=== PATIENT | male | born 1955 | race Caucasian/White ===

== ENCOUNTER 2019-12-10 12:35 | Outpatient (RCR) | payer MEDICARE, OTHER, SELFPAY ==
--- NOTE | 2019-12-10 13:37 | PTOPEVAL ---
Thank you for referring this patient to [facility]. Please review, sign, date and return this plan of care [facility]. I agree with and certify that the following plan of care is medically necessary. Referring Physician Date Admitting Provider: Attending Provider: PHYSICIAN NOT ON STAFF Referring Provider: *PT Outpatient Evaluation Start: 12/10/19 12:54 Freq: Status: Active Protocol: Document 12/10/19 13:00 GILDARDO (Rec: 12/10/19 13:35 [facility] [id number]) Therapy Assessment Status Assessment Status Assessment Status Evaluation Outpatient Past Medical History Past Medical History Reason Unable to Obtain see patient intake form Evaluation Information Problem Diagnosis bilateral shoulder pain Onset 12/06/19 Subjective Information patient reports he is having Query Text:As Reported By Patient/ the majority of pain in the R Family shoulder and neck. he reports the pain is related to previous injuries of the R shoulder. he reports he has had imaging of the R shoulder taken recently. he reports he no longer has a rotator cuff of the R shoulder. he reports he recntly had an injection to the R shoulder. he reports he has about 20% mobility and use of the R shoulder. Prior Level of Function Comments Additional Prior Level of Function patient reports he has had Comments shoulder pain and issues for years. however, he reports he has had increased pain in the R shoulder since October. he reports he has never had surgery on the R shoulder. he reports he is not a candidate for surgery. Pain Assessment Timing of Pain Assessment Timing of Pain Assessment Assessment Pain Scale Pain Scale Used Numeric (1 - 10) Self Report Pain Assessment Right Neck Reported Pain Level 8 Pain Description Dull,Sharp Pain Radiation Neck Current Pain Intensity 8 Lowest Pain Intensity 4 Greatest Pain Intensity 10 Pain Aggravating Factors Changing Position,Lifting Pain Score Pain Score 8: Self Report Upper Extremity Range of Motion Scapular/ Shoulder Range of Motion Right Shoulder Flexion - Active 120 Shoulder Flexion - Passive 140 Shoul
--- NOTE | 2019-12-17 13:16 | PCPTNOTE ---
12/17 pt called and cancelled due to being ill JF
--- NOTE | 2019-12-26 15:53 | PCPTNOTE ---
patient called and cancelled appt today. ARIANE
== END 2019-12-28 08:53 | disposition home or self-care (01) ==
LOC: CHSPT 12:35
DX: M13.812 Other specified arthritis, left shoulder (principal); M13.811 Other specified arthritis, right shoulder
CPT/HCPCS: 97014; 97110; 97140; 97162; G0283

== ENCOUNTER 2020-01-05 17:22 | Emergency (ER) | payer MEDICARE, MEDICAID, SELFPAY ==
--- NOTE | ~2020-01-05 | XR_ITS ---
EXAMINATION: XR chest 2V EXAM DATE: 01/05/2020 17:56 INDICATION: Shortness of breath, cough. TECHNIQUE: Frontal and lateral projections of the chest obtained and reviewed. Comparison is made to prior examination from 03/30/2019. FINDINGS: Linear bibasilar atelectasis. The lungs are otherwise clear. There are no pleural effusio ns. The cardiomediastinal silhouette is within normal limits. There is no pneumothorax suspected. The bones and soft tissues are unremarkable. IMPRESSION: Linear right basilar opacities likely atelectasis. Reviewed, dictated and finalized at location A. RNATIONAL STUDENT COUNSELOR
[2020-01-05 17:25] VITALS: BP 151/80; PULSE 96; RESP 20; TEMP 37.2; O2SAT 95
--- NOTE | 2020-01-05 17:41 | ECG_ITS ---
Measurements Intervals [place] Rate: 77 P: 34 IN: 151 QRS: 34 QRSD: 142 T: 37 QT: 368 QTc: 418 Interpretive Statements SINUS RHYTHM RIGHT BUNDLE BRANCH BLOCK BASELINE ARTIFACT- II, III, AVR, AVF ABNORMAL ECG Electronically Signed On 01-06-2020 8:32:55 CDT by Bart Koenig D.O.
--- NOTE | 2020-01-05 18:05 | ED.SOB ---
HPI - SOB/Dyspnea General Chief Complaint: Shortness of Breath/Dyspnea Stated Complaint: shortness of breath Time Seen by Provider: 01/05/20 17:40 Source: patient Mode of arrival: wheelchair Limitations: clinical condition History of Present Illness HPI Narrative: marie is a 64-year-old male patient. He presents by wheelchair to the emergency room. His main complaint is shortness of breath. This has been going on for 2 days. Marie has a history of COPD / emphysema. He denies any chest pain. There is no history of fever. No history of abdominal pain. No vomiting or diarrhea. no urinary symptoms. 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 He has history of anxiety. He has had a cholecystectomy in the past. He has had hip surgery in the past. Marie is a former smoker. Marie denies any cough. Marie use oxygen at 2 L at home. He has a nebulizer machine and he did use it with [employer]. no history of diaphoresis. MD elicited complaint: shortness of breath Pertinent past history: COPD Timing: intermittent Severity: moderate Exacerbating factors: lying flat and exertion Relieving factors: oxygen Known history of: COPD Associated symptoms: other ( Please see HPI narrative for details) Related Data Home oxygen amount: 2 liters Home Medications Medication Instructions Recorded Confirmed albuterol sulfate 1 - 2 puff INHALATION Q4-5H 01/05/20 01/05/20 albuterol sulfate [Ventolin HFA] 1 inh INHALATION Q4-5H 01/05/20 01/05/20 atorvastatin 40 mg PO DAILY 01/05/20 01/05/20 budesonide-formoterol [Symbicort] 1 - 2 inh INHALATION DAILY 01/05/20 01/05/20 buspirone 7.5 mg PO DAILY 01/05/20 01/05/20 cyclobenzaprine 10 mg PO TID PRN 01/05/20 01/05/20 desloratadine 5 mg PO DAILY 01/05/20 01/05/20 finasteride 5 mg PO DAILY 01/05/20 01/05/20 fluticasone propionate 1 - 2 spray INTRANASAL DAILY 01/05/20 01/05/20 hydrocodone-acetaminophen 1 tablet PO TID PRN 01/05/20 01/05/20 rabeprazole 20 mg PO DAILY 01/05/20 01/05/20 tamsulosin 0.4 mg PO DAILY 01/05/20 01/05/20 theophylline [Ras-24] 400 mg PO DAILY 01/05/20 01/05/20 torsemide 20 mg PO DAILY 01/05/20 01/05/20 Allergies Allergy/AdvReac Type Severity Reaction Status Date / Time vancomycin Allergy Severe Verified 02/28/12 16:53 levofloxacin Allergy Intermediate HIVES Verified 03/11/17 08:18 lisinopril Allergy Intermediate swelling Verified 02/10/15 12:54 Penicillins Allergy Intermediate Verified 09/28/11 15:12 Quinolones Allergy Unknown BLISTERS,HI Verified 03/11/17 08:18 VES Review of Systems Review of Systems: All systems reviewed & are unremarkable except as noted in HPI and below Constitutional: Constitutional: Reports as per HPI, Reports no additional constitutional complaints, Denies chills and Denies fever(s) Eyes: Eyes: Reports as per HPI, Reports no additional eye complaints and Denies change in vision ENT: Reports system reviewed and no additional complaints, except as documented, Denies dysphagia, Denies vertigo, Denies dizziness and Denies epistaxis Cardiovascular: Cardiovascular: Reports as per HPI, Reports no additional cardiovascular complaints, Denies chest pain and Denies radiating jaw, neck or arm pain Respiratory: Respiratory: Reports no additional respiratory complaints and Reports dyspnea Gastrointestinal: Gastrointestinal: Reports as per HPI, Reports no additional gastrointestinal complaints, Denies abdominal pain, Denies diarrhea, Denies nausea and Denies vomiting Genitourinary: Genitourinary: Reports no additional male genitourinary complaints, Denies hematuria and Denies dysuria Comments: Has history of BPH Musculoskeletal: Musculoskeletal: Reports no additional musculoskeletal complaints and Denies back pain Integumentary/Breasts: Skin/Breast: Reports system reviewed and no additional complaints, except as docu, Denies erythema and Denies rash Neurologic: Reports system reviewed and no additional complaints, except as documented, Denies vertigo, D
[2020-01-05 18:17] LABS: Basophils Absolute Auto 0.02 K/mm3 (0.00-0.10); Basophils Percent Auto 0.3 % (0.0-1.0); Eosinophils Absolute Auto 0.12 K/mm3 (0.02-0.50); Eosinophils Percent Auto 1.7 % (1.0-6.0); Hematocrit 40.7 % (37.0-46.0); Hemoglobin 12.9 g/dL (12.4-15.3); Immature Granulocyte Absolute 0.06 K/mm3 (0.00-0.00); Immature Granulocyte Percent A 0.9 % (0.0-0.0); Lymphocytes Absolute Auto 1.15 K/mm3 (1.10-4.50); Lymphocytes Percent Auto 16.7 % (18.0-42.0); Mean Corpuscular HGB Conc 31.7 g/dL (32.0-36.0); Mean Corpuscular Hemoglobin 29.5 pg (27.0-31.0); Mean Corpuscular Volume 93.1 fL (78.0-102.0); Mean Platelet Volume 9.4 fl (8.7-11.0); Monocytes Absolute Auto 0.64 K/mm3 (0.10-0.90); Monocytes Percent Auto 9.3 % (2.0-11.0); Neutrophils Absolute Auto 4.9 K/mm3 (1.7-7.2); Neutrophils Percent Auto 71.1 % (50.0-70.0); Platelet Count Result 178 K/mm3 (150-420); Red Blood Count 4.37 M/mm3 (4.70-6.10); Red Cell Distribution Width 14.4 % (11.6-14.4); White Blood Count 6.9 K/mm3 (4.8-10.8)
[2020-01-05 18:32] LABS: Influenza Control Valid (Valid)
[2020-01-05 18:34] LABS: Lactic Acid 1.6 mmol/L (0.4-2.0)
[2020-01-05 18:44] LABS: Alanine Aminotransferase 44 U/L (16-63); Albumin Level 3.3 g/dL (3.4-5.0); Alkaline Phosphatase 74 U/L (46-116); Anion Gap 7.9 mmol/L (7-16); Aspartate Amino Transferase 28 U/L (15-37); BNP 68.6 pg/mL (0-100); Bilirubin,Total 0.3 mg/dL (0.00-1.00); Blood Urea Nitrogen 7 mg/dL (7-18); Calcium 9.3 mg/dL (8.5-10.1); Carbon Dioxide 31 mmol/L (21-32); Chloride 106 mmol/L (98-108); Estimated Glomerular Filt Rate > 60; Glucose 113 mg/dL (70-99); Osmolality Calculated 291 mOsm/kg (285-295); Potassium 3.9 mmol/L (3.5-5.1); Sodium 141 mmol/L (136-145); Total Protein 7.1 g/dL (6.4-8.2)
[2020-01-05 18:45] LABS: Creatine Kinase 101 U/L (39-308); Troponin I < 0.02 ng/mL (0.00-0.056)
[2020-01-05] MEDS: IPRATROPIUM 0.5 MG/ALBUTEROL SULFATE 2.5 MG AMPUL.NEB 3 ML (18:50)
[2020-01-05 18:53] VITALS: PULSE 79; RESP 20
[2020-01-05] MEDS: methylPREDNISolone SOD SUCC 125 MG VIAL (19:37)
[2020-01-05] MEDS: AZITHROMYCIN 250 MG TABLET 500 MG (19:37)
[2020-01-05 19:38] VITALS: PULSE 96; O2SAT 98
[2020-01-05] MEDS: POTASSIUM CHLORIDE 20 MEQ TABLET 40 MEQ (19:38)
== END 2020-01-05 19:40 | disposition home or self-care (01) ==
PROVIDERS: Emergency Provider Surgery; PCP Family Medicine
DX: J44.9 Chronic obstructive pulmonary disease, unspecified (principal); E78.00 Pure hypercholesterolemia, unspecified; I10 Essential (primary) hypertension; Z87.891 Personal history of nicotine dependence
CPT/HCPCS: 36415; 71046; 80053; 82550; 82553; 83605; 83880; 84484; 85025; 87040; 87081; 87804; 87880; 93005; 94640; 96374; 99283; 99284; A9270; J2930

== ENCOUNTER 2020-04-10 17:46 | Emergency (ER) | payer MEDICARE, MEDICAID, SELFPAY ==
--- NOTE | ~2020-04-10 | XR_ITS ---
EXAMINATION: XR hip LT 2V w AP pelvis DATE: 04/10/2020 18:52 INDICATION: Left hip pain. TECHNIQUE: An anteroposterior view of the pelvis and 2 views of left hip were obtained. COMPARISON: Left femur radiographs 07/15/2015 FINDINGS: Bone alignment is normal. No fracture. There is mild osteoarthritis of the hips. There is i nternal fixation of proximal left femur with plate and screws and femoral head/neck screw. IMPRESSION: 1. Mild osteoarthritis of the hips. Reviewed, dictated and finalized at location A.
[2020-04-10 17:55] VITALS: BP 141/68; PULSE 104; RESP 20; TEMP 36.6; O2SAT 94
[2020-04-10] MEDS: KETOROLAC (*BKC) 60 MG/2 ML VIAL IM (18:16)
--- NOTE | 2020-04-10 19:18 | ED.LOWEXIN ---
HPI - Extremity Injury (Lower) General Chief Complaint: Extremity Injury, Lower Stated Complaint: stress fracture hip/thigh Source: patient Mode of arrival: ambulatory Limitations: no limitations History of Present Illness HPI Narrative: this is a 64-year-old male with a history of left hip repair status post or if with rods and pins in his left hip that presents with some overuse of his some left hip area after cleaning carpeting at home, there is no known injury no falls. The patient states his pain is about an 8/10 had taken some Vicodin at home, there is no known injury the patient has a history of osteoarthritis in his left hip with a history of COPD. MD complaint: hip injury Onset (ago): day(s) Related Data Home Medications Medication Instructions Recorded Confirmed albuterol sulfate 1 - 2 puff INHALATION Q4-5H 01/05/20 04/10/20 albuterol sulfate [Ventolin HFA] 1 inh INHALATION Q4-5H 01/05/20 04/10/20 atorvastatin 40 mg PO DAILY 01/05/20 04/10/20 budesonide-formoterol [Symbicort] 1 - 2 inh INHALATION DAILY 01/05/20 04/10/20 buspirone 7.5 mg PO DAILY 01/05/20 04/10/20 cyclobenzaprine 10 mg PO TID PRN 01/05/20 04/10/20 desloratadine 5 mg PO DAILY 01/05/20 04/10/20 finasteride 5 mg PO DAILY 01/05/20 04/10/20 fluticasone propionate 1 - 2 spray INTRANASAL DAILY 01/05/20 04/10/20 hydrocodone-acetaminophen 1 tablet PO TID PRN 01/05/20 04/10/20 rabeprazole 20 mg PO DAILY 01/05/20 04/10/20 tamsulosin 0.4 mg PO DAILY 01/05/20 04/10/20 theophylline [Ras-24] 400 mg PO DAILY 01/05/20 04/10/20 torsemide 20 mg PO DAILY 01/05/20 04/10/20 doxycycline hyclate 100 mg PO DAILY 04/10/20 04/10/20 prednisone 5 mg PO DAILY 04/10/20 04/10/20 Allergies Allergy/AdvReac Type Severity Reaction Status Date / Time vancomycin Allergy Severe Verified 02/28/12 16:53 levofloxacin Allergy Intermediate HIVES Verified 03/11/17 08:18 lisinopril Allergy Intermediate swelling Verified 02/10/15 12:54 Penicillins Allergy Intermediate Verified 09/28/11 15:12 Quinolones Allergy Unknown BLISTERS,HI Verified 03/11/17 08:18 VES Review of Systems Review of Systems: All systems reviewed & are unremarkable except as noted in HPI and below PMFSH Past Medical History Medical History COPD (chronic obstructive pulmonary disease) Exogenous obesity Hypercholesterolemia Hypertension Surgical History Surgical History History of hip surgery Hx of cholecystectomy Family History Family History Other Cerebrovascular accident Diabetes mellitus Family history of alcoholism Family history of arthritis Hypertension Social History Social History Smoking status: Former smoker Alcohol intake: current Exam Const: General: no acute distress Orientation/consciousness: patient oriented x3 HENMT: Head: normal to inspection Eyes: Conjunctivae: conjunctivae normal Pupils: Equal, round and reactive pupils present EOM: EOMs intact bilaterally Neck: Neck: normal visual inspection, no lymphadenopathy and no meningeal signs Chest: Chest palpation & inspection: normal inspection of the chest Resp: Effort & Inspection: normal respiratory effort Cardio: Rate: regular rate Rhythm: regular rhythm GI: GI Palp: Yes Soft to palpation : Testes: Testes normal Urinary Catheter: Urinary Catheter: patent and draining Back/Spine/Pelvis: Back: no CVA tenderness Skin: General skin exam: normal color Rashes: no rashes Neuro: General: patient oriented x3 and moves all extremities Extrem: General: normal to inspection Psych: Appearance: grossly normal Mental Status: mental status grossly normal Course Course Emergency Course: Patient had x-ray performed and gave patient results that there is no acute fractures no loosening o
[2020-04-10 19:21] VITALS: RESP 15; O2SAT 95
== END 2020-04-10 19:26 | disposition home or self-care (01) ==
PROVIDERS: Emergency Provider Emergency Medicine
DX: S76.012A Strain of muscle, fascia and tendon of left hip, initial encounter (principal)
CPT/HCPCS: 73502; 96372; 99283; J1885

== ENCOUNTER 2020-04-21 13:53 | Outpatient (RCR) | payer MEDICARE, MEDICAID, SELFPAY ==
--- NOTE | 2020-04-23 15:20 | PTOPEVAL ---
Thank you for referring Nils Torres to [facility]. Please review, sign, date and return this plan of care [id number]. I agree with and certify that the following plan of care is medically necessary. Referring Physician Date Admitting Provider: Attending Provider: PHYSICIAN NOT ON STAFF Referring Provider: *PT Outpatient Evaluation Start: 04/21/20 14:06 Freq: Status: Active Protocol: Document 04/21/20 14:13 HECTOR (Rec: 04/21/20 14:41 HECTOR [id number]) Therapy Assessment Status Assessment Status Assessment Status Evaluation Outpatient Past Medical History Respiratory History Hx Asthma Yes Hx Bronchitis Yes Hx Chronic Obstructive Pulmonary Disease Yes (COPD) Hx Emphysema Yes Hx Sleep Apnea Yes Gastrointestinal History Hx Cholecystectomy Yes Musculoskeletal History Hx Back Pain Yes Hx Other Musculoskeletal Disorders Yes: HIP Psychosocial History Hx Anxiety Yes Hx Depression Yes Other History Hx MRSA Yes Evaluation Information Problem Diagnosis left hip trochanteric bursitis Onset 04/07/20 Additional Evaluation Detail LEFS=5 Subjective Information Pt. reports that he develop Query Text:As Reported By Patient/ groin and left thigh pain Family about 2 weeks ago. He went to the doctor and was informed that he has hip bursitis. He reports that he can only walk short distances and has required a wc on several occassions. He reports that pain is in the left groin and down the left thigh, and also describes pain around the bursa. He reports that he needs a walker, but was told he is not elidgable under his insurance to recieve one. He reports that his goal is to decrease his pain. Prior Level of Function Activity Level (Last 3 Months) Occupation disabled Hand Dominance Right Activity of Daily Living Ability Needs Some Help Indoor/Home Mobility Independent Community Mobility Needs Some Help Stairs Ability Unknown Functional Cognition (Planning, Shopping Independent , Taking Medications) Cooking No Cleaning
--- NOTE | 2020-04-28 16:12 | PCPTNOTE ---
04/28/20-pt cancelled apt today stating he had a bad weekend and just can't make it. -HM
== END 2020-05-22 10:36 | disposition home or self-care (01) ==
LOC: CHSPT 13:53
DX: M70.62 Trochanteric bursitis, left hip (principal)
CPT/HCPCS: 97014; 97110; 97162; G0283

== ENCOUNTER 2020-05-06 17:16 | Emergency (ER) | payer MEDICARE, MEDICAID, SELFPAY ==
--- NOTE | ~2020-05-06 | XR_ITS ---
XR hip LT 2V w AP pelvis 05/06/2020 18:27 Indication: Chronic left hip pain. Worsening after twisting injury. Procedure: 3 views left hip Comparison: 04/10/2020 Findings: Stable appearance to left femoral intramedullary sara transfixing the femoral neck. Distal i nterlocking screws are stable. No acute fracture is identified, although examination is limited by pa tient body habitus. There is mild osteoarthritis of the hips. No acute fracture is seen. Impression: 1: No acute fracture. Limited study. 2: Mild osteoarthritis of the hips. Reviewed, dictated and finalized at location A. Impression: 1: No acute fracture. Limited study. 2: Mild osteoarthritis of the hips.
--- NOTE | ~2020-05-06 | XR_ITS ---
XR knee LT 3V 05/06/2020 18:26 Indication: Left knee pain Procedure: 4 views left knee Comparison: 07/21/2018 Findings: There is a chronic healed distal femoral metaphyseal fracture. There is a chronic healed la teral tibial plateau fracture. There is moderate tricompartment osteoarthritis. No acute fracture or traumatic malalignment. No significant joint effusion. No radiopaque foreign bodies. Impression: 1: No acute fracture. 2: Healed distal femoral and lateral tibial plateau fractures. 3: Moderate osteoarthritis. Reviewed, dictated and finalized at location A. Impression: 1: No acute fracture. 2: Healed distal femoral and lateral tibial plateau fractures. 3: Moderate osteoarthritis.
[2020-05-06 17:20] VITALS: BP 148/71; PULSE 93; RESP 18; TEMP 36.7; O2SAT 95
--- NOTE | 2020-05-06 17:21 | ED.LOWEXIN ---
HPI - Extremity Injury (Lower) General Chief Complaint: Fall Stated Complaint: knee pain Time Seen by Provider: 05/06/20 17:33 Source: patient Mode of arrival: ambulatory Limitations: no limitations History of Present Illness HPI Narrative: 65-year-old man with a history of left KARMA, left femur ORIF, and left knee pain comes in today complaining of acute pain in his left knee. He states he was at the grocery store, and he twisted his knee and has had severe pain since. He denies any numbness or tingling. He has difficulty bearing weight. Pain is mostly in the inferior and lateral portion of his knee. He also has pain in his left anterior hip. MD complaint: knee injury Onset (ago): hour(s) (3) Injury: Left: hip and knee Place: other ( [employer]) Severity: moderate Relieving factors: rest Exacerbating factors: weight bearing, movement and palpation Context: walking Associated symptoms: able to partially bear weight Treatments prior to arrival: other ( hydrocodone and Tylenol) Related Data Home Medications Medication Instructions Recorded Confirmed albuterol sulfate 1 - 2 puff INHALATION Q4-5H 01/05/20 05/06/20 atorvastatin 40 mg PO DAILY 01/05/20 05/06/20 budesonide-formoterol [Symbicort] 1 - 2 inh INHALATION DAILY 01/05/20 05/06/20 buspirone 7.5 mg PO DAILY 01/05/20 05/06/20 cyclobenzaprine 10 mg PO TID PRN 01/05/20 05/06/20 desloratadine 5 mg PO DAILY 01/05/20 05/06/20 finasteride 5 mg PO DAILY 01/05/20 05/06/20 fluticasone propionate 1 - 2 spray INTRANASAL DAILY 01/05/20 05/06/20 hydrocodone-acetaminophen 1 tablet PO TID PRN 01/05/20 05/06/20 rabeprazole 20 mg PO DAILY 01/05/20 05/06/20 tamsulosin 0.4 mg PO DAILY 01/05/20 05/06/20 theophylline [Ras-24] 400 mg PO DAILY 01/05/20 05/06/20 torsemide 20 mg PO DAILY 01/05/20 05/06/20 doxycycline hyclate 100 mg PO DAILY 04/10/20 05/06/20 Allergies Allergy/AdvReac Type Severity Reaction Status Date / Time vancomycin Allergy Severe Hives Verified 05/06/20 17:37 levofloxacin Allergy Intermediate HIVES Verified 05/06/20 17:37 lisinopril Allergy Intermediate swelling Verified 05/06/20 17:37 Penicillins Allergy Intermediate Hives Verified 05/06/20 17:37 Quinolones Allergy Unknown BLISTERS,HI Verified 05/06/20 17:37 VES Review of Systems Constitutional: Constitutional: Denies chills and Denies fever(s) ENT: Denies dysphagia, Denies nasal congestion and Denies sore throat Cardiovascular: Cardiovascular: Denies chest pain and Denies radiating jaw, neck or arm pain Respiratory: Respiratory: Denies cough, Reports dyspnea ( chronic) and Denies wheezing Gastrointestinal: Gastrointestinal: Denies abdominal pain, Denies nausea and Denies vomiting Musculoskeletal: Musculoskeletal: Denies back pain, Reports arthralgias and Reports joint swelling Integumentary/Breasts: Skin/Breast: Denies pruritus, Denies rash and Denies skin ulcer Neurologic: Denies vertigo, Denies dizziness and Denies syncope Psychiatric: Psychiatric: Denies anxiety and Denies depression Endocrine: Endocrine: Denies polydipsia and Denies polyuria Hematologic/Lymphatic: Hematologic/Lymphatic: Denies easy bleeding and Denies easy bruising Allergic/Immunologic: Allergic/Immunologic: Denies lip swelling and Denies wheezing PMFSH Past Medical History Medical History COPD (chronic obstructive pulmonary disease) Exogenous obesity Hypercholesterolemia Hypertension Surgical History Surgical History History of hip surgery Hx of cholecystectomy Family History Family History Other Cerebrovascular accident Diabetes mellitus Family history of alcoholism Family history of arthritis Hypertension Social History Social History Smoking status: Former smoker Alcohol intake: current
[2020-05-06 18:10] VITALS: RESP 18; O2SAT 95
[2020-05-06 18:44] VITALS: RESP 15; O2SAT 99
== END 2020-05-06 18:50 | disposition home or self-care (01) ==
PROVIDERS: Emergency Provider Emergency Medicine
DX: S83.92XA Sprain of unspecified site of left knee, initial encounter (principal); X58.XXXA Exposure to other specified factors, initial encounter
CPT/HCPCS: 73502; 73562; 99283; 99284

== ENCOUNTER 2020-05-28 11:34 | Outpatient (CLI) | payer MEDICARE, MEDICAID, SELFPAY ==
--- NOTE | ~2020-05-28 | XR_ITS ---
EXAMINATION: XR chest 2V EXAM DATE: 05/28/2020 12:06 INDICATION: Cough. TECHNIQUE: Frontal and lateral projections of the chest obtained and reviewed. Comparison is made to prior examination from 01/05/2020. FINDINGS: Linear bibasilar subsegmental atelectasis again noted. The lungs are otherwise clear. The re are no pleural effusions. The cardiomediastinal silhouette is within normal limits. There is no pneumothorax suspected. The bones and soft tissues are unremarkable. IMPRESSION: Linear bibasilar subsegmental atelectasis. Reviewed, dictated and finalized at location A.
[2020-05-28 11:54] LABS: Basophils Absolute Auto 0.04 K/mm3 (0.00-0.10); Basophils Percent Auto 0.6 % (0.0-1.0); Eosinophils Absolute Auto 0.28 K/mm3 (0.02-0.50); Eosinophils Percent Auto 4.4 % (1.0-6.0); Hematocrit 42.4 % (37.0-46.0); Hemoglobin 13.5 g/dL (12.4-15.3); Immature Granulocyte Absolute 0.04 K/mm3 (0.00-0.00); Immature Granulocyte Percent A 0.6 % (0.0-0.0); Lymphocytes Absolute Auto 0.96 K/mm3 (1.10-4.50); Lymphocytes Percent Auto 15.2 % (18.0-42.0); Mean Corpuscular HGB Conc 31.8 g/dL (32.0-36.0); Mean Corpuscular Hemoglobin 29.4 pg (27.0-31.0); Mean Corpuscular Volume 92.4 fL (78.0-102.0); Mean Platelet Volume 9.2 fl (8.7-11.0); Monocytes Absolute Auto 0.55 K/mm3 (0.10-0.90); Monocytes Percent Auto 8.7 % (2.0-11.0); Neutrophils Absolute Auto 4.5 K/mm3 (1.7-7.2); Neutrophils Percent Auto 70.5 % (50.0-70.0); Platelet Count Result 213 K/mm3 (150-420); Red Blood Count 4.59 M/mm3 (4.70-6.10); Red Cell Distribution Width 15.4 % (11.6-14.4); White Blood Count 6.3 K/mm3 (4.8-10.8)
[2020-05-28 12:35] LABS: Alanine Aminotransferase 26 U/L (16-63); Albumin Level 3.5 g/dL (3.4-5.0); Alkaline Phosphatase 80 U/L (46-116); Anion Gap 10.5 mmol/L (7-16); Aspartate Amino Transferase 32 U/L (15-37); Bilirubin,Total 0.6 mg/dL (0.00-1.00); Blood Urea Nitrogen 9 mg/dL (7-18); Calcium 9.1 mg/dL (8.5-10.1); Carbon Dioxide 33 mmol/L (21-32); Chloride 102 mmol/L (98-108); Estimated Glomerular Filt Rate 59; Glucose 107 mg/dL (70-99); Osmolality Calculated 292 mOsm/kg (285-295); Potassium 3.5 mmol/L (3.5-5.1); Sodium 142 mmol/L (136-145); Total Protein 7.3 g/dL (6.4-8.2)
== END 2020-05-28 11:35 | disposition home or self-care (01) ==
LOC: CHSLAB 11:40
PROVIDERS: PCP Nurse Practitioner Family; Visit Provider Nurse Practitioner Family
DX: R05 Cough (principal)
CPT/HCPCS: 36415; 71046; 80053; 85025

== ENCOUNTER 2020-07-18 14:59 | Emergency (ER) | payer MEDICARE, MEDICAID, SELFPAY ==
--- NOTE | ~2020-07-18 | CT_ITS ---
EXAMINATION: CTA chest PE protocol DATE: 07/18/2020 17:27 INDICATION: Shortness of breath. TECHNIQUE: Computed tomography angiography (CTA) of the chest was performed with 200 mL Omnipaque-350 intravenous contrast timed to evaluate the pulmonary arteries. Coronal maximum intensity projection 3D-reconstructions were created by the technologist. Automated exposure control and iterative reconst ruction technique were employed. The dose-length product was 2228 mGy-cm. COMPARISON: Chest CT 02/19/2019 FINDINGS: There is chronic elevation of left hemidiaphragm. There is moderate emphysema. There is mil d atelectasis bilaterally. No pleural effusion or pneumothorax. The heart size is normal. No pericard ial effusion. There is no pulmonary embolus. There is moderate thoracic spondylosis. IMPRESSION: 1. No pulmonary embolus. 2. Moderate emphysema. Reviewed, dictated and finalized at location A.
--- NOTE | 2020-07-18 15:09 | ECG_ITS ---
Measurements Intervals [place] Rate: 92 P: 16 MN: 120 QRS: 38 QRSD: 133 T: 43 QT: 379 QTc: 470 Interpretive Statements SINUS RHYTHM RIGHT BUNDLE BRANCH BLOCK ABNORMAL ECG Electronically Signed On 07-18-2020 15:52:19 CDT by Bart Koenig D.O.
[2020-07-18 15:15] VITALS: BP 144/66; PULSE 95; RESP 22; TEMP 36.6; O2SAT 95
[2020-07-18] MEDS: ASPIRIN 81 MG CHEWABLE TABLET 324 MG PO (15:21)
[2020-07-18 15:29] LABS: Basophils Absolute Auto 0.03 K/mm3 (0.00-0.10); Basophils Percent Auto 0.4 % (0.0-1.0); Eosinophils Absolute Auto 0.25 K/mm3 (0.02-0.50); Eosinophils Percent Auto 3.2 % (1.0-6.0); Hematocrit 42.7 % (37.0-46.0); Hemoglobin 13.5 g/dL (12.4-15.3); Immature Granulocyte Absolute 0.06 K/mm3 (0.00-0.00); Immature Granulocyte Percent A 0.8 % (0.0-0.0); Lymphocytes Percent Auto 14.1 % (18.0-42.0); Mean Corpuscular HGB Conc 31.6 g/dL (32.0-36.0); Mean Corpuscular Hemoglobin 30.1 pg (27.0-31.0); Mean Corpuscular Volume 95.3 fL (78.0-102.0); Mean Platelet Volume 9.2 fl (8.7-11.0); Monocytes Absolute Auto 0.61 K/mm3 (0.10-0.90); Monocytes Percent Auto 7.8 % (2.0-11.0); Neutrophils Absolute Auto 5.8 K/mm3 (1.7-7.2); Neutrophils Percent Auto 73.7 % (50.0-70.0); Platelet Count Result 228 K/mm3 (150-420); Red Blood Count 4.48 M/mm3 (4.70-6.10); Red Cell Distribution Width 15.2 % (11.6-14.4); White Blood Count 7.8 K/mm3 (4.8-10.8)
[2020-07-18 15:44] LABS: Partial Thromboplastin Time 27.7 SEC (22.3-31.6); Prothrombin Time 10.7 Seconds (9.64-11.0)
[2020-07-18 15:49] LABS: Alanine Aminotransferase 19 U/L (16-63); Albumin Level 3.4 g/dL (3.4-5.0); Alkaline Phosphatase 71 U/L (46-116); Anion Gap 6 mmol/L (8-16); Aspartate Amino Transferase 21 U/L (15-37); BNP 33 pg/mL (0-100); Bilirubin,Total 0.6 mg/dL (0.00-1.00); Blood Urea Nitrogen 11 mg/dL (7-18); Calcium 8.9 mg/dL (8.5-10.1); Carbon Dioxide 31 mmol/L (21-32); Chloride 103 mmol/L (98-108); D Dimer 1.61 mg/L (0.19-0.50); Estimated CRCL calculation 67 ml/min; Estimated Glomerular Filt Rate 58; Glucose 133 mg/dL (70-99); Osmolality Calculated 291 mOsm/kg (285-295); Potassium 3.1 mmol/L (3.5-5.1); Sodium 140 mmol/L (136-145); Total Protein 7.9 g/dL (6.4-8.2)
[2020-07-18 16:04] LABS: Troponin I < 0.02 ng/mL (0.00-0.056)
--- NOTE | 2020-07-18 16:44 | ED.SOB ---
HPI - SOB/Dyspnea General Chief Complaint: Shortness of Breath/Dyspnea Stated Complaint: SOB Related Data Home Medications Medication Instructions Recorded Confirmed albuterol sulfate 1 - 2 puff INHALATION Q4-5H 01/05/20 07/18/20 atorvastatin 40 mg PO DAILY 01/05/20 07/18/20 budesonide-formoterol [Symbicort] 1 - 2 inh INHALATION DAILY 01/05/20 07/18/20 buspirone 7.5 mg PO DAILY 01/05/20 07/18/20 cyclobenzaprine 10 mg PO TID PRN 01/05/20 07/18/20 desloratadine 5 mg PO DAILY 01/05/20 07/18/20 finasteride 5 mg PO DAILY 01/05/20 07/18/20 fluticasone propionate 1 - 2 spray INTRANASAL DAILY 01/05/20 07/18/20 hydrocodone-acetaminophen 1 tablet PO TID PRN 01/05/20 07/18/20 rabeprazole 20 mg PO DAILY 01/05/20 07/18/20 tamsulosin 0.4 mg PO DAILY 01/05/20 07/18/20 theophylline [Ras-24] 400 mg PO DAILY 01/05/20 07/18/20 torsemide 20 mg PO DAILY 01/05/20 07/18/20 doxycycline hyclate 100 mg PO DAILY 04/10/20 07/18/20 meloxicam 15 mg PO DAILY 07/18/20 07/18/20 Allergies Allergy/AdvReac Type Severity Reaction Status Date / Time vancomycin Allergy Severe Hives Verified 05/06/20 17:37 levofloxacin Allergy Intermediate HIVES Verified 05/06/20 17:37 lisinopril Allergy Intermediate swelling Verified 05/06/20 17:37 Penicillins Allergy Intermediate Hives Verified 05/06/20 17:37 Quinolones Allergy Unknown BLISTERS,HI Verified 05/06/20 17:37 VES Review of Systems Review of Systems: All systems reviewed & are unremarkable except as noted in HPI and below Constitutional: Constitutional: Reports as per HPI, Denies chills, Denies fatigue, Denies fever(s) and Denies weakness Eyes: Eyes: Reports as per HPI and Reports no additional eye complaints ENT: Reports system reviewed and no additional complaints, except as documented Cardiovascular: Cardiovascular: Reports as per HPI, Reports no additional cardiovascular complaints, Denies chest pain, Denies rapid heart rate, Denies radiating jaw, neck or arm pain and Denies slow heart rate Respiratory: Respiratory: Reports as per HPI, Denies chest congestion, Denies cough, Reports dyspnea and Denies wheezing Gastrointestinal: Gastrointestinal: Reports as per HPI and Reports no additional gastrointestinal complaints Genitourinary: Genitourinary: Reports no additional male genitourinary complaints Musculoskeletal: Musculoskeletal: Reports no additional musculoskeletal complaints Integumentary/Breasts: Skin/Breast: Reports system reviewed and no additional complaints, except as docu Neurologic: Reports system reviewed and no additional complaints, except as documented Psychiatric: Psychiatric: Reports no additional psychiatric complaints Endocrine: Endocrine: Reports no additional endocrine complaints Hematologic/Lymphatic: Hematologic/Lymphatic: Reports no additional hematologic/lymphatic complaints [facility] Past Medical History Medical History COPD (chronic obstructive pulmonary disease) Exogenous obesity Hypercholesterolemia Hypertension Surgical History Surgical History History of hip surgery Hx of cholecystectomy Family History Family History Other Cerebrovascular accident Diabetes mellitus Family history of alcoholism Family history of arthritis Hypertension Social History Social History Smoking status: Former smoker Alcohol intake: current Exam Const: General: healthy appearing, no acute distress and alert; No confusion Orientation/consciousness: patient oriented x3 Limitations: No altered mental status HENMT: Head: normal to inspection Chest: Chest palpation & inspection: normal inspection of the chest Resp: Effort & Inspection: normal respiratory effort, not labored, no retractions, not tachypneic and no use of accessory muscles Auscul
[2020-07-18 17:07] VITALS: BP 146/54; PULSE 80; RESP 20; O2SAT 98
[2020-07-18 17:37] VITALS: RESP 22; O2SAT 97
[2020-07-18] MEDS: POTASSIUM CHLORIDE 20 MEQ TABLET 40 MEQ PO (17:46)
[2020-07-18] MEDS: predniSONE 20 MG TABLET 100 MG PO (17:48)
[2020-07-18] MEDS: ENOXAPARIN 1 MG/KG 120 MG SUB-Q (17:50)
== END 2020-07-18 18:05 | disposition home or self-care (01) ==
PROVIDERS: Emergency Provider Family Medicine; PCP Nurse Practitioner Family
DX: J44.1 Chronic obstructive pulmonary disease with (acute) exacerbation (principal); E78.00 Pure hypercholesterolemia, unspecified; I10 Essential (primary) hypertension; Z87.891 Personal history of nicotine dependence
CPT/HCPCS: 36415; 71275; 80053; 83880; 84484; 85025; 85380; 85610; 85730; 93005; 96372; 99282; 99284; A9270; J1650; J7512; Q9965

== ENCOUNTER 2020-07-21 12:09 | Outpatient (CLI) | payer MEDICARE, OTHER, SELFPAY ==
--- NOTE | ~2020-07-21 | US_ITS ---
EXAMINATION: US venous doppler [facility] DATE: 07/21/2020 12:53 INDICATION: Lower limb pain. TECHNIQUE: Grayscale ultrasound images without and with compression and Doppler ultrasound images of the bilateral lower extremity veins were obtained. COMPARISON: None. FINDINGS: The visualized portions of right common femoral vein, profunda (deep) femoral vein, femoral vein, pop liteal vein, peroneal veins, posterior tibial veins, and greater saphenous vein outflow are patent. The visualized portions of left common femoral vein, profunda femoral vein, femoral vein, popliteal v ein, peroneal veins, posterior tibial veins, and greater saphenous vein outflow are patent. IMPRESSION: 1. No deep venous thrombosis. Reviewed, dictated and finalized at location A.
== END 2020-07-21 12:10 | disposition home or self-care (01) ==
PROVIDERS: PCP Nurse Practitioner Family; Visit Provider Family Medicine
DX: R79.1 Abnormal coagulation profile (principal); R79.89 Other specified abnormal findings of blood chemistry
CPT/HCPCS: 93970

== ENCOUNTER 2020-09-18 13:01 | Outpatient (RCR) | payer MEDICARE, OTHER, SELFPAY ==
--- NOTE | 2020-09-30 13:54 | PCPTNOTE ---
patient called and cancelled appt for today due to being ill. ARIANE
--- NOTE | 2020-10-14 11:22 | PTOPEVAL ---
Thank you for referring Nils Torres to [facility].? The patient is scheduled to be seen for therapy? ____x/week for ___ weeks. Please review, sign, date and return this plan of care [email or web address]. I agree with and certify that the following plan of care is medically necessary. Referring Physician Date Admitting Provider: Attending Provider: Darvin Ryder MD Referring Provider: *PT Outpatient Evaluation Start: 09/18/20 13:08 Freq: Status: Active Protocol: Document 09/18/20 13:10 [facility] (Rec: 09/18/20 13:40 [facility] [id number]) Therapy Assessment Status Assessment Status Assessment Status Evaluation Outpatient Past Medical History Cardiovascular History Hx Congestive Heart Failure Yes Hx Hypertension Yes Respiratory History Hx Asthma Yes Hx Bronchitis Yes Hx Chronic Obstructive Pulmonary Disease Yes (COPD) Hx Emphysema Yes Hx Sleep Apnea Yes Gastrointestinal History Hx Cholecystectomy Yes Genitourinary History Hx Benign Prostatic Hyperplasia Yes Musculoskeletal History Hx Back Pain Yes Hx Other Musculoskeletal Disorders Yes: HIP AND KNEE Hematological History Hx Hematological Disorders No Significant History Endocrine History Hx Endocrine Disorders No Significant History HEENT History Hx HEENT Disorders No Significant History Integumentary History Hx Skin Disorders No Significant History Reproductive History Hx Reproductive Disorders No Significant History Psychosocial History Hx Anxiety Yes Hx Depression Yes Other History Hx MRSA Yes Evaluation Information Problem Diagnosis L hip and knee oa Onset 09/11/20 Subjective Information patient reports he has been Query Text:As Reported By Patient/ having increased pain in the L Family hip and knee for about 1 month. he reports he is having pain in the L groin, thigh, knee, and buttock. he reports he has had a fracture and ORIF of the L hip back in 1992. he reports x-rays show his harware is stable, but he has arthritis. he reports the hips is worse than the knee. he reports he is unable to do a SLR. he reports he is also unable to hold his leg up when passively lifted. he reports
== END 2020-12-17 23:59 | disposition home or self-care (01) ==
LOC: CHSPT 13:01
PROVIDERS: Visit Provider Internal Medicine Infectious Disease
DX: M25.552 Pain in left hip (principal); M17.12 Unilateral primary osteoarthritis, left knee
CPT/HCPCS: 97014; 97110; 97140; 97162; G0283

== ENCOUNTER 2021-01-21 14:03 | Outpatient (RCR) | payer MEDICARE, MEDICAID, SELFPAY ==
--- NOTE | 2021-01-21 16:11 | PTOPEVAL ---
Thank you for referring Nils Torres to [facility].? The patient is scheduled to be seen for therapy? ____x/week for ___ weeks. Please review, sign, date and return this plan of care [email or web address]. I agree with and certify that the following plan of care is medically necessary. Referring Physician Date Admitting Provider: Attending Provider: Carmen Conrad, DOG BEHAVIORIST Referring Provider: *PT Outpatient Evaluation Start: 01/21/21 14:07 Freq: Status: Active Protocol: Document 01/21/21 14:10 [facility] (Rec: 01/21/21 15:02 [facility] [id number]) Therapy Assessment Status Assessment Status Assessment Status Evaluation Outpatient Past Medical History Past Medical History Other Source of Past Medical History see patient intake form Cardiovascular History Hx Congestive Heart Failure Yes Hx Hypertension Yes Respiratory History Hx Asthma Yes Hx Bronchitis Yes Hx Chronic Obstructive Pulmonary Disease Yes (COPD) Hx Emphysema Yes Hx Sleep Apnea Yes Gastrointestinal History Hx Cholecystectomy Yes Genitourinary History Hx Benign Prostatic Hyperplasia Yes Musculoskeletal History Hx Back Pain Yes Hx Other Musculoskeletal Disorders Yes: HIP AND KNEE Hematological History Hx Hematological Disorders No Significant History Endocrine History Hx Endocrine Disorders No Significant History HEENT History Hx HEENT Disorders No Significant History Integumentary History Hx Skin Disorders No Significant History Reproductive History Hx Reproductive Disorders No Significant History Psychosocial History Hx Anxiety Yes Hx Depression Yes Other History Hx MRSA Yes Evaluation Information Problem Diagnosis L knee pain, L hip pain, R shoulder pain Onset 01/16/21 Additional Evaluation Detail quick dash = 56% functionally declined LEFS = 90% functionally declined Subjective Information patient reports he has a lot Query Text:As Reported By Patient/ of things going on. he reports Family he is having a lot of popping in the neck when looking over the L shoulder. he reports he has pain and tingling/ numbness in the R shoulder down into the R arm/hand. he reports his L hip is collapsing and there is nothing surgical he can do
== END 2021-02-24 13:31 | disposition home or self-care (01) ==
LOC: CHSPT 14:03
PROVIDERS: Visit Provider Nurse Practitioner Family
DX: M17.32 Unilateral post-traumatic osteoarthritis, left knee (principal); M19.011 Primary osteoarthritis, right shoulder; M87.052 Idiopathic aseptic necrosis of left femur
CPT/HCPCS: 97014; 97110; 97163; G0283

== ENCOUNTER 2021-01-27 14:41 | Outpatient (CLI) | payer MEDICARE, MEDICAID, SELFPAY ==
--- NOTE | ~2021-01-27 | XR_ITS ---
. EXAMINATION: XR thoracic spine 3V DATE: 01/27/2021 15:28 INDICATION: Neck discomfort. TECHNIQUE: 3 views of thoracic spine were obtained. COMPARISON: Chest 2 views 05/28/2020, chest CT 07/18/2020 FINDINGS: Bone alignment is normal and thoracic spine. Vertebral body heights are normal. There is mi ld to moderately decreased disc height at multiple levels in mid and lower thoracic spine. There are endplate osteophytes at most levels. IMPRESSION: 1. Moderate thoracic spondylosis. Reviewed, dictated and finalized at location A.
--- NOTE | ~2021-01-27 | XR_ITS ---
EXAMINATION: XR cervical spine 1V DATE: 01/27/2021 15:28 INDICATION: Neck discomfort. TECHNIQUE: A single lateral view of cervical spine was obtained. COMPARISON: None. FINDINGS: There is 2 mm anterolisthesis of C4 on C5. The cervical spine is obscured by the shoulders inferior to C5. Vertebral body heights are normal. Intervertebral disc heights are normal in upper ce rvical spine. There is mild central canal stenosis at C4-C5. No prevertebral soft tissue swelling. IMPRESSION: 1. Mild cervical spondylosis. 2. Inferior cervical spine obscured by the shoulders. Reviewed, dictated and finalized at location A.
--- NOTE | ~2021-01-27 | XR_ITS ---
XR lumbar spine 2-3V 01/27/2021 15:28 Indication: Neck discomfort Procedure: 3 views of the lumbar spine Comparison: 12/19/2012 Findings: There is disc narrowing at all lumbar levels. There is grade 1 spondylolisthesis at L5-S1 s econdary to spondylolysis. No acute fracture or traumatic malalignment. There is atherosclerosis of t he aorta. There is mild multilevel facet degenerative change. Impression: 1: Moderate lumbar spondylosis with grade 1 spondylolisthesis at L5-S1 secondary to spondylolysis. Reviewed, dictated and finalized at location B. Impression: 1: Moderate lumbar spondylosis with grade 1 spondylolisthesis at L5-S1 secondar y to spondylolysis.
== END 2021-01-27 14:42 | disposition home or self-care (01) ==
LOC: CHSIMG 14:47
PROVIDERS: PCP Nurse Practitioner Family; Visit Provider Nurse Practitioner Family
DX: M54.9 Dorsalgia, unspecified (principal); M54.2 Cervicalgia
CPT/HCPCS: 72020; 72072; 72100

== ENCOUNTER 2021-05-25 14:34 | Outpatient (RCR) | payer MEDICARE, OTHER, SELFPAY ==
--- NOTE | 2021-05-25 16:00 | PTOPEVAL ---
Thank you for referring Nils Torres to [facility].? The patient is scheduled to be seen for therapy? ____x/week for ___ weeks. Please review, sign, date and return this plan of care [email or web address]. I agree with and certify that the following plan of care is medically necessary. Referring Physician Date Admitting Provider: Attending Provider: Ruthie Etienne, E D TECH Referring Provider: *PT Outpatient Evaluation Start: 05/25/21 15:00 Freq: Status: Active Protocol: Document 05/25/21 15:00 [facility] (Rec: 05/25/21 15:59 [facility] [id number]) Therapy Assessment Status Assessment Status Assessment Status Evaluation Outpatient Past Medical History Cardiovascular History Hx Congestive Heart Failure Yes Hx Hypertension Yes Respiratory History Hx Asthma Yes Hx Bronchitis Yes Hx Chronic Obstructive Pulmonary Disease Yes (COPD) Hx Emphysema Yes Hx Sleep Apnea Yes Gastrointestinal History Hx Cholecystectomy Yes Genitourinary History Hx Benign Prostatic Hyperplasia Yes Musculoskeletal History Hx Back Pain Yes Hx Other Musculoskeletal Disorders Yes: HIP AND KNEE Hematological History Hx Hematological Disorders No Significant History Endocrine History Hx Endocrine Disorders No Significant History HEENT History Hx HEENT Disorders No Significant History Integumentary History Hx Skin Disorders No Significant History Reproductive History Hx Reproductive Disorders No Significant History Psychosocial History Hx Anxiety Yes Hx Depression Yes Other History Hx MRSA Yes Evaluation Information Problem Diagnosis B hip pain Onset 05/21/21 Subjective Information Patient states that he has a Query Text:As Reported By Patient/ lot of pain in the L hip, Family groin, and thigh. When he sits , stands, or walks, are all painful. He also has difficulty getting in and out of the car. He hears constant popping when he stands up. Patient states that the pain started flaring up about 3 months ago, but when he went to the MD where they said his hip was deteriating. Patient states he thinks it is his sciatic nerve because he has burning in the back of his leg . P
--- NOTE | 2021-08-11 14:04 | PTOPEVAL ---
Thank you for referring Nils Torres to [facility] [place].? The patient is scheduled to be seen for therapy? ____x/week for ___ weeks. Please review, sign, date and return this plan of care [email or web address]. I agree with and certify that the following plan of care is medically necessary. Referring Physician Date Admitting Provider: Attending Provider: Ruthie Eitenne, LESLEY Referring Provider: *PT Outpatient Evaluation Start: 05/25/21 15:00 Freq: Status: Active Protocol: Document 08/11/21 13:09 [facility] (Rec: 08/11/21 14:01 [facility] [id number]) Therapy Assessment Status Assessment Status Assessment Status Re-evaluation Outpatient Past Medical History Cardiovascular History Hx Congestive Heart Failure Yes Hx Hypertension Yes Respiratory History Hx Asthma Yes Hx Bronchitis Yes Hx Chronic Obstructive Pulmonary Disease Yes (COPD) Hx Emphysema Yes Hx Sleep Apnea Yes Gastrointestinal History Hx Cholecystectomy Yes Genitourinary History Hx Benign Prostatic Hyperplasia Yes Musculoskeletal History Hx Back Pain Yes Hx Other Musculoskeletal Disorders Yes: HIP AND KNEE Hematological History Hx Hematological Disorders No Significant History Endocrine History Hx Endocrine Disorders No Significant History HEENT History Hx HEENT Disorders No Significant History Integumentary History Hx Skin Disorders No Significant History Reproductive History Hx Reproductive Disorders No Significant History Psychosocial History Hx Anxiety Yes Hx Depression Yes Other History Hx MRSA Yes Evaluation Information Problem Diagnosis B hip pain Onset 05/21/21 Additional Evaluation Detail LEFS = 81% functionally declined Subjective Information patient reports he feels Query Text:As Reported By Patient/ Alright this date. he reports Family he continues to have pain in the L hip and bilateral knees. he reports he has been struggle to work on his HEP at home. he reports he does have a new ramp at home for ease of entry and exity out of the house. he reports he feels he is some better as far as his exercises go. however, he still struggles to get up and down and walk any signficant distance. Pain
== END 2021-08-11 14:16 | disposition home or self-care (01) ==
LOC: CHSPT 14:34
PROVIDERS: PCP Nurse Practitioner Family; Visit Provider Nurse Practitioner Family
DX: M25.551 Pain in right hip (principal)
CPT/HCPCS: 97014; 97110; 97140; 97161; G0283

== ENCOUNTER 2021-08-26 12:25 | Outpatient (CLI) | payer MEDICARE, MEDICAID, SELFPAY ==
--- NOTE | ~2021-08-26 | XR_ITS ---
EXAMINATION: XR abdomen/kub 1V INDICATION: Hematuria TECHNIQUE: Supine views of the abdomen were obtained on four radiographs. COMPARISON: 05/02/2017 FINDINGS: Stones measuring 9 mm and 6 mm are seen in the left kidney lower pole. A 5 mm stone project s in the lower pole of the right kidney. No stones are identified along the expected course of the ur eters or the urinary bladder. The bowel gas pattern is normal. Internal stabilization hardware is not ed in the visualized portion of the left femur. There has been interval development of severe osteoar thritis at the left hip joint. Advanced osteoarthritis is also noted in the right hip. IMPRESSION: 1. Bilateral nephrolithiasis. 2. Interval development of severe osteoarthritis at the left hip. Reviewed, dictated and finalized at location A.
[2021-08-26 12:45] LABS: Basophils Absolute Auto 0.05 K/mm3 (0.00-0.10); Basophils Percent Auto 0.6 % (0.0-1.0); Eosinophils Absolute Auto 0.18 K/mm3 (0.02-0.50); Eosinophils Percent Auto 2.1 % (1.0-6.0); Hematocrit 42.5 % (37.0-46.0); Hemoglobin 13.9 g/dL (12.4-15.3); Immature Granulocyte Absolute 0.04 K/mm3 (0.00-0.00); Immature Granulocyte Percent A 0.5 % (0.0-0.0); Lymphocytes Absolute Auto 1.63 K/mm3 (1.10-4.50); Lymphocytes Percent Auto 19.3 % (18.0-42.0); Mean Corpuscular HGB Conc 32.7 g/dL (32.0-36.0); Mean Corpuscular Hemoglobin 30.6 pg (27.0-31.0); Mean Corpuscular Volume 93.6 fL (78.0-102.0); Mean Platelet Volume 9.3 fl (8.7-11.0); Monocytes Absolute Auto 0.79 K/mm3 (0.10-0.90); Monocytes Percent Auto 9.3 % (2.0-11.0); Neutrophils Absolute Auto 5.8 K/mm3 (1.7-7.2); Neutrophils Percent Auto 68.2 % (50.0-70.0); Platelet Count Result 219 K/mm3 (150-420); Red Blood Count 4.54 M/mm3 (4.70-6.10); Red Cell Distribution Width 13.9 % (11.6-14.4); White Blood Count 8.5 K/mm3 (4.8-10.8)
[2021-08-26 12:57] LABS: Hemoglobin A1C 5.2 % (<5.7)
[2021-08-26 13:29] LABS: Alanine Aminotransferase 33 U/L (16-63); Albumin Level 3.7 g/dL (3.4-5.0); Alkaline Phosphatase 121 U/L (46-116); Anion Gap 13 mmol/L (8-16); Aspartate Amino Transferase 53 U/L (15-37); Bilirubin,Total 0.7 mg/dL (0.00-1.00); Blood Urea Nitrogen 15 mg/dL (7-18); Calcium 9.1 mg/dL (8.5-10.1); Carbon Dioxide 28 mmol/L (21-32); Chloride 101 mmol/L (98-108); Cholesterol 154 mg/dL (0-200); Estimated Glomerular Filt Rate 58; Glucose 102 mg/dL (70-99); HDL Direct 44 mg/dL (40-60); LDL Cholesterol Calculated 81 mg/dL (<130); Osmolality Calculated 294 mOsm/kg (285-295); Sodium 142 mmol/L (136-145); Thyroid Stimulating Hormone 1.37 uIU/mL (0.36-3.74); Total Protein 7.3 g/dL (6.4-8.2); Triglycerides 146 mg/dL (0-150)
[2021-08-28 14:20] LABS: Vitamin D 25 Hydroxy 30 ng/mL (30-100)
[2021-08-28 16:42] LABS: T4 Thyroxine 11.7 mcg/dL (4.9-10.5)
== END 2021-08-26 12:26 | disposition home or self-care (01) ==
LOC: CHSLAB 12:28
PROVIDERS: PCP Nurse Practitioner Family; Visit Provider Nurse Practitioner Family
DX: K21.9 Gastro-esophageal reflux disease without esophagitis (principal); R31.9 Hematuria, unspecified; Z79.899 Other long term (current) drug therapy
CPT/HCPCS: 36415; 74018; 80053; 80061; 82306; 83036; 84436; 84443; 85025; 87086; 87088

== ENCOUNTER 2021-11-26 13:32 | Outpatient (RCR) | payer MEDICARE, MEDICAID, SELFPAY ==
--- NOTE | 2021-11-26 15:06 | PTOPEVAL ---
Thank you for referring Nils Torres to [facility] [place].? The patient is scheduled to be seen for therapy? __2__x/week for 10 visits. Please review, sign, date and return this plan of care [email or web address]. I agree with and certify that the following plan of care is medically necessary. Referring Physician Date Admitting Provider: Attending Provider: Eugenia Espino, ORACLE CONSULTANT Referring Provider: *PT Outpatient Evaluation Start: 11/26/21 13:46 Freq: Status: Active Protocol: Document 11/26/21 13:51 [facility] (Rec: 11/26/21 15:05 [facility] [id number]) Therapy Assessment Status Assessment Status Assessment Status Evaluation Outpatient Past Medical History Cardiovascular History Hx Congestive Heart Failure Yes Hx Hypertension Yes Respiratory History Hx Asthma Yes Hx Bronchitis Yes Hx Chronic Obstructive Pulmonary Disease Yes (COPD) Hx Emphysema Yes Hx Sleep Apnea Yes Gastrointestinal History Hx Cholecystectomy Yes Genitourinary History Hx Benign Prostatic Hyperplasia Yes Musculoskeletal History Hx Back Pain Yes Hx Other Musculoskeletal Disorders Yes: HIP AND KNEE Hematological History Hx Hematological Disorders No Significant History Endocrine History Hx Endocrine Disorders No Significant History HEENT History Hx HEENT Disorders No Significant History Integumentary History Hx Skin Disorders No Significant History Reproductive History Hx Reproductive Disorders No Significant History Psychosocial History Hx Anxiety Yes Hx Depression Yes Other History Hx MRSA Yes Evaluation Information Problem Diagnosis lumbar radiculopathy Onset 10/14/21 Subjective Information Pt. reports that he has been Query Text:As Reported By Patient/ developing worsening leg and Family back pain for the past month. He reports that he recieved injection into the back last week without relief. He reports that he is starting to have trouble with getting out of a chair. He reports that he can only walk with his walker. He reports that he can stand for about 5 minutes while holding onto his walker. he reports that he now has to sit on his walker due to any cooking in the home. He
== END 2021-11-26 16:04 | disposition home or self-care (01) ==
LOC: CHSPT 13:32
PROVIDERS: PCP Nurse Practitioner Adult Health; Visit Provider Nurse Practitioner Adult Health
DX: M54.16 Radiculopathy, lumbar region (principal)
CPT/HCPCS: 97110; 97162

== ENCOUNTER 2022-01-27 14:05 | Outpatient (RCR) | payer MEDICARE, MEDICAID, SELFPAY | END 2022-04-27 23:59 | disposition home or self-care (01) | LOC: CHSPT 14:05 | PROVIDERS: PCP Nurse Practitioner Adult Health; Visit Provider Nurse Practitioner Adult Health | DX: G89.4 Chronic pain syndrome (principal) | CPT/HCPCS: 97161 ==

== ENCOUNTER 2022-03-22 14:32 | Outpatient (CLI) | payer MEDICARE, SELFPAY ==
[2022-03-22 15:09] LABS: Basophils Absolute Auto 0.06 K/mm3 (0.00-0.10); Basophils Percent Auto 0.9 % (0.0-1.0); Eosinophils Absolute Auto 0.18 K/mm3 (0.02-0.50); Eosinophils Percent Auto 2.6 % (1.0-6.0); Hematocrit 38.6 % (37.0-46.0); Hemoglobin 12.1 g/dL (12.4-15.3); Immature Granulocyte Absolute 0.04 K/mm3 (0.00-0.00); Immature Granulocyte Percent A 0.6 % (0.0-0.0); Immature Platelet Fraction Pct 3.6 % (1.0-7.0); Lymphocytes Percent Auto 18.8 % (18.0-42.0); Mean Corpuscular HGB Conc 31.3 g/dL (32.0-36.0); Mean Corpuscular Hemoglobin 29.1 pg (27.0-31.0); Mean Corpuscular Volume 92.8 fL (78.0-102.0); Mean Platelet Volume 10.1 fl (8.7-11.0); Monocytes Absolute Auto 0.63 K/mm3 (0.10-0.90); Monocytes Percent Auto 9.1 % (2.0-11.0); Neutrophils Absolute Auto 4.7 K/mm3 (1.7-7.2); Platelet Count Result 144 K/mm3 (150-420); Red Blood Count 4.16 M/mm3 (4.70-6.10); Red Cell Distribution Width 15.2 % (11.6-14.4); White Blood Count 6.9 K/mm3 (4.8-10.8)
[2022-03-22 15:46] LABS: Alanine Aminotransferase 25 U/L (16-63); Albumin Level 3.3 g/dL (3.4-5.0); Alkaline Phosphatase 181 U/L (46-116); Anion Gap 9 mmol/L (8-16); Aspartate Amino Transferase 45 U/L (15-37); Bilirubin,Total 0.5 mg/dL (0.00-1.00); Blood Urea Nitrogen 22 mg/dL (7-18); Calcium 8.9 mg/dL (8.5-10.1); Carbon Dioxide 26 mmol/L (21-32); Chloride 100 mmol/L (98-108); Estimated Glomerular Filt Rate 53; Glucose 83 mg/dL (70-99); Magnesium 1.7 mg/dL (1.8-2.4); Osmolality Calculated 282 mOsm/kg (285-295); Potassium 4.3 mmol/L (3.5-5.1); Sodium 135 mmol/L (136-145); Total Protein 7.5 g/dL (6.4-8.2); Vitamin B12 285 pg/mL (193-986)
[2022-03-22 15:47] LABS: Thyroid Stimulating Hormone Reflex 3.05 u/IU/mL (0.36-3.74)
[2022-03-25 19:48] LABS: Vitamin D 25 Hydroxy 20 ng/mL (30-100)
== END 2022-03-22 14:33 | disposition home or self-care (01) ==
LOC: CHSLAB 14:35
PROVIDERS: PCP Nurse Practitioner Adult Health; Visit Provider Nurse Practitioner Adult Health
DX: R53.82 Chronic fatigue, unspecified (principal); G89.29 Other chronic pain; R25.2 Cramp and spasm; I10 Essential (primary) hypertension; Z79.899 Other long term (current) drug therapy
CPT/HCPCS: 36415; 80053; 82306; 82607; 83735; 84443; 85025; 85055

== ENCOUNTER 2022-03-24 15:05 | Emergency (ER) | payer MEDICARE, MEDICAID, SELFPAY ==
[2022-03-24 15:10] VITALS: BP 148/88; PULSE 80; RESP 20; TEMP 36.7; O2SAT 96
--- NOTE | 2022-03-24 15:31 | ED.SKABFB ---
HPI - Skin/Abscess/Foreign Bdy General Chief complaint: Skin/Abscess/Foreign Body Stated complaint: RT leg possible spider bite Time Seen by Provider: 03/24/22 15:07 Source: patient and RN notes reviewed Mode of arrival: ambulatory Limitations: no limitations History of Present Illness HPI narrative: right leg insect bite. MD complaint: insect bite/sting Onset (ago): day(s) (1) Tetanus up to date: unsure Location: [facility] Severity: mild Severity scale (1-10): 2 Quality: aching Pain Consistency: constant Relieving factors: none Exacerbating factors: none Context: none Associated symptoms: denies other symptoms Treatments prior to arrival: none Related Data Home Medications Medication Instructions Recorded Confirmed albuterol sulfate 90 mcg/actuation 1 - 2 puff inhalation Q4-5H 01/05/20 03/24/22 aerosol inhaler atorvastatin 40 mg tablet 40 mg PO DAILY 01/05/20 03/24/22 budesonide-formoterol HFA 160 1 - 2 inh inhalation DAILY 01/05/20 03/24/22 mcg-4.5 mcg/actuation aerosol inhaler (Symbicort) buspirone 7.5 mg tablet 7.5 mg PO DAILY 01/05/20 03/24/22 cyclobenzaprine 10 mg tablet 10 mg PO TID PRN Pain 01/05/20 03/24/22 desloratadine 5 mg tablet 5 mg PO DAILY 01/05/20 03/24/22 finasteride 5 mg tablet 5 mg PO DAILY 01/05/20 03/24/22 fluticasone propionate 50 1 - 2 spray intranasal DAILY 01/05/20 03/24/22 mcg/actuation nasal spray,suspension rabeprazole 20 mg tablet,delayed 20 mg PO DAILY 01/05/20 03/24/22 release tamsulosin 0.4 mg capsule 0.4 mg PO DAILY 01/05/20 03/24/22 theophylline 400 mg 400 mg PO DAILY 01/05/20 03/24/22 capsule,extended release 24 hr (Ras-24) torsemide 20 mg tablet 20 mg PO DAILY 01/05/20 03/24/22 meloxicam 15 mg tablet 15 mg PO DAILY 07/18/20 03/24/22 duloxetine 30 mg capsule,delayed 30 cap PO DAILY 03/24/22 03/24/22 release gabapentin 100 mg capsule 100 cap PO DAILY 03/24/22 03/24/22 Allergies Allergy/AdvReac Type Severity Reaction Status Date / Time vancomycin Allergy Severe Hives Verified 03/24/22 15:22 levofloxacin Allergy Intermediate HIVES Verified 03/24/22 15:22 lisinopril Allergy Intermediate swelling Verified 03/24/22 15:22 Penicillins Allergy Intermediate Hives Verified 03/24/22 15:22 Quinolones Allergy Unknown BLISTERS,HI Verified 03/24/22 15:22 VES Review of Systems Review of Systems: All systems reviewed & are unremarkable except as noted in HPI and below Constitutional: Constitutional: Reports no additional constitutional complaints Eyes: Eyes: Reports no additional eye complaints ENT: Reports system reviewed and no additional complaints, except as documented Cardiovascular: Cardiovascular: Reports no additional cardiovascular complaints Respiratory: Respiratory: Reports no additional respiratory complaints Gastrointestinal: Gastrointestinal: Reports no additional gastrointestinal complaints Musculoskeletal: Musculoskeletal: Reports no additional musculoskeletal complaints Integumentary/Breasts: Skin/Breast: Reports system reviewed and no additional complaints, except as docu Neurologic: Reports system reviewed and no additional complaints, except as documented Psychiatric: Psychiatric: Reports no additional psychiatric complaints Endocrine: Endocrine: Reports no additional endocrine complaints Hematologic/Lymphatic: Hematologic/Lymphatic: Reports no additional hematologic/lymphatic complaints Allergic/Immunologic: Allergic/Immunologic: Reports no additional allergic/immunologic complaints [facility] Past Medical History Medical History COPD (chronic obstructive pulmonary disease) Exogenous obesity Hypercholesterolemia Hypertension Insect bite Surgical History Surgical History History of hip surgery Hx of cholecystectomy Family History Family History Other Cerebrovascu
[2022-03-24] MEDS: cefTRIAXone 1 GM, LIDOCAINE HCL 1% LOCAL INJ 2.1 ML IM (15:38)
== END 2022-03-24 15:52 | disposition home or self-care (01) ==
PROVIDERS: Emergency Provider Emergency Medicine
DX: L03.90 Cellulitis, unspecified (principal); T14.8XXA Other injury of unspecified body region, initial encounter; W57.XXXA Bitten or stung by nonvenomous insect and other nonvenomous arthropods, initial encounter; J44.9 Chronic obstructive pulmonary disease, unspecified; E78.00 Pure hypercholesterolemia, unspecified; I10 Essential (primary) hypertension; Z87.891 Personal history of nicotine dependence
CPT/HCPCS: 96372; 99283; J0696

== ENCOUNTER 2022-09-02 14:52 | Outpatient (CLI) | payer MEDICARE, MEDICAID, SELFPAY ==
--- NOTE | ~2022-09-02 | CT_ITS ---
EXAMINATION: CT lung screening DATE: 09/02/2022 15:24 INDICATION: personal hx of nicotine dependence TECHNIQUE: Computed tomography (CT) of the chest was performed without intravenous contrast. Addition al 3D reconstructions utilizing coronal maximum intensity projection (MIP) were performed. Automated exposure control and iterative reconstruction technique were employed. The dose-length product was 53 5.16 mGy-cm. COMPARISON: None FINDINGS: Mild emphysema. Scattered linear discoid atelectasis in the bilateral lungs most prominent at the sam g bases, particularly on the left where there is also associated mild elevation of left hemidiaphragm . No suspicious pulmonary nodules, pneumonia, pulmonary edema or pleural effusion. Heart size is norm al. No pericardial effusion. Thoracic aorta is normal in caliber. No pathologically enlarged thoracic lymphadenopathy. Mild thoracic spondylosis with moderate spondylosis. IMPRESSION: 1. Lung-RADS category 1: Negative. Continue annual screening with noncontrast low-dose chest CT in 12 months. Reviewed, dictated and finalized at location B. IMPRESSION: 1. Lung-RADS category 1: Negative. Continue annual screening with noncontrast l ow-dose chest CT in 12 months.
== END 2022-09-02 14:53 | disposition home or self-care (01) ==
LOC: CHSIMG 14:53
PROVIDERS: PCP Internal Medicine; Visit Provider Nurse Practitioner Family
DX: Z87.891 Personal history of nicotine dependence (principal)
CPT/HCPCS: 71271

== ENCOUNTER 2022-09-14 14:38 | Outpatient (RCR) | payer MEDICARE, MEDICAID, SELFPAY ==
--- NOTE | 2022-09-14 16:54 | PTOPEVAL1 ---
Assessment and note entered by Rosita El DPT Evaluation Information Assessment Status Evaluation Diagnosis Bilateral OA of hips and shoulders, bilateral knees Onset 09/08/2022 Subjective Information Pt reports that he has bilateral shoulder, hip, and knee pain due to osteoarthritis. He reports he has an appointment scheduled to see an MD soon but doesn't know when. Pt got an electric scooter this summer that he uses for mobility. He uses a walker occasionally in his home. He reports that he is in 24/7 pain. Pt reports increased pain when getting in and out of a chair, out of his bed, and lifting. He reports lots of popping in his joints. Pt reports that he wants to reduce pain to be able to use a walker more than his scooter. Reported Pain Level Pain Score 7,7,5: Self Report Assessment PT Clinical Summary Pt presents to PT with pain, decreased strength, decreased endurance, and impaired static and dynamic balance. His current deficits make it more challenging for him to stand up out of his wheelchair and lift objects when at home. He was provided with an HEP focused on improving strength of the arms and legs within his tolerance and in a seated position. He will benefit from skilled PT to improve the aforementioned impairments, facilitate symptom relief, and increase independence with functional activities. Plan of Care Interventions Gait Training,Manual Therapy,Neuro Re-education, Patient/Caregiver Educati,Therapeutic Activities, Therapeutic Exercise PT Services Indicated Yes Treatment Frequency and 2x week for 10 visits Duration These treatments will address the objective and functional deficits as defined above. The patient will be advanced safely and appropriately in order for the patient to progress towards his/her prior level of function. Additional exercises will be introduced and as well as a comprehensive home exercise program upon discharge, if needed, ?to ensure carryover of functional gains achieved in the clinic. This treatment plan has been reviewed and agreement upon by the patient.
== END 2022-11-17 13:11 | disposition still patient (30) ==
LOC: CHSPT 14:38
PROVIDERS: Visit Provider Nurse Practitioner Adult Health
DX: M16.0 Bilateral primary osteoarthritis of hip (principal)
CPT/HCPCS: 97110; 97116; 97162; 97530

== ENCOUNTER 2022-12-21 13:13 | Outpatient (RCR) | payer MEDICARE, MEDICAID, SELFPAY ==
--- NOTE | 2022-12-21 15:29 | PTOPEVAL1 ---
Assessment and note entered by Reinaldo [facility] Evaluation Information Assessment Status Re-evaluation Diagnosis bilateral primary OA of the knees Onset 09/08/22 Subjective Information Pt. reports that he went to see is orthopedic surgeon recently. He states that he is having pain in both knees and hips. He states that he is having more trouble with walking. He reports trouble with transportation left him unable to attend his most recent therapy sessions. He reports that he now has public transportation and will be able to attend more regularly. He states that he has noticed that his ability to walk has been decling and he sits in his chair majority of the day. She is on 24 hour O2. He reports that he can only walk short distances in the home with his ww. He reports that he will be undergoing hip replacement but is required to lose 75# first. He states that he would like to be able to participate in therapy in order to be able to walk outside the home with improved ease. Reported Pain Level Pain Score 8: Self Report Pain Score 8,8,8: Self Report Assessment PT Clinical Summary Pt. re-enters the clinic with new PT orders to address knee pain. He has demonstrates continued functional decline, weakness, impaired gait, impaired endurance and impaired postural awareness . New goals established on this date to reflect pt . current condition. continued skilled PT is indicated in order to allow for improved overall functional mobility to allow him to achieve his goal of improved standing endurance. PT Clinical Summary Plan of Care Interventions Gait Training,Manual Lymph Drainage,Patient/ Caregiver Educati,Therapeutic Activities, Therapeutic Exercise Interventions PT Services Indicated Yes PT Services Indicated Treatment Frequency and 2x/week x 10 visits Duration Treatment Frequency and Duration These treatments will address the objective and functional deficits as defined above. The patient will be advanced safely and appropriately in order for the patient to progress towards his/her prior level of function. Additional exercises will be introduced and as well as a comprehensive home exercise program upon discharge, if needed, ?to ensure carryover of functional gains achieved in the clinic. This treatment plan has been reviewed and agreement upon by the patient.
--- NOTE | 2023-01-27 15:37 | PTOPDC ---
Assessment and note entered by JT File, PT Evaluation Information Assessment Status Discharge Diagnosis bilateral primary OA of the knees Onset 09/08/22 Subjective Information patient reports he is down about 15lbs overall in weight. he reports he is still using his powered chair primarily at home. however, he reports he does walk a bit with his home aids. he reports he has plans to get into a gym, but has not started yet. he reports his knees are bothering him more today. Reported Pain Level Pain Score 5,7: Self Report Assessment PT Clinical Summary mr. meyer has made improvements in his endurance of ambulation with the rollator walker, and improvements in strength in the legs. however, he continues to lack significant progress towards goals to continue skilled PT. he will DC skilled PT this date and continue with HEP and begin a workout program 3x weekly to progress his endurance, strength, and weight loss. Plan of Care Interventions Gait Training,Manual Lymph Drainage,Patient/ Caregiver Educati,Therapeutic Activities, Therapeutic Exercise PT Services Indicated Yes Treatment Frequency and DC skilled PT Duration
== END 2023-01-27 16:48 | disposition home or self-care (01) ==
LOC: CHSPT 13:13
PROVIDERS: Visit Provider Nurse Practitioner Adult Health
DX: M16.0 Bilateral primary osteoarthritis of hip (principal)
CPT/HCPCS: 97110; 97161; 97164; 97530

== ENCOUNTER 2022-12-23 12:44 | Outpatient (CLI) | payer MEDICARE, MEDICAID, SELFPAY ==
--- NOTE | ~2022-12-23 | XR_ITS ---
EXAMINATION: XR abdomen/kub 1V DATE: 12/23/2022 13:20 INDICATION: Hematuria. Left flank pain. TECHNIQUE: A supine view of the abdomen on 4 radiographs was obtained. COMPARISON: Chest CT 09/02/2022 FINDINGS: There is likely magnification of anterior small bowel loops. There are no dilated loops of bowel. There are multiple stones in left kidney lower pole measuring up to 7 mm. There is a 5 mm calc ification overlying right kidney lower pole that may be a stone. There is advanced osteoarthritis of the hips with collapse of the femoral heads. There is instrumentation of proximal left femur. IMPRESSION: 1. Bilateral kidney stones. Reviewed, dictated and finalized at location A. NESS INFORMATION ANALYST IMPRESSION: 1. Bilateral kidney stones.
== END 2022-12-23 12:45 | disposition home or self-care (01) ==
LOC: CHSIMG 12:47
DX: R31.29 Other microscopic hematuria (principal); N20.0 Calculus of kidney
CPT/HCPCS: 74018

== ENCOUNTER 2023-02-09 15:26 | Outpatient (CLI) | payer MEDICARE, MEDICAID, SELFPAY ==
--- NOTE | ~2023-02-09 | XR_ITS ---
EXAM: XR hip LT 2V w AP pelvis, XR femur LT min 2V DATE: 02/09/2023 16:35 (accession [id number]), 02/09/2023 16:36 (accession [id number]) HISTORY: CHRONIC LEFT HIP PAIN. NO CURRENT KNOWN INJURY. . COMPARISON: 05/06/2020; X-ray abdomen 12/23/2022. FINDINGS: Normal mineralization. Hardware fixation of the left femoral neck. Severe bilateral hip toshia int space narrowing with femoral head collapse. The proximal end of the femoral neck hardware appears to protrude into the joint space. Evidence of remote hardware removal from the distal left femur. Se catrachita left knee osteoarthritis. No acute fracture or dislocation. No lytic or blastic lesion. Degenera tive change in the spine. No erosion or periosteal change. Soft tissues within normal limits. IMPRESSION: Severe bilateral hip arthritis with femoral head collapse, possibly secondary to AVN. The proximal end of the intact left femoral neck fixation hardware appears to protrude into the joint sp benito. Reviewed, dictated and finalized at location K. IMPRESSION: Severe bilateral hip arthritis with femoral head collapse, possibly secondary to AVN. The proximal end of the intact left femoral neck fixation bentley rdware appears to protrude into the joint space.
== END 2023-02-09 15:27 | disposition home or self-care (01) ==
LOC: CHSIMG 15:32
DX: M25.562 Pain in left knee (principal); M16.0 Bilateral primary osteoarthritis of hip
CPT/HCPCS: 73502; 73552

== ENCOUNTER 2023-06-21 10:07 | Outpatient (CLI) | payer MEDICARE, MEDICAID, SELFPAY ==
--- NOTE | ~2023-06-21 | MMUS_ITS ---
EXAMINATION: MM diagnostic jamin LT w gideon, US breast LT complete HISTORY: Left breast lump, nipple discharge TECHNIQUE: Bilateral MLO and left CC full field mammographic views and spot MLO and CC Tomosynthesis views and synthetic 2-D images of left breast. High resolution targeted left breast ultrasound was pe rformed. COMPARISON: None BREAST PARENCHYMAL COMPOSITION: The breasts are almost entirely fatty. FINDINGS: MAMMOGRAPHIC FINDINGS: There is an mildly irregular largely circumscribed mass density in the subareolar area measuring up t o 2.9 x 3.5 x 3.8 cm. No other suspicious mass, architectural distortion, malignant calcification, skin thickening or retra ction of either breast is detected. ULTRASOUND: Irregular approximately 2.6 x 4.3 x 3.6 cm complicated cystic lesion with through transmission and po sterior enhancement is noted, with some vascularity along the margin of the lesion. The findings sugg est an abscess. IMPRESSION: 1. Probable abscess in the left subareolar area 2. No mammographic evidence of malignancy BI-RADS Category 2: Benign finding(s). Reviewed, dictated and finalized at location A. IMPRESSION: 1. Probable abscess in the left subareolar area 2. No mammographic evidence of malignancy BI-RADS Category 2: Benign finding(s).
== END 2023-06-21 10:08 | disposition home or self-care (01) ==
LOC: CHSIMG 10:08
PROVIDERS: PCP Internal Medicine; Visit Provider Internal Medicine
DX: N64.52 Nipple discharge (principal); N63.20 Unspecified lump in the left breast, unspecified quadrant
CPT/HCPCS: 76641; 77061; 77065; G0279

== ENCOUNTER 2023-06-24 14:32 | Outpatient (RCR) | payer MEDICARE, MEDICAID, SELFPAY ==
--- NOTE | 2023-06-24 15:30 | OPREHPOC ---
Outpatient Therapy Plan of Care This is a Multidisciplinary Plan of Care that may contain components documented by all disciplines (PT, OT, and ST.) PT Problem 1 PT Problem #1 Knowledge Deficit PT Goal 1 Goal 1. independent and compliant with HEP to improve tolerance for continued skilled PT and exercises Target Visit 4 PT Problem 2 PT Problem #2 Impaired Range of Motion PT Goal 1 Goal 1. improve R shoulder flexion to 120 degrees or better 2. improve R shoulder active rom ER to 45 degrees or better 3. improve R shoulder active rom IR to 30 degrees or better Target Visit 8 PT Problem 3 PT Problem #3 Impaired Strength PT Goal 1 Goal 1. improve R shoulder IR/ER strength to 4+/5 or better 2. improve R shoulder flexion strength to 4/5 or better Target Visit 8 PT Problem 4 PT Problem #4 Pain PT Goal 1 Goal 1. patient to manage pain at home with exercises/ modalities/medication to not exceed 5/10 pain with daily life and sleeping. Target Visit 8 PT Problem 5 PT Problem #5 Impaired Functional Mobil PT Goal 1 Goal 1. patient to sleep through the night 4 nights a week without shoulder pain 2. patient to lift 5lbs overhead with the R UE with no increased pain Target Visit 8
--- NOTE | 2023-06-24 15:31 | PTOPEVAL1 ---
Assessment and note entered by JT File, PT Evaluation Information Assessment Status Evaluation Diagnosis bilateral shoulders pain, R knee pain, osteonecrosis of bilateral hips Onset 06/15/23 Subjective Information patient reports his R shoulder is locking up on him at night. he reports it gets so stuck he has to use the L arm to move it to loosen up. he reports he also has poor mobility of the L shoulder. he reports he uses a topical analgesic for his bilateral shoulders. he reports has increased pain in the bilateral shoulders with sleeping, pulling/lifting, and pushing. Reported Pain Level Pain Score 5: Self Report Assessment PT Clinical Summary mr. meyer is a 68 man who presents to skilled PT services for evaluation and treatment of bilateral shoulder pain. he presents with deficits in rom, strength, and functional mobility/use of the R shoulder more than the L shoulder. he would benefit from continued skilled PT to improve his objective/functional deficits and return to his prior level functional activity performance/ quality of life. Plan of Care Interventions Electrical Stimulation,Hot Pack/Cold Pack,Manual Therapy,Neuro Re-education,Patient/Caregiver Educati,Therapeutic Activities,Therapeutic Exercise PT Services Indicated Yes Treatment Frequency and 2x weekly for 8 visits Duration These treatments will address the objective and functional deficits as defined above. The patient will be advanced safely and appropriately in order for the patient to progress towards his/her prior level of function. Additional exercises will be introduced and as well as a comprehensive home exercise program upon discharge, if needed, ?to ensure carryover of functional gains achieved in the clinic. This treatment plan has been reviewed and agreement upon by the patient.
== END 2023-07-19 23:59 | disposition home or self-care (01) ==
LOC: CHSPT 14:32
DX: M25.511 Pain in right shoulder (principal); M25.512 Pain in left shoulder; M25.561 Pain in right knee; M87.9 Osteonecrosis, unspecified
CPT/HCPCS: 97014; 97110; 97150; 97161; G0283

== ENCOUNTER 2023-09-14 16:28 | Emergency (ER) | payer MEDICARE, MEDICAID, SELFPAY ==
--- NOTE | ~2023-09-14 | XR_ITS ---
EXAM: XR pelvis 1-2V DATE: 09/14/2023 17:52 HISTORY: FALL/PATIENT DENIES HIP OR PELVIS PAIN/PT WOULD NOT LAY FLAT . COMPARISON: 02/09/2023. FINDINGS: Decreased mineralization. Left femoral fixation hardware, protruding into the left hip flaca nt space, no hardware fracture or perihilar hardware lucency. No osseous fracture or dislocation. No lytic or blastic lesion. Severe bilateral hip osteoarthritis with femoral head collapse. Soft tissues within normal limits. IMPRESSION: Exam limited by habitus and positioning. No definite acute osseous finding in the pelvis. Reviewed, dictated and finalized at location K. NTORY CONTROL PLANNER
--- NOTE | ~2023-09-14 | XR_ITS ---
XR tibia fibula LT 2V DATE: 09/14/2023 17:52 INDICATION: Fall. Knee pain. TECHNIQUE: AP and lateral views of the tibia and fibula COMPARISON: 02/09/2023 left femur 05/06/2020 left knee FINDINGS: Diffuse osteopenia. There is chronic concavity of the lateral tibial plateau, not significantly changed since 05/06/2020. N o recent fracture or dislocation, periosteal reaction or bone destruction of the tibia or fibula is d etected. Normal alignment at the knee and ankle joints. IMPRESSION: Chronic concavity of lateral tibial plateau, stable since 05/06/2020 Osteopenia No recent fracture or dislocation Reviewed, dictated and finalized at location B. FISH EGGS
--- NOTE | ~2023-09-14 | XR_ITS ---
XR knee LT 3V DATE: 09/14/2023 17:52 INDICATION: Fall. Knee pain. TECHNIQUE: 3 limited views COMPARISON: February 09, 2023 left femur FINDINGS: There is diffuse osteopenia. There is old fracture deformity of the distal femur. There is some chronic organized periosteal react ion along the distal femoral shaft which may be due to prior injury. This may also be seen and hypert rophic pulmonary osteoarthropathy and venous insufficiency. There is apparent interval depression of the lateral half of the lateral tibial plateau since January 292022, possibly due to fracture. A true lateral projection is not provided for optimal assessment o f suprapatellar knee joint effusion. Consider crosstable lateral view to evaluate for lipohemarthrosi s. CT or particularly MR examination may be of additional assistance for more definitive evaluation a nd confirmation or exclusion of any recent fracture. No other fracture or dislocation is detected. No suspicious osteolytic or osteoblastic lesions are no edgardo. IMPRESSION: Apparent interval mild depression of the lateral portion of the lateral tibial plateau pr oximal tibia, which may be due to lateral tibial plateau fracture since 02/09/2023; consider further e valuation with CT or MR examination Old distal femoral fracture Osteopenia Chronic periosteal reaction of the femoral shaft; differential diagnosis is given above Reviewed, dictated and finalized at location B. RUMENT REPAIRER STEAM PLANT IMPRESSION: Apparent interval mild depression of the lateral portion of the lat eral tibial plateau proximal tibia, which may be due to lateral tibial plateau fracture since 02/09/2023; consider further evaluation with CT or MR examination Old distal femoral fracture Osteopenia Chronic periosteal reaction of the femoral shaft; differential diagnosis is giv en above
[2023-09-14 16:44] VITALS: BP 137/52; PULSE 78; RESP 20; TEMP 37.2; O2SAT 97
[2023-09-14 16:57] VITALS: BP 137/52; PULSE 89; RESP 20; O2SAT 99
--- NOTE | 2023-09-14 17:03 | ED.FALL ---
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 -- New left knee pain with decreased range of motion -- Left shoulder pain with normal range of motion no head injury. No neck pain. MD complaint: fall Onset (ago): hour(s) ( 2 hours ago) Fall from: wheelchair Fall witnessed: no Place fall occurred: home Loss of consciousness: none Prolonged down time: no Symptoms prior to fall: none Context: tripped/slipped Location of injury: other ( left lower extremity) Location of injury - extremities: Left: knee and lower leg Severity: severe Quality: aching Associated symptoms (after fall): denies Related Data Home Medications Medication Instructions Recorded Confirmed albuterol sulfate 90 mcg/actuation 1 - 2 puff inhalation Q4-5H 01/05/20 09/14/23 aerosol inhaler atorvastatin 40 mg tablet 20 mg PO DAILY 01/05/20 09/14/23 budesonide-formoterol HFA 160 1 - 2 inh inhalation DAILY 01/05/20 09/14/23 mcg-4.5 mcg/actuation aerosol inhaler (Symbicort) buspirone 7.5 mg tablet 7.5 mg PO DAILY 01/05/20 09/14/23 cyclobenzaprine 10 mg tablet 10 mg PO TID PRN Pain 01/05/20 09/14/23 finasteride 5 mg tablet 5 mg PO DAILY 01/05/20 09/14/23 fluticasone propionate 50 1 - 2 spray intranasal DAILY 01/05/20 09/14/23 mcg/actuation nasal spray,suspension rabeprazole 20 mg tablet,delayed 20 mg PO DAILY 01/05/20 09/14/23 release tamsulosin 0.4 mg capsule 0.4 mg PO DAILY 01/05/20 09/14/23 theophylline 400 mg 400 mg PO DAILY 01/05/20 09/14/23 capsule,extended release 24 hr (Ras-24) torsemide 20 mg tablet 20 mg PO BID 01/05/20 09/14/23 pregabalin 150 mg capsule 150 mg PO BID 08/20/22 09/14/23 tiotropium bromide 2.5 2 inh inhalation QAM 08/20/22 09/14/23 mcg/actuation mist for inhalation (Spiriva Respimat) diclofenac sodium 75 mg 75 mg PO BID 09/14/23 09/14/23 tablet,delayed release metoprolol tartrate 50 mg tablet 50 mg PO BID 09/14/23 09/14/23 montelukast 10 mg tablet 10 mg PO DAILY 09/14/23 09/14/23 potassium chloride 10 mEq 10 meq PO DAILY 09/14/23 09/14/23 capsule,extended release Allergies Allergy/AdvReac Type Severity Reaction Status Date / Time vancomycin Allergy Severe Hives Verified 09/14/23 18:13 levofloxacin Allergy Intermediate HIVES Verified 09/14/23 18:13 lisinopril Allergy Intermediate swelling Verified 09/14/23 18:13 Penicillins Allergy Intermediate Hives Verified 09/14/23 18:13 Quinolones Allergy Unknown BLISTERS,HI Verified 09/14/23 18:13 VES Review of Systems Review of Systems: All systems reviewed & are unremarkable except as noted in HPI and below Constitutional: Constitutional: Reports as per HPI and Reports no additional constitutional complaints Eyes: Eyes: Reports as per HPI and Reports no additional eye complaints ENT: Reports system reviewed and no additional complaints, except as documented and Reports as per HPI Cardiovascular: Cardiovascular: Reports as per HPI and Reports no additional cardiovascular complaints Respiratory: Respiratory: Reports as per HPI, Reports no additional respiratory complaints, Reports cough and Reports dyspnea Gastrointestinal: Gastrointestinal: Reports as per HPI and Reports no additional gastrointestinal complaints Genitourinary: Genitourinary: Reports no additional male genitourinary complaints Musculoskeletal: Comments: chronic bilateral hip pain with decreased range of motion severe arthritis nonambulatory
[2023-09-14] MEDS: ONDANSETRON HCL ODT 4 MG TABLET PO (18:09)
[2023-09-14] MEDS: HYDROmorphone HCL INJ (*CRX) 2 MG/ML VIAL 1 MG IM (18:09)
[2023-09-14 18:45] VITALS: BP 153/55; PULSE 86; RESP 22; TEMP 37.2; O2SAT 98
--- NOTE | 2023-09-14 19:38 | PC.NURSE ---
ems arrived, pt in nad, ems transfer form completed and iv removed, cath intact
== END 2023-09-14 19:40 | disposition home or self-care (01) ==
PROVIDERS: Emergency Provider Internal Medicine Critical Care Medicine; PCP Internal Medicine
DX: M25.562 Pain in left knee (principal); M16.9 Osteoarthritis of hip, unspecified; J43.9 Emphysema, unspecified; I10 Essential (primary) hypertension; E78.5 Hyperlipidemia, unspecified; Z99.81 Dependence on supplemental oxygen; Z79.899 Other long term (current) drug therapy; Z87.891 Personal history of nicotine dependence; W01.0XXA Fall on same level from slipping, tripping and stumbling without subsequent striking against object, initial encounter; Y92.009 Unspecified place in unspecified non-institutional (private) residence as the place of occurrence of the external cause
CPT/HCPCS: 72170; 73562; 73590; 96372; 99284; A9270; J1170

== ENCOUNTER 2024-02-06 12:55 | Outpatient (CLI) | payer MEDICARE, MEDICAID, SELFPAY ==
[2024-02-06 13:19] LABS: Appearance Urine Clear (Clear); Bilirubin Urine 2+ (Negative); Blood Urine 3+ (Negative); Glucose Urine UA Negative (Negative); Ketones Urine Trace (Negative); Leukocyte Esterase Ur 3+ LEU/UL (Negative); Nitrate Urine Positive (Negative); Protein Urine 2+ (Negative); pH Urine 6.5 (5.0-8.0)
[2024-02-06 13:20] LABS: Add Urine Microscopic? YES; Color Urine Dark Red (Yellow); RBC Urine >75 /hpf (0-2); WBC Urine 16-20 /hpf (0-3)
[2024-02-06 13:21] LABS: Bacteria Urine 1+ /hpf
== END 2024-02-06 12:56 | disposition home or self-care (01) ==
LOC: CHSLAB 13:07
PROVIDERS: PCP Internal Medicine; Visit Provider Internal Medicine
DX: R31.0 Gross hematuria (principal)
CPT/HCPCS: 81001; 87077; 87086; 87088; 87186

== ENCOUNTER 2024-02-10 11:21 | Outpatient (CLI) | payer MEDICARE, MEDICAID, SELFPAY ==
[2024-02-10 11:35] LABS: Hematocrit 32.6 % (37.0-46.0); Hemoglobin 9.7 g/dL (12.4-15.3); Immature Platelet Fraction Pct 3.6 % (1.0-7.0); Mean Corpuscular HGB Conc 29.8 g/dL (32-36); Mean Corpuscular Hemoglobin 25.9 pg (27.0-31.0); Mean Corpuscular Volume 86.9 fL (78.0-102.0); Mean Platelet Volume 8.9 fl (8.7-11.0); Platelet Count Result 98 K/mm3 (150-420); Red Blood Count 3.75 M/mm3 (4.70-6.10); Red Cell Distribution Width 16.3 % (11.6-14.4); White Blood Count 4.9 K/mm3 (4.8-10.8)
== END 2024-02-10 11:22 | disposition home or self-care (01) ==
LOC: CHSLAB 11:22
PROVIDERS: PCP Internal Medicine; Visit Provider Internal Medicine
DX: R31.0 Gross hematuria (principal)
CPT/HCPCS: 36415; 85027; 85055

== ENCOUNTER 2024-08-27 17:25 | Emergency (ER) | payer MEDICARE, MEDICAID, SELFPAY ==
--- NOTE | ~2024-08-27 | CT_ITS ---
Procedure: CT shoulder LT wo con Ordering provider: Mor Landaverde MD History: . PAIN . Comparison: None. Technique: Thin slice axial CT of the No IV contrast was given. Sagittal and coronal reformatted imag es were also obtained and reviewed. Findings: BONES: Fracture of the scapula is seen superiorly extending to the body with no displacement. Small b chelsea fragment is seen anterior to the humeral head which may indicate a fracture. Degenerative changes seen in the humeral head. JOINT SPACES: Severe osteoarthritic changes of the glenohumeral joint. Osteoarthritic changes of the acromioclavicular joint. SOFT TISSUES: Normal. IMPRESSION: Fracture of the scapula with no displacement. Small bony fragment seen anterior to the humerus head. Severe osteoarthritic changes of the glenohumeral joint. Reviewed, dictated and finalized at location A.
--- NOTE | ~2024-08-27 | XR_ITS ---
XR shoulder LT min 2V Ordering provider: Mor Landaverde MD History: . PAIN . Comparison: February 11, 2016 FINDINGS: BONES: No definite acute fracture seen. Elevation of the humeral head is noted. Possibility of fractu re in the glenoid cavity superiorly is is not excluded although this is most likely summation shadow. . JOINT SPACES: Mild acromioclavicular arthropathy with inferior displacement of the clavicle compared to the acromion. The glenohumeral joint shows severe narrowing of the joint space. SOFT TISSUES: Normal. IMPRESSION: No definite acute osseous abnormality left shoulder. Possibility of fracture in the superior glenoid cavity is noted although this is most likely summatio n shadow. If still clinically concerned CT is advised. Severe narrowing of the glenohumeral joint. Inferior subluxation of the acromioclavicular joint. Reviewed, dictated and finalized at location A. IMPRESSION: No definite acute osseous abnormality left shoulder. Possibility of fracture in the superior glenoid cavity is noted although this i s most likely summation shadow. If still clinically concerned CT is advised. Severe narrowing of the glenohumeral joint. Inferior subluxation of the acromioclavicular joint.
[2024-08-27 17:25] VITALS: BP 142/111; PULSE 86; RESP 16; TEMP 37; O2SAT 92
--- NOTE | 2024-08-27 17:35 | ED.UPPEXIN ---
HPI - Extremity Injury (Upper) General Chief Complaint: Extremity Injury, Upper Stated Complaint: left shoulder pain Time Seen by Provider: 08/27/24 17:30 Source: patient and EMS Mode of arrival: EMS History of Present Illness HPI narrative: 69 YEARS OLD WHITE MALE CAME FROM HOME BY AMBULANCE COMPLAINING OF SEVERE LEFT SHOULDER PAIN WHILE TRYING TO REACH UP AND BACKWARD WHILE SITTING ON A MOTOR CHAIR TO REACH HIS OXYGEN TANK , HEARD A SEVERE POP AT THE BACK OF LEFT SHOULDER. HE DENIES OTHER INJURY OR FALL MD complaint: injury to: left Related Data Home Medications Medication Instructions Recorded Confirmed albuterol sulfate 90 mcg/actuation 1 - 2 puff inhalation Q4-5H 01/05/20 09/14/23 aerosol inhaler atorvastatin 40 mg tablet 20 mg PO DAILY 01/05/20 09/14/23 budesonide-formoterol HFA 160 1 - 2 inh inhalation DAILY 01/05/20 09/14/23 mcg-4.5 mcg/actuation aerosol inhaler (Symbicort) buspirone 7.5 mg tablet 7.5 mg PO DAILY 01/05/20 09/14/23 cyclobenzaprine 10 mg tablet 10 mg PO TID PRN Pain 01/05/20 09/14/23 finasteride 5 mg tablet 5 mg PO DAILY 01/05/20 09/14/23 fluticasone propionate 50 1 - 2 spray intranasal DAILY 01/05/20 09/14/23 mcg/actuation nasal spray,suspension rabeprazole 20 mg tablet,delayed 20 mg PO DAILY 01/05/20 09/14/23 release tamsulosin 0.4 mg capsule 0.4 mg PO DAILY 01/05/20 09/14/23 theophylline 400 mg 400 mg PO DAILY 01/05/20 09/14/23 capsule,extended release 24 hr (Ras-24) torsemide 20 mg tablet 20 mg PO BID 01/05/20 09/14/23 pregabalin 150 mg capsule 150 mg PO BID 08/20/22 09/14/23 tiotropium bromide 2.5 2 inh inhalation QAM 08/20/22 09/14/23 mcg/actuation mist for inhalation (Spiriva Respimat) diclofenac sodium 75 mg 75 mg PO BID 09/14/23 09/14/23 tablet,delayed release metoprolol tartrate 50 mg tablet 50 mg PO BID 09/14/23 09/14/23 montelukast 10 mg tablet 10 mg PO DAILY 09/14/23 09/14/23 potassium chloride 10 mEq 10 meq PO DAILY 09/14/23 09/14/23 capsule,extended release Allergies Allergy/AdvReac Type Severity Reaction Status Date / Time vancomycin Allergy Severe Hives Verified 09/14/23 18:13 levofloxacin Allergy Intermediate HIVES Verified 09/14/23 18:13 lisinopril Allergy Intermediate swelling Verified 09/14/23 18:13 Penicillins Allergy Intermediate Hives Verified 09/14/23 18:13 Quinolones Allergy Unknown BLISTERS,HI Verified 09/14/23 18:13 VES Review of Systems Review of Systems: All systems reviewed & are unremarkable except as noted in HPI and below PMFSH Past Medical History Medical History COPD (chronic obstructive pulmonary disease) Exogenous obesity Hypercholesterolemia Hypertension Insect bite Surgical History Surgical History History of hip surgery Hx of cholecystectomy Family History Family History Other Cerebrovascular accident Diabetes mellitus Family history of alcoholism Family history of arthritis Hypertension Social History Social History Social History: Quit 2012; 90 pack year. Currently does chewing tobacco about 1 can/week. Smoking packs per day: 3 Smoking cigarettes per day: 60.0 Years smoked: 30 Smoking pack-years: 90.00 Smoking status: Former smoker Tobacco type: cigarettes Smokeless tobacco user: chewing tobacco Second hand tobacco smoke exposure: Yes Smoking end date: 10/31/12 Alcohol intake: current Exam Narrative: GENERAL APPEARANCE: WELL-DEVELOPED, WELL-NOURISHED , ON OXYGEN BY NASAL CANNULA SKIN: NORMAL COLOR HEAD: NORMOCEPHALIC, NONTRAUMATIC NECK: SUPPLE, NONTENDER VASCULAR: NORMAL PERIPHERAL PULSES, NORMAL CAPILLARY REFILL. MUSCULOSKELETAL: DIFFUSE TENDERNESS LEFT SHOULDER, NO BRUISES, NO SWELLING, NO DEFORMITY, MODERATE LIMITED RANGE OF MOTION NEUROLOGIC: ALERT AND ORIENTED ?3, FINANCIAL SPECIALIST IS NORMAL TESTED, NO GROSS MOTOR DEFICIT Course Consultations Consultation #1: DR FERNANDEZ, ORTHOPEDIC AT [facility] OUTPATIENT FOLLOW-UP IN 1-2 WEEKS, PHONE NUMBER IS [phone] Date: 08/27/24 Vital Signs Vital signs: Vital Signs Temperature 37.0 C 08/27/24 17:25 Pulse Rate 86 08/27/24 17:25 Respiratory Rate 16 08/27/24 17:25 Blood Pressure 142/111 H 08/27/24 17:25 Pulse Oximetry 92 08/27/24 17:25 Oxygen Delivery Nasal Cannula 08/27/24 17:25 Oxygen Flow Rate 2 08/27/24 17:25 Temperature 37.0 C 08/27/24 17:25 Pulse Rate 77 08/27/24 22:10 Respiratory Rate 20 08/27/24 22:10 Blood Pressure 169/61 H 08/27/24 22:10 Pulse Oximetry 97 08/27/24 22:10 Oxygen Delivery Nasal Cannula 08/27/24 22:10 Oxygen Flow Rate 2 08/27/24 22:10 MDM - Extremity Injury (Upper) MDM Narrative Medical decision making narrative: DIFFERENTIAL DIAGNOSIS INCLUDES STRAIN, SPRAIN, DISLOCATION, LESS LIKELY FRACTURE. X-RAY OF THE LEFT SHOULDER SHOWED POSSIBLE FRACTURE CT LEFT SHOULDER WITHOUT CONTRAST SHOWED NONDISPLACED FRACTURE OF THE BODY OF THE SCAPULA. DISCHARGED ON SLING, [place], AND TO FOLLOW WITH ORTHOPEDIC AT [facility] IN 1-2 WEEKS. Differential Diagnosis Differential diagnosis: Likely other ( ABOVE) Imaging Data Radiologist's impression: Impressions Shoulder X-Ray 08/27/24 18:22 IMPRESSION: No definite acute osseous abnormality left shoulder. Possibility of fracture in the superior glenoid cavity is noted although this is most likely summation shadow. If still clinically concerned CT is advised. Severe narrowing of the glenohumeral joint. Inferior subluxation of the acromioclavicular joint. CT LEFT SHOULDER WITHOUT CONTRAST SHOWED NONDISPLACED FRACTURE INVOLVING THE SCAPULAR BODY Critical Care Time Critical Care Time Critical Care Time: Yes Total Critical Care Time: 30 Discharge Plan Discharge Clinical Impression: Closed fracture of left scapula Patient Disposition: Home, Self-Care Condition: Stable Instructions: Scapular Fracture (ED) Additional Instructions: RETURN IF SYMPTOMS ARE WORSENING , CALL Dr fernandez, orthopedic at [facility] at [phone] for follow-up in 1-2 weeks, continue home medications Sling for comfort Gentle range of motion of the left wrist and left elbow to avoid stiffness Prescriptions: New hydrocodone-acetaminophen 5-325 mg tablet 1 tablet PO Q4H Qty: 20 0RF No Action cyclobenzaprine 10 mg tablet 10 mg PO TID PRN (Reason: Pain) atorvastatin 40 mg tablet 20 mg PO DAILY rabeprazole 20 mg tablet,delayed release (DR/EC) 20 mg PO DAILY torsemide 20 mg tablet 20 mg PO BID tamsulosin 0.4 mg capsule 0.4 mg PO DAILY buspirone 7.5 mg tablet 7.5 mg PO DAILY albuterol sulfate 90 mcg/actuation HFA aerosol inhaler 1 - 2 puff INHALATION Q4-5H fluticasone propionate 50 mcg/actuation spray,suspension 1 - 2 spray INTRANASAL DAILY finasteride 5 mg tablet 5 mg PO DAILY Ras-24 400 mg capsule,extended release 24hr 400 mg PO DAILY budesonide-formoterol [Symbicort] 160-4.5 mcg/actuation HFA aerosol inhaler 1 - 2 inh INHALATION DAILY hydrocodone-acetaminophen 5-325 mg tablet 1 tablet PO Q6H PRN (Reason: pain) Qty: 20 0RF acetaminophen [Tylenol] 325 mg capsule 650 mg PO Q8H PRN (Reason: pain) Qty: 20 0RF potassium chloride 10 mEq capsule, extended release 10 meq PO DAILY metoprolol tartrate 50 mg tablet 50 mg PO BID diclofenac sodium 75 mg tablet,delayed release (DR/EC) 75 mg PO BID montelukast 10 mg tablet 10 mg PO DAILY pregabalin 150 mg capsule 150 mg PO BID Spiriva Respimat 2.5 mcg/actuation mist 2 inh inhalation QAM Follow-up/Referrals: Symone,Prerna Mejia MD [Primary Care Provider] -
--- NOTE | 2024-08-27 17:59 | PC.NURSE ---
xray at the bedside
--- NOTE | 2024-08-27 18:46 | PC.NURSE ---
patient transported to ct
--- NOTE | 2024-08-27 18:52 | PC.NURSE ---
patient has animal control form and is filling out her portion of form
[2024-08-27] MEDS: HYDROmorphone HCL INJ (*CRX) 2 MG/ML VIAL 1 MG IM (18:59)
[2024-08-27] MEDS: ONDANSETRON HCL ODT 4 MG TABLET PO (19:00)
--- NOTE | 2024-08-27 19:15 | PC.NURSE ---
ice chips given per ok from dr hernandez
--- NOTE | 2024-08-27 19:26 | PC.NURSE ---
Pt requested tv volume to be turned up. Upon attempting to turn it up, it was already at the highest volume and no sound coming out. Looked on tv to see if I could turn volume up and could not. Stated to pt that TV volume not working.
--- NOTE | 2024-08-27 19:33 | PC.NURSE ---
Pt requested meal; spoke w/ his RN; she already spoke to pt and stated that he was not allowed to eat anything at this time
--- NOTE | 2024-08-27 20:35 | PC.NURSE ---
patient resting on stretcher in room. awaiting ct results. call light in reach
--- NOTE | 2024-08-27 22:06 | PC.NURSE ---
facesheet faxed to [facility] exchange [phone] at [phone]
[2024-08-27 22:10] VITALS: BP 169/61; PULSE 77; RESP 20; O2SAT 97
[2024-08-27] MEDS: HYDROmorphone HCL INJ (*CRX) 2 MG/ML VIAL 0.5 MG IM (23:43)
== END 2024-08-27 23:55 | disposition home or self-care (01) ==
PROVIDERS: Emergency Provider Emergency Medicine; PCP Internal Medicine
DX: S42.102A Fracture of unspecified part of scapula, left shoulder, initial encounter for closed fracture (principal); I10 Essential (primary) hypertension; J44.9 Chronic obstructive pulmonary disease, unspecified; Z87.891 Personal history of nicotine dependence; X50.0XXA Overexertion from strenuous movement or load, initial encounter
CPT/HCPCS: 73030; 73200; 96372; 99284; A4565; A9270; J1171

== ENCOUNTER 2025-05-17 13:35 | Emergency (ER) | payer MEDICARE, MEDICAID, SELFPAY ==
[2025-05-17 13:35] VITALS: BP 140/61; PULSE 97; RESP 22; TEMP 36.8; O2SAT 96
--- NOTE | 2025-05-17 13:37 | ED.MALEGU ---
HPI - Male Genitourinary General Chief complaint: Urogenital-Male Stated complaint: disconnected cath.bag Time Seen by Provider: 05/17/25 13:36 Source: patient Mode of arrival: EMS Limitations: no limitations History of Present Illness HPI Narrative: Patient is a 70-year-old male with a urinary catheter dysfunction with urine loss out of the bag after he ran over it with his wheelchair. Patient is on nasal cannula oxygen at home. Patient came to the ER via EMS for urinary catheter dysfunction. He has COPD. He has chronic shortness of breath. Chronic arthritis. Wheelchair-bound. Complaint: other ( Urinary catheter dysfunction) Onset (ago): hour(s) ( 1) Duration: constant Quality: other ( no pain for urinary system) Relieving factors: none Exacerbating factors: none Context: indwelling catheter Associated symptoms: Reports denies other symptoms ( patient has chronic arthritic pain and shortness of breath/COPD; he was recently hospitalized for COPD) Related Data Home Medications ?Medication ?Instructions ?Recorded ?Confirmed ?Last Taken ?Type albuterol sulfate 90 mcg/actuation 1 - 2 puff inhalation Q4-5H 01/05/20 09/14/23 Unknown History aerosol inhaler atorvastatin 40 mg tablet 20 mg PO DAILY 01/05/20 09/14/23 Unknown History budesonide-formoterol HFA 160 1 - 2 inh inhalation DAILY 01/05/20 09/14/23 Unknown History mcg-4.5 mcg/actuation aerosol inhaler (Symbicort) buspirone 7.5 mg tablet 7.5 mg PO DAILY 01/05/20 09/14/23 Unknown History cyclobenzaprine 10 mg tablet 10 mg PO TID PRN Pain 01/05/20 09/14/23 Unknown History finasteride 5 mg tablet 5 mg PO DAILY 01/05/20 09/14/23 Unknown History fluticasone propionate 50 1 - 2 spray intranasal DAILY 01/05/20 09/14/23 Unknown History mcg/actuation nasal spray,suspension rabeprazole 20 mg tablet,delayed 20 mg PO DAILY 01/05/20 09/14/23 Unknown History release tamsulosin 0.4 mg capsule 0.4 mg PO DAILY 01/05/20 09/14/23 Unknown History theophylline 400 mg 400 mg PO DAILY 01/05/20 09/14/23 Unknown History capsule,extended release 24 hr (Ras-24) torsemide 20 mg tablet 20 mg PO BID 01/05/20 09/14/23 Unknown History pregabalin 150 mg capsule 150 mg PO BID 08/20/22 09/14/23 Unknown History tiotropium bromide 2.5 2 inh inhalation QAM 08/20/22 09/14/23 Unknown History mcg/actuation mist for inhalation (Spiriva Respimat) diclofenac sodium 75 mg 75 mg PO BID 09/14/23 09/14/23 Unknown History tablet,delayed release metoprolol tartrate 50 mg tablet 50 mg PO BID 09/14/23 09/14/23 Unknown History montelukast 10 mg tablet 10 mg PO DAILY 09/14/23 09/14/23 Unknown History potassium chloride 10 mEq 10 meq PO DAILY 09/14/23 09/14/23 Unknown History capsule,extended release Allergies Allergy/AdvReac Type Severity Reaction Status Date / Time vancomycin Allergy Severe Hives Verified 05/17/25 14:16 levofloxacin Allergy Intermediate HIVES Verified 05/17/25 14:16 lisinopril Allergy Intermediate swelling Verified 05/17/25 14:16 Penicillins Allergy Intermediate Hives Verified 05/17/25 14:16 Quinolones Allergy Unknown BLISTERS,HI Verified 05/17/25 14:16 VES Review of Systems Review of Systems: All systems reviewed & are unremarkable except as noted in HPI and below Constitutional: Constitutional: Reports no additional constitutional complaints Eyes: Eyes: Reports no additional eye complaints ENT: Reports system reviewed and no additional complaints, except as documented Cardiovascular: Cardiovascular: Reports no additional cardiovascular complaints Respiratory: Respiratory: Reports no additional respiratory complaints Gastrointestinal: Gastrointestinal: Reports no additional gastrointestinal complaints Genitourinary: Genitourinary: Reports no additional male genitourinary complaints Musculoskeletal: Musculoskeletal: Reports no additional musculoskeletal complaints Integumentary/Breasts: Skin/Breast: Reports system reviewed and no additional complaints, except as docu Neurologic: Reports system reviewed and no additional complaints, except as documented Psychiatric: Psychiatric: Reports no additional psychiatric complaints Endocrine: Endocrine: Reports no additional endocrine complaints Hematologic/Lymphatic: Hematologic/Lymphatic: Reports no additional hematologic/lymphatic complaints Allergic/Immunologic: Allergic/Immunologic: Reports no additional allergic/immunologic complaints PMFSH Past Medical History Medical History Insect bite COPD (chronic obstructive pulmonary disease) Hypercholesterolemia Hypertension Exogenous obesity Surgical History Surgical History History of hip surgery Hx of cholecystectomy Family History Family History Other Cerebrovascular accident Diabetes mellitus Family history of alcoholism Family history of arthritis Hypertension Social History Social History Social History: Quit 2012; 90 pack year. Currently does chewing tobacco about 1 can/week. Smoking packs per day: 3 Smoking cigarettes per day: 60.0 Years smoked: 30 Smoking pack-years: 90.00 Smoking status: Former smoker Tobacco type: cigarettes Smokeless tobacco user: chewing tobacco Second hand tobacco smoke exposure: Yes Smoking end date: 10/31/12 Alcohol intake: current Exam Const: General: cooperative, well developed, alert, awake and Physically active Other: acute pain with his chronic arthritis HENMT: Head: normal to inspection, No palpable skull fracture present and normocephalic Eyes: General: appearance normal, both eyes and all related structures Visual Bagley: normal visual bagley by confrontation Alignment and Position: alignment normal Neck: Neck: normal visual inspection, full ROM and no lymphadenopathy Chest: Chest palpation & inspection: normal inspection of the chest, normal palpation of entire chest wall and normal inspection of the chest Resp: Effort & Inspection: normal respiratory effort, able to speak in complete sentences, normal respiratory pattern, no cough, respiratory effort not decreased and not labored Auscultation: clear to auscultation bilaterally Cardio: Jugular venous distension: no JVD Palpation: normal PMI Rate: regular rate Rhythm: regular rhythm Heart sounds: S1 normal heart sound present and S2 normal heart sound present GI: Inspection: normal to inspection and no abdominal wall ecchymosis GI Palp: No abdominal tenderness and No Splenomegaly present : Other: Escalera catheter in place but the urinary bag itself was leaking and changed in the emergency room today Urinary Catheter: Urinary Catheter: patent and draining and urine clear Back/Spine/Pelvis: Back: no CVA tenderness, No CVA tenderness and No mass Skin: General skin exam: normal color, no rashes or lesions noted and elasticity normal Neuro: General: patient oriented x3, No gait normal ( wheelchair-bound), tone normal and moves all extremities Extrem: General: normal to inspection, full ROM and capillary refill normal Psych: Appearance: grossly normal Mental Status: mental status grossly normal Speech and movement: Normal speech and movement present Course Vital Signs Vital signs: Vital Signs Temperature 36.8 C 05/17/25 13:35 Pulse Rate 97 05/17/25 13:35 Respiratory Rate 22 H 05/17/25 13:35 Blood Pressure 140/61 05/17/25 13:35 Pulse Oximetry 96 05/17/25 13:35 Oxygen Delivery Nasal Cannula 05/17/25 13:35 Oxygen Flow Rate 4 05/17/25 13:35 Temperature 36.8 C 05/17/25 13:35 Pulse Rate 97 05/17/25 13:35 Respiratory Rate 22 H 05/17/25 13:35 Blood Pressure 140/61 05/17/25 13:35 Pulse Oximetry 96 05/17/25 13:35 Oxygen Delivery Nasal Cannula 05/17/25 13:35 Oxygen Flow Rate 4 05/17/25 13:35 MDM - Male Genitourinary MDM Narrative Medical decision making narrative: Patient is a 70-year-old male with a urinary catheter dysfunction at home where he ran over the bag with his wheelchair. There was a leak in the bag. Patient was brought to the ER for evaluation and treatment. We have changed the urinary bag with good results and resolution of the urinary loss and leak. The catheter itself was intact with good integrity. And monitoring the new bag with the old catheter which is recently changed did not show any urinary loss onto the floor. Discharge Plan Discharge Clinical Impression: Urinary catheter dysfunction Qualifiers: Encounter type: initial encounter Qualified Code(s): T83.018A - Breakdown (mechanical) of other urinary catheter, initial encounter Patient Disposition: Home Condition: Stable Instructions: Escalera Catheter Placement and Care (ED) Patient Language: Persian Prescriptions: No Action cyclobenzaprine 10 mg tablet 10 mg PO TID PRN (Reason: Pain) atorvastatin 40 mg tablet 20 mg PO DAILY rabeprazole 20 mg tablet,delayed release (DR/EC) 20 mg PO DAILY torsemide 20 mg tablet 20 mg PO BID tamsulosin 0.4 mg capsule 0.4 mg PO DAILY buspirone 7.5 mg tablet 7.5 mg PO DAILY albuterol sulfate 90 mcg/actuation HFA aerosol inhaler 1 - 2 puff INHALATION Q4-5H fluticasone propionate 50 mcg/actuation spray,suspension 1 - 2 spray INTRANASAL DAILY finasteride 5 mg tablet 5 mg PO DAILY Ras-24 400 mg capsule,extended release 24hr 400 mg PO DAILY budesonide-formoterol [Symbicort] 160-4.5 mcg/actuation HFA aerosol inhaler 1 - 2 inh INHALATION DAILY hydrocodone-acetaminophen 5-325 mg tablet 1 tablet PO Q6H PRN (Reason: pain) Qty: 20 0RF acetaminophen [Tylenol] 325 mg capsule 650 mg PO Q8H PRN (Reason: pain) Qty: 20 0RF potassium chloride 10 mEq capsule, extended release 10 meq PO DAILY metoprolol tartrate 50 mg tablet 50 mg PO BID diclofenac sodium 75 mg tablet,delayed release (DR/EC) 75 mg PO BID montelukast 10 mg tablet 10 mg PO DAILY hydrocodone-acetaminophen 5-325 mg tablet 1 tablet PO Q4H Qty: 20 0RF pregabalin 150 mg capsule 150 mg PO BID Spiriva Respimat 2.5 mcg/actuation mist 2 inh inhalation QAM Follow-up/Referrals: UNKNOWN,DOCTOR [Non-Staff] - Time of Disposition: 14:09
--- OUTSIDE RECORDS SUMMARY | 2025-05-17 13:39 | XMS_ITS | Encounter Summary ---
Author Organization [facility] Address Replaced by [facility] [address] [place] [address] Care Team Providers Care Bilingual Medical Assistant Name Role Phone Robbin Arteaga MD Unavailable [phone] Gabriel Fulton MD Primary Care Provider [phone] None, Provider Primary Care Provider Unavaila Ruthie Ly NP Primary Care Provider + [phone] Prerna William MD Primary Care Provider + [phone] Arian Guzman MD Unavailable [phone] Lianne SCHULTZ MD, Malgorzata Unavailable [phone] Encounter Details Date Type Department Care Team (Late st Contact Info) Description 04/07/2019 Abstract [facility]FL CONVERSION [address] [place] [address] , Generic Conversion, Social History Tobacco Use Types Packs/Day Years Used Date Smoking Tobacco: Former Cigarettes 2.5 53 1 961 - 2014 Smokeless Tobacco: Current Chew Comments:started smoking charla und 11 years old, smoked 2-3 ppd; chews tobacco Alcohol Use Standard Drinks/Week Comments Yes 0 (1 standard drink = 0.6 oz pur e alcohol) Social Sex and Gender Information Value Date Recorded Sex Assigned at Male 11/15/2024 12:31 PM PRODUCT DEVELOPMENT COORDINATOR Legal Sex Male 10:09 PM CDT Gender Identity Not on file Sexual Orientation Not on file Occupation Industry Job Start Date Job End Date Disabled Not on file Not on file Not on file documented as of this encounter Plan of Treatment Not on file documented as of this encounter Visit Diagnoses Not on filedocumented in this encounter Additional Health Concerns Infection Onset Date Last Indicated Resolved Time 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 COVID-19 Rule Out 11/12/2020 11/12/2020 11/14/2020 8:01 AM PRODUCT DEVELOPMENT COORDINATOR COVID-19 Rule Out 04/19/2022 04/19/2022 04/19/2022 3:19 PM CDT COVID-19 Rule Out 05/15/2022 05/15/2022 05/15/2022 5:56 PM CDT COVID-19 Rule Out 04/25/2024 04/25/2024 04/25/2024 11:23 AM CDT COVID-19 Rule Out 09/18/2024 09/18/2024 09/18/2024 10:54 AM PRODUCT DEVELOPMENT COORDINATOR documented as of this encounter Care Teams Bilingual Medical Assistant Relationship Specialty Start Date End Date Gabriel Fulton MD [address] [place] [id number] PCP - General FAMILY PRACTICE 12/09/17 04/25/19 Harish Norris MD PCP - General 06/03/20 09/09/20 Ruthie Etienne NP PCP - General Nurse Practitioner Family 09/10/20 04/25/24 [place] [address] [place] [address] PCP - General INTERNAL MEDICINE 04/26/24 Robbin Arteaga MD [address] [place] [address] [employer] Administrator CARDIOVASCULAR DISEASE 07/07/16 Arian Guzman MD [address] [place] [address] [address] [place] [address] DERMATOLOGY 11/28/24 11/28/25 Malgorzata Abdalla III, MD [address] [place] [address] Consulting Physician UROLOGY 01/31/25 01/31/26 documented as of this encounter
--- OUTSIDE RECORDS SUMMARY | 2025-05-17 13:39 | XMS_ITS ---
Author Organization Unknown Address [address] [place] [phone] Phone Care Team Providers Care Personnel Coordinator Name Role Phone TALON HOPSON Attending Unavailable NEELAM LEVI Primary Unavailable Immunization Immunization Date Status Additional Notes Code Code System pneumococcal polysaccharide PPV23 10/31/2012 Completed 33 CVX Influenza, split virus, trivalent, preservative 08/05/2016 Completed 141 CVX Results SHOULDER MIN 2V LEFT - Compl eted: 11/16/2024 13:53 LOINC: \TM00\\12PI\\DRAo\\BM09\ \MRLo\ [address] [address] ---------NAME--------- NUMBER SEX AGE ADMIT DISC. XRAY# F/C TYPE SILVIA HADDAD [id number] O/P DATE OF : 1955 M/R# [id number] PH#: [phone] RM \MRHx\ LOCATION: TRANSCRIBED: 11/16/24 15:32 SHOULDER MIN 2V LEFT [id number] COMPLETED:11/16/24 13:53 JDF [id number] {REASON-SHLR/AC/CLAV: FX FOLLOW UP PHYSICIAN: TALON HOPSON R A D I O L O G Y R E P O R T PROCEDURE: Left shoulder radiographs. INDICATION: FX FOLLOW UP TECHNIQUE: 3 views of the left shoulder were obtained. COMPARISON: SHOULDER MIN 2V LEFT on DOS: 10/19/24, SHOULDER MIN 2V LEFT on DOS: 09/21/24, SHOULDER MIN 2V RIGHT on DOS: 01/25/24 FINDINGS: There is healing fracture of the scapula. The fracture lucency is less conspicuous. AC joint space widening. Glenohumeral joint space narrowing with osteophyte formation. IMPRESSION: 1. Healing scapular fracture. 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 \ITLo\ \UNDo\ \UNDx\ \ITLx\ Reviewed and Electronically Signed by: Fe Cortes MD Signed Date: 11/16/24 15:32 [email or web address] RICHTER TERRI via modem Social History Type Status Start Date End Date Code Code Syst em Smoking History Former smoker [id number] SNOMED CT Sex Male Medications Medication Start Date End Date Route Frequency Dose Code Code System Medication Instructions Home Meds Atorvastatin Calcium 20MG Oral Tablet 08/11/2023 Unknown ORAL ONCE A DAY 20 MILLIGRAMS 479803 RxNorm TAKE 20 MILLIGRAMS ORAL ONCE A DAY Azelastine HCl 205.5MCG/1Act Nasal [place] 08/11/2023 Unknown NASAL ONCE A DAY 1 unit(s) 9899698 RxNorm 1 EACH NASAL ONCE A DAY Calcium Carbonate 500MG Oral Tablet 08/11/2023 Unknown ORAL ONCE A DAY 500 MILLIGRAMS RxNorm TAKE 500 MILLIGRAMS ORAL ONCE A DAY Finasteride 5MG Oral Tablet 08/11/2023 Unknown ORAL ONCE A DAY 5 MILLIGRAMS 209679 RxNorm TAKE 5 MILLIGRAMS ORAL ONCE A DAY Flomax 0.4MG Oral Capsule 08/11/2023 Unknown ORAL ONCE A DAY 0.4 MILLIGRAMS 145523 RxNorm TAKE 0.4 MILLIGRAMS ORAL ONCE A DAY Gabapentin 100MG Oral Capsule 08/11/2023 Unknown ORAL THREE TIMES A DAY 100 MILLIGRAMS 339938 RxNorm TAKE 100 MILLIGRAMS ORAL THREE TIMES A DAY HYDROcodone bitartrate-ac etaminophen 7.5MG-325MG Oral Tablet 08/11/2023 Unknown ORAL TWICE A DAY 1 unit(s) 551543 RxNorm TAKE 1 EACH ORAL TWICE A DAY Ipratropium [place]-Albut indu Sulfate 0.5MG/3ML-3MG /3ML Inhalation Solution 08/11/2023 Unknown INHALATIO N THREE TIMES A DAY 1 unit(s) 9363045 RxNorm 1 EACH INHALATION THREE TIMES A DAY Iron 325MG Oral Tablet 08/11/2023 Unknown ORAL ONCE A DAY 325 MILLIGRAMS 861625 RxNorm TAKE 325 MILLIGRAMS ORAL ONCE A DAY Loratadine 10MG Oral Tablet 08/11/2023 Unknown ORAL ONCE A DAY 10 MILLIGRAMS 725655 RxNorm TAKE 10 MILLIGRAMS ORAL ONCE A DAY Metoprolol Succinate 25MG Oral Tablet, Extended Release 08/11/2023 Unknown ORAL TWICE A DAY 25 MILLIGRAMS 754760 RxNorm TAKE 25 MILLIGRAMS ORAL TWICE A DAY Montelukast Sodium 10MG Oral Tablet 08/11/2023 Unknown ORAL ONCE A DAY 10 MILLIGRAMS 982784 RxNorm TAKE 10 MILLIGRAMS ORAL ONCE A DAY Mupirocin 2% Topical application Cream 08/11/2023 Unknown TOPICAL APPLICATI ON TWICE A DAY 1 unit(s) 371475 RxNorm 1 EACH TOPICAL APPLICATION TWICE A DAY Nystatin/Tria mcinolone Acetonide 163154B-8RW/1 GM Topical application Ointment 08/11/2023 Unknown TOPICAL APPLICATI ON ONCE A DAY 1 unit(s) 6854524 RxNorm 1 EACH TOPICAL APPLICATION ONCE A DAY Potassium Chloride 10MEQ Oral Capsule, Extended Release 08/11/2023 Unknown ORAL ONCE A DAY 10 MEQ 266292 RxNorm TAKE 10 MEQ ORAL ONCE A DAY RABEprazole Sodium 20MG Oral Tablet, Enteric Coated 08/11/2023 Unknown ORAL ONCE A DAY 20 MILLIGRAMS 043430 RxNorm TAKE 20 MILLIGRAMS ORAL ONCE A DAY Spiriva Respimat 1.25MCG/1ACT Inhalation [place] 08/11/2023 Unknown INHALATIO N 1 unit(s) 4983843 RxNorm 1 EACH INHALATION Symbicort 160/4.5 160MCG-4.5MCG /1 Actu Inhalation Aerosol Liquid 08/11/2023 Unknown INHALATIO N TWICE A DAY 1 unit(s) 2355243 RxNorm 1 EACH INHALATION TWICE A DAY Ras-24 400MG Oral Capsule, Extended Release, 24 HR 08/11/2023 Unknown ORAL ONCE A DAY 400 MILLIGRAMS 999784 RxNorm TAKE 400 MILLIGRAMS ORAL ONCE A DAY Torsemide 20MG Oral Tablet 08/11/2023 Unknown ORAL ONCE A DAY 20 MILLIGRAMS 099044 RxNorm TAKE 20 MILLIGRAMS ORAL ONCE A DAY Ventolin HFA 0.09MG/1Actua tion Inhalation Suspension 08/11/2023 Unknown INHALATIO N ONCE A DAY 1 unit(s) 823876 RxNorm 1 EACH INHALATION ONCE A DAY busPIRone HCl 7.5MG Oral Tablet 08/11/2023 Unknown ORAL THREE TIMES A DAY 7.5 MILLIGRAMS 703699 RxNorm TAKE 7.5 MILLIGRAMS ORAL THREE TIMES A DAY Hospital Discharge Instructions Should you have any questions prior to discharge, please contact a member of your healthcare team. If you have left the hospital and have any questions, please contact your primary care physician. Reason For Referral No Data Found Allergies and Adverse Reactions Allergy Substance Reaction Severity Start Date Concern Status Co de Code System VANCOMYCIN Active 44604 RxNorm LEVOFLOXACIN Active 67241 RxNorm BACTRIM Active 058831 RxNorm PENICILLIN Active Plan of Treatment I&D Abscess 08/11/2023 Encounters Encounter Diagnosis Start Date Code Code Sys tem Fracture of unspecified part of scapula, left shoulder, subsequent encounter for fracture with routine healing 11/16/2024 SNOMED-CT Personal Care Team Section Performer Name Performer Role Active Date Inactive Pascual Henderson PCP - Primary care physician Imaging Narrative Notes [facility] 11/16/2024 15:35 [facility] [address] [place] [address] ---------NAME--------- NUMBER SEX AGE ADMIT DISC. XRAY# F/C TYPE VEGA MILAGRO HADDAD [id number] M [id number] [id number] O/P DATE OF : 1955 M/R# [id number] #: [phone] LOCATION: TRANSCRIBED: 11/16/24 15:32 SHOULDER MIN 2V LEFT [id number] COMPLETED:11/16/24 13:53 [facility] [id number] {REASON-SHLR/AC/CLAV: FX FOLLOW UP PHYSICIAN: TALON HOPSON RADIOLOGY REPORT PROCEDURE: Left shoulder radiographs. INDICATION: FX FOLLOW UP TECHNIQUE: 3 views of the left shoulder were obtained. COMPARISON: SHOULDER MIN 2V LEFT on DOS: 10/19/24, SHOULDER MIN 2V LEFT on DOS: 09/21/24, SHOULDER MIN 2V RIGHT on DOS: 01/25/24 FINDINGS: There is healing fracture of the scapula. The fracture lucency is less conspicuous. AC joint space widening. Glenohumeral joint space narrowing with osteophyte formation. IMPRESSION: 1. Healing scapular fracture. 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
--- OUTSIDE RECORDS SUMMARY | 2025-05-17 13:39 | XMS_ITS ---
Author Organization Unknown Address [address] [place] [phone] Phone Care Team Providers Care Payloader Machine Operator Name Role Phone TALON SCRUGGSEN Attending Unavailable NEELAM LEVI Primary Unavailable Immunization Immunization Date Status Additional Notes Code Code System pneumococcal polysaccharide PPV23 10/31/2012 Completed 33 CVX Influenza, split virus, trivalent, preservative 08/05/2016 Completed 141 CVX Social History Type Status Start Date End Date Code Code Syst em Smoking History Former smoker 9156602 SNOMED CT Sex Male Medications Medication Start Date End Date Route Frequency Dose Code Code System Medication Instructions Home Meds Atorvastatin Calcium 20MG Oral Tablet 08/11/2023 Unknown ORAL ONCE A DAY 20 MILLIGRAMS 782361 RxNorm TAKE 20 MILLIGRAMS ORAL ONCE A DAY Azelastine HCl 205.5MCG/1Act Nasal [place] 08/11/2023 Unknown NASAL ONCE A DAY 1 unit(s) 9465885 RxNorm 1 EACH NASAL ONCE A DAY Calcium Carbonate 500MG Oral Tablet 08/11/2023 Unknown ORAL ONCE A DAY 500 MILLIGRAMS RxNorm TAKE 500 MILLIGRAMS ORAL ONCE A DAY Finasteride 5MG Oral Tablet 08/11/2023 Unknown ORAL ONCE A DAY 5 MILLIGRAMS 613816 RxNorm TAKE 5 MILLIGRAMS ORAL ONCE A DAY Flomax 0.4MG Oral Capsule 08/11/2023 Unknown ORAL ONCE A DAY 0.4 MILLIGRAMS 399700 RxNorm TAKE 0.4 MILLIGRAMS ORAL ONCE A DAY Gabapentin 100MG Oral Capsule 08/11/2023 Unknown ORAL THREE TIMES A DAY 100 MILLIGRAMS 337922 RxNorm TAKE 100 MILLIGRAMS ORAL THREE TIMES A DAY HYDROcodone bitartrate-ac etaminophen 7.5MG-325MG Oral Tablet 08/11/2023 Unknown ORAL TWICE A DAY 1 unit(s) 255136 RxNorm TAKE 1 EACH ORAL TWICE A DAY Ipratropium [place]-Albut indu Sulfate 0.5MG/3ML-3MG /3ML Inhalation Solution 08/11/2023 Unknown INHALATIO N THREE TIMES A DAY 1 unit(s) 1219810 RxNorm 1 EACH INHALATION THREE TIMES A DAY Iron 325MG Oral Tablet 08/11/2023 Unknown ORAL ONCE A DAY 325 MILLIGRAMS 928565 RxNorm TAKE 325 MILLIGRAMS ORAL ONCE A DAY Loratadine 10MG Oral Tablet 08/11/2023 Unknown ORAL ONCE A DAY 10 MILLIGRAMS 133372 RxNorm TAKE 10 MILLIGRAMS ORAL ONCE A DAY Metoprolol Succinate 25MG Oral Tablet, Extended Release 08/11/2023 Unknown ORAL TWICE A DAY 25 MILLIGRAMS 216468 RxNorm TAKE 25 MILLIGRAMS ORAL TWICE A DAY Montelukast Sodium 10MG Oral Tablet 08/11/2023 Unknown ORAL ONCE A DAY 10 MILLIGRAMS 421324 RxNorm TAKE 10 MILLIGRAMS ORAL ONCE A DAY Mupirocin 2% Topical application Cream 08/11/2023 Unknown TOPICAL APPLICATI ON TWICE A DAY 1 unit(s) 272584 RxNorm 1 EACH TOPICAL APPLICATION TWICE A DAY Nystatin/Tria mcinolone Acetonide 063321L-6PS/1 GM Topical application Ointment 08/11/2023 Unknown TOPICAL APPLICATI ON ONCE A DAY 1 unit(s) 2435549 RxNorm 1 EACH TOPICAL APPLICATION ONCE A DAY Potassium Chloride 10MEQ Oral Capsule, Extended Release 08/11/2023 Unknown ORAL ONCE A DAY 10 MEQ 180346 RxNorm TAKE 10 MEQ ORAL ONCE A DAY RABEprazole Sodium 20MG Oral Tablet, Enteric Coated 08/11/2023 Unknown ORAL ONCE A DAY 20 MILLIGRAMS 273380 RxNorm TAKE 20 MILLIGRAMS ORAL ONCE A DAY Spiriva Respimat 1.25MCG/1ACT Inhalation [place] 08/11/2023 Unknown INHALATIO N 1 unit(s) 3588356 RxNorm 1 EACH INHALATION Symbicort 160/4.5 160MCG-4.5MCG /1 Actu Inhalation Aerosol Liquid 08/11/2023 Unknown INHALATIO N TWICE A DAY 1 unit(s) 9511545 RxNorm 1 EACH INHALATION TWICE A DAY Ras-24 400MG Oral Capsule, Extended Release, 24 HR 08/11/2023 Unknown ORAL ONCE A DAY 400 MILLIGRAMS 024013 RxNorm TAKE 400 MILLIGRAMS ORAL ONCE A DAY Torsemide 20MG Oral Tablet 08/11/2023 Unknown ORAL ONCE A DAY 20 MILLIGRAMS 218343 RxNorm TAKE 20 MILLIGRAMS ORAL ONCE A DAY Ventolin HFA 0.09MG/1Actua tion Inhalation Suspension 08/11/2023 Unknown INHALATIO N ONCE A DAY 1 unit(s) 523183 RxNorm 1 EACH INHALATION ONCE A DAY busPIRone HCl 7.5MG Oral Tablet 08/11/2023 Unknown ORAL THREE TIMES A DAY 7.5 MILLIGRAMS 423795 RxNorm TAKE 7.5 MILLIGRAMS ORAL THREE TIMES A DAY Hospital Discharge Instructions Should you have any questions prior to discharge, please contact a member of your healthcare team. If you have left the hospital and have any questions, please contact your primary care physician. Reason For Referral No Data Found Procedures Procedure Name Date Status Code Code Syste m Arthrocentesis, aspiration a nd/or injection, major joint or bursa; without 04/26/2025 completed CP T Allergies and Adverse Reactions Allergy Substance Reaction Severity Start Date Concern Status Co de Code System VANCOMYCIN Active 72826 RxNorm LEVOFLOXACIN Active 74893 RxNorm BACTRIM Active 730276 RxNorm PENICILLIN Active Plan of Treatment I&D Abscess 08/11/2023 Encounters Encounter Diagnosis Start Date Code Code Sys tem Primary osteoarthritis, right shoulder 04/26/2025 SNOMED-CT Personal Care Team Section Performer Name Performer Role Active Date Inactive Pascual Henderson PCP - Primary care physician
--- OUTSIDE RECORDS SUMMARY | 2025-05-17 13:39 | XMS_ITS ---
Author Organization Unknown Address [address] [place] [phone] Phone Care Team Providers Care Heel Boom Operator Name Role Phone JUS TAMIKO Attending Unavailable NEELAM LEVI Primary Unavailable Immunization Immunization Date Status Additional Notes Code Code System pneumococcal polysaccharide PPV23 10/31/2012 Completed 33 CVX Influenza, split virus, trivalent, preservative 08/05/2016 Completed 141 CVX Results H & H - Collect Date/Time: 0 05/13/2025 19:59 [facility] ID: [id number] [address] [place] [address], [phone] LOINC: 66504-8 Test Value Unit Reference Range Code Code System Flag HEMOGLOBIN 8.9 g/dL L=14.0 H=18.0 718-7 LOINC L HEMATOCRIT 29.1 VOL% L=42.0 H=52.0 4544-3 LOINC L URINALYSIS w/Microscopy/C&S if indicated - Collect Date/Time: 05/13/2025 19:17 [facility] ID: [id number] [address] [place] [address], [phone] LOINC: 68133-3 Test Value Unit Reference Range Code Code System Flag UR SOURCE VOIDED 41495-2 LOINC COLOR RED YELLOW 5778-6 LOINC A CLARITY TURBID CLEAR 86669-9 LOINC A SPEC GRAVITY 1.020 1.000-1.030 5811-5 LOINC PH 7.0 5.0 - 6.5 5803-2 LOINC LEUK EST TRACE NEGATIVE 5799-2 LOINC A NITRATE NEGATIVE NEGATIVE PROTEIN 3+ NEGATIVE 5804-0 LOINC A GLUCOSE NEGATIVE NEGATIVE 84968-9 LOINC KETONES NEGATIVE NEGATIVE 74262-5 LOINC UROBILINOGEN 0.2 0.2 - 1.0 5818-0 LOINC BILIRUBIN NEGATIVE NEGATIVE 44942-1 LOINC BLOOD 3+ NEGATIVE 39874-8 LOINC WBC 5-10 0 - 2 39075-1 LOINC A RBC TNTC 0 - 2 39511-3 LOINC A SQ EPITHELIAL OCCASIONAL RARE-FEW BACTERIA 1+ NONE SEEN 76915-7 LOINC MUCUS NONE SEEN NONE SEEN 8247-9 LOINC YEAST NOT PRESENT NOT PRESENT 98071-5 LOINC TRICHOMONAS NOT PRESENT NOT PRESENT 66876-8 LOINC SPERMATOZOA NOT PRESENT NOT PRESENT 73954-7 LOINC CASTS NOT PRESENT 63006-7 LOINC CRYSTALS NOT PRESENT 47619-7 LOINC CULTURE? NO 8251-1 LOINC DIAGNOSIS N/A PROTIME - Collect Date/Time: 05/13/2025 17:47 [facility] ID: [id number] [address] [place] [address], [phone] LOINC: 65761-8 Test Value Unit Reference Range Code Code System Flag PT 11.1 Sec L=9.6 H=11.5 15689-1 LOINC INR 1.1 Sec L=0.9 H=1.1 51047-0 LOINC CBC W/ DIFF - Collect Date/T shannon: 05/13/2025 17:47 [facility] ID: [id number] [address] [place] [address], [phone] LOINC: 56814-2 Test Value Unit Reference Range Code Code System Flag WBC 6.4 10^3uL L=4.8 H=10.8 RBC 3.67 10^6uL L=4.60 H=6.20 L HEMOGLOBIN 9.0 g/dL L=14.0 H=18.0 718-7 LOINC L HEMATOCRIT 30.0 VOL% L=42.0 H=52.0 4544-3 LOINC L MCV 81.7 fL L=80.0 H=94.0 MCH 24.5 pg L=27.0 H=32.0 L MCHC 30.0 g/dL L=32.0 H=36.0 L PLATELETS 82 10^3uL L=100 H=400 30769-6 LOINC L RDW 18.5 % L=11.7 H=15.5 H %GRAN 82.7 % L=40.0 H=70.0 98865-4 LOINC H %LYMPH 9.7 % L=20.0 H=45.0 736-9 LOINC L %MONO 5.9 % L=2.0 H=10.0 33792-5 LOINC %EOS 0.8 % L=0.0 H=6.0 713-8 LOINC %BASO 0.3 % L=0.0 H=3.0 706-2 LOINC #NEUT 5.3 10^3uL L=1.9 H=7.6 96935-3 LOINC #LYMPH 0.6 10^3uL L=0.9 H=4.9 15010-5 LOINC L #MONO 0.4 10^3uL L=0.1 H=0.9 87919-2 LOINC #EOS 0.1 10^3uL L=0.0 H=0.6 712-0 LOINC #BASO 0.02 10^3uL L=0.00 H=0.10 49052-2 LOINC #IM GRANS 0.0 10^3uL L=0.0 H=7.0 92275-9 LOINC %IM GRANS 0.6 % L=0.0 H=5.0 11586-5 LOINC %NRB 0.0 L=0.0 H=0.2 46560-4 LOINC #NRB 0.000 L=0.000 H=0.012 75626-2 LOINC MANUAL DIFF NOT INDICATED RBC MORPH NOT INDICATED COMPREHENSIVE METABOLIC PANE L - Collect Date/Time: 05/13/2025 17:47 [facility] ID: [id number] [address] [place], [place], [phone] LOINC: 33790-0 Test Value Unit Reference Range Code Code System Flag FASTING UNKNOWN BUN 38 mg/dL L=7 H=20 3094-0 LOINC H CREATININE 2.30 mg/dL L=0.66 H=1.25 2160-0 LOINC H GLUCOSE 113 mg/dL L=74 H=106 2345-7 LOINC H SODIUM 137 mmol/L L=132 H=144 2951-2 LOINC POTASSIUM 3.9 mmol/L L=3.5 H=5.1 2823-3 LOINC CHLORIDE 100 mmol/L L=98 H=107 2075-0 LOINC CO2 28.0 mmol/L L=22.0 H=30.0 2028-9 LOINC ANION GAP 13 L=10 H=20 82410-2 LOINC OSMOLALITY 294 mOs/kG L=280 H=296 38329-7 LOINC BUN/CREAT 16.5 3097-3 LOINC CALCIUM 8.9 mg/dL L=8.3 H=10.5 81858-0 LOINC AST 48 U/L L=15 H=46 1920-8 LOINC H ALT 44 U/L L=9 H=72 1742-6 LOINC ALKALINE PHOS 119 U/L L=38 H=126 6768-6 LOINC TOTAL BILI 0.5 mg/dL L=0.2 H=1.3 1975-2 LOINC ALBUMIN 3.6 G/dL L=3.5 H=5.0 1751-7 LOINC TOTAL PROTEIN 7.6 g/L L=6.3 H=8.2 2885-2 LOINC A/G RATIO 0.9 76573-4 LOINC AGE 70 19824-6 LOINC eGFR NON-AFR 30 ml/min eGFR AFR AMER 36 ml/min LACTIC ACID - Collect Date/T shannon: 05/13/2025 17:47 [facility] ID: [id number] [address] [place] [address], [id number] LOINC: 72392-0 Test Value Unit Reference Range Code Code System Flag LACTIC ACID 1.2 mmol/L L=0.7 H=2.6 49617-2 LOINC PROCALCITONIN - Collect Date /Time: 05/13/2025 17:47 [facility] ID: [id number] [address] [place] [address], [id number] LOINC: 23722-7 Test Value Unit Reference Range Code Code System Flag PROCALCITONIN 0.28 ng/mL L=0.00 H=0.08 H PRO BNP - Collect Date/Time: 05/13/2025 17:47 [facility] ID: [id number] [address] [place] [address], [phone] LOINC: 30207-8 Test Value Unit Reference Range Code Code System Flag Pro BNP2 166 pg/mL L=0 H=900 13023-8 LOINC PTT - Collect Date/Time: 17:47 [facility] ID: [id number] [address] [place] [address], [phone] LOINC: 89165-5 Test Value Unit Reference Range Code Code System Flag PTT 31.9 Sec L=22.7 H=30.[address] ABD/PEL WO CONTRAST - Com pleted: 05/13/2025 18:02 LOINC: 65033-1 \TM00\\12PI\\DRAo\\BM09\ \MRHo\ [address] [address] ---------NAME--------- NUMBER SEX AGE ADMIT DISC. XRAY# F/C TYPE SILVIA HADDAD [id number] M 70 05/13/25 99996 MB3 E.R. DATE OF : 1955 M/R# [id number] PH#: [phone] ED-34 \MRx\ LOCATION: TRANSCRIBED: 05/13/25 17:57 CT ABD/PEL WO CONTRAST 45772 COMPLETED: 65670 abdominal pain PHYSICIAN: JUS HOWARD R A D I O L O G Y R E P O R T Exam: CT ABD/PEL WO CONTRAST History: abdominal pain Comparison Study: None Contrast: None TECHNIQUE: Multidetector CT of abdomen and pelvis without IV contrast. Radiation Dose Information: CT Dose: CTDI volume is 45.1 mGy. Dose-length product is 2154.94 mGy*cm FINDINGS: Patient has a total left hip replacement heart size is within normal limits there stranding in the left lung base which is nonspecific indicate a developing infiltrate. Lower esophagus is unremarkable the spleen is enlarged measuring 21.2 cm. There is right hydronephrosis there is a stone inferior pole collecting system of the right kidney measures 6 mm in size there is mild perinephric stranding and there is fluid tracking along both colonic gutters there also stones in the inferior pole of the left kidney there is collection of 2 stones measuring 11.1 x 6.4 mm and there is a 2nd stone measuring 9 x 5 mm. There are patchy calcifications in the abdominal aorta there are no calcifications at the ureterovesical junctions. Bones are osteopenic There are mild atrophic changes involving the pancreas. Liver measures 25 cm in span which is enlarged and has irregular margins suggesting cirrhosis bladder is filled with fluid no evidence for appendicitis and the terminal ileum is normal. There are multiple diverticuli in the descending colon in the sigmoid but no diverticulitis. Patient has completely disintegrated articular surface of the right femoral head suggesting osteonecrosis or severe osteoarthritis. There is a moderately large right joint effusion. Findings suggest possible bilateral pars fractures involving the L5 pars there is an anterior listhesis of L5 upon S1 of 7.7 mm and there is a compression fracture involving T12. Prostate is grossly unremarkable. No fluid collections are seen in the pelvis rectosigmoid mucosa is normal. IMPRESSION: Bilateral renal stones and evidence for moderate hydronephrosis involving the right kidney Possible infiltrate developing left lower lobe Hepatosplenomegaly with possible cirrhosis. Moderately severe atherosclerosis involving the abdominal aorta. Diverticulosis. 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 Probable bilateral L5 pars fractures with anterior listhesis grade 1 of L5 upon S1. Compression fracture of T12 etiology uncertain. Perirenal stranding along the colonic gutters HS:Y BASTER \ITLo\ \UNDo\ \UNDx\ \ITLx\ Reviewed and Electronically Signed by: LINDA SAMPSON Signed Date: SIGNDATE Social History Type Status Start Date End Date Code Code Syst em Smoking History Former smoker 3435925 SNOMED CT Sex Male Medications Medication Start Date End Date Route Frequency Dose Code Code System Medication Instructions Home Meds Atorvastatin Calcium 20MG Oral Tablet 08/11/2023 Unknown ORAL ONCE A DAY 20 MILLIGRAMS 836457 RxNorm TAKE 20 MILLIGRAMS ORAL ONCE A DAY Azelastine HCl 205.5MCG/1Act Nasal [place] 08/11/2023 Unknown NASAL ONCE A DAY 1 unit(s) 6693495 RxNorm 1 EACH NASAL ONCE A DAY Calcium Carbonate 500MG Oral Tablet 08/11/2023 Unknown ORAL ONCE A DAY 500 MILLIGRAMS RxNorm TAKE 500 MILLIGRAMS ORAL ONCE A DAY Finasteride 5MG Oral Tablet 08/11/2023 Unknown ORAL ONCE A DAY 5 MILLIGRAMS 018790 RxNorm TAKE 5 MILLIGRAMS ORAL ONCE A DAY Flomax 0.4MG Oral Capsule 08/11/2023 Unknown ORAL ONCE A DAY 0.4 MILLIGRAMS 395658 RxNorm TAKE 0.4 MILLIGRAMS ORAL ONCE A DAY Gabapentin 100MG Oral Capsule 08/11/2023 Unknown ORAL THREE TIMES A DAY 100 MILLIGRAMS 090734 RxNorm TAKE 100 MILLIGRAMS ORAL THREE TIMES A DAY HYDROcodone bitartrate-ac etaminophen 7.5MG-325MG Oral Tablet 08/11/2023 Unknown ORAL TWICE A DAY 1 unit(s) 085456 RxNorm TAKE 1 EACH ORAL TWICE A DAY Ipratropium [place]-Albut indu Sulfate 0.5MG/3ML-3MG /3ML Inhalation Solution 08/11/2023 Unknown INHALATIO N THREE TIMES A DAY 1 unit(s) 3631228 RxNorm 1 EACH INHALATION THREE TIMES A DAY Iron 325MG Oral Tablet 08/11/2023 Unknown ORAL ONCE A DAY 325 MILLIGRAMS 162320 RxNorm TAKE 325 MILLIGRAMS ORAL ONCE A DAY Loratadine 10MG Oral Tablet 08/11/2023 Unknown ORAL ONCE A DAY 10 MILLIGRAMS 041387 RxNorm TAKE 10 MILLIGRAMS ORAL ONCE A DAY Metoprolol Succinate 25MG Oral Tablet, Extended Release 08/11/2023 Unknown ORAL TWICE A DAY 25 MILLIGRAMS 691147 RxNorm TAKE 25 MILLIGRAMS ORAL TWICE A DAY Montelukast Sodium 10MG Oral Tablet 08/11/2023 Unknown ORAL ONCE A DAY 10 MILLIGRAMS 167208 RxNorm TAKE 10 MILLIGRAMS ORAL ONCE A DAY Mupirocin 2% Topical application Cream 08/11/2023 Unknown TOPICAL APPLICATI ON TWICE A DAY 1 unit(s) 848107 RxNorm 1 EACH TOPICAL APPLICATION TWICE A DAY Nystatin/Tria mcinolone Acetonide 072159T-8CM/1 GM Topical application Ointment 08/11/2023 Unknown TOPICAL APPLICATI ON ONCE A DAY 1 unit(s) 6114985 RxNorm 1 EACH TOPICAL APPLICATION ONCE A DAY Potassium Chloride 10MEQ Oral Capsule, Extended Release 08/11/2023 Unknown ORAL ONCE A DAY 10 MEQ 341279 RxNorm TAKE 10 MEQ ORAL ONCE A DAY RABEprazole Sodium 20MG Oral Tablet, Enteric Coated 08/11/2023 Unknown ORAL ONCE A DAY 20 MILLIGRAMS 752811 RxNorm TAKE 20 MILLIGRAMS ORAL ONCE A DAY Spiriva Respimat 1.25MCG/1ACT Inhalation [place] 08/11/2023 Unknown INHALATIO N 1 unit(s) 5079573 RxNorm 1 EACH INHALATION Symbicort 160/4.5 160MCG-4.5MCG /1 Actu Inhalation Aerosol Liquid 08/11/2023 Unknown INHALATIO N TWICE A DAY 1 unit(s) 8619403 RxNorm 1 EACH INHALATION TWICE A DAY Ras-24 400MG Oral Capsule, Extended Release, 24 HR 08/11/2023 Unknown ORAL ONCE A DAY 400 MILLIGRAMS 009147 RxNorm TAKE 400 MILLIGRAMS ORAL ONCE A DAY Torsemide 20MG Oral Tablet 08/11/2023 Unknown ORAL ONCE A DAY 20 MILLIGRAMS 168852 RxNorm TAKE 20 MILLIGRAMS ORAL ONCE A DAY Ventolin HFA 0.09MG/1Actua tion Inhalation Suspension 08/11/2023 Unknown INHALATIO N ONCE A DAY 1 unit(s) 933903 RxNorm 1 EACH INHALATION ONCE A DAY busPIRone HCl 7.5MG Oral Tablet 08/11/2023 Unknown ORAL THREE TIMES A DAY 7.5 MILLIGRAMS 429696 RxNorm TAKE 7.5 MILLIGRAMS ORAL THREE TIMES [...] Status Co de Code System VANCOMYCIN Active 45246 RxNorm LEVOFLOXACIN Active 79225 RxNorm BACTRIM Active 286213 RxNorm PENICILLIN Active Plan of Treatment I&D Abscess 08/11/2023 Encounters Encounter Diagnosis Start Date Code Code Sys tem Gross hematuria 05/13/2025 SNOMED-CT Personal Care Team Section Performer Name Performer Role Active Date Inactive Pascual Henderson PCP - Primary care physician Imaging Narrative Notes [facility] 05/13/2025 18:[address] [address] ---------NAME--------- NUMBER SEX AGE ADMIT DISC. XRAY# F/C TYPE SILVIA HADDAD [id number] M 70 05/[birth year]/25 85312 MB3 E.R. DATE OF : 1955 M/R# [id number] #: [phone] ED-34 LOCATION: TRANSCRIBED: 05/13/25 17:57 CT ABD/PEL WO CONTRAST 14047 COMPLETED: 59067 abdominal pain PHYSICIAN: JUS LEE RADIOLOGY REPORT Exam: CT ABD/PEL WO CONTRAST History: abdominal pain Comparison Study: None Contrast: None TECHNIQUE: Multidetector CT of abdomen and pelvis without IV contrast. Radiation Dose Information: CT Dose: CTDI volume is 45.1 mGy. Dose-length product is 2154.94 mGy*cm FINDINGS: Patient has a total left hip replacement heart size is within normal limits there stranding in the left lung base which is nonspecific indicate a developing infiltrate. Lower esophagus is unremarkable the spleen is enlarged measuring 21.2 cm. There is right hydronephrosis there is a stone inferior pole collecting system of the right kidney measures 6 mm in size there is mild perinephric stranding and there is fluid tracking along both colonic gutters there also stones in the inferior pole of the left kidney there is collection of 2 stones measuring 11.1 x 6.4 mm and there is a 2nd stone measuring 9 x 5 mm. There are patchy calcifications in the abdominal aorta there are no calcifications at the ureterovesical junctions. Bones are osteopenic There are mild atrophic changes involving the pancreas. Liver measures 25 cm in span which is enlarged and has irregular margins suggesting cirrhosis bladder is filled with fluid no evidence for appendicitis and the terminal ileum is normal. There are multiple diverticuli in the descending colon in the sigmoid but no diverticulitis. Patient has completely disintegrated articular surface of the right femoral head suggesting osteonecrosis or severe osteoarthritis. There is a moderately large right joint effusion. Findings suggest possible bilateral pars fractures involving the L5 pars there is an anterior listhesis of L5 upon S1 of 7.7 mm and there is a compression fracture involving T12. Prostate is grossly unremarkable. No fluid collections are seen in the pelvis rectosigmoid mucosa is normal. IMPRESSION: Bilateral renal stones and evidence for moderate hydronephrosis involving the right kidney Possible infiltrate developing left lower lobe Hepatosplenomegaly with possible cirrhosis. Moderately severe atherosclerosis involving the abdominal aorta. Diverticulosis. 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 Probable bilateral L5 pars fractures with anterior listhesis grade 1 of L5 upon S1. Compression fracture of T12 etiology uncertain. Perirenal stranding along the colonic gutters HS:Y BASTER Reviewed and Electronically Signed by: LINDA SAMPSON Signed Date: SIGNDATE
--- OUTSIDE RECORDS SUMMARY | 2025-05-17 13:39 | XMS_ITS | Encounter Summary ---
Author Organization [facility] Address [facility] [place] [address] Care Team Providers Care Well Service Derrick Worker Name Role Phone Robbin Arteaga MD Unavailable [phone] None, Provider Primary Care Provider Unavaila Ruthie Ly NP Primary Care Provider [phone]- [phone] Prerna William MD Primary Care Provider [phone]- [phone] Arian Guzman MD Unavailable [phone] Lianne SCHULTZ MD, Courtney Unavailable [phone] Encounter Details Date Type Department Care Team (Late st Contact Info) Description 02/08/2020 Abstract [facility] [address] [place] [address] Abstract, Doc [facility] Social History Tobacco Use Types Packs/Day Years [...] Sex Assigned at Male 11/15/2024 12:31 PM SALES ENGINEER ACCOUNT MANAGER Legal Sex Male 10:09 PM CDT Gender Identity Not on file Sexual Orientation Not on file Occupation Industry Job Start Date Job End Date Disabled Not on file Not on file Not on file COVID-19 Exposure Response Date Recorded In the last month, have you been in contact with someone who was confirmed or suspected to have Coronavirus / COVID-19? No / Unsure 02/08/2020 3:51 PM CDT documented as of this encounter Functional Status * RETIRED Are you deaf or do you have serious difficulty hearing Answer Date of Assessment Author Status No 08/04/2019 8:47 PM CDT Activ e documented as of this encounter Plan of Treatment Not on file documented as of this encounter Procedures Procedure Name Priority Date/Time Associated Diagnosis Comments CMP (ABSTRACTED LAB) Routine 01/05/2020 BNP Routine 01/05/2020 CBC W/DIFF AUTOMATED Routine 01/05/2020 documented in this encounter Results * BNP (01/05/2020) Pathologist [facility] B TYPE NATRIURETIC PEPTIDE 68.6 01/05/2020 us Doc [facility] Abstract LABORATORY Final Result * (ABNORMAL) CMP (ABSTRACTED LAB) (01/05/2020) Pathologist [facility] SODIUM S/P/B 141 POTASSIUM S/P/B 3.9 CHLORIDE S/P/B 106 CO2 31 BUN 7 CREATININE S/P/B 1.14 0.7 - 1.3 EGFR AFR. AMER. >60 EGFR NON-AFR. AMER. >60 <=90 CALCIUM S/P/B 9.3 GLUCOSE 113 mg/dL TOTAL PROTEIN S/P/B 7.1 ALBUMIN S/P/B 3.3(A) 3.5 - 5.0 AST 28 ALT 44 ALKALINE PHOSPHATASE S/P/B 74 BILIRUBIN TOTAL S/P/B 0.3 01/05/2020 us Doc [facility] Abstract LAB-OUTSIDE/ABSTRACTED Final Result * CBC W/DIFF AUTOMATED (01/05/2020) Pathologist [facility] WBC 6.9 RBC 4.37 HGB 12.9 HCT 40.7 MCV 93.1 MCH 29.5 MCHC 31.7 RDW 14.4 PLT 178 MPV 9.4 NEUTROPHILS % 71.1 LYMPHOCYTES % 16.7 MONOCYTES % 9.3 EOSINOPHILS % 1.7 BASOPHILS % 0.3 ABS. 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 COVID-19 Rule Out 11/12/2020 11/12/2020 11/14/2020 8:01 AM SALES ENGINEER ACCOUNT MANAGER COVID-19 Rule Out 04/19/2022 04/19/2022 04/19/2022 3:19 PM CDT COVID-19 Rule Out 05/15/2022 05/15/2022 05/15/2022 5:56 PM CDT COVID-19 Rule Out 04/25/2024 04/25/2024 04/25/2024 11:23 AM CDT COVID-19 Rule Out 09/18/2024 09/18/2024 09/18/2024 10:54 AM SALES ENGINEER ACCOUNT MANAGER documented as of this encounter Care Teams Well Service Derrick Worker Relationship Specialty Start Date End Date None, Provider, PCP - General 06/03/20 09/09/20 Ruthie Etienne NP PCP - General Nurse Practitioner [facility] 09/10/20 04/25/24 [place] [address] [place] [address] PCP - General INTERNAL MEDICINE 04/26/24 Robbin Arteaga MD [address] [place] [phone] [employer] Vice President CARDIOVASCULAR DISEASE 07/07/16 Arian Guzman MD [address], [place] [address] DERMATOLOGY 11/28/24 11/28/25 Malgorzata Abdalla III, MD [address] [facility] [place] [address] Consulting Physician UROLOGY 01/31/25 01/31/26 documented as of this encounter
--- OUTSIDE RECORDS SUMMARY | 2025-05-17 13:40 | XMS_ITS | Encounter Summary ---
Author Organization [facility] Address [facility] [place] [address] Care Team Providers Care Crime Scene Analyst Name Role Phone Robbin Arteaga MD Unavailable Ruthie Etienne NP Primary Care Provider [phone]- [phone] Prerna William MD Primary Care Provider [phone]- [phone] Arian Guzman MD Unavailable [phone] Lianne SCHULTZ MD, Courtney Unavailable [phone] Encounter Details Date Type Department Care Team (Late st Contact Info) Description 07/15/2021 Abstract [facility] [address] [place] [address] Robbin Arteaga MD [address] [place] [address] Social History Tobacco Use Types Packs/Day Years [...] Sex Assigned at Male 11/15/2024 12:31 PM SLEEP LAB TECHNOLOGIST Legal Sex Male 10:09 PM CDT Gender Identity Not on file Sexual Orientation Not on file Occupation Industry Job Start Date Job End Date Disabled Not on file Not on file Not on file COVID-19 Exposure Response Date Recorded In the last month, have you been in contact with someone who was confirmed or suspected to have Coronavirus / COVID-19? No / Unsure 06/29/2021 2:17 PM CDT documented as of this encounter [...] Time 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 COVID-19 Rule Out 04/19/2022 04/19/2022 04/19/2022 3:19 PM CDT COVID-19 Rule Out 05/15/2022 05/15/2022 05/15/2022 5:56 PM CDT COVID-19 Rule Out 04/25/2024 04/25/2024 04/25/2024 11:23 AM CDT COVID-19 Rule Out 09/18/2024 09/18/2024 09/18/2024 10:54 AM SLEEP LAB TECHNOLOGIST documented as of this encounter Care Teams Crime Scene Analyst Relationship Specialty Start Date End Date Ruthie Etienne NP [address] [place] [phone] PCP - General Nurse Practitioner [facility] 09/10/20 04/25/24 [place] [address] [place] [phone] PCP - General INTERNAL MEDICINE 04/26/24 Robbin Arteaga MD [address] [place] [phone] [place] [employer] Elevator Operator CARDIOVASCULAR DISEASE 07/07/16 Arian Guzman MD [address] [facility] [address] [address] DERMATOLOGY 11/28/24 11/28/25 Malgorzata Abdalla III, MD [address] [address] Consulting Physician UROLOGY 01/31/25 01/31/26 documented as of this encounter
--- OUTSIDE RECORDS SUMMARY | 2025-05-17 13:40 | XMS_ITS | Encounter Summary ---
Author Organization [facility] Health Address [address] [place] [address] Care Team Providers Care Family Service Caseworker Name Role Phone None, Physician Primary Care Provider Unavailabl e Reason for Referral * Home Connections (Routine) - Pending Review Specialty Diagnoses / Procedures Referred By Contac t Referred To Contact Home Health Services Diagnoses [place] [address] [place] [address] Phone: tel: fax: [facility] Scheduling [address] [place] [address] Phone: tel: Referral ID Status Reason Start Date Expiration Date Visits Requested Visits Authorized [id number] Pending Review Specialty Services Required 05/17/2025 05/17/2026 999 999 * Home Health Care (Routine) - Pending Review Specialty Diagnoses / Procedures Referred By Contac t Referred To Contact Diagnoses [place] [address] [place] [address] Phone: tel: fax: Referral ID Status Reason Start Date Expiration Date Visits Requested Visits Authorized [id number] Pending Review Specialty Services Required 05/16/2025 05/16/2026 999 999 * (Routine) - Open Specialty Diagnoses / Procedures Referred By Contac t Referred To Contact Procedures [place] [address] [address] [place] [place] [address] Phone: tel: [place]: [place] [address] [place] [address] Phone: tel: fax: Referral ID Status Reason Start Date Expiration Date Visits Re quested Visits Authorized [id number] Open 05/15/2025 05/15/2026 1 1 Reason for Visit * Auth/Cert (Routine) Specialty Diagnoses / Procedures Referred By Zuleyka t Referred To Contact Diagnoses hematuria Referral ID Status Reason Start Date Expiration Date Visits Re quested Visits Authorized [id number] 1 1 Encounter Details Date Type Department Care Team (Latest Contact Info) Description 05/13/2025 11:56 PM CDT - 05/17/2025 10:52 AM CDT Hospital Encounter [facility] 2S SURG/BARIATRIC [id number] [place] [id number] [place] [address] [place] [address] [place] [address] [place] [address] [place], [place] [id number] [place] [address] [place] [address] Hospitalist Discharge Disposition: Home or Self Care Social History Tobacco Use Types Packs/Day Years Used Date Smoking Tobacco: Never Smokeless Tobacco: Never Tobacco Cessation:Counseling Given: Not Answered Alcohol Use Standard Drinks/Week Comments Not Currently 0 (1 standard drink = 0.6 oz pur e alcohol) AUDIT-C Answer Date Recorded Q1: How often do you have a drink containing alcohol? Never 05/14/2025 Q2: How many drinks containi ng alcohol do you have on a typical day when you are drinking? Patient does not drink Q3: How often do you have si x or more drinks on one occasion? Never 05/14/2025 Overall Financial Resource Strain (CARDIA) Answe r Date Recorded How hard is it for you to pa y for the very basics like food, housing, medical care, and heating? Not hard at all 05/14/2025 [place] [facility] - Occupational Stress Questionnaire Answer Date Recorded Do you feel stress - tense, restless, nervous, or anxious, or unable to sleep at night because your mind is troubled all the time - these days? Not at all 05/14/2025 Hunger Vital Sign Answer Date Recorded Within the past 12 months, y ou worried that your food would run out before you got the money to buy more. Never true 05/14/20 Within the past 12 months, t he food you bought just didn't last and you didn't have money to get more. Never true 05/14/2025 PRAPARE - Transportation Answer Date Re corded In the past 12 months, has l ack of transportation kept you from medical appointments or from getting medications? No 04/30 In the past 12 months, has l ack of transportation kept you from meetings, work, or from getting things needed for daily living? No 05/14/2025 Housing Stability Vital Sign Answer Mark e Recorded In the last 12 months, was t here a time when you were not able to pay the mortgage or rent on time? No 05/14/2025 In the past 12 months, how m any times have you moved where you were living? 0 05/14/2025 At any time in the past 12 m [facility], were you homeless or living in a halfway (including now)? No 05/14/2025 Sex and Gender Information Value Date Recorded Sex Assigned at Not on file Legal Sex Male 8:04 PM CDT Gender Identity Male 05/14/2025 12:39 AM CDT Sexual Orientation Not on file documented as of this encounter Last Filed Vital Signs Vital Sign Reading Time Taken Comments Blood Pressure 143/57 05/17/2025 9:25 AM CDT Pulse 95 05/17/2025 9:25 AM CDT Temperature 36.7 C (98 F) 05/17/2025 9:25 AM CDT Respiratory Rate 20 05/17/2025 9:25 AM CDT Oxygen Saturation 96% 05/17/2025 9:25 AM CDT Inhaled Oxygen Concentration - - Weight 131.5 kg (290 lb) 05/14/2025 12:00 AM CDT Height - - Body Mass Index - - documented in this encounter Functional Status * Question Answer Date of Assessment Author Q1: How often do you have a drink containing alcohol? Never 05/14/2025 12:04 AM JOHNT Loida Castanon RN Q2: How many drinks containing alcohol do you have on a typical day when you are drinking? Patient does not drink 05/14/2025 12:04 AM Flash Avalos RN Q3: How often do you have six or more drinks on one occasion? Never 05/14/2025 12:04 AM Loida Avalos RN * Audit-C Score Answer Date of Assessment Author 0 05/14/2025 12:04 AM Flash Avalos RN * Is person deaf or have serious hearing difficulty? Answer Date of Assessment Author No 05/14/2025 12:05 AM Flash Avalos RN * Is person blind or have serious difficulty seeing? Answer Date of Assessment Author No 05/14/2025 12:05 AM Flash Avalos RN * Does person have serious difficulty walking/climbing stairs? Answer Date of Assessment Author Yes 05/14/2025 12:05 AM Flash Avalos RN * Does person have difficulty dressing/bathing? Answer Date of Assessment Author Yes 05/14/2025 12:05 AM Flash Avalos RN * Does person have difficulty doing errands alone? Answer Date of Assessment Author Yes 05/14/2025 12:05 AM Flash Avalos RN documented as of this encounter Mental Status * Does person have difficulty concentrating/remembering/making decisions? Answer Entry Date Author No 05/14/2025 12:05 AM Flash Avalos RN documented in this encounter Discharge Summaries * Tito De Leon II, - 05/17/2025 8:21 AM CDT HOSPITALIST DISCHARGE SUMMARY NAME: Nils Torres : 1955 DATE OF ADMISSION: 05/13/2025 DATE OF DISCHARGE: 05/17/2025 FINAL DIAGNOSES: Include all new and active diagnoses. Bladder tumor. Gross hematuria. Acute urinary retention. Anemia. Pneumonia due to infectious organism. T12 compression fracture. L5 pars fracture. Cirrhosis. Pressure ulcer of thigh, buttock, and scrotum. DISCHARGE DESTINATION: Home FOLLOW UP PLAN: Include list of active issues: Next steps Testing & Referrals Scheduled: Testing & Referrals TBD: Timing Provider Discharge to home. Home health to be arranged. Maintain Ray catheter until seen by urology 05-21. GOALS OF CARE FOLLOW UP PLAN Readmission Risk Score:10 EOL Index: 51 Not Applicable PENDING TEST RESULTS: Bladder tumor biopsy INCIDENTAL FINDINGS REQUIRING FOLLOW UP: None READMISSION RISK SCORE: 19+: high 30 day readmission risk 0-18: low-moderate 30 day readmission risk EOL INDEX: 10 at 8:21 AM 05/17/2025 51 at 8:21 AM 05/17/2025 Secondary/Resolved/Significant Prior Diagnoses: None PRESENTING HISTORY: Per Dr. Tapia: Patient Nils Torres is a 70 year old male with a history of COPD on 2 L by nasal cannula chronically, CHF who p was transferred to our facility secondary to hematuria and bilateral kidney stones. Patient presented to outside facility secondary to hematuria that started several days ago. Patienthad ongoing hematuria and abdominal pain which prompted his visit to the outside facility. Patient reports that in the last 24 hours he has had difficulty with urinating. Workup at the outside facility was significant for: UA was red in color with 3+ protein, 3+ blood, 5-10 WBCs, too numerous to count RBCs PTT was elevated 31.9, PT 11.1, INR 1.1 WBCs 6.4, hemoglobin 30.0, platelets 82 Sodium 137, potassium 3.9, chloride 100, CO2 28, BUN 38, creatinine 2.30, AST 48, ALT 44, alk-phos 119 Lactic acid within normal limits at 1.2, procalcitonin elevated at 0.28 CT scan of the abdomen and pelvis reports: -Bilateral renal stones and evidence for ordered hydronephrosis involving the right kidney -possible infiltrate developing in the left lower lobe -hepatosplenomegaly with possible cirrhosis -moderately severe atherosclerosis involving the abdominal aorta -diverticulosis -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 Started on tamsulosin, urology consulted. Urology performed cystoscopy on 05-14, found bladder tumor which was resected and sent for pathology. Clot evacuated, Rya catheter placed. He was eager for discharge to home, agreed to follow up with urology for biopsy results on 05-21. Ray removed for voiding trial 05-16 but replaced. Discharge delayed until 05-17 when patient's ventilation worker would be available at home. Home health for usp was ordered but couldnot be set up as patient lives outside of service area. POA ACTIVATED STATUS: NO RADIOLOGY: (last 7 days) + additional pertinent studies No results found. ADDITIONAL PERTINENT STUDIES: None RECENT/NOTABLE LABS: include pertinent positives Recent Labs Component Name 05/15/25 0519 SODIUM 143 POTASSIUM 4.9 CHLORIDE 112* CO2 22 BUN 37* CREATININE 2.31* EGFR 29* Recent Labs Component Name 05/15/25 0519 WBC 5.6 HGB 8.0* HCT 28.0* PLTCOUNT 69* Recent Labs Component Name 05/14/25 0536 INR 1.3* VITALS/MENTAL STATUS/NOTIBLE EXAM FINDINGS Most recent weight: Weight: 131.5 kg (290 lb) (05/14/25 0000) BP 162/67 Pulse 90 Temp 97.9 ??F (36.6 ??C) (Axillary) Resp 20 Wt 131.5 kg (290 lb) SpO2 96% Exam: GEN mild distress HEENT nc, at, eomi, perrla, mmm NECK supple, no jvd HEART rrr LUNGS ctab, regular and rhythmic ABD soft, nondistended, nontender NEURO aao x4, cn ii-xii grossly intact PSYCH normal affect SKIN no rashes or jaundice DISCHARGE MEDICATIONS AND ALLERGIES This list of medications is preliminary and tentative: please see the Patient Discharge Instructions for patients discharged home or the Facility Transfer Order for the final and accurate medication list. Current Discharge Medication List START taking these medications Instructions Authorizing Provider acetaminophen 325 MG tablet Commonly known as: Tylenol Take 2 (two) tablets by mouth every 4 hours as needed Maximum allowable Acetaminophen amount = 4 Grams (4000 mg) / 24 hours. Tito De Leon II, DO azithromycin 500 MG tablet Commonly known as: Zithromax Quantity Dispensed: 2 tablet Take 1 (one) tablet by mouth once daily for 2 [facility] cefdinir 300 MG capsule Commonly known as: Omnicef Quantity Dispensed: 4 capsule Take 1 (one) capsule by mouth every 12 hours for 2 days Tito [facility] II, DO oxyCODONE-acetaminophen 7.5-325 MG tablet Commonly known as: Percocet Quantity Dispensed: 18 tablet Take 1 (one) tablet by mouth every 4 hours as [address] Tito [facility], DO tamsulosin 0.4 MG capsule Commonly known as: Flomax Quantity Dispensed: 30 capsule Take 1 (one) capsule by mouth once daily At the same time every day after a meal. Tito De Leon II DO ALLERGIES: Allergies[1] DISCHARGE INSTRUCTIONS Contact Information for Follow-Up Providers Follow up with Primary Care Provider (PCP) Next Steps: Follow up Our records show your Primary Care Provider (PCP) is Physician None. Follow Up Instructions for Patient: Within 5-10 Days from Discharge None, Physician Relationship: PCP - General Next Steps: Follow up Our records show your Primary Care Provider (PCP) is Physician None. Follow Up Instructions for Patient: Within 5-10 Days from Discharge Annika Pringle MD Specialty: Urology [address] [facility] [address] Next Steps: Follow up Follow Up Instructions for Patient: Within 5-10 Days from Discharge ISOLATION PRECAUTIONS No active isolations. Isolation due to No active infections. I spent 35 minutes in addition to direct patient care summarizing this patient's hospital stay, reviewing and updating the inpatient problem list, reviewing discharge medications, instructions, discussing discharge care planand discharge follow up labs/studies/doctor visits with the patient and or POA/family. Tito De Leon II, DO [1] Allergies Allergen Reactions Penicillins Anaphylaxis Vancomycin Anaphylaxis documented in this encounter Discharge Instructions * Discharge Instructions* Annika Pringle MD - 05/15/2025 5:54 PM CDT Your clinic visit is May [address] Pringle's Urology clinic at 1 pm The office number is [phone] [place] [address] [address] [place] [address] documented in this encounter Medications at Time of Discharge acetaminophen (Tylenol) 325 MG tablet Take 2 (two) tablets by mouth every 4 hours as needed Maximum allowable Acetaminophen amount = 4 Grams (4000 mg) / 24 hours. 05/15/2025 azithromycin (Zithromax) 500 MG tablet Take 1 (one) tablet by mouth once daily for 2 days 2 tablet 05/16/2025 5 cefdinir (Omnicef) 300 MG capsule Take 1 (one) capsule by mouth every 12 hours for 2 days 4 capsule 05/16/2025 5 oxyCODONE-acetam inophen (Percocet) 7.5-325 MG tabletIndication s:Bladder tumor Take 1 (one) tablet by mouth every 4 hours as needed 18 tablet 05/15/2025 tamsulosin (Flomax) 0.4 MG capsule Take 1 (one) capsule by mouth once daily At the same time every day after a meal. 30 capsule 05/16/2025 documented as of this encounter Progress Notes * Benedicto Ozuna RN - 05/17/2025 8:07 AM CDT Care Coordination Progress Note Expected Discharge Date: 05/16/2025 Discharge Plan: Pt will DC home today with [facility] pending, no accepting agencies at this time. CM placed order for Home Connections in the event pt does not have HHC at [place] to assist with medications. Referrals initiated: Continued Care and Services - Admitted Since 05/13/2025 Home Medical Care Service Provider Request Status Services Address Phone Fax [facility] Pending - Request Sent -- [address] [facility] [address] -- [employer] [facility] Pending - Request Sent -- [address], [address], [place] [address] [phone] -- [facility] Pending - Request Sent -- [address], [address], [facility] [address] [phone] -- Current Capacity last updated by Saray Clay on 05/05/2022 [address] [place], [place] [facility] Pending - Request Sent -- [address] [facility] [address] [phone] -- [employer] Pending - Request Sent -- [address] [facility], [address], [facility] [address] [phone] -- [employer] [facility], [employer] Pending - Request Sent -- [address] [facility] [address] [phone] -- [facility] Pending - Request Sent -- [address], [facility] [address] -- [facility] Pending - Request Sent -- [address] [phone] -- [facility] Pending - Request Sent -- [address] [facility] [address], [facility] [address] -- [facility] Pending - Request Sent -- [address], [facility] [address] -- [facility] Declined No contract with patient's insurance carrier -- [address] [facility], [address] [address] [phone] -- [facility] Declined Inadequate staffing -- [address] [facility] [phone] -- [facility] Declined Out of service area -- [address] [place] [id number] -- [facility] Declined Out of service area -- [address] [place] [address] [phone] -- Family Support (Name and Phone): Extended Emergency Contact Information Primary Emergency Contact: DARIO TORRES Relation: Son Back End Web Developer needed? No Transportation at Discharge: other (Private Transport vs Family): READMISSION RISK SCORE is 10 at 8:07 AM 05/17/2025.: Name: Benedicto Ozuna RN CM [phone] * Emelina Figueredo RN - 05/17/2025 7:45 AM CDT Pt has yelled out throughout the account manager b2b, no matter the actions taken by staff. Respiratory therapy, the charge nurse, and this nurse have made multiple visits with the pt, providing all treatments and medicines available, the provider has been contacted and did provide a new order for cough syrup which has not helped the pt to stop yelling. Pt O2 sat has remained at 93 or above however pt continues to state that we are not doing anything to help him and has also called 911 2 times to report that we are not helping him. * Bobbi Perales RN - 05/16/2025 4:29 PM CDT After reviewing home care referral, we are unable to accept referral for home care due to patient is out of service area. For any questions or needs please contact [facility] at Home- Central Intake at please call . Bobbi Perales RN 05/16/2025 4:29 PM * Catalina Benjamin RN - 05/16/2025 3:33 PM CDT Ray catheter removed at 0830 this morning. Nils has attempted to void many times this afternoon without success (voided 50 ml once but felt like bladder was still full.) Bladder scan at 1530 shows over 450 ml in bladder. Ray catheter replaced with immediate return of 1000 ml clear yellow urine. * Benedicto Ozuna RN - 05/16/2025 3:16 PM CDT Care Coordination Progress Note Expected Discharge Date: 05/16/2025 Discharge Plan: Anticipate pt will DC home with possible HHC when medically ready for DC. HHC referrals sent pending an accepting agency. Pt FC removed, voiding trial initiated. Pt states his transportation company will transport him if a family member cannot transport him home at the time of DC. Pt will likely need an ambulance for transportation. Referrals initiated: Continued Care and Services - Admitted Since 05/13/2025 Home Medical Care Service Provider Request Status Services Address Phone Fax [facility] Pending - Request Sent -- [address] [facility] [phone] -- [facility] Pending - Request Sent -- [address] [facility] [phone] -- [employer] [facility] Pending - Request Sent -- [address], [address], [place] [address] [phone] -- [facility] Pending - Request Sent -- [address] [facility] [facility], [address], [facility] [address] [phone] -- Current Capacity last updated by Saray Clay on 05/05/2022 [address] [place], [place] [facility] Pending - Request Sent -- [address] [facility] [address] [phone] -- [facility] Pending - Request Sent -- [address] [place] [phone] -- [employer] Pending - Request Sent -- [address], [facility] [address] [phone] -- [employer] [facility] [employer] Pending - Request Sent -- [address] [facility] [address] [phone] -- [facility] Pending - Request Sent -- [address] [facility] [address] [phone] -- [facility] No contract with patient's insurance carrier -- [address] [facility], [facility] [address] [phone] -- Family Support (Name and Phone): Extended Emergency Contact Information Primary Emergency Contact: DARIO TORRES Relation: Son Back End Web Developer needed? No Transportation at Discharge: other (Private Transport vs Family): READMISSION RISK SCORE is 11 at 3:16 PM 05/16/2025.: Name: Benedicto Ozuna RN CM [phone] * Anna Trejo - 05/16/2025 12:52 PM CDT [facility] Pharmacy Services Admission Medication Review Nils Torres is a 70 year old male I have reviewed patient's home medication list with the patient and the electronic medical record. The medication list review was after the physician has seen and acted upon, and is now ready for re-review/order by physician. Medication List Revisions There were no problems noted.The patient has no home medications Thank you for the opportunity to take part of Nils Torres's care. Anna Trejo Cosigned by Gilbert Andrew, PharmD at 05/16/2025 2:33 PM CDT * De Leon, Tito Simmons II, DO - 05/16/2025 10:21 AM CDT Hospitalist Progress Note Admit Date: 05/13/2025 11:56 PM Hospital Day: 3 Subjective The patient had Ray catheter removed just prior to examination, had not yet been able to urinate.Discharge will need to be held as patient has no one to help him get into the home or take care of his needs until tomorrow morning. Has a home health aide, but does not receive any medical care through home health. History is otherwise unchanged. Objective Vitals: 05/16/25 0347 05/16/25 0439 05/16/25 0758 05/16/25 0846 BP: 107/43 145/46 Pulse: 83 78 83 82 Resp: 21 18 18 Temp: 97.5 ??F (36.4 ??C) 98.1 ??F (36.7 ??C) SpO2: 90% 92% 94% 95% Weight: Temp (30hrs) Max:98.2 ??F (36.8 ??C) Intake/Output Summary (Last 24 hours) at 05/16/2025 1021 Last data filed at 05/16/2025 0348 Gross per 24 hour Intake 480 ml Output 2000 ml Net -1520 ml My review of labs, imaging, notes and other tests is significant for Recent Labs Component Name 05/15/25 0519 05/14/25 0536 05/14/25 0122 WBC 5.6 7.7 - HGB 8.0* 8.7* 8.9* HCT 28.0* 29.0* 30.0* PLTCOUNT 69* 84* - Recent Labs Component Name 05/15/25 0519 05/14/25 0536 SODIUM 143 140 POTASSIUM 4.9 4.5 CHLORIDE 112* 108* CO2 22 23 BUN 37* 42* CREATININE 2.31* 2.23* GLUCOSE 117* 111* CALCIUM 8.6 8.5 Exam General appearance: alert, cooperative, no distress HEENT: NC, AT, EOMI, PERRLA, MMM Neck: supple, no JVD Heart: regular rhythm, normal S1 and S2, without murmurs, rubs or gallops Lungs: breath sounds normal and symmetric; no rales or wheezes Abdomen: soft without mass, non-tender, with normal bowel sounds Extremities: no clubbing, cyanosis, or edema NET MENDER: alert and oriented x 4. Cranial nerves 2-12 grossly normal. Psych: normal mood and affect Skin: no rashes or jaundice Assessment and Plan 1. Bladder tumor, POA. 2. Gross hematuria. 3. Acute urinary retention, POA. 4. Anemia. POD # cystoscopy with clot evacuation and fulguration, resection of tumor, pyelogram. Urology onboard. Will follow as outpatient -. Voiding trial this morning, can replace Ray for discharge if needed. 5. Pneumonia due to infectious organism. Day #3 azithromycin and ceftriaxone empiric therapy. Continue on cefdinir and azithromycin for 5 days on discharge. 6. T12 compression fracture. 7. L5 pars fracture. Percocet PRN back pain. Home health referral for assistance with medications. 8. Cirrhosis. Follow up as outpatient with PCP. 9. Pressure ulcer of thigh, buttock, and scrotum, POA. Chronic, has followed at wound clinic. Pressure relief. READMISSION RISK SCORE is 11 at 10:21 AM 05/16/2025. * Annika Pringle MD - 05/15/2025 5:54 PM CDT Progress Note Postop day 1 cystoscopy, Transurethral resection of bladder tumor, left retrograde pyelogram. Urine clear rose. He is having catheter discomfort and bladder spasms. Creatinine unchanged. Still at 2.3. I suspect that his right ureteral orifice is blocked by tumor and causing hydronephrosis. I explained this to him and discussed that the next step would be a CAT scan followed by right-sided nephrostomy tube but he declined. He asked me to discuss all the details of his case with his best friend, Dayron, which I just did. We discussed that we are waiting for the final pathology but I did share that I believe that this is an aggressive bladder cancer with deep muscular wall invasion. I told Dayron that his clinic visit isMay 21, at 1:00 p.m., and Brad will accompany him and we can have a long discussion regarding pathology and next steps, which are likely to be limited given his medical comorbidities. I placed an order to remove his catheter tomorrow morning. If he is unable to void, the catheter will need to be replaced. It was not a difficult catheter placement Annika Pringle M.D. Urology * Moises, Tito Simmons II, DO - 05/15/2025 11:18 AM CDT Hospitalist Progress Note Admit Date: 05/13/2025 11:56 PM Hospital Day: 2 Subjective The patient is frustrated by lack of information and by the attentiveness of staff, wants to discharge to home as soon as possible. Discussed findings with patient. Patient reliant on powered wheelchair at baseline. Ray placed, patient's urine is rose colored. Chronic pressure ulcer of proximal thigh and buttock, scrotum. History is otherwise unchanged. Objective Vitals: 05/14/25 2337 05/15/25 0511 05/15/25 0822 05/15/25 0843 BP: 133/65 126/47 126/84 Pulse: 90 72 77 66 Resp: 20 18 18 20 Temp: 98.2 ??F (36.8 ??C) 98 ??F (36.7 ??C) 97.8 ??F (36.6 ??C) SpO2: 98% 98% 96% 95% Weight: Temp (30hrs) Max:99.2 ??F (37.3 ??C) Intake/Output Summary (Last 24 hours) at 05/15/2025 1118 Last data filed at 05/15/2025 0800 Gross per 24 hour Intake 900 ml Output 1970 ml Net -1070 ml My review of labs, imaging, notes and other tests is significant for Recent Labs Component Name 05/15/25 0519 05/14/25 0536 05/14/25 0122 WBC 5.6 7.7 - HGB 8.0* 8.7* 8.9* HCT 28.0* 29.0* 30.0* PLTCOUNT 69* 84* - Recent Labs Component Name 05/15/25 0519 05/14/25 0536 SODIUM 143 140 POTASSIUM 4.9 4.5 CHLORIDE 112* 108* CO2 22 23 BUN 37* 42* CREATININE 2.31* 2.23* GLUCOSE 117* 111* CALCIUM 8.6 8.5 Exam General appearance: alert, cooperative, no distress HEENT: NC, AT, EOMI, PERRLA, MMM Neck: supple, no JVD Heart: regular rhythm, normal S1 and S2, without murmurs, rubs or gallops Lungs: breath sounds normal and symmetric; no rales or wheezes Abdomen: soft without mass, non-tender, with normal bowel sounds Extremities: no clubbing, cyanosis, or edema NET MENDER: alert and oriented x 4. Cranial nerves 2-12 grossly normal. Psych: normal mood and affect Skin: no rashes or jaundice Assessment and Plan 1. Bladder tumor, POA. 2. Gross hematuria. 3. Acute urinary retention, POA. 4. Anemia. POD #1 cystoscopy with clot evacuation and fulguration, resection of tumor, pyelogram. Urology onboard. Patient wants to discharge home and follow up as outpatient for biopsy results, discussed with urology. 5. Pneumonia due to infectious organism. Day #2 azithromycin and ceftriaxone empiric therapy. Continue on cefdinir and azithromycin for 5 days on discharge. 6. T12 compression fracture. 7. L5 pars fracture. Percocet PRN back pain. 8. Cirrhosis. Follow up as outpatient with PCP. 9. Pressure ulcer of thigh, buttock, and scrotum, POA. Chronic, has followed at wound clinic. Pressure relief. READMISSION RISK SCORE is 10 at 11:18 AM 05/15/2025. * Benedicto Ozuna, SOLEDAD - 05/14/2025 11:29 AM CDT Care Coordination Initial Assessment Expected Discharge Date: 05/17/2025 Expected Discharge Disposition: Home or Self Care Transportation at Discharge: other (Private Transport vs Family) Prior Level of Care: Home Prior to Admit Provider: Prerna Lema MD Comments: Patient was admitted from OSH with complaint of gross hematuria. Urology following. OR for cystoscopy with clot evacuation, fulguration, possible biopsy, bilateral retrograde pyelograms, possible stenting scheduled today. Consults: Urology DC plan at this time will be: Anticipate pt will DC home when medically ready for DC. Pt states [email or web address] will transport him if a family member cannot transport him home at the time of DC. Barriers: Medical/surgical clearance 05/14/25- CM role in DC planning explained to pt in detail. Pt states he utilizes a motorized WC formobility, has a walker and a cane for ambulation when needed and requires min assist with ADLs whoma caregiver assist with 5 days a week/5 hours daily. No DME needs identified at this time. Pt confirmed PCP. Lives with: Alone Physical Limitations: Ambulation with use of DME Requires Assistance With: Mobility;Housekeeping;Meal Preparation;Medication Administration;Shopping Preferred Pharmacy: [facility] [id number] [place] [phone] READMISSION RISK SCORE is 10 at 11:29 AM 05/14/2025. Met with patient Family Support (name and phone): Extended Emergency Contact Information Primary Emergency Contact: DARIO TORRES Relation: Son Back End Web Developer needed? No Patient or mill representative requests care coordination reach out to family or caregiver listed above regarding discharge planning and at time of discharge? No Durable Medical Equipment Planning Type of Wheelchair: Motorized List DME pt. requires but does not have.: None Institute Director Referral: No Will continue to follow. For any questions or needs please contact: General Accounting Manager/Social Work Name/Phone number: Benedicto Ozuna RN [phone] * Mychal Whelan RN - 05/14/2025 11:00 AM CDT Patient found to have chewing tobacco in his bag, when asked to give it over he began to take some out of the container and started chewing some. Patient was educated on the policy and the need to hand it over but he still refused. Security called and eventually the tobacco was retrieved and taken with security * Tito De Leon II, DO - 05/14/2025 10:28 AM CDT Patient examined on floor. Complaining of nasal congestion, will order Afrin. Cystoscopy this afternoon. History of kidney stones as well as recent hemorrhagic acute cystitis. * Mychal Whelan RN - 05/14/2025 9:19 AM CDT Problem: Pain/Discomfort Goal: Patient exhibits reduced pain/discomfort as evidenced by pain scores Outcome: Progressing Problem: Skin/Tissue Integrity - Adult Goal: Skin integrity remains intact Description: INTERVENTIONS: Outcome: Progressing Problem: Fall Risk Goal: Fall risk and fall related injury risk are minimized (interventions related to the fall risk can be found in the flowsheet documentation) Outcome: Progressing Problem: Neurovascular Musculoskeletal - Adult Goal: Return mobility to safest level of function Description: INTERVENTIONS: Outcome: Progressing * Laurent Rodriguez RN - 05/14/2025 7:23 AM CDT Problem: Pain/Discomfort Goal: Patient exhibits reduced pain/discomfort as evidenced by pain scores Outcome: Progressing Problem: Fall Risk Goal: Fall risk and fall related injury risk are minimized (interventions related to the fall risk can be found in the flowsheet documentation) Outcome: Progressing Problem: Genitourinary - Adult Goal: Maintains or returns to baseline genitourinary function Description: INTERVENTIONS: Outcome: Progressing Goal: Urinary catheter remains patent Description: INTERVENTIONS: Outcome: Progressing Problem: Compromised Skin Integrity Description: Use this problem when pressure injuries are classified as stage 1 or 2. Goal: Skin integrity is maintained or improved Description: NTERVENTIONS: 1. Assess and monitor skin integrity 2. Identify patients at risk for skin breakdown on admission and per policy 3. Collaborate with interdisciplinary team and initiate plans and interventions as needed 4. Turn patient 5. Relieve pressure to bony prominences 6. Avoid shearing 7. Keep skin clean and dry 8. Alternate a full bath with partial baths for elderly 9. Encourage use of lotion/moisturizer on skin 10. Monitor patient's hygiene practices 11. Collaborate with wound, ostomy, and continence nurse Outcome: Progressing Goal: Fluid and electrolyte balance are achieved/maintained Description: Assess and monitor vital signs (orthostatic vitals if applicable), fluid intake and output, urine color, labs, skin turgor, mucous membranes, jugular venous distention, edema, circumference of edematous extremities and abdominal girth, respiratory status, and mental status. Monitor forsigns and symptoms of hypovolemia (tachycardia, rapid breathing, decreased urine output, postural hypotension, confusion, syncope). Monitor for signs and symptoms of hypervolemia (strong rapid pulse,shortness of breath, difficulty breathing lying down, crackles heard in lung bagley, edema). Collaborate with interdisciplinary team and initiate plan and interventions as ordered. Outcome: Progressing Goal: Nutritional status is improving Description: INTERVENTIONS: 1. Monitor and assess patient for malnutrition (ex- brittle hair, bruises, dry skin, pale skin and conjunctiva, muscle wasting, smooth red tongue, and disorientation) 2. Collaborate with interdisciplinary team and initiate plan and interventions as ordered 3. Monitor patient's weight and dietary intake as ordered or per policy 4. Utilize nutrition screening tool and intervene per policy 5. Determine patient's food preferences and provide high-protein, high-caloric foods as appropriate 6. Assist patient with eating 7. Allow adequate time for meals 8. Encourage patient to take dietary supplement as ordered 9. Collaborate with clinical shipyard painting supervisor 10. Include patient/family/caregiver in decisions related to nutrition Outcome: Progressing * Laurent Rodriguez RN - 05/14/2025 5:25 AM CDT Pt stated he has ulcer on scrotum and under left buttock. Unable to see and take photos because pt SOB. Pt said he can't breath when trying to assess and take photo. documented in this encounter H&P Notes * Patrice Tapia, - 05/14/2025 12:22 AM CDT Internal Medicine History and Physical--Hospitalist Patient's Primary Care Physician: Physician None Name: Nils Torres Age: [age] year old Sex: male Admit Date: 05/13/2025 Chief Complaint: No chief complaint on file. Chief complaint was pulled from the medical chart and not entered by the author of this note. History of Present Illness: Patient Nils Torres is a 70 year old male with a history of COPD on 2 L by nasal cannula chronically, CHF who p was transferred to our facility secondary to hematuria and bilateral kidney stones. Patient presented to outside facility secondary to hematuria that started several days ago. Patienthad ongoing hematuria and abdominal pain which prompted his visit to the outside facility. Patient reports that in the last 24 hours he has had difficulty with urinating. Workup at the outside facility was significant for: UA was red in color with 3+ protein, 3+ blood, 5-10 WBCs, too numerous to count RBCs PTT was elevated 31.9, PT 11.1, INR 1.1 WBCs 6.4, hemoglobin 30.0, platelets 82 Sodium 137, potassium 3.9, chloride 100, CO2 28, BUN 38, creatinine 2.30, AST 48, ALT 44, alk-phos 119 Lactic acid within normal limits at 1.2, procalcitonin elevated at 0.28 CT scan of the abdomen and pelvis reports: -Bilateral renal stones and evidence for ordered hydronephrosis involving the right kidney -possible infiltrate developing in the left lower lobe -hepatosplenomegaly with possible cirrhosis -moderately severe atherosclerosis involving the abdominal aorta -diverticulosis -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 Past Medical History: Past Medical History[1] Past Surgical History: Past Surgical History[2] Social History: Social History Socioeconomic History Marital status: Single Spouse name: Not on file Number of children: Not on file Years of education: Not on file Highest education level: Not on file Occupational History Not on file Tobacco Use Smoking status: Never Smokeless tobacco: Never Vaping Use Vaping status: Never Used Substance and Sexual Activity Alcohol use: Not Currently Drug use: Not Currently Sexual activity: Not Currently Other Topics Concern Not on file Social History Narrative Not on file Social Drivers of Health Financial Resource Strain: Low Risk (05/14/2025) Overall Financial Resource Strain (CARDIA) Difficulty of Paying Living Expenses: Not hard at all Food Insecurity: No Food Insecurity (05/14/2025) Hunger Vital Sign Worried About Running Out of Food in the Last Year: Never true Ran Out of Food in the Last Year: Never true Transportation Needs: No Transportation Needs (05/14/2025) PRAPARE - Transportation Lack of Transportation (Medical): No Lack of Transportation (Non-Medical): No Stress: No Stress Concern Present (05/14/2025) [place] [place] [employer] - Occupational Stress Questionnaire Feeling of Stress : Not at all Housing Stability: Low Risk (05/14/2025) Housing Stability Vital Sign Unable to Pay for Housing in the Last Year: No Number of Times Moved in the Last Year: 0 Homeless in the Last Year: No Family History: Family History[3] Allergies: Allergies[4] Medications: Medications[5] Medications[6] Wt Readings from Last 3 Encounters: 05/14/25 131.5 kg (290 lb) Review of Systems: Review of Systems Constitutional: Positive for malaise/fatigue. Negative for chills and fever. HENT: Negative for congestion, hearing loss, sinus pain and sore throat. Eyes: Negative for blurred vision, double vision and photophobia. Respiratory: Negative for cough and shortness of breath. Cardiovascular: Negative for chest pain and palpitations. Gastrointestinal: Positive for abdominal pain. Negative for heartburn, nausea and vomiting. Genitourinary: Positive for dysuria, flank pain and hematuria. Negative for frequency and urgency. Musculoskeletal: Negative for falls and myalgias. Neurological: Negative for dizziness and headaches. Psychiatric/Behavioral: Negative for depression and suicidal ideas. A comprehensive 14 points review of symptoms was done. pertinent review of systems was negative except as described in HPI Physical Exam: Vitals: 05/14/25 0000 05/14/25 0003 BP: (!) 153/118 Pulse: 103 Resp: 24 Temp: 98.1 ??F (36.7 ??C) Weight: 131.5 kg (290 lb) General appearance: alert, oriented, no distress Head: Normocephalic, without trauma Eyes: sclera and conjunctiva clear, lids normal Throat: no mucous membrane abnormalities Neck: range of motion is intact, no masses, thyroid not enlarged, no adenopathy Chest: no tenderness Lungs: breath sounds normal and symmetric; no rales or wheezes Heart: regular rate and rhythm, normal S1 and S2, without murmurs, gallops or rubs Abdomen: soft without mass, non-tender, with normal bowel sounds Extremities: no clubbing, bilateral lower extremity edema Neurologic: mental status normal, CN II - XII grossly intact. Data: Admission labs, radiographic studies and ECG were reviewed, and are noted in the assessment and plan as needed. Recent Labs Component Name 05/14/25 0122 HGB 8.9* HCT 30.0* No results for input(s): SODIUM, NA, POTASSIUM, CHLORIDE, CO2, BUN, CREATININE, GLUCOSE, [id number], CALCIUM, GFR, EGFR, EGFRAFR in the last 16212 hours. No results for input(s): ALBUMIN, ALB, ALKPHOS, [id number], ALT, AST, [id number], [id number], TBILI, DBILI, PROTEIN, TPROT, BNP, NTPROBNP in the last 45795 hours. No results found. Assessment and Plan: 1. Hematuria 2. Nephrolithiasis 3. Anemia Hemoglobin 9.0 at outside facility. -trend hemoglobin, transfuse for hemoglobin less than seven -strain all urine -IV fluids -Flomax -consult to Urology 4. Pneumonia CT scan with concern for developing pneumonia. -IV antibiotics -breathing treatments -continue to monitor 5. T12 compression fracture 6. L5 pars fractures -pain control -consider consult to Neurosurgery 7. Hepatosplenomegaly 8. Liver cirrhosis Patient denies known history of cirrhosis. He states he follows up with his PCP reserve in any concern for cirrhosis. -patient will need further workup Due to the severity of the patient's current illness, decision was made to admit the patient to medical tele for further evaluation and care. There is no height or weight on file to calculate BMI. DVT prophylaxis: SCDs Full Code Patient Diagnoses Present at the Time of Admission Anemia requiring further monitoring Anemia: Other Anemia Patrice Tapia DO 05/14/2025 2:52 AM I spent 35 minutes in the evaluation and care of this patient. Time spent includes time spent [id number] with the patient, discussing with nursing staff, ordering tests and reviewing results, reviewing notes and results from the ED. Time spent does not count other billable procedures. Portions of this note may be dictated using voice recognition software. Variances in spelling and vocabulary are possible and unintentional. Not all errors are caught/corrected. Please notify the author if any discrepancies are noted or if the meaning of any statement is not clear. These grammatical oversights have no impact on the medical care provided to the patient. [1] No past medical history on file. [2] No past surgical history on file. [3] No family history on file. [4] Allergies Allergen Reactions Penicillins Anaphylaxis Vancomycin Anaphylaxis [5] Current Facility-Administered Medications Medication Dose Route Frequency Provider Last Rate Last Admin 0.9% NaCl infusion Intravenous Continuous Patrice Tapia DO 75 mL/hr at 05/14/25 0116 New Bag at 05/14/25 0116 0.9% NaCl injection 3 mL 3 mL Intracatheter q8h Sera Argueta MD 3 mL at 05/14/25 0118 And 0.9% NaCl injection 1-10 mL 1-10 mL Intracatheter PRN Sera Argueta MD acetaminophen (Tylenol) tablet 650 mg 650 mg Oral q4h PRN Patrice Tapia, albuterol-ipratropium (Duo-Neb) nebulizer solution 3 mL 3 mL Inhalation q4h Patrice Tapia DO azithromycin (Zithromax) 500 mg in 250 mL IVPB 500 mg Intravenous q24h Patrice Tapia, cefTRIAXone (Rocephin) 2,000 mg in NaCl IV 0.9 % 50 mL IVPB 2 g Intravenous q24h Patrice Tapia, HYDROmorphone (Dilaudid) injection 0.4 mg 0.4 mg Intravenous q3h PRN Patrice Tapia DO 0.4 mg at 05/14/25 0124 Or HYDROmorphone (Dilaudid) injection 0.8 mg 0.8 mg Intravenous q3h PRN Patrice Tapia DO ondansetron (disintegrating) (Zofran ODT) tablet 4 mg 4 mg Oral q6h PRN Sera Argueta MD Or ondansetron (Zofran) injection 4 mg 4 mg Intravenous q6h PRN Sera Argueta MD prochlorperazine (Compazine) tablet 5 mg 5 mg Oral q6h PRN Patrice Tapia DO Or prochlorperazine (Compazine) injection 5 mg 5 mg Intravenous q6h PRN Patrice Tapia DO tamsulosin (Flomax) capsule 0.4 mg 0.4 mg Oral QDAY Patrice Tapia DO [6] No medications prior to admission. documented in this encounter Consult Notes * Annika Pringle MD - 05/14/2025 10:05 AM CDTAssociated Order(s): IP CONSULT TO UROLOGY UROLOGY CONSULTATION NOTE Patient name: Nils Torres Reason for consult: I was requested to see Nils Torres for a diagnosis of gross hematuria, possiblehydronephrosis. HPI: Nils Torres is a 70 year old male who presents for evaluation of gross hematuria, possible hydronephrosis. 70-year-old male with limited past medical history given he is a transfer from an outside hospital who presents with 3 days of gross hematuria. He is not on any blood thinners. He has never had grosshematuria before. No personal history of cancers. History of smoking but quit 40 years ago. No abdominal pain. He thinks he has passed kidney stones before. Workup at the outside facility was significant for: UA was red in color with 3+ protein, 3+ blood, 5-10 WBCs, too numerous to count RBCs PTT was elevated 31.9, PT 11.1, INR 1.1 WBCs 6.4, hemoglobin 30.0, platelets 82 Sodium 137, potassium 3.9, chloride 100, CO2 28, BUN 38, creatinine 2.30, AST 48, ALT 44, alk-phos 119 Lactic acid within normal limits at 1.2, procalcitonin elevated at 0.28 CT scan of the abdomen and pelvis reports: -Bilateral renal stones and evidence for ordered hydronephrosis involving the right kidney -possible infiltrate developing in the left lower lobe -hepatosplenomegaly with possible cirrhosis -moderately severe atherosclerosis involving the abdominal aorta -diverticulosis -severely degenerated right hip with joint effusion -probable bilateral L5 pars fractures with anterior listhesis grade 1 of L5 upon S1 -compression fracture of T12 etiology uncertain -perinephric stranding along the colonic gutters Allergies as of 05/13/2025 (Not on File) Medications[1] Past Medical History[2] Past Surgical History[3] Family History[4] Nonsmoker, nondrinker Review of systems: As per HPI. Physical Exam: Patient Vitals for the past 6 hrs: Temp Pulse Resp BP BP Method 05/14/25 0746 -- 102 20 -- -- 05/14/25 0719 98.9 ??F (37.2 ??C) -- -- 105/55 Automatic Assessment/Plan: Nils Torres is a 70 year old male with gross hematuria of unknown origin. Possible right hydronephrosis. Bilateral kidney stones. Gross hematuria: OR for cystoscopy with clot evacuation, fulguration, possible biopsy Possible right hydronephrosis: Will perform bilateral retrograde pyelograms, possible stenting Annika Pringle M.D. Urology [1] No current outpatient medications on file. [2] No past medical history on file. [3] No past surgical history on file. [4] No family history on file. documented in this encounter OR Notes * Operative - Annika Pringle MD - 05/14/2025 12:51 PM CDT OPERATIVE REPORT FACILITY ID: [id number] SURGEON: Annika Pringle M.D. SURGICAL TEAM: Surgeons and Role: * Annika Pringle MD - Primary ANESTHESIA: General DATE OF SURGERY: 05/14/2025 PREOPERATIVE DIAGNOSIS: Gross hematuria. POSTOPERATIVE DIAGNOSIS: Gross hematuria with bladder tumor. NAME OF OPERATION: Cystoscopy with clot evacuation and fulguration Transurethral resection of bladder tumor > 5 cm Left retrograde pyelogram with intra-operative interpretation of images independent of radiology INDICATION FOR PROCEDURE: Nils Torres is a 70 year old old male with a history of gross hematuria here for diagnostic studiesand clot evacuation. OPERATIVE FINDINGS: 1. Anterior urethra normal. Prostate 40-50g with tight bladder neck and a few bleeding vessels which were fulgurated 2. Sessile, invasive bladder tumor occupying the entire right trigone. Tumor visually invasive intoat least the underlying muscle with suspected fat (t3) invasion. Superficial and deep resection specimens sent separately. 3. The tumor was aggressively resected but unable to perform complete resection due to suspected fat invasion 4. Left ureteral orifice easily identified. Left retrograde pyelogram with no hydroureteronephrosisand quick efflux of contrast after catheter removal 5. Right ureteral orifice not identified due to overlying tumor invasion 6. 22-Fr ray catheter inserted, 20cc in the balloon 7. Exam under anesthesia with smooth, anodular prostate and mobile bladder COMPLICATIONS: None. DRAINS: 22-Fr ray catheter inserted, 20cc in the balloon PROCEDURE IN DETAIL: The patient was met in the preoperative holding area and identity was confirmed verbally and via name bracelet. Informed consent was obtained. The patient was taken back to the operating room table where an uneventful induction of general anesthesia occurred. He was placed in the relaxed dorsal lithotomy position with careful attention to not flex any joint more than 90 degrees and to pad all pressure points. The patient was prepped and draped in normal sterile fashion. A time-out for patient safety was performed. The resectoscope was inserted under direct visualization. Findings as noted above. 50cc of dark blood clots evacuated. Bladder meticulously surveyed. A few bleeding vessels at the prostate and bladder neck fulgurated. Transurethral resection proceeded with findings as noted above using bipolar energy. No perforation. Left retrograde pyelogram performed with dilute Omnipaque contrast. Right ureteral orifice not identified. Exam under anesthesia performed. Ray catheter inserted with 20cc in the balloon. Light pink urine. The patient was returned to the supine position, awoke uneventfully from anesthesia, and was transferred to the recovery room in good and stable condition. SPECIMENS REMOVED: Right trigone bladder tumor superficial resection Right trigone bladder tumor deep resection ESTIMATED BLOOD LOSS: Minimal. SPONGE, INSTRUMENT, AND NEEDLE COUNT: Endoscopic case, not applicable. CONDITION ON DISCHARGE: Stable to PACU. ATTESTATION OF PRESENCE: I was present and directly participated in the entire procedure. Annika Pringle M.D. Urology documented in this encounter Miscellaneous Notes * Coding Query - Tito De Leon II, DO - 05/15/2025 10:55 AM CDT DOCUMENTATION CLARIFICATION REQUEST Use the F2 function horn to complete the query. Click ???Sign?? to file the note. FROM: Irma Escamilla RN, CCDS Email: [email or web address] Patient Name: Nils Torres Please clarify and document your clinical opinion if the patient is being treated for Pressure Injury Lt Leg and Scrotum Injury POA Other specific explanation of clinical findings Unable to determine (no explanation of clinical findings) The medical record reflects the following: Risk Factors: L5 fracture, L12 fracture, severely degenerated right hip with joint effusion Clinical Findings: Per Nursing flowsheet 05/13, Pressure Injury Leg Left, Upper and Pressure Injury scrotum. Treatment: Pressure reduction PROVIDER RESPONSE (Use F2 to respond) Pressure Injury Lt Leg and Scrotum Injury POA Please provide your clinical opinion and findings to support the diagnosis in the progress notes & carry it through into your discharge summary. THIS DOCUMENT IS MAINTAINED A PERMANENT PART OF THE MEDICAL RECORD. 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 Respiratory Care Routine ONCE for 1 Occurrences starting 05/14/2025 until 05/14/2025 Scheduled Referrals Name Type Priority Associated Diagnoses Order Schedule Referral to Home Health Care Outpatient Referral Routine Failed back syndrome Ordered: 05/16/2025 Referral to Home Connections Outpatient Referral Routine Gross hematuria Ordered: 05/17/2025 documented as of this encounter Procedures Procedure Name Priority Date/Time Associated Diagnosis Comments B-TYPE NATRIURETIC PEPTIDE AM Draw 05/16/2025 3:47 AM CDT DIFFERENTIAL MANUAL AM Draw 05/15/2025 5 :19 AM CDT CBC W AUTO DIFFERENTIAL AM Draw 05/15/20 5:19 AM CDT BASIC METABOLIC PANEL (CALCIUM TOTAL) AM Draw 05/15/2025 5:19 AM CDT FL UROGRAM RETROGRADE Routine 05/14/2025 6:40 PM CDT Gross hematuria PATHOLOGY TISSUE EXAM (STL) Routine 05/14/2025 3:03 PM CDT Diagnosis unknown IN CYSTOURETHROSCOPY 05/14/2025 2:04 PM CDT TYPE + SCREEN PANEL Routine 05/14/2025 1 0:29 AM CDT BLOOD TYPE VERIFICATION Routine 05/14/20 5:36 AM CDT PT-INR Routine 05/14/2025 5:36 AM CDT CBC W/O DIFFERENTIAL STAT 05/14/2025 5:36 AM CDT COMPREHENSIVE METABOLIC PANEL AM Draw 05/14/2025 5:36 AM CDT PHOSPHORUS BLOOD Routine 05/14/2025 5:36 AM CDT MAGNESIUM BLOOD Routine 05/14/2025 5:36 AM CDT HGB HCT PANEL STAT 05/14/2025 1:22 AM CDT documented in this encounter Results * (ABNORMAL) B-TYPE NATRIURETIC PEPTIDE (05/16/2025 3:47 AM CDT) BNP 340(H) <=100 pg/mL 05/16/2025 4:42 AM CDT [facility] Blood BLOOD SPECIMEN / Unknown Venipuncture / Unknown 05/16/2025 3:47 AM CDT 05/16/2025 3:59 AM CDT us Kaylyn Michelle Bautista SEMICONDUCTOR BONDER-REVIEW NURSE LAB - CHEMISTRY ORDER VALENTINO Final Result Performing Organization Address City/[facility] Co de Phone Number [facility] [address] [place], [place] [phone] * (ABNORMAL) DIFFERENTIAL MANUAL (05/15/2025 5:19 AM CDT) Neutrophil % 95(H) 41 - 74 % 05/15/2025 6:10 AM CDT [facility] Lymphocyte % 3(L) 17 - 47 % 05/15/2025 6:10 AM CDT [facility] Monocyte % 2(L) 3 - 11 % 05/15/2025 6:10 AM CDT [facility] Neutrophil Absolute 5.32 1.60 - 7.50 x10E9/L 05/15/2025 6:10 AM CDT [facility] Lymphocyte Absolute 0.17(L) 1.00 - 4.40 x10E9/L 05/15/2025 6:10 AM CDT [facility] Monocyte Absolute 0.11(L) 0.15 - 1.00 x10E9/L 05/15/2025 6:10 AM CDT [facility] RBC Morphology REVIEWED 05/15/2025 6:10 AM CDT [facility] Blood BLOOD SPECIMEN / Unknown Venipuncture / Unknown 05/15/2025 5:19 AM CDT 05/15/2025 5:49 AM CDT us Tito De Leon II, DO LAB - HEMATOLOGY ORDERABLES F inal Result Performing Organization Address [facility] Co de Phone Number [facility] [address] [place] [address] * (ABNORMAL) CBC W AUTO DIFFERENTIAL (05/15/2025 5:19 AM CDT) WBC 5.6 4.0 - 10.7 x10E9/L 05/15/2025 6:10 AM CDT [facility] RBC Count 3.31(L) 4.30 - 5.80 x10E12/L 05/15/2025 6:10 AM CDT [facility] Hemoglobin 8.0(L) 13.3 - 17.5 g/dL 05/15/2025 6:10 AM CDT [facility] Hematocrit 28.0(L) 38.7 - 51.1 % 05/15/2025 6:10 AM CDT [facility] MCV 84.6 80.0 - 98.0 fL 05/15/2025 6:10 AM CDT [facility] MCH 24.2(L) 26.7 - 33.6 pg 05/15/2025 6:10 AM CDT [facility] MCHC 28.6(L) 31.7 - 36.3 g/dL 05/15/2025 6:10 AM CDT [facility] RDW-CV 18.7(H) 11.3 - 14.8 % 05/15/2025 6:10 AM CDT [facility] Platelet Count 69(L) 150 - 420 x10E9/L 05/15/2025 6:10 AM CDT [facility] MPV 10.8 7.8 - 11.4 fL 05/15/2025 6:10 AM CDT [facility] Blood BLOOD SPECIMEN / Unknown Venipuncture / Unknown 05/15/2025 5:19 AM CDT 05/15/2025 5:49 AM CDT us Tito De Leon II, DO LAB - HEMATOLOGY ORDERABLES F inal Result [facility] [address] [place] [address] * (ABNORMAL) BASIC METABOLIC PANEL (CALCIUM TOTAL) (05/15/2025 5:19 AM CDT) Pathologist [facility] Glucose 117(H) 70 - 99 mg/dL 05/15/2025 6:11 AM CDT [facility] Sodium 143 136 - 145 mmol/L 05/15/2025 6:11 AM CDT [facility] Potassium 4.9 3.5 - 5.1 mmol/L 05/15/2025 6:11 AM CDT [facility] Chloride 112(H) 98 - 107 mmol/L 05/15/2025 6:11 AM CDT [facility] CO2 22 22 - 29 mmol/L 05/15/2025 6:11 AM CDT [facility] Calcium 8.6 8.4 - 10.4 mg/dL 05/15/2025 6:11 AM CDT [facility] Anion Gap 9 6 - 16 mmol/L 05/15/2025 6:11 AM CDT [facility] BUN 37(H) 7 - 26 mg/dL 05/15/2025 6:11 AM CDT [facility] Creatinine 2.31(H) 0.72 - 1.25 mg/dL 05/15/2025 6:11 AM CDT [facility] eGFR by CKD-EPI 29(L) >=90 mL/min/1.7 3 m2 05/15/2025 6:11 AM CDT [facility] Comment:Estimated Glomerular Filtration Rate (eGFR) calculated using the CKD-EPI Creatinine Equation (2020), per the National Kidney Foundation and [place] [employer] Neph[employer] recommendations. Blood BLOOD SPECIMEN / Unknown Venipuncture / Unknown 05/15/2025 5:19 AM CDT 05/15/2025 5:51 AM CDT us Tito De Leon II, DO LAB - CHEMISTRY ORDERABLES Fi nal Result Performing Organization Address [facility] Co de Phone Number [facility] [id number] [place] [phone] * FL Urogram Retrograde (05/14/2025 6:40 PM CDT) Narrative [facility] - 05/14/2025 6:43 PM CDT For details of this study, please see the providers note. us Annika Pringle MD FLUOROSCOPY ORDERABLES Final Res ult Performing Organization Address [facility] Co de Phone Number [facility] [address] [place] [address] * PATHOLOGY TISSUE EXAM (STL) (05/14/2025 3:03 PM CDT) Case Report Surgical Pathology Report Case: [id number] Authorizing Provider: Annika Pringle MD Collected: 05/14/2025 03:03 PM Ordering Location: [address] SURG/BARIATRIC Received: 05/15/2025 06:32 AM Pathologist: Bryan Sherwood MD Specimens: A) - Tumor, RIGHT TRIGONE SUPERFICIAL RESECTION BLADDER TUMOR B) - Tumor, RIGHT TRIGONE DEEP RESECTION BLADDER TUMOR 05/16/2025 1:39 PM CDT [facility] Final Diagnosis A. Right trigone superficial bladder tumor, resection: -- Urothelial carcinoma, high grade, invasive -- Tumor invades muscularis propria B. Right trigone deep bladder tumor, resection: -- Urothelial carcinoma, high grade, invasive -- Tumor invades muscularis propria 05/16/2025 1:39 PM CDT [facility] at 1339 CDT Gross Description Received in container A in formalin labeled Nils Torres, right trigone superficial resection bladder tumor, are multiple pink-ulrich irregular tissue fragments measuring 2.5 x 2.2 x 0.6 cm in aggregate. The specimen is entirely submitted in cassette A1. Received in container B in formalin labeled Nils Torres, right trigone deep resection bladder tumor, are multiple townsend-ulrich irregular tissue fragments measuring 3.3 x 2.5 x 0.6 cm in aggregate. The specimen is entirely submitted in cassette B1. CH/tc 05/16/2025 1:39 PM CDT [facility] Microscopic Description Microscopic examination substantiates the above cited diagnosis. 05/16/2025 1:39 PM CDT [facility] Disclaimer All histochemical and/or immunohistochemical results are interpreted with controls that demonstrate appropriate staining reactions before reporting results. Note on use of immunocytochemistry reagents: This test was developed and its performance characteristic determined by [facility], Department of Laboratory Medicine. It has not been cleared or approved by the U.S. Food and Drug Administration (FDA). The FDA has determined that such clearance or approval is not necessary. The test is used for clinical purpose. It should not be regarded as investigational or for research. This laboratory is certified to perform high complexity testing. The performance characteristics of the IHC/EMMA assays have been validated on formalin-fixed paraffin embedded tissues only. The assays have not been validated on decalcified tissues. Results should be interpreted with caution. 05/16/2025 1:39 PM CDT [facility] Embedded Images 05/16/2025 1:39 PM CDT [facility] Pathology/Cytology TUMOR TISSUE SPECIMEN / Unknown 05/14/2025 3:03 PM CDT 05/15/2025 6:32 AM CDT Miscellaneous samples (specimen) TUMOR TISSUE SPECIMEN / Unknown 05/14/2025 3:04 PM CDT 05/15/2025 6:32 AM CDT us Annika Pringle MD LAB - PATHOLOGY/CYTOLOGY ORDERAB LES Final Result Performing Organization Address [facility] Co de Phone Number [facility] [address] [place] [address] * TYPE + SCREEN PANEL (05/14/2025 10:29 AM CDT) ABO Rh AB POS 05/14/2025 11:44 AM CDT [facility] Comment:No history; collect retype. Antibody Screen NEG 05/14/2025 11:44 AM CDT [facility] Blood Bank BLOOD SPECIMEN / Unknown Venipuncture / Unknown 05/14/2025 10:29 AM CDT 05/14/2025 10:49 AM CDT us Annika Pringle MD LAB - BLOOD BANK ORDERABLES Rosamaria l Result Performing Organization Address City/[facility] Co de Phone Number [facility] [address] [place] [address] * BLOOD TYPE VERIFICATION (05/14/2025 5:36 AM CDT) ABO Rh AB POS 05/14/2025 11:44 AM CDT [facility] Blood Bank BLOOD SPECIMEN / Unknown Venipuncture / Unknown 05/14/2025 5:36 AM CDT 05/14/2025 10:56 AM CDT us Annika Pringle MD LAB - BLOOD BANK ORDERABLES Rosamaria simmons Result [facility] [address] [phone] * (ABNORMAL) COMPREHENSIVE METABOLIC PANEL (05/14/2025 5:36 AM CDT) Glucose 111(H) 70 - 99 mg/dL 05/14/2025 6:08 AM CDT [facility] Sodium 140 136 - 145 mmol/L 05/14/2025 6:08 AM T [facility] Potassium 4.5 3.5 - 5.1 mmol/L 05/14/2025 6:08 AM T [facility] Chloride 108(H) 98 - 107 mmol/L 05/14/2025 6:08 AM T [facility] CO2 23 22 - 29 mmol/L 05/14/2025 6:08 AM T [facility] Calcium 8.5 8.4 - 10.4 mg/dL 05/14/2025 6:08 AM T [facility] Anion Gap 9 6 - 16 mmol/L 05/14/2025 6:08 AM T [facility] BUN 42(H) 7 - 26 mg/dL 05/14/2025 6:08 AM T [facility] Creatinine 2.23(H) 0.72 - 1.25 mg/dL 05/14/2025 6:08 AM [facility] Alkaline Phosphatase 122 40 - 150 U/L 05/14/2025 6:08 AM [facility] ALT 29 6 - 57 U/L 05/14/2025 6:08 AM T [facility] AST 39 10 - 48 U/L 05/14/2025 6:08 AM [facility] Protein Total 6.8 6.4 - 8.3 gm/dL 05/14/2025 6:08 AM [facility] Albumin 2.8(L) 3.1 - 4.5 gm/dL 05/14/2025 6:08 AM [facility] Bilirubin Total 0.6 0.2 - 1.2 mg/dL 05/14/2025 6:08 AM [facility] eGFR by CKD-EPI 31(L) >=90 mL/min/1.7 3 m2 05/14/2025 6:08 AM CDT [facility] Comment:Estimated Glomerular Filtration Rate (eGFR) calculated using the CKD-EPI Creatinine Equation (2020), per the National Kidney Foundation and [place] [employer] Neph[employer] recommendations. Blood BLOOD SPECIMEN / Unknown Venipuncture / Unknown 05/14/2025 5:36 AM CDT 05/14/2025 5:41 AM CDT Patrice Tapia DO LAB - CHEMISTRY ORDERABLES Final Result Performing Organization Address [facility] Co de Phone Number [facility] [address] [place] [address] * (ABNORMAL) PT-INR (05/14/2025 5:36 AM CDT) PT 15.9(H) 12.1 - 14.8 sec 05/14/2025 6:17 AM CDT [facility] INR 1.3(H) 0.9 - 1.1 05/14/2025 6:17 AM CDT [facility] Blood BLOOD SPECIMEN / Unknown Venipuncture / Unknown 05/14/2025 5:36 AM CDT 05/14/2025 5:41 AM CDT Narrative [facility] - 05/14/2025 6:17 AM CDT Conventional Warfarin Anticoagulant Therapy: INR Reference Range: 2.0-3.0 Intensive Warfarin Anticoagulant Therapy: INR Reference Range: 2.5-3.5 Patrice Tapia DO LAB - COAGULATION ORDERABLES Fin al Result Performing Organization Address [facility]/ZIP Co de Phone Number [facility] [address] [place] [address] * PHOSPHORUS BLOOD (05/14/2025 5:36 AM CDT) Phosphorus 3.9 2.5 - 4.5 mg/dL 05/14/2025 6:06 AM CDT [facility] Blood BLOOD SPECIMEN / Unknown Venipuncture / Unknown 05/14/2025 5:36 AM CDT 05/14/2025 5:40 AM CDT Patricealeena Tapia LAB - CHEMISTRY ORDERABLES Final Result Performing Organization Address [facility]/ZIP Co de Phone Number [facility] [address] [place], [place] [phone] * MAGNESIUM BLOOD (05/14/2025 5:36 AM CDT) Magnesium 1.8 1.6 - 2.6 mg/dL 05/14/2025 6:06 AM CDT [facility] Blood BLOOD SPECIMEN / Unknown Venipuncture / Unknown 05/14/2025 5:36 AM CDT 05/14/2025 5:40 AM CDT Patrice Tapia DO LAB - CHEMISTRY ORDERABLES Final Result Performing Organization Address [facility] de Phone Number [facility] [address] [place] [phone] * (ABNORMAL) CBC W/O DIFFERENTIAL (05/14/2025 5:36 AM CDT) WBC 7.7 4.0 - 10.7 x10E9/L 05/14/2025 6:05 AM CDT [facility] RBC Count 3.55(L) 4.30 - 5.80 x10E12/L 05/14/2025 6:05 AM CDT [facility] Hemoglobin 8.7(L) 13.3 - 17.5 g/dL 05/14/2025 6:05 AM CDT [facility] Hematocrit 29.0(L) 38.7 - 51.1 % 05/14/2025 6:05 AM CDT [facility] MCV 81.7 80.0 - 98.0 fL 05/14/2025 6:05 AM CDT [facility] MCH 24.5(L) 26.7 - 33.6 pg 05/14/2025 6:05 AM CDT [facility] MCHC 30.0(L) 31.7 - 36.3 g/dL 05/14/2025 6:05 AM CDT [facility] RDW-CV 18.6(H) 11.3 - 14.8 % 05/14/2025 6:05 AM CDT [facility] Platelet Count 84(L) 150 - 420 x10E9/L 05/14/2025 6:05 AM CDT [facility] MPV 10.1 7.8 - 11.4 fL 05/14/2025 6:05 AM CDT [facility] Blood BLOOD SPECIMEN / Unknown Venipuncture / Unknown 05/14/2025 5:36 AM CDT 05/14/2025 5:40 AM CDT [facility] LAB - HEMATOLOGY ORDERABLES Rosamaria l Result Performing Organization Address [facility] Co de Phone Number [facility] [address] [place] [phone] * (ABNORMAL) HGB HCT PANEL (05/14/2025 1:22 AM CDT) [facility] Hemoglobin 8.9(L) 13.3 - 17.5 g/dL 05/14/2025 1:29 AM CDT [facility] Hematocrit 30.0(L) 38.7 - 51.1 % 05/14/2025 1:29 AM CDT [facility] Blood BLOOD SPECIMEN / Unknown Venipuncture / Unknown 05/14/2025 1:22 AM CDT 05/14/2025 1:24 AM CDT [facility] LAB - HEMATOLOGY ORDERABLES Rosamaria l Result Performing Organization Address [facility] Co de Phone Number [facility] [address] [place] [phone] documented in this encounter Visit Diagnoses Diagnosis Gross hematuria- Primary Gross hematuria Diagnosis unknown Other unknown and unspecified cause of morbidity or mortality Bladder tumor Neoplasm of unspecified nature of bladder Failed back syndrome Other unspecified back disorder documented in this encounter Administered Medications Inactive Administered Medications - up to 3 most recent administrations Medication Order MAR Action Action Date Dose Rate Site 0.9% NaCl infusion at 75 mL/hr, Intravenous, CONTINUOUS, Starting on Tue05/14/25 at 0130, Until Tue05/16/25 at 0322 Restarted 05/14/2025 2:14 PM CDT $ New Bag/Syringe 05/14/2025 1:16 AM CDT 75 mL/ hr 0.9% NaCl injection 1-10 mL 1-10 mL, Intracatheter, PRN, Other, peripheral line flush, Starting on Tue05/14/25 at 0003, Until Tue05/17/25 at 1152, Flush peripheral IV catheter with 1-10 mL of normal saline before and after medications and prn to clear blood from the line or to verify patency. $ Given 05/15/2025 9:03 PM CDT 10 mL 0.9% NaCl injection 3 mL 3 mL, Intracatheter, EVERY 8 HOURS, First dose on Tue05/14/25 at 0045, Until Discontinued, Flush peripheral IV catheter with 3 mL of normal saline every 8 hours. $ Given 05/16/2025 8:44 PM CDT 3 mL $ Given 05/16/2025 2:27 PM CDT 3 mL $ Given 05/14/2025 5:19 AM CDT 3 mL acetaminophen (Tylenol) tablet 650 mg 650 mg, Oral, EVERY 4 HOURS PRN, Fever, Mild Pain, Headache, For temperature GREATER than 101 , Starting on Tue05/14/25 at 0059, Until Tue05/17/25 at 1152, Patient preference for lesser PRN pain meds may be honored when the patient requests a less strong medication, a lower dose, or a less intrusive route of administration when the lesser drug, dose and route have been ordered for the patient. This patient request must be documented in the MAR. If both oral and IV options are ordered for the same pain severity, give oral first unless patient cannot tolerate oral intake $ Given 05/14/2025 5:21 A M CDT 650 mg albuterol-ipratropium (Duo-Neb) nebulizer solution 3 mL 3 mL, Inhalation, EVERY 4 HOURS, First dose on Tue05/14/25 at 0400, Until Discontinued $ Given 05/14/2025 7:45 AM CDT 3 mL $ Given 05/14/2025 3:22 AM CDT 3 mL albuterol-ipratropium (Duo-Neb) nebulizer solution 3 mL 3 mL, Inhalation, EVERY 6 HOURS, First dose (after last modification) on Tue05/14/25 at 1200, Until Discontinued $ Given 05/17/2025 8:07 AM CDT 3 mL $ Given 05/17/2025 3:33 AM CDT 3 mL $ Given 05/16/2025 8:39 PM CDT 3 mL azithromycin (Zithromax) 500 mg in 250 mL IVPB 500 mg, at 250 mL/hr, Intravenous, EVERY 24 HOURS, 3 doses, First dose on Tue05/14/25 at 1700, Last dose on Tue05/16/25 at 1700, Indication for anti-infective therapy: Suspected infection, Site of anti-infective therapy: Urine/Genitourinary, Lower Respiratory $ New Bag/Syringe 05/14/2025 6:21 PM CDT 500 mg 250 mL/hr azithromycin (Zithromax) tablet 500 mg 500 mg, Oral, DAILY, 2 doses, First dose on Tue05/15/25 at 1500, Last dose on Tue05/16/25 at 1300, Indication for anti-infective therapy: Suspected infection, Site of anti-infective therapy: Lower Respiratory $ Given 05/16/2025 11:57 AM CDT 500 mg $ Given 05/15/2025 3:13 PM CDT 500 mg budesonide-formoterol (Symbicort) 160-4.5 MCG/ACT inhaler 2 puff 2 puff, Inhalation, 2 TIMES DAILY, First dose on Tue05/16/25 at 1200, Until Discontinued, Rinse mouth after use. WASTE DISPOSAL INSTRUCTION: Send to Pharmacy for Disposal. $ Given 05/17/2025 8:07 AM CDT 2 puffs $ Given 05/16/2025 9:18 PM CDT 2 puffs $ Given 05/16/2025 11:53 AM CDT 2 puffs busPIRone (Buspar) tablet 15 mg 15 mg, Oral, 2 TIMES DAILY PRN, anxiety, Starting on Tue05/16/25 at 1512, Until Tue05/17/25 at 1152Indications:Anxiety Disorder $ Given 05/16/2025 9:29 PM CDT 15 mg $ Given 05/16/2025 3:25 PM CDT 15 mg cefTRIAXone (Rocephin) 2,000 mg in NaCl IV 0.9 % 50 mL IVPB 2,000 mg (2 g), at 100 mL/hr, Intravenous, EVERY 24 HOURS, First dose on Tue05/14/25 at 1700, Until Discontinued, Ceftriaxone can cause precipitation when administered with calcium-containing fluids, including LR. Flush lines with a compatible fluid, such as D5W or NS before and after ceftriaxone dose. Admin through separate lumens is acceptable., Indication for anti-infective therapy: Suspected infection, Site of anti-infective therapy: Urine/Genitourinary $ New Bag/Syringe 05/16/2025 4:07 PM CDT 2,000 mg 100 mL/hr $ New Bag/Syringe 05/15/2025 5:30 PM CDT 2,000 mg 100 mL /hr $ New Bag/Syringe 05/14/2025 5:03 PM CDT 2,000 mg 100 mL /hr fentaNYL (PF) (Sublimaze) injection 50 mcg 50 mcg, Intravenous, EVERY 10 MIN PRN, Severe Pain, 4 doses, Starting on Tue05/14/25 at 1600, Until Tue05/14/25 at 1645, Maximum total of 4 doses If patient reaches max total dose, please consult anesthesiologist prior to further administration of pain meds. Hold pain meds if there are signs of hypoventilation. Patient preference for lesser PRN pain meds may be honored when the patient requests a less strong medication, a lower dose, or a less intrusive route of administration when the lesser drug, dose and route have been ordered for the patient. This patient request must be documented in the MAR. If both oral and IV options are ordered for the same pain severity, give oral first unless patient cannot tolerate oral intake, PACU $ Given 05/14/2025 4:09 PM CDT 50 mcg guaiFENesin (Robitussin) solution 10 mL 10 mL, Oral, EVERY 6 HOURS PRN, Cough, Starting on Tue05/17/25 at 0515, Until Tue05/17/25 at 1152 $ Given 05/17/2025 5:25 AM CDT 10 mL HYDROcodone-acetaminophen (Lupton) 5-325 MG tablet 1 tablet 1 tablet, Oral, EVERY 6 HOURS PRN, Moderate Pain, Starting on Tue05/14/25 at 2141, Until Tue05/15/25 at 1116, Patient preference for lesser PRN pain meds may be honored when the patient requests a less strong medication, a lower dose, or a less intrusive route of administration when the lesser drug, dose and route have been ordered for the patient. This patient request must be documented in the MAR. If both oral and IV options are ordered for the same pain severity, give oral first unless patient cannot tolerate oral intake $ Given 05/15/2025 8:38 AM CDT 1 tablet $ Given 05/15/2025 12:48 AM CDT 1 tablet HYDROmorphone (Dilaudid) injection 0.4 mg 0.4 mg, Intravenous, EVERY 3 HOURS PRN, Moderate Pain, Starting on Tue05/14/25 at 0054, Until Tue05/17/25 at 1152, Patient preference for lesser PRN pain meds may be honored when the patient requests a less strong medication, a lower dose, or a less intrusive route of administration when the lesser drug, dose and route have been ordered for the patient. This patient request must be documented in the MAR. If both oral and IV options are ordered for the same pain severity, give oral first unless patient cannot tolerate oral intake $ Given 05/14/2025 8:54 P M CDT 0.4 mg $ Given 05/14/2025 7:21 AM CDT 0.4 mg $ Given 05/14/2025 1:24 AM CDT 0.4 mg HYDROmorphone (Dilaudid) injection 0.8 mg 0.8 mg, Intravenous, EVERY 3 HOURS PRN, Severe Pain, Starting on Tue05/14/25 at 0054, Until Tue05/17/25 at 1152, Patient preference for lesser PRN pain meds may be honored when the patient requests a less strong medication, a lower dose, or a less intrusive route of administration when the lesser drug, dose and route have been ordered for the patient. This patient request must be documented in the MAR. If both oral and IV options are ordered for the same pain severity, give oral first unless patient cannot tolerate oral intake $ Given 05/17/2025 12:44 AM CDT 0.8 mg $ Given 05/16/2025 8:01 PM CDT 0.8 mg $ Given 05/15/2025 11:21 AM CDT 0.8 mg HYDROmorphone (Dilaudid) injection 1 mg 1 mg, Intravenous, Once, 1 dose, On Tue05/14/25 at 0245, Patient preference for lesser PRN pain meds may be honored when the patient requests a less strong medication, a lower dose, or a less intrusive route of administration when the lesser drug, dose and route have been ordered for the patient. This patient request must be documented in the MAR. If both oral and IV options are ordered for the same pain severity, give oral first unless patient cannot tolerate oral intake $ Given 05/14/2025 2:50 AM CDT 1 mg LORazepam (Ativan) injection 0.5 mg 0.5 mg, Intravenous, ONCE, 1 dose, On Tue05/15/25 at 2100Indications:Agitation $ Given 05/15/2025 9:03 PM CDT 0.5 mg LORazepam (Ativan) tablet 1 mg 1 mg, Oral, ONCE PRN, Anxiety, 1 dose, Starting on Tue05/16/25 at 1513, Until Tue05/16/25 at 2038Indications:Anxiety $ Given 05/16/2025 8:39 PM CDT 1 mg ondansetron (disintegrating) (Zofran ODT) tablet 4 mg 4 mg, Oral, EVERY 6 HOURS PRN, Nausea/Vomiting, Starting on Tue05/14/25 at 0003, Until Tue05/17/25 at 1152, Dissolved orally on tongue ondansetron (Zofran) injection 4 mg 4 mg, Intravenous, EVERY 6 HOURS PRN, Nausea/Vomiting, Starting on Tue05/14/25 at 0003, Until Tue05/17/25 at 1152, Administer IV if patient is NPO, actively vomiting, or unable to swallow. oxyCODONE-acetaminophen (Percocet) 7.5-325 MG tablet 1 tablet 1 tablet, Oral, EVERY 4 HOURS PRN, Severe Pain, Moderate Pain, Starting on Tue05/15/25 at 1116, Until Tue05/17/25 at 1152, Patient preference for lesser PRN pain meds may be honored when the patient requests a less strong medication, a lower dose, or a less intrusive route of administration when the lesser drug, dose and route have been ordered for the patient. This patient request must be documented in the MAR. If both oral and IV options are ordered for the same pain severity, give oral first unless patient cannot tolerate oral intake $ Given 05/17/2025 9:03 AM CDT 1 tablet $ Given 05/16/2025 8:39 PM CDT 1 tablet $ Given 05/16/2025 4:06 PM CDT 1 tablet oxymetazoline (Afrin) 0.05 % nasal spray 1 spray 1 spray, Each Nostril, 2 TIMES DAILY, 6 doses, First dose on Tue05/14/25 at 1100, Last dose on Tue05/16/25 at 2100, . WASTE DISPOSAL INSTRUCTIONS: Black Bin Disposal required. $ Given 05/16/2025 7:48 AM CDT 1 spray $ Given 05/15/2025 9:04 PM CDT 1 spray $ Given 05/15/2025 8:33 AM CDT 1 spray prochlorperazine (Compazine) injection 5 mg 5 mg, Intravenous, EVERY 6 HOURS PRN, Nausea/Vomiting, Starting on Tue05/14/25 at 0059, Until Tue05/17/25 at 1152, Administer IV if patient is NPO, actively vomiting, or unable to swallow. prochlorperazine (Compazine) injection 5 mg 5 mg, Intravenous, POST-OP MULTIPLE, 1 dose, Starting on Tue05/14/25 at 1600, Until Tue05/14/25 at 1614, Second choice, use if first choice was ineffective., PACU $ Given 05/14/2025 4:14 PM CDT 5 mg prochlorperazine (Compazine) tablet 5 mg 5 mg, Oral, EVERY 6 HOURS PRN, Nausea/Vomiting, Starting on Tue05/14/25 at 0059, Until Tue05/17/25 at 1152 tamsulosin (Flomax) capsule 0.4 mg 0.4 mg, Oral, DAILY, First dose on Tue05/14/25 at 0900, Until Discontinued, At the same time every day after a meal. Do not crush or chew. May open capsule and administer contents per tube. J-tube administration is not appropriate as the small lumen would necessitate crushing of granules. $ Given 05/17/2025 9:03 AM CDT 0.4 mg $ Given 05/16/2025 7:47 AM CDT 0.4 mg $ Given 05/15/2025 8:33 AM CDT 0.4 mg documented in this encounter Active and Recently Administered Medications Times are shown in CDT. Scheduled Medication Order 05/15/2025 05/16/2025 05/17/2025 0.9% NaCl injection 3 mL(Linked Group 1) 3 mL, Intracatheter, EVERY 8 HOURS, First dose on Tue05/14/25 at 0045, Until Discontinued, Flush peripheral IV catheter with 3 mL of normal saline every 8 hours. 0550 (Not Administered - Provider: Yennifer Gutierrez RN - Reason: IV Currently Infusing)1313 (Not Administered - Provider: Una Holguin RN - Reason: IV Currently Infusing)2103 (Not Administered - Provider: Yennifer Gutierrez RN - Reason: IV Currently Infusing) 0625 (Not Administered - Provider: Yennifer Gutierrez RN - Reason: Patient sleeping)1427 ($ Given - Provider: Catalina Benjamin RN)2044 ($ Given - Provider: Emelina Figueredo RN) 0611 (Not Administered - Provider: Emelina Figueredo RN - Reason: Refused-Patient) albuterol-ipratropium (Duo-Neb) nebulizer solution 3 mL 3 mL, Inhalation, EVERY 6 HOURS, First dose (after last modification) on Tue05/14/25 at 1200, Until Discontinued 0154 (Not Administered - Provider: Madeline Herr RCP - Reason: Refused-Patient)0842 ($ Given - Provider: Larry Moreland RCP)1612 ($ Given - Provider: Larry Moreland RCP)1950 ($ Given - Provider: Anel Hill RCP) 0237 ($ Given - Provider: Amaris Briggs RCP)0838 ($ Given - Provider: Luigi Diehl RCP)1511 ($ Given - Provider: Luigi Diehl RCP)2039 ($ Given - Provider: Emelina Figueredo RN) 0333 ($ Given - Provider: Sam Overton RCP)0807 ($ Given - Provider: Larry Moreland RCP) azithromycin (Zithromax) tablet 500 mg (COMPLETED) 500 mg, Oral, DAILY, 2 doses, First dose on Tue05/15/25 at 1500, Last dose on Tue05/16/25 at 1300, Indication for anti-infective therapy: Suspected infection, Site of anti-infective therapy: Lower Respiratory 1513 ($ Given - Provider: Una Holguin RN) 1157 ($ Given - Provider: Catalina Benjamin RN) budesonide-formoterol (Symbicort) 160-4.5 MCG/ACT inhaler 2 puff 2 puff, Inhalation, 2 TIMES DAILY, First dose on Tue05/16/25 at 1200, Until Discontinued, Rinse mouth after use. WASTE DISPOSAL INSTRUCTION: Send to Pharmacy for Disposal. 1153 ($ Given - Provider: Luigi Diehl RCP)2118 ($ Given - Provider: Sam Overton RCP) 0807 ($ Given - Provider: Larry Moreland RCP) cefTRIAXone (Rocephin) 2,000 mg in NaCl IV 0.9 % 50 mL IVPB 2,000 mg (2 g), at 100 mL/hr, Intravenous, EVERY 24 HOURS, First dose on Tue05/14/25 at 1700, Until Discontinued, Ceftriaxone can cause precipitation when administered with calcium-containing fluids, including LR. Flush lines with a compatible fluid, such as D5W or NS before and after ceftriaxone dose. Admin through separate lumens is acceptable., Indication for anti-infective therapy: Suspected infection, Site of anti-infective therapy: Urine/Genitourinary 1730 ($ New Bag/Syringe - Provider: Una Holguin RN)1805 (Stopped - Provider: Una Holguin RN) 1607 ($ New Bag/Syringe - Provider: Catalina Benjamin, SOLEDAD)1659 (Stopped - Provider: Catalina Benjamin, SOLEDAD) LORazepam (Ativan) injection 0.5 mg (COMPLETED) 0.5 mg, Intravenous, ONCE, 1 dose, On Tue05/15/25 at 2100 2103 ($ Given - Provider: Yennifer Gutierrez RN) oxymetazoline (Afrin) 0.05 % nasal spray 1 spray () 1 spray, Each Nostril, 2 TIMES DAILY, 6 doses, First dose on Tue05/14/25 at 1100, Last dose on Tue05/16/25 at 2100, . WASTE DISPOSAL INSTRUCTIONS: Black Bin Disposal required. 0057 ($ Given - Provider: Yennifer Gutierrez RN)0833 ($ Given - Provider: Una Holguin RN)2104 ($ Given - Provider: Yennifer Gutierrez RN) 0748 ($ Given - Provider: Catalina Benjamin, RN)2128 (Not Administered - Provider: Emelina Figueredo RN - Reason: Refused-Patient) tamsulosin (Flomax) capsule 0.4 mg 0.4 mg, Oral, DAILY, First dose on Tue05/14/25 at 0900, Until Discontinued, At the same time every day after a meal. Do not crush or chew. May open capsule and administer contents per tube. J-tube administration is not appropriate as the small lumen would necessitate crushing of granules. 0833 ($ Given - Provider: Una Holguin RN) 0747 ($ Given - Provider: Catalina Benjamin RN) 0903 ($ Given - Provider: Mane Uriostegui RN) PRN Medication Order 05/15/2025 05/16/2025 05/17/2025 0.9% NaCl injection 1-10 mL(Linked Group 1) 1-10 mL, Intracatheter, PRN, Other, peripheral line flush, Starting on Tue05/14/25 at 0003, Until Tue05/17/25 at 1152, Flush peripheral IV catheter with 1-10 mL of normal saline before and after medications and prn to clear blood from the line or to verify patency. 2102 ($ Given - Provider: Yennifer Gutierrez RN) acetaminophen (Tylenol) tablet 650 mg 650 mg, Oral, EVERY 4 HOURS PRN, Fever, Mild Pain, Headache, For temperature GREATER than 101 , Starting on Tue05/14/25 at 0059, Until Tue05/17/25 at 1152, Patient preference for lesser PRN pain meds may be honored when the patient requests a less strong medication, a lower dose, or a less intrusive route of administration when the lesser drug, dose and route have been ordered for the patient. This patient request must be documented in the MAR. If both oral and IV options are ordered for the same pain severity, give oral first unless patient cannot tolerate oral intake busPIRone (Buspar) tablet 15 mg 15 mg, Oral, 2 TIMES DAILY PRN, anxiety, Starting on Vandana 05/16/25 at 1512, Until Tue05/17/25 at 1152 1525 ($ Given - Provider: Catalina Benjamin RN)2046 (Not Administered - Provider: Emelina Figueredo RN - Reason: Other - Comment: dropped on floor)2128 ($ Given - Provider: Emelina Figueredo RN) guaiFENesin (Robitussin) solution 10 mL 10 mL, Oral, EVERY 6 HOURS PRN, Cough, Starting on Tue05/17/25 at 0515, Until Tue05/17/25 at 1152 0523 (Not Administered - Provider: Nisreen Self RN - Reason: See Comments - Comment: pt splilled medication)0525 ($ Given - Provider: Nisreen Self RN) HYDROcodone-acetaminoph en ([place]) 5-325 MG tablet 1 tablet (CANCELED) 1 tablet, Oral, EVERY 6 HOURS PRN, Moderate Pain, Starting on Tue05/14/25 at 2141, Until Tue05/15/25 at 1116, Patient preference for lesser PRN pain meds may be honored when the patient requests a less strong medication, a lower dose, or a less intrusive route of administration when the lesser drug, dose and route have been ordered for the patient. This patient request must be documented in the MAR. If both oral and IV options are ordered for the same pain severity, give oral first unless patient cannot tolerate oral intake 0048 ($ Given - Provider: Yennifer Gutierrez RN)0838 ($ Given - Provider: Una Holguin RN) HYDROmorphone (Dilaudid) injection 0.4 mg(Linked Group 2) 0.4 mg, Intravenous, EVERY 3 HOURS PRN, Moderate Pain, Starting on Tue05/14/25 at 0054, Until Tue05/17/25 at 1152, Patient preference for lesser PRN pain meds may be honored when the patient requests a less strong medication, a lower dose, or a less intrusive route of administration when the lesser drug, dose and route have been ordered for the patient. This patient request must be documented in the MAR. If both oral and IV options are ordered for the same pain severity, give oral first unless patient cannot tolerate oral intake 1121 (See Alternative - Provider: Una Holguin RN) 2000 (See Alternative - Provider: Emelina Figueredo RN) 0044 (See Alternative - Provider: Emelina Figueredo RN) HYDROmorphone (Dilaudid) injection 0.8 mg(Linked Group 2) 0.8 mg, Intravenous, EVERY 3 HOURS PRN, Severe Pain, Starting on Tue05/14/25 at 0054, Until Tue05/17/25 at 1152, Patient preference for lesser PRN pain meds may be honored when the patient requests a less strong medication, a lower dose, or a less intrusive route of administration when the lesser drug, dose and route have been ordered for the patient. This patient request must be documented in the MAR. If both oral and IV options are ordered for the same pain severity, give oral first unless patient cannot tolerate oral intake 1121 ($ Given - Provider: Una Holguin RN) 2000 ($ Given - Provider: Emelina Figueredo, SOL[place]) 0044 ($ Given - Provider: Emelina Figueredo, [place]) LORazepam (Ativan) tablet 1 mg (COMPLETED) 1 mg, Oral, ONCE PRN, Anxiety, 1 dose, Starting on Tue05/16/25 at 1513, Until Tue05/16/25 at 2038 2038 ($ Given - Provider: Emelina Figueredo, [place]) ondansetron (disintegrating) (Zofran ODT) tablet 4 mg(Linked Group 3) 4 mg, Oral, EVERY 6 HOURS PRN, Nausea/Vomiting, Starting on Tue05/14/25 at 0003, Until Tue05/17/25 at 1152, Dissolved orally on tongue ondansetron (Zofran) injection 4 mg(Linked Group 3) 4 mg, Intravenous, EVERY 6 HOURS PRN, Nausea/Vomiting, Starting on Tue05/14/25 at 0003, Until Tue05/17/25 at 1152, Administer IV if patient is NPO, actively vomiting, or unable to swallow. oxyCODONE-acetaminophen (Percocet) 7.5-325 MG tablet 1 tablet 1 tablet, Oral, EVERY 4 HOURS PRN, Severe Pain, Moderate Pain, Starting on Tue05/15/25 at 1116, Until Tue05/17/25 at 1152, Patient preference for lesser PRN pain meds may be honored when the patient requests a less strong medication, a lower dose, or a less intrusive route of administration when the lesser drug, dose and route have been ordered for the patient. This patient request must be documented in the MAR. If both oral and IV options are ordered for the same pain severity, give oral first unless patient cannot tolerate oral intake 1316 ($ Given - Provider: Una Holguin, RN)1844 ($ Given - Provider: Una Holguin RN) 0249 ($ Given - Provider: Yennifer Gutierrez RN)0747 ($ Given - Provider: Catalina Benjamin, RN)1157 ($ Given - Provider: Catalina Benjamin, RN)1606 ($ Given - Provider: Catalina Benjamin, RN)2039 ($ Given - Provider: Emelina Figueredo RN) 0903 ($ Given - Provider: Mane Uriostegui RN) prochlorperazine (Compazine) injection 5 mg(Linked Group 4) 5 mg, Intravenous, EVERY 6 HOURS PRN, Nausea/Vomiting, Starting on Tue05/14/25 at 0059, Until Tue05/17/25 at 1152, Administer IV if patient is NPO, actively vomiting, or unable to swallow. prochlorperazine (Compazine) tablet 5 mg(Linked Group 4) 5 mg, Oral, EVERY 6 HOURS PRN, Nausea/Vomiting, Starting on Tue05/14/25 at 0059, Until Tue05/17/25 at 1152 Linked Groups Order Group 1: SALINE LOCK, INSERT AND MAINTAIN (CANCELED) Routine, CONTINUOUS, Starting on Tue05/14/25 at 0015, Until Specified, New collection And 0.9% NaCl injection 3 mLJump to med 3 mL, Intracatheter, EVERY 8 HOURS, First dose on Tue05/14/25 at 0045, Until Discontinued, Flush peripheral IV catheter with 3 mL of normal saline every 8 hours. And 0.9% NaCl injection 1-10 mLJump to med 1-10 mL, Intracatheter, PRN, Other, peripheral line flush, Starting on Tue05/14/25 at 0003, Until Tue05/17/25 at 1152, Flush peripheral IV catheter with 1-10 mL of normal saline before and after medications and prn to clear blood from the line or to verify patency. Group 2: HYDROmorphone (Dilaudid) injection 0.4 mgJump to med 0.4 mg, Intravenous, EVERY 3 HOURS PRN, Moderate Pain, Starting on Tue05/14/25 at 0054, Until Tue05/17/25 at 1152, Patient preference for lesser PRN pain meds may be honored when the patient requests a less strong medication, a lower dose, or a less intrusive route of administration when the lesser drug, dose and route have been ordered for the patient. This patient request must be documented in the MAR. If both oral and IV options are ordered for the same pain severity, give oral first unless patient cannot tolerate oral intake Or HYDROmorphone (Dilaudid) injection 0.8 mgJump to med 0.8 mg, Intravenous, EVERY 3 HOURS PRN, Severe Pain, Starting on Tue05/14/25 at 0054, Until Tue05/17/25 at 1152, Patient preference for lesser PRN pain meds may be honored when the patient requests a less strong medication, a lower dose, or a less intrusive route of administration when the lesser drug, dose and route have been ordered for the patient. This patient request must be documented in the MAR. If both oral and IV options are ordered for the same pain severity, give oral first unless patient cannot tolerate oral intake Group 3: ondansetron (disintegrating) (Zofran ODT) tablet 4 mgJump to med 4 mg, Oral, EVERY 6 HOURS PRN, Nausea/Vomiting, Starting on Tue05/14/25 at 0003, Until Tue05/17/25 at 1152, Dissolved orally on tongue Or ondansetron (Zofran) injection 4 mgJump to med 4 mg, Intravenous, EVERY 6 HOURS PRN, Nausea/Vomiting, Starting on Tue05/14/25 at 0003, Until Tue05/17/25 at 1152, Administer IV if patient is NPO, actively vomiting, or unable to swallow. Group 4: prochlorperazine (Compazine) tablet 5 mgJump to med 5 mg, Oral, EVERY 6 HOURS PRN, Nausea/Vomiting, Starting on Tue05/14/25 at 0059, Until Tue05/17/25 at 1152 Or prochlorperazine (Compazine) injection 5 mgJump to med 5 mg, Intravenous, EVERY 6 HOURS PRN, Nausea/Vomiting, Starting on Tue05/14/25 at 0059, Until Tue05/17/25 at 1152, Administer IV if patient is NPO, actively vomiting, or unable to swallow. documented in this encounter Care Teams Family Service Caseworker Relationship Specialty Start Date End Date None, Physician PCP - General 05/14/25 documented as of this encounter
--- OUTSIDE RECORDS SUMMARY | 2025-05-17 13:40 | XMS_ITS ---
Author Organization Unknown Address [address] [place] [address] [phone] Phone Care Team Providers Care Transcribing Operators Supervisor Name Role Phone TALON EMILIANA Attending Unavailable NEELAM LEVI Primary Unavailable Immunization Immunization Date Status Additional Notes Code Code System pneumococcal polysaccharide PPV23 10/31/2012 Completed 33 CVX Influenza, split virus, trivalent, preservative 08/05/2016 Completed 141 CVX Results SHOULDER MIN 2V LEFT - Compl eted: 10/19/2024 14:04 LOINC: EXAM DESCRIPTION: ? ? SHOULDER MIN 2V LEFT REASON FOR STUDY: Follow up left shoulder. [place] a pop in left shoulder when lifting an object over head 1 month ago. Duration: 1 month FINDINGS: Four views submitted with comparison 09/21/2024. There is moderate left rotator cuff arthropathy with superior subluxation of the humeral head. There is a displaced fracture of the scapular spine/acromion base IMPRESSION: ? ? Displaced fracture of the left scapular spine/acromion base. ? ? Moderate left rotator cuff arthropathy. THIS IS AN ELECTRONICALLY VERIFIED FINAL REPORT 10/21/2024 12:18 PM - Electronically signed by Reinaldo Frost M.D. MF: BILL Report ID: [id number] Reading Location: [id number] Social History Type Status Start Date End Date Code Code Syst em Smoking History Former smoker 6053411 SNOMED CT Sex Male Medications Medication Start Date End Date Route Frequency Dose Code Code System Medication Instructions Home Meds Atorvastatin Calcium 20MG Oral Tablet 08/11/2023 Unknown ORAL ONCE A DAY 20 MILLIGRAMS 181985 RxNorm TAKE 20 MILLIGRAMS ORAL ONCE A DAY Azelastine HCl 205.5MCG/1Act Nasal Taylor 08/11/2023 Unknown NASAL ONCE A DAY 1 unit(s) 7990957 RxNorm 1 EACH NASAL ONCE A DAY Calcium Carbonate 500MG Oral Tablet 08/11/2023 Unknown ORAL ONCE A DAY 500 MILLIGRAMS RxNorm TAKE 500 MILLIGRAMS ORAL ONCE A DAY Finasteride 5MG Oral Tablet 08/11/2023 Unknown ORAL ONCE A DAY 5 MILLIGRAMS 734737 RxNorm TAKE 5 MILLIGRAMS ORAL ONCE A DAY Flomax 0.4MG Oral Capsule 08/11/2023 Unknown ORAL ONCE A DAY 0.4 MILLIGRAMS 675842 RxNorm TAKE 0.4 MILLIGRAMS ORAL ONCE A DAY Gabapentin 100MG Oral Capsule 08/11/2023 Unknown ORAL THREE TIMES A DAY 100 MILLIGRAMS 722477 RxNorm TAKE 100 MILLIGRAMS ORAL THREE TIMES A DAY HYDROcodone bitartrate-ac etaminophen 7.5MG-325MG Oral Tablet 08/11/2023 Unknown ORAL TWICE A DAY 1 unit(s) 871258 RxNorm TAKE 1 EACH ORAL TWICE A DAY Ipratropium [place]-Albut indu Sulfate 0.5MG/3ML-3MG /3ML Inhalation Solution 08/11/2023 Unknown INHALATIO N THREE TIMES A DAY 1 unit(s) 7790516 RxNorm 1 EACH INHALATION THREE TIMES A DAY Iron 325MG Oral Tablet 08/11/2023 Unknown ORAL ONCE A DAY 325 MILLIGRAMS 728115 RxNorm TAKE 325 MILLIGRAMS ORAL ONCE A DAY Loratadine 10MG Oral Tablet 08/11/2023 Unknown ORAL ONCE A DAY 10 MILLIGRAMS 797963 RxNorm TAKE 10 MILLIGRAMS ORAL ONCE A DAY Metoprolol Succinate 25MG Oral Tablet, Extended Release 08/11/2023 Unknown ORAL TWICE A DAY 25 MILLIGRAMS 110926 RxNorm TAKE 25 MILLIGRAMS ORAL TWICE A DAY Montelukast Sodium 10MG Oral Tablet 08/11/2023 Unknown ORAL ONCE A DAY 10 MILLIGRAMS 594205 RxNorm TAKE 10 MILLIGRAMS ORAL ONCE A DAY Mupirocin 2% Topical application Cream 08/11/2023 Unknown TOPICAL APPLICATI ON TWICE A DAY 1 unit(s) 131222 RxNorm 1 EACH TOPICAL APPLICATION TWICE A DAY Nystatin/Tria mcinolone Acetonide 167479G-2NP/1 GM Topical application Ointment 08/11/2023 Unknown TOPICAL APPLICATI ON ONCE A DAY 1 unit(s) 6225785 RxNorm 1 EACH TOPICAL APPLICATION ONCE A DAY Potassium Chloride 10MEQ Oral Capsule, Extended Release 08/11/2023 Unknown ORAL ONCE A DAY 10 MEQ 638926 RxNorm TAKE 10 MEQ ORAL ONCE A DAY RABEprazole Sodium 20MG Oral Tablet, Enteric Coated 08/11/2023 Unknown ORAL ONCE A DAY 20 MILLIGRAMS 112578 RxNorm TAKE 20 MILLIGRAMS ORAL ONCE A DAY Spiriva Respimat 1.25MCG/1ACT Inhalation Taylor 08/11/2023 Unknown INHALATIO N 1 unit(s) 4987632 RxNorm 1 EACH INHALATION Symbicort 160/4.5 160MCG-4.5MCG /1 Actu Inhalation Aerosol Liquid 08/11/2023 Unknown INHALATIO N TWICE A DAY 1 unit(s) 4374469 RxNorm 1 EACH INHALATION TWICE A DAY Ras-24 400MG Oral Capsule, Extended Release, 24 HR 08/11/2023 Unknown ORAL ONCE A DAY 400 MILLIGRAMS 667449 RxNorm TAKE 400 MILLIGRAMS ORAL ONCE A DAY Torsemide 20MG Oral Tablet 08/11/2023 Unknown ORAL ONCE A DAY 20 MILLIGRAMS 403116 RxNorm TAKE 20 MILLIGRAMS ORAL ONCE A DAY Ventolin HFA 0.09MG/1Actua tion Inhalation Suspension 08/11/2023 Unknown INHALATIO N ONCE A DAY 1 unit(s) 629557 RxNorm 1 EACH INHALATION ONCE A DAY busPIRone HCl 7.5MG Oral Tablet 08/11/2023 Unknown ORAL THREE TIMES A DAY 7.5 MILLIGRAMS 847654 RxNorm TAKE 7.5 MILLIGRAMS ORAL THREE TIMES A DAY Hospital Discharge Instructions Should you have any questions prior to discharge, please contact a member of your healthcare team. If you have left the hospital and have any questions, please contact your primary care physician. Reason For Referral No Data Found Procedures Procedure Name Date Status Code Code Syste m Arthrocentesis Aspir&/Inj Wade Henderson/Marcos w/o US 10/19/2024 completed CPT Allergies and Adverse Reactions Allergy Substance Reaction Severity Start Date Concern Status Co de Code System VANCOMYCIN Active 43950 RxNorm LEVOFLOXACIN Active 79223 RxNorm BACTRIM Active 845942 RxNorm PENICILLIN Active Plan of Treatment I&D Abscess 08/11/2023 Encounters Encounter Diagnosis Start Date Code Code Sys tem Primary osteoarthritis, right shoulder 10/19/2024 SNOMED-CT Personal Care Team Section Performer Name Performer Role Active Date Inactive Pascual Henderson PCP - Primary care physician Imaging Narrative Notes
--- OUTSIDE RECORDS SUMMARY | 2025-05-17 13:40 | XMS_ITS ---
Author Organization Unknown Address [address] [place] [address] [phone] Phone Care Team Providers Care Web Application Developer Name Role Phone TALON SCRUGGSEN Attending Unavailable NEELAM LEVI Primary Unavailable Immunization Immunization Date Status Additional Notes Code Code System pneumococcal polysaccharide PPV23 10/31/2012 Completed 33 CVX Influenza, split virus, trivalent, preservative 08/05/2016 Completed 141 CVX Social History Type Status Start Date End Date Code Code Syst em Smoking History Former smoker [id number] SNOMED CT Sex Male Medications Medication Start Date End Date Route Frequency Dose Code Code System Medication Instructions Home Meds Atorvastatin Calcium 20MG Oral Tablet 08/11/2023 Unknown ORAL ONCE A DAY 20 MILLIGRAMS 460405 RxNorm TAKE 20 MILLIGRAMS ORAL ONCE A DAY Azelastine HCl 205.5MCG/1Act Nasal [place] 08/11/2023 Unknown NASAL ONCE A DAY 1 unit(s) 5027929 RxNorm 1 EACH NASAL ONCE A DAY Calcium Carbonate 500MG Oral Tablet 08/11/2023 Unknown ORAL ONCE A DAY 500 MILLIGRAMS RxNorm TAKE 500 MILLIGRAMS ORAL ONCE A DAY Finasteride 5MG Oral Tablet 08/11/2023 Unknown ORAL ONCE A DAY 5 MILLIGRAMS 736779 RxNorm TAKE 5 MILLIGRAMS ORAL ONCE A DAY Flomax 0.4MG Oral Capsule 08/11/2023 Unknown ORAL ONCE A DAY 0.4 MILLIGRAMS 226726 RxNorm TAKE 0.4 MILLIGRAMS ORAL ONCE A DAY Gabapentin 100MG Oral Capsule 08/11/2023 Unknown ORAL THREE TIMES A DAY 100 MILLIGRAMS 013705 RxNorm TAKE 100 MILLIGRAMS ORAL THREE TIMES A DAY HYDROcodone bitartrate-ac etaminophen 7.5MG-325MG Oral Tablet 08/11/2023 Unknown ORAL TWICE A DAY 1 unit(s) 838673 RxNorm TAKE 1 EACH ORAL TWICE A DAY Ipratropium [place]-Albut indu Sulfate 0.5MG/3ML-3MG /3ML Inhalation Solution 08/11/2023 Unknown INHALATIO N THREE TIMES A DAY 1 unit(s) 7314389 RxNorm 1 EACH INHALATION THREE TIMES A DAY Iron 325MG Oral Tablet 08/11/2023 Unknown ORAL ONCE A DAY 325 MILLIGRAMS 613334 RxNorm TAKE 325 MILLIGRAMS ORAL ONCE A DAY Loratadine 10MG Oral Tablet 08/11/2023 Unknown ORAL ONCE A DAY 10 MILLIGRAMS 214949 RxNorm TAKE 10 MILLIGRAMS ORAL ONCE A DAY Metoprolol Succinate 25MG Oral Tablet, Extended Release 08/11/2023 Unknown ORAL TWICE A DAY 25 MILLIGRAMS 570143 RxNorm TAKE 25 MILLIGRAMS ORAL TWICE A DAY Montelukast Sodium 10MG Oral Tablet 08/11/2023 Unknown ORAL ONCE A DAY 10 MILLIGRAMS 477769 RxNorm TAKE 10 MILLIGRAMS ORAL ONCE A DAY Mupirocin 2% Topical application Cream 08/11/2023 Unknown TOPICAL APPLICATI ON TWICE A DAY 1 unit(s) 089760 RxNorm 1 EACH TOPICAL APPLICATION TWICE A DAY Nystatin/Tria mcinolone Acetonide [id number]-8WZ/1 GM Topical application Ointment 08/11/2023 Unknown TOPICAL APPLICATI ON ONCE A DAY 1 unit(s) 8730730 RxNorm 1 EACH TOPICAL APPLICATION ONCE A DAY Potassium Chloride 10MEQ Oral Capsule, Extended Release 08/11/2023 Unknown ORAL ONCE A DAY 10 MEQ 890937 RxNorm TAKE 10 MEQ ORAL ONCE A DAY RABEprazole Sodium 20MG Oral Tablet, Enteric Coated 08/11/2023 Unknown ORAL ONCE A DAY 20 MILLIGRAMS 516747 RxNorm TAKE 20 MILLIGRAMS ORAL ONCE A DAY Spiriva Respimat 1.25MCG/1ACT Inhalation [place] 08/11/2023 Unknown INHALATIO N 1 unit(s) 9518350 RxNorm 1 EACH INHALATION Symbicort 160/4.5 160MCG-4.5MCG /1 Actu Inhalation Aerosol Liquid 08/11/2023 Unknown INHALATIO N TWICE A DAY 1 unit(s) 8346841 RxNorm 1 EACH INHALATION TWICE A DAY Ras-24 400MG Oral Capsule, Extended Release, 24 HR 08/11/2023 Unknown ORAL ONCE A DAY 400 MILLIGRAMS 976527 RxNorm TAKE 400 MILLIGRAMS ORAL ONCE A DAY Torsemide 20MG Oral Tablet 08/11/2023 Unknown ORAL ONCE A DAY 20 MILLIGRAMS 443481 RxNorm TAKE 20 MILLIGRAMS ORAL ONCE A DAY Ventolin HFA 0.09MG/1Actua tion Inhalation Suspension 08/11/2023 Unknown INHALATIO N ONCE A DAY 1 unit(s) 995961 RxNorm 1 EACH INHALATION ONCE A DAY busPIRone HCl 7.5MG Oral Tablet 08/11/2023 Unknown ORAL THREE TIMES A DAY 7.5 MILLIGRAMS 068687 RxNorm TAKE 7.5 MILLIGRAMS ORAL THREE TIMES [...] Status Co de Code System VANCOMYCIN Active 85888 RxNorm LEVOFLOXACIN Active 86375 RxNorm BACTRIM Active 742463 RxNorm PENICILLIN Active Plan of Treatment I&D Abscess 08/11/2023 Encounters Encounter Diagnosis Start Date Code Code Sys tem Fracture of unspecified part of scapula, unspecified shoulder, initial encounter for closed fracture 11/07/2024 SNOMED-CT Personal Care Team Section Performer Name Performer Role Active Date Inactive Pascual Henderson PCP - Primary care physician
--- OUTSIDE RECORDS SUMMARY | 2025-05-17 13:40 | XMS_ITS | Clinical Summary ---
Author Organization [facility] [employer] Address [address] [place] [address] Care Team Providers Care Hvac Controls Technician Name Role Phone None, Physician Primary Care Provider Unavailabl e Source Comments [facility] [employer],non-owned Affiliates and Associated Physician Practices is amultiple site organization consisting of ambulatory clinics and hospital sitesin [place], [place], [place] and [place]. This disclosure is being madepursuant to the Care Everywhere program and may not contain all information available regarding this patient. Last updated 18.[facility] [employer] Allergies Active Allergy Reactions Criticality Noted Date Comments Penicillins Anaphylaxis High 05/14/2025 Vancomycin Anaphylaxis High 05/14/2025 Medications * Be aware that medications may not be up to date on this document. Alwaysverify current medications with the patient. oxyCODONE-acet aminophen (Percocet) 7.5-325 MG tabletIndicati ons:Bladder tumor Take 1 (one) tablet by mouth every 4 hours as needed 18 tablet 5 Active acetaminophen (Tylenol) 325 MG tablet Take 2 (two) tablets by mouth every 4 hours as needed Maximum allowable Acetaminophen amount = 4 Grams (4000 mg) / 24 hours. 5 Active tamsulosin (Flomax) 0.4 MG capsule Take 1 (one) capsule by mouth once daily At the same time every day after a meal. 30 capsule 5 Active azithromycin (Zithromax) 500 MG tablet Take 1 (one) tablet by mouth once daily for 2 days 2 tablet 5 05/18/20 25 Active cefdinir (Omnicef) 300 MG capsule Take 1 (one) capsule by mouth every 12 hours for 2 days 4 capsule 5 05/18/20 25 Active Active Problems Problem Noted Date Diagnosed Date Gross hematuria 05/13/2025 Encounters Date Type Department Care Team Description 05/14/2025 2:14 PM CDT Anesthesia Event [facility] - Perioperative Surgery [address] [place] [address] Arielle Alva MD McAteer, Meghan, APRN-BUSTER 05/14/2025 12:51 PM CDT - 05/14/2025 1:52 PM CDT Surgery [facility] - Perioperative Surgery [address] [place] [address] Annika Pringle MD CYSTOSCOPY, CLOT EVACUATION, FULGURATION, TRANSURETHRAL RESECTION OF BLADDER TUMOR, LEFT RETROGRADE PYELOGRADE 05/14/2025 Travel 05/13/2025 11:56 PM CDT - 05/17/2025 10:52 AM CDT Hospital Encounter [facility] 2S SURG/BARIATRIC [address] [place] [address] Maria Luz Han MD Shah, Nirmal, De Leon, Tito Martinez II, Hospitalist Discharge Disposition: Home or Self Care from Last 3 Months Social History Tobacco Use Types Packs/Day Years [...] and heating? Not hard at all 05/14/2025 [facility] [place] [facility] - Occupational Stress [...] money to buy more. Never true 05/14/20 25 Within the past 12 months, t he [...] any time in the past 12 m [facility], were you homeless or living in a [facility] (including now)? No 05/14/2025 Sex and Gender Information Value Date Recorded Sex Assigned at Not on file Legal Sex Male 8:04 PM CDT Gender Identity Male 05/14/2025 12:39 AM CDT Sexual Orientation Not on file Last Filed Vital Signs Vital Sign Reading [...] - - Body Mass Index - - Plan of Treatment Upcoming Encounters Date Type Department Care Team (Late st Contact Info) Description 05/21/2025 1:00 PM CDT Office Visit [facility] - Urology [address], [address] [place] [address] [place] [address] [place] [phone] Health Maintenance Due Date Last Done Comments COLOGUARD (AGES 45-75) - COL ON CA SCREENING 1953 COLON MONITORING 1953 COLONOSCOPY - COLON CA SCREENING 1953 CT COLONOGRAPHY - COLON CA SCREENING 1953 Colorectal Cancer Screening 1953 FIT - COLON CA SCREENING 1953 FLEX SIG - COLON CA SCREENING 1953 HEPATITIS C SCREENING 04/10/1971 DTAP/TDAP/TD VACCINES (1 - Tdap) 1972 PNEUMOCOCCAL VACCINE 50+ (1 of 1 - PCV) 2003 ZOSTER VACCINE (1 of 2) 2003 LIPID TESTING 12/18/2022 12/18/2017 COVID-19 VACCINE (1 - 2023-2 5 season) 2024 DEPRESSION SCREENING 10/31/2024 MEDICARE AWV CALENDAR YEAR 2024 INFLUENZA VACCINE (#1) 2025 08/05/2016 Respiratory Syncytial Virus (RSV) Vaccine Pt: or over 60 yrs (1 - 1-dose 75+ series) 2028 HEPATITIS B VACCINE Aged Out No longe r eligible based on patient's age to complete this topic HIB VACCINE Aged Out No longer eligi ble based on patient's age to complete this topic HPV VACCINE Aged Out No longer eligi ble based on patient's age to complete this topic MENINGOCOCCAL (Group B) VACC INE SHARED DECISION-MAKING Aged Out No longer eligibl e based on patient's age to complete this topic MENINGOCOCCAL GROUPS A/C/Y/W VACCINE Aged Out No longer eligible b ased on patient's age to complete this topic Procedures Procedure Name Priority Date/Time Associated Diagnosis Comments B-TYPE NATRIURETIC PEPTIDE AM Draw 05/16/2025 3:47 AM CDT DIFFERENTIAL MANUAL AM Draw 05/15/2025 5 :19 AM CDT CBC W AUTO DIFFERENTIAL AM Draw 07/16/20 25 5:19 AM CDT BASIC METABOLIC PANEL (CALCIUM TOTAL) AM Draw 05/15/2025 5:19 AM CDT FL UROGRAM RETROGRADE Routine 05/14/2025 6:40 PM CDT Gross hematuria PATHOLOGY TISSUE EXAM (STL) Routine 05/14/2025 3:03 PM CDT Diagnosis unknown ENDOTRACHEAL TUBE NOTE Routine 2:41 PM CDT OR CYSTOURETHROSCOPY 05/14/2025 2:04 PM CDT TYPE + SCREEN PANEL Routine 05/14/2025 1 0:29 AM CDT BLOOD TYPE VERIFICATION Routine 05/14/20 25 5:36 AM CDT COMPREHENSIVE METABOLIC PANEL AM Draw 05/14/2025 5:36 AM CDT PT-INR Routine 05/14/2025 5:36 AM CDT PHOSPHORUS BLOOD Routine 05/14/2025 5:36 AM CDT MAGNESIUM BLOOD Routine 05/14/2025 5:36 AM CDT CBC W/O DIFFERENTIAL STAT 05/14/2025 5:36 AM CDT HGB HCT PANEL STAT 05/14/2025 1:22 AM CDT from Last 3 Months Results * (ABNORMAL) B-TYPE NATRIURETIC PEPTIDE (05/16/2025 3:47 AM CDT) BNP 340(H) <=100 pg/mL 05/16/2025 4:42 AM CDT [facility] Blood BLOOD SPECIMEN / Unknown Venipuncture / Unknown 05/16/2025 3:47 AM CDT 05/16/2025 3:59 AM CDT us Kaylynmary kay Bautista APPLICATION SUPPORT CONSULTANT-COMMUNITY RECREATION COORDINATOR LAB - CHEMISTRY ORDER VALENTINO Final Result Performing Organization Address [facility] Co de Phone Number [facility] [address] [place] [address] * (ABNORMAL) DIFFERENTIAL MANUAL (05/15/2025 5:19 AM CDT) Neutrophil % 95(H) 41 - 74 % 05/15/2025 6:10 AM CDT [facility] Lymphocyte % 3(L) 17 - 47 % 05/15/2025 6:10 AM CDT [facility] Monocyte % 2(L) 3 - 11 % 05/15/2025 6:10 AM CDT [facility] Neutrophil Absolute 5.32 1.60 - 7.50 x10E9/L 05/15/2025 6:10 AM CDT [facility] Lymphocyte Absolute 0.17(L) 1.00 - 4.40 x10E9/L 05/15/2025 6:10 AM CDT [facility] Monocyte Absolute 0.11(L) 0.15 - 1.00 x10E9/L 05/15/2025 6:10 AM CDT [facility] RBC Morphology REVIEWED 05/15/2025 6:10 AM CDT [facility] Blood BLOOD SPECIMEN / Unknown Venipuncture / Unknown 05/15/2025 5:19 AM CDT 05/15/2025 5:49 AM CDT us Tito De Leon II, DO LAB - HEMATOLOGY ORDERABLES F inal Result Performing Organization Address [facility] Co de Phone Number [facility] [address] [place] [address] * (ABNORMAL) CBC W AUTO DIFFERENTIAL (05/15/2025 5:19 AM CDT) WBC 5.6 4.0 - 10.7 x10E9/L 05/15/2025 6:10 AM CDT [facility] RBC Count 3.31(L) 4.30 - 5.80 x10E12/L 05/15/2025 6:10 AM CDT [facility] Hemoglobin 8.0(L) 13.3 - 17.5 g/dL 05/15/2025 6:10 AM CDT [facility] Hematocrit 28.0(L) 38.7 - 51.1 % 05/15/2025 6:10 AM CDT [facility] MCV 84.6 80.0 - 98.0 fL 05/15/2025 6:10 AM CDT [facility] MCH 24.2(L) 26.7 - 33.6 pg 05/15/2025 6:10 AM CDT [facility] MCHC 28.6(L) 31.7 - 36.3 g/dL 05/15/2025 6:10 AM CDT [facility] RDW-CV 18.7(H) 11.3 - 14.8 % 05/15/2025 6:10 AM CDT [facility] Platelet Count 69(L) 150 - 420 x10E9/L 05/15/2025 6:10 AM CDT [facility] MPV 10.8 7.8 - 11.4 fL 05/15/2025 6:10 AM CDT [facility] Blood BLOOD SPECIMEN / Unknown Venipuncture / Unknown 05/15/2025 5:19 AM CDT 05/15/2025 5:49 AM CDT us Tito Martinez De Leon II, DO LAB - HEMATOLOGY ORDERABLES F inal Result [facility] [address] [place] [address] * (ABNORMAL) BASIC METABOLIC PANEL (CALCIUM TOTAL) (05/15/2025 5:19 AM CDT) Glucose 117(H) 70 - 99 mg/dL 05/15/2025 6:11 AM CDT [facility] Sodium 143 136 - 145 mmol/L 05/15/2025 6:11 AM CDT [facility] Potassium 4.9 3.5 - 5.1 mmol/L 05/15/2025 6:11 AM CDT [facility] Chloride 112(H) 98 - 107 mmol/L 05/15/2025 6:11 AM CDT [facility] CO2 22 22 - 29 mmol/L 05/15/2025 6:11 AM CDT [facility] Calcium 8.6 8.4 - 10.4 mg/dL 05/15/2025 6:11 AM CDT [facility] Anion Gap 9 6 - 16 mmol/L 05/15/2025 6:11 AM CDT [facility] BUN 37(H) 7 - 26 mg/dL 05/15/2025 6:11 AM CDT [facility] Creatinine 2.31(H) 0.72 - 1.25 mg/dL 05/15/2025 6:11 AM CDT [facility] eGFR by CKD-EPI 29(L) >=90 mL/min/1.7 3 m2 05/15/2025 6:11 AM CDT [facility] Comment:Estimated Glomerular Filtration Rate (eGFR) calculated using the CKD-EPI Creatinine Equation (2020), per the National Kidney Foundation and [place] [employer] Neph[employer] recommendations. Blood BLOOD SPECIMEN / Unknown Venipuncture / Unknown 05/15/2025 5:19 AM CDT 05/15/2025 5:51 AM CDT us Tito De Leon II, DO LAB - CHEMISTRY ORDERABLES Fi nal Result Performing Organization Address [facility] de Phone Number [facility] [id number] [place] [address] * FL Urogram Retrograde (05/14/2025 6:40 PM CDT) Narrative [facility] - 05/14/2025 6:43 PM CDT For details of this study, please see the providers note. us Annika Pringle MD FLUOROSCOPY ORDERABLES Final Res ult Performing Organization Address [facility] Co de Phone Number [facility] [address] [place] [address] * PATHOLOGY TISSUE EXAM (STL) (05/14/2025 3:03 PM CDT) Case Report Surgical Pathology Report Case: [id number] Authorizing Provider: Annika Pringle MD Collected: 05/14/2025 03:03 PM Ordering Location: [facility] 2S SURG/BARIATRIC Received: 05/15/2025 06:32 AM Pathologist: Bryan Sherwood MD Specimens: A) - Tumor, RIGHT TRIGONE SUPERFICIAL RESECTION BLADDER TUMOR B) - Tumor, RIGHT TRIGONE DEEP RESECTION BLADDER TUMOR 05/16/2025 1:39 PM CDT [facility] Final Diagnosis A. Right trigone superficial bladder tumor, resection: -- Urothelial carcinoma, high grade, invasive -- Tumor invades muscularis propria B. Right trigone deep bladder tumor, resection: -- Urothelial carcinoma, high grade, invasive -- Tumor invades muscularis propria 05/16/2025 1:39 PM CDT [facility] at 1339 CDT Gross Description Received [...] cassette B1. CH/tc 05/16/2025 1:39 PM CDT [facility] Microscopic Description Microscopic examination substantiates the above cited diagnosis. 05/16/2025 1:39 PM CDT [facility] Disclaimer All histochemical and/or immunohistochemical results are interpreted with controls that demonstrate appropriate staining reactions before reporting results. Note on use of immunocytochemistry reagents: This test was developed and its performance characteristic determined by [facility], Department of Laboratory Medicine. It has not [...] interpreted with caution. 05/16/2025 1:39 PM CDT [facility] Embedded Images 05/16/2025 1:39 PM CDT [facility] Pathology/Cytology TUMOR TISSUE SPECIMEN / Unknown 05/14/2025 3:03 PM CDT 05/15/2025 6:32 AM CDT Miscellaneous samples (specimen) TUMOR TISSUE SPECIMEN / Unknown 05/14/2025 3:04 PM CDT 05/15/2025 6:32 AM CDT Annika Pringle MD LAB - PATHOLOGY/CYTOLOGY ORDERAB LES Final Result [facility] [address] [place] [address] * ETT LINE PERFORMABLE (05/14/2025 2:41 PM CDT) Narrative Cheri Ferguson APRN-CRNA - 05/14/2025 2:41 PM CDT Cheri Ferguson APRN-CRNA 05/14/2025 2:45 PM Endotracheal Tube Placement: Patient Location: OR. Intubation Event Date/Time: 05/14/2025 2:39 PM Procedure: intubation ([id number]) Procedure Section: Sedation: under general anesthesia. Indications for Airway Management: anesthesia Procedure pretreatments used? Nursing documentation on the [facility] Procedure Pretreatments (manual): 100% O2 Induction: modified rapid sequence Patient Position: sniffing Mask Ventilation: not attempted. Blade Type: Video (cadena) Blade Size: 4 Laryngoscopy View: grade 1 (full cords) Intubation Adjuncts: stylet Tube: endotracheal tube Placement: oral Tube type: cuff - inflated Tube Size (FR): 8 Depth of Insertion (CM): 24 Measured From: lips Cuff volume (mL): 8 Number of Attempts: 1. Placement Verified By: direct visualization, bilateral breath sounds, chest auscultation and CO2 monitor CXR Findings: ETT in proper place. Tube secured with: adhesive tape. Dentition unchanged? Yes Difficult Airway? No. Procedure Start Time: 05/14/2025 2:39 PM. Staff Section Anesthesia Provider: Cheri Ferguson APRN-CRNA, Performed the procedure Arielle Alva MD GENERAL ANESTHESIA ORDERABLES Fi nal Result * TYPE + SCREEN PANEL (05/14/2025 10:29 AM CDT) ABO Rh AB POS 05/14/2025 11:44 AM CDT [facility] Comment:No history; collect retype. Antibody Screen NEG 05/14/2025 11:44 AM CDT [facility] Blood Bank BLOOD SPECIMEN / Unknown Venipuncture / Unknown 05/14/2025 10:29 AM CDT 05/14/2025 10:49 AM CDT Annika Pringle MD LAB - BLOOD BANK ORDERABLES Rosamaria l Result Performing Organization Address City/[facility] Co de Phone Number [facility] [address] [place] [address] * BLOOD TYPE VERIFICATION (05/14/2025 5:36 AM CDT) ABO Rh AB POS 05/14/2025 11:44 AM CDT [facility] Blood Bank BLOOD SPECIMEN / Unknown Venipuncture / Unknown 05/14/2025 5:36 AM CDT 05/14/2025 10:56 AM CDT Annika Pringle MD LAB - BLOOD BANK ORDERABLES Rosamaria l Result Performing Organization Address [facility] de Phone Number [facility] [address] [phone] * (ABNORMAL) PT-INR (05/14/2025 5:36 AM CDT) PT 15.9(H) 12.1 - 14.8 sec 05/14/2025 6:17 AM CDT [facility] INR 1.3(H) 0.9 - 1.1 05/14/2025 6:17 AM CDT [facility] Blood BLOOD SPECIMEN / Unknown Venipuncture / Unknown 05/14/2025 5:36 AM CDT 05/14/2025 5:41 AM CDT Narrative [facility] - 05/14/2025 6:17 AM CDT Conventional Warfarin Anticoagulant Therapy: INR Reference Range: 2.0-3.0 Intensive Warfarin Anticoagulant Therapy: INR Reference Range: 2.5-3.5 [facility] - COAGUL[facility] ORDERABLES Fin al Result Performing Organization Address City/[facility]/ZIP Co de Phone Number [facility] [address] [place] [phone] * (ABNORMAL) CBC W/O DIFFERENTIAL (05/14/2025 5:36 AM CDT) WBC 7.7 4.0 - 10.7 x10E9/L 05/14/2025 6:05 AM CDT [facility] RBC Count 3.55(L) 4.30 - 5.80 x10E12/L 05/14/2025 6:05 AM CDT [facility] Hemoglobin 8.7(L) 13.3 - 17.5 g/dL 05/14/2025 6:05 AM CDT [facility] Hematocrit 29.0(L) 38.7 - 51.1 % 05/14/2025 6:05 AM CDT [facility] MCV 81.7 80.0 - 98.0 fL 05/14/2025 6:05 AM CDT [facility] MCH 24.5(L) 26.7 - 33.6 pg 05/14/2025 6:05 AM CDT [facility] MCHC 30.0(L) 31.7 - 36.3 g/dL 05/14/2025 6:05 AM CDT [facility] RDW-CV 18.6(H) 11.3 - 14.8 % 05/14/2025 6:05 AM CDT [facility] Platelet Count 84(L) 150 - 420 x10E9/L 05/14/2025 6:05 AM CDT [facility] MPV 10.1 7.8 - 11.4 fL 05/14/2025 6:05 AM T [facility] Blood BLOOD SPECIMEN / Unknown Venipuncture / Unknown 05/14/2025 5:36 AM CDT 05/14/2025 5:40 AM CDT Patrice Tapia DO LAB - HEMATOLOGY ORDERABLES Rosamaria l Result Performing Organization Address City/[facility]/ZIP Co de Phone Number [facility] [id number] [place] [phone] * (ABNORMAL) COMPREHENSIVE METABOLIC PANEL (05/14/2025 5:36 AM CDT) [facility] Signature Glucose 111(H) 70 - 99 mg/dL 05/14/2025 6:08 AM T [facility] Sodium 140 136 - 145 mmol/L 05/14/2025 6:08 AM T [facility] Potassium 4.5 3.5 - 5.1 mmol/L 05/14/2025 6:08 AM [facility] Chloride 108(H) 98 - 107 mmol/L 05/14/2025 6:08 AM T [facility] CO2 23 22 - 29 mmol/L 05/14/2025 6:08 AM [facility] Calcium 8.5 8.4 - 10.4 mg/dL 05/14/2025 6:08 AM T [facility] Anion Gap 9 6 - 16 mmol/L 05/14/2025 6:08 AM [facility] BUN 42(H) 7 - 26 mg/dL 05/14/2025 6:08 AM [facility] Creatinine 2.23(H) 0.72 - 1.25 mg/dL 05/14/2025 6:08 AM [facility] Alkaline Phosphatase 122 40 - 150 U/L 05/14/2025 6:08 AM [facility] ALT 29 6 - 57 U/L 05/14/2025 6:08 AM [facility] AST 39 10 - 48 U/L 05/14/2025 6:08 AM [facility] Protein Total 6.8 6.4 - 8.3 gm/dL 05/14/2025 6:08 AM [facility] Albumin 2.8(L) 3.1 - 4.5 gm/dL 05/14/2025 6:08 AM [facility] Bilirubin Total 0.6 0.2 - 1.2 mg/dL 05/14/2025 6:08 AM [facility] eGFR by CKD-EPI 31(L) >=90 mL/min/1.7 3 m2 05/14/2025 6:08 AM [facility] Comment:Estimated Glomerular Filtration Rate (eGFR) calculated using the CKD-EPI Creatinine Equation (2021), per the National Kidney Foundation and [place] [employer] Nephrology recommendations. Blood BLOOD SPECIMEN / Unknown Venipuncture / Unknown 05/14/2025 5:36 AM CDT 05/14/2025 5:41 AM CDT [facility] LAB - CHEMISTRY ORDERABLES Final Result Performing Organization Address [facility] Co de Phone Number [facility] [id number] [place] [phone] * PHOSPHORUS BLOOD (05/14/2025 5:36 AM CDT) Phosphorus 3.9 2.5 - 4.5 mg/dL 05/14/2025 6:06 AM CDT [facility] Blood BLOOD SPECIMEN / Unknown Venipuncture / Unknown 05/14/2025 5:36 AM CDT 05/14/2025 5:40 AM CDT [facility] LAB - CHEMISTRY ORDERABLES Final Result Performing Organization Address [facility] de Phone Number [facility] [address] [place] [phone] * MAGNESIUM BLOOD (05/14/2025 5:36 AM CDT) Magnesium 1.8 1.6 - 2.6 mg/dL 05/14/2025 6:06 AM CDT [facility] Blood BLOOD SPECIMEN / Unknown Venipuncture / Unknown 05/14/2025 5:36 AM CDT 05/14/2025 5:40 AM CDT [facility] LAB - CHEMISTRY ORDERABLES Final Result Performing Organization Address [facility] de Phone Number [facility] [address] [place] [phone] * (ABNORMAL) HGB HCT PANEL (05/14/2025 1:22 AM CDT) Hemoglobin 8.9(L) 13.3 - 17.5 g/dL 05/14/2025 1:29 AM CDT [facility] Hematocrit 30.0(L) 38.7 - 51.1 % 05/14/2025 1:29 AM CDT [facility] Blood BLOOD SPECIMEN / Unknown Venipuncture / Unknown 05/14/2025 1:22 AM CDT 05/14/2025 1:24 AM CDT us Patrice Tapia DO LAB - HEMATOLOGY ORDERABLES Rosamaria l Result [facility] [address] [place] [address] from Last 3 Months Insurance MEDICARE [facility] [place] MEDICAID [facility] MEDICARE [facility] MEDICAID - [place] Advance Directives * Full Code (Latest Code Status on File) Date Activated Date Inactivated Comments 05/14/2025 12:59 AM 05/17/2025 11:52 AM * Full Code Date Activated Date Inactivated Comments 05/14/2025 12:04 AM 05/14/2025 12:59 AM Care Teams Hvac Controls Technician Relationship Specialty Start Date End Date None, Physician PCP - General 05/14/25
--- OUTSIDE RECORDS SUMMARY | 2025-05-17 13:41 | XMS_ITS ---
Author Organization Unknown Address [address] [place] [address] [phone] Phone Care Team Providers Care Motorcycle Fabricator Name Role Phone TALON SCRUGGSEN Attending Unavailable NEELAM LEVI Primary Unavailable Immunization Immunization Date Status Additional Notes Code Code System pneumococcal polysaccharide PPV23 10/31/2012 Completed 33 CVX Influenza, split virus, trivalent, preservative 08/05/2016 Completed 141 CVX Social History Type Status Start Date End Date Code Code Syst em Smoking History Former smoker [id number] SNOMED CT Sex Male Medications Medication Start Date End Date Route Frequency Dose Code Code System Medication Instructions Home Meds Atorvastatin Calcium 20MG Oral Tablet 08/11/2023 Unknown ORAL ONCE A DAY 20 MILLIGRAMS 346015 RxNorm TAKE 20 MILLIGRAMS ORAL ONCE A DAY Azelastine HCl 205.5MCG/1Act Nasal [place] 08/11/2023 Unknown NASAL ONCE A DAY 1 unit(s) 9760761 RxNorm 1 EACH NASAL ONCE A DAY Calcium Carbonate 500MG Oral Tablet 08/11/2023 Unknown ORAL ONCE A DAY 500 MILLIGRAMS RxNorm TAKE 500 MILLIGRAMS ORAL ONCE A DAY Finasteride 5MG Oral Tablet 08/11/2023 Unknown ORAL ONCE A DAY 5 MILLIGRAMS 691209 RxNorm TAKE 5 MILLIGRAMS ORAL ONCE A DAY Flomax 0.4MG Oral Capsule 08/11/2023 Unknown ORAL ONCE A DAY 0.4 MILLIGRAMS 046540 RxNorm TAKE 0.4 MILLIGRAMS ORAL ONCE A DAY Gabapentin 100MG Oral Capsule 08/11/2023 Unknown ORAL THREE TIMES A DAY 100 MILLIGRAMS 783563 RxNorm TAKE 100 MILLIGRAMS ORAL THREE TIMES A DAY HYDROcodone bitartrate-ac etaminophen 7.5MG-325MG Oral Tablet 08/11/2023 Unknown ORAL TWICE A DAY 1 unit(s) 366049 RxNorm TAKE 1 EACH ORAL TWICE A DAY Ipratropium [place]-Albut indu Sulfate 0.5MG/3ML-3MG /3ML Inhalation Solution 08/11/2023 Unknown INHALATIO N THREE TIMES A DAY 1 unit(s) 3584194 RxNorm 1 EACH INHALATION THREE TIMES A DAY Iron 325MG Oral Tablet 08/11/2023 Unknown ORAL ONCE A DAY 325 MILLIGRAMS 455912 RxNorm TAKE 325 MILLIGRAMS ORAL ONCE A DAY Loratadine 10MG Oral Tablet 08/11/2023 Unknown ORAL ONCE A DAY 10 MILLIGRAMS 856873 RxNorm TAKE 10 MILLIGRAMS ORAL ONCE A DAY Metoprolol Succinate 25MG Oral Tablet, Extended Release 08/11/2023 Unknown ORAL TWICE A DAY 25 MILLIGRAMS 925638 RxNorm TAKE 25 MILLIGRAMS ORAL TWICE A DAY Montelukast Sodium 10MG Oral Tablet 08/11/2023 Unknown ORAL ONCE A DAY 10 MILLIGRAMS 073392 RxNorm TAKE 10 MILLIGRAMS ORAL ONCE A DAY Mupirocin 2% Topical application Cream 08/11/2023 Unknown TOPICAL APPLICATI ON TWICE A DAY 1 unit(s) 232525 RxNorm 1 EACH TOPICAL APPLICATION TWICE A DAY Nystatin/Tria mcinolone Acetonide 818958T-6NF/1 GM Topical application Ointment 08/11/2023 Unknown TOPICAL APPLICATI ON ONCE A DAY 1 unit(s) 4230286 RxNorm 1 EACH TOPICAL APPLICATION ONCE A DAY Potassium Chloride 10MEQ Oral Capsule, Extended Release 08/11/2023 Unknown ORAL ONCE A DAY 10 MEQ 849566 RxNorm TAKE 10 MEQ ORAL ONCE A DAY RABEprazole Sodium 20MG Oral Tablet, Enteric Coated 08/11/2023 Unknown ORAL ONCE A DAY 20 MILLIGRAMS 632482 RxNorm TAKE 20 MILLIGRAMS ORAL ONCE A DAY Spiriva Respimat 1.25MCG/1ACT Inhalation [place] 08/11/2023 Unknown INHALATIO N 1 unit(s) 3323907 RxNorm 1 EACH INHALATION Symbicort 160/4.5 160MCG-4.5MCG /1 Actu Inhalation Aerosol Liquid 08/11/2023 Unknown INHALATIO N TWICE A DAY 1 unit(s) 8592453 RxNorm 1 EACH INHALATION TWICE A DAY Ras-24 400MG Oral Capsule, Extended Release, 24 HR 08/11/2023 Unknown ORAL ONCE A DAY 400 MILLIGRAMS 560981 RxNorm TAKE 400 MILLIGRAMS ORAL ONCE A DAY Torsemide 20MG Oral Tablet 08/11/2023 Unknown ORAL ONCE A DAY 20 MILLIGRAMS 400669 RxNorm TAKE 20 MILLIGRAMS ORAL ONCE A DAY Ventolin HFA 0.09MG/1Actua tion Inhalation Suspension 08/11/2023 Unknown INHALATIO N ONCE A DAY 1 unit(s) 516795 RxNorm 1 EACH INHALATION ONCE A DAY busPIRone HCl 7.5MG Oral Tablet 08/11/2023 Unknown ORAL THREE TIMES A DAY 7.5 MILLIGRAMS 805020 RxNorm TAKE 7.5 MILLIGRAMS ORAL THREE TIMES [...] Status Co de Code System VANCOMYCIN Active 14189 RxNorm LEVOFLOXACIN Active 91327 RxNorm BACTRIM Active 063249 RxNorm PENICILLIN Active Plan of Treatment I&D Abscess 08/11/2023 Encounters Encounter Diagnosis Start Date Code Code Sys tem Fracture of unspecified part of scapula, left shoulder, subsequent encounter for fracture with routine healing 09/07/2024 SNOMED-CT Personal Care Team Section Performer Name Performer Role Active Date Inactive Pascual Henderson PCP - Primary care physician
--- OUTSIDE RECORDS SUMMARY | 2025-05-17 13:41 | XMS_ITS ---
Author Organization Unknown Address [address] [place] [address] [phone] Phone Care Team Providers Care Telephone Solicitor Name Role Phone NEELAM LEVI Attending Unavailable Immunization Immunization Date Status Additional Notes Code Code System pneumococcal polysaccharide PPV23 10/31/2012 Completed 33 CVX Influenza, split virus, trivalent, preservative 08/05/2016 Completed 141 CVX Results CHEST 2V - Completed: 2023 14:34 LOINC: EXAM DESCRIPTION: SHOULDER MIN 2V RIGHT; CHEST 2V REASON FOR STUDY: Chronic nontraumatic right shoulder pain for 2 years in a patient with reported history of ? partial torn rotator cuff.? Chronic left-sided chest pain and shortness of breath in a nonsmoker without history of heart or lung disease. No right shoulder or chest surgeries. TECHNIQUE: Frontal and lateral radiographic views acquired of the chest; 4 radiographic views acquired of the right shoulder. COMPARISON: Relevant portions of thoracic spine radiograph 07/22/2022. FINDINGS: RIGHT SHOULDER: Diffuse demineralization of the osseous architecture. No acute fracture. No subluxation. No suspicious osseous lesions. Degenerative osteoarthropathy to include advanced osteoarthropathy of the glenohumeral joint to include bony remodeling of the humeral head. No acute soft tissue abnormality. CHEST: Left basilar scarring and/or linear subsegmental atelectasis. No right focal consolidation. No pleural effusion. No pneumothorax. Heart normal size and contour. Hilar and mediastinal structures unremarkable. No acute osseous abnormality. 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 IMPRESSION: 1. No radiographic evidence of acute osseous abnormality of the right shoulder with chronic findings as above. 2. No acute cardiopulmonary process. THIS IS AN ELECTRONICALLY VERIFIED FINAL REPORT 01/25/2024 2:55 PM - Electronically signed by Servando Barrosol M.D. MILANA: MILANA Report ID: [id number] Reading Location: [id number] SHOULDER MIN 2V RIGHT - Comp leted: 01/25/2024 14:34 LOINC: EXAM DESCRIPTION: SHOULDER MIN 2V RIGHT; CHEST 2V REASON FOR STUDY: Chronic nontraumatic right shoulder pain for 2 years in a patient with reported history of ? partial torn rotator cuff.? Chronic left-sided chest pain and shortness of breath in a nonsmoker without history of heart or lung disease. No right shoulder or chest surgeries. TECHNIQUE: Frontal and lateral radiographic views acquired of the chest; 4 radiographic views acquired of the right shoulder. COMPARISON: Relevant portions of thoracic spine radiograph 07/22/2022. FINDINGS: RIGHT SHOULDER: Diffuse demineralization of the osseous architecture. No acute fracture. No subluxation. No suspicious osseous lesions. Degenerative osteoarthropathy to include advanced osteoarthropathy of the glenohumeral joint to include bony remodeling of the humeral head. No acute soft tissue abnormality. CHEST: Left basilar scarring and/or linear subsegmental atelectasis. No right focal consolidation. No pleural effusion. No pneumothorax. Heart normal size and contour. Hilar and mediastinal structures unremarkable. No acute osseous abnormality. 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 IMPRESSION: 1. No radiographic evidence of acute osseous abnormality of the right shoulder with chronic findings as above. 2. No acute cardiopulmonary process. THIS IS AN ELECTRONICALLY VERIFIED FINAL REPORT 01/25/2024 2:55 PM - Electronically signed by Servando CORTÉS: MILANA Report ID: [id number] Reading Location: [id number] Social History Type Status Start Date End Date Code Code Syst em Smoking History Former smoker [id number] SNOMED CT Sex Male Medications Medication Start Date End Date Route Frequency Dose Code Code System Medication Instructions Home Meds Atorvastatin Calcium 20MG Oral Tablet 08/11/2023 Unknown ORAL ONCE A DAY 20 MILLIGRAMS 278802 RxNorm TAKE 20 MILLIGRAMS ORAL ONCE A DAY Azelastine HCl 205.5MCG/1Act Nasal [place] 08/11/2023 Unknown NASAL ONCE A DAY 1 unit(s) 6114475 RxNorm 1 EACH NASAL ONCE A DAY Calcium Carbonate 500MG Oral Tablet 08/11/2023 Unknown ORAL ONCE A DAY 500 MILLIGRAMS RxNorm TAKE 500 MILLIGRAMS ORAL ONCE A DAY Finasteride 5MG Oral Tablet 08/11/2023 Unknown ORAL ONCE A DAY 5 MILLIGRAMS 703521 RxNorm TAKE 5 MILLIGRAMS ORAL ONCE A DAY Flomax 0.4MG Oral Capsule 08/11/2023 Unknown ORAL ONCE A DAY 0.4 MILLIGRAMS 537519 RxNorm TAKE 0.4 MILLIGRAMS ORAL ONCE A DAY Gabapentin 100MG Oral Capsule 08/11/2023 Unknown ORAL THREE TIMES A DAY 100 MILLIGRAMS 264315 RxNorm TAKE 100 MILLIGRAMS ORAL THREE TIMES A DAY HYDROcodone bitartrate-ac etaminophen 7.5MG-325MG Oral Tablet 08/11/2023 Unknown ORAL TWICE A DAY 1 unit(s) 381691 RxNorm TAKE 1 EACH ORAL TWICE A DAY Ipratropium [place]-Albut indu Sulfate 0.5MG/3ML-3MG /3ML Inhalation Solution 08/11/2023 Unknown INHALATIO N THREE TIMES A DAY 1 unit(s) 3095031 RxNorm 1 EACH INHALATION THREE TIMES A DAY Iron 325MG Oral Tablet 08/11/2023 Unknown ORAL ONCE A DAY 325 MILLIGRAMS 870370 RxNorm TAKE 325 MILLIGRAMS ORAL ONCE A DAY Loratadine 10MG Oral Tablet 08/11/2023 Unknown ORAL ONCE A DAY 10 MILLIGRAMS 176548 RxNorm TAKE 10 MILLIGRAMS ORAL ONCE A DAY Metoprolol Succinate 25MG Oral Tablet, Extended Release 08/11/2023 Unknown ORAL TWICE A DAY 25 MILLIGRAMS 127986 RxNorm TAKE 25 MILLIGRAMS ORAL TWICE A DAY Montelukast Sodium 10MG Oral Tablet 08/11/2023 Unknown ORAL ONCE A DAY 10 MILLIGRAMS 468647 RxNorm TAKE 10 MILLIGRAMS ORAL ONCE A DAY Mupirocin 2% Topical application Cream 08/11/2023 Unknown TOPICAL APPLICATI ON TWICE A DAY 1 unit(s) 675010 RxNorm 1 EACH TOPICAL APPLICATION TWICE A DAY Nystatin/Tria mcinolone Acetonide 649290N-0MH/1 GM Topical application Ointment 08/11/2023 Unknown TOPICAL APPLICATI ON ONCE A DAY 1 unit(s) 2680340 RxNorm 1 EACH TOPICAL APPLICATION ONCE A DAY Potassium Chloride 10MEQ Oral Capsule, Extended Release 08/11/2023 Unknown ORAL ONCE A DAY 10 MEQ 801653 RxNorm TAKE 10 MEQ ORAL ONCE A DAY RABEprazole Sodium 20MG Oral Tablet, Enteric Coated 08/11/2023 Unknown ORAL ONCE A DAY 20 MILLIGRAMS 692892 RxNorm TAKE 20 MILLIGRAMS ORAL ONCE A DAY Spiriva Respimat 1.25MCG/1ACT Inhalation [place] 08/11/2023 Unknown INHALATIO N 1 unit(s) 2248604 RxNorm 1 EACH INHALATION Symbicort 160/4.5 160MCG-4.5MCG /1 Actu Inhalation Aerosol Liquid 08/11/2023 Unknown INHALATIO N TWICE A DAY 1 unit(s) 5769420 RxNorm 1 EACH INHALATION TWICE A DAY Ras-24 400MG Oral Capsule, Extended Release, 24 HR 08/11/2023 Unknown ORAL ONCE A DAY 400 MILLIGRAMS 236646 RxNorm TAKE 400 MILLIGRAMS ORAL ONCE A DAY Torsemide 20MG Oral Tablet 08/11/2023 Unknown ORAL ONCE A DAY 20 MILLIGRAMS 880666 RxNorm TAKE 20 MILLIGRAMS ORAL ONCE A DAY Ventolin HFA 0.09MG/1Actua tion Inhalation Suspension 08/11/2023 Unknown INHALATIO N ONCE A DAY 1 unit(s) 447275 RxNorm 1 EACH INHALATION ONCE A DAY busPIRone HCl 7.5MG Oral Tablet 08/11/2023 Unknown ORAL THREE TIMES A DAY 7.5 MILLIGRAMS 695107 RxNorm TAKE 7.5 MILLIGRAMS ORAL THREE TIMES [...] Status Co de Code System VANCOMYCIN Active 32720 RxNorm LEVOFLOXACIN Active 65492 RxNorm BACTRIM Active 362812 RxNorm PENICILLIN Active Plan of Treatment I&D Abscess 08/11/2023 Encounters Encounter Diagnosis Start Date Code Code Sys tem 01/25/2024 [id number] SNOMED-CT Personal Care Team Section Performer Name Performer Role Active Date Inactive Pascual Henderson PCP - Primary care physician Imaging Narrative Notes
--- OUTSIDE RECORDS SUMMARY | 2025-05-17 13:41 | XMS_ITS ---
Author Organization Unknown Address [address] [place] [address] [phone] Phone Care Team Providers Care Telemarketer Supervisor Name Role Phone TALON SCRUGGSEN Attending Unavailable NEELAM LEVI Primary Unavailable Immunization Immunization Date Status Additional Notes Code Code System pneumococcal polysaccharide PPV23 10/31/2012 Completed 33 CVX Influenza, split virus, trivalent, preservative 08/05/2016 Completed 141 CVX Social History Type Status Start Date End Date Code Code Syst em Smoking History Former smoker [id number] SNOMED CT Sex Male Medications Medication Start Date End Date Route Frequency Dose Code Code System Medication Instructions Home Meds Atorvastatin Calcium 20MG Oral Tablet 08/11/2023 Unknown ORAL ONCE A DAY 20 MILLIGRAMS 942263 RxNorm TAKE 20 MILLIGRAMS ORAL ONCE A DAY Azelastine HCl 205.5MCG/1Act Nasal [place] 08/11/2023 Unknown NASAL ONCE A DAY 1 unit(s) 9433394 RxNorm 1 EACH NASAL ONCE A DAY Calcium Carbonate 500MG Oral Tablet 08/11/2023 Unknown ORAL ONCE A DAY 500 MILLIGRAMS RxNorm TAKE 500 MILLIGRAMS ORAL ONCE A DAY Finasteride 5MG Oral Tablet 08/11/2023 Unknown ORAL ONCE A DAY 5 MILLIGRAMS 891828 RxNorm TAKE 5 MILLIGRAMS ORAL ONCE A DAY Flomax 0.4MG Oral Capsule 08/11/2023 Unknown ORAL ONCE A DAY 0.4 MILLIGRAMS 633773 RxNorm TAKE 0.4 MILLIGRAMS ORAL ONCE A DAY Gabapentin 100MG Oral Capsule 08/11/2023 Unknown ORAL THREE TIMES A DAY 100 MILLIGRAMS 396711 RxNorm TAKE 100 MILLIGRAMS ORAL THREE TIMES A DAY HYDROcodone bitartrate-ac etaminophen 7.5MG-325MG Oral Tablet 08/11/2023 Unknown ORAL TWICE A DAY 1 unit(s) 043587 RxNorm TAKE 1 EACH ORAL TWICE A DAY Ipratropium [place]-Albut indu Sulfate 0.5MG/3ML-3MG /3ML Inhalation Solution 08/11/2023 Unknown INHALATIO N THREE TIMES A DAY 1 unit(s) 2793617 RxNorm 1 EACH INHALATION THREE TIMES A DAY Iron 325MG Oral Tablet 08/11/2023 Unknown ORAL ONCE A DAY 325 MILLIGRAMS 180858 RxNorm TAKE 325 MILLIGRAMS ORAL ONCE A DAY Loratadine 10MG Oral Tablet 08/11/2023 Unknown ORAL ONCE A DAY 10 MILLIGRAMS 376430 RxNorm TAKE 10 MILLIGRAMS ORAL ONCE A DAY Metoprolol Succinate 25MG Oral Tablet, Extended Release 08/11/2023 Unknown ORAL TWICE A DAY 25 MILLIGRAMS 273662 RxNorm TAKE 25 MILLIGRAMS ORAL TWICE A DAY Montelukast Sodium 10MG Oral Tablet 08/11/2023 Unknown ORAL ONCE A DAY 10 MILLIGRAMS 316504 RxNorm TAKE 10 MILLIGRAMS ORAL ONCE A DAY Mupirocin 2% Topical application Cream 08/11/2023 Unknown TOPICAL APPLICATI ON TWICE A DAY 1 unit(s) 956279 RxNorm 1 EACH TOPICAL APPLICATION TWICE A DAY Nystatin/Tria mcinolone Acetonide 023347U-2IX/1 GM Topical application Ointment 08/11/2023 Unknown TOPICAL APPLICATI ON ONCE A DAY 1 unit(s) 4501692 RxNorm 1 EACH TOPICAL APPLICATION ONCE A DAY Potassium Chloride 10MEQ Oral Capsule, Extended Release 08/11/2023 Unknown ORAL ONCE A DAY 10 MEQ 436490 RxNorm TAKE 10 MEQ ORAL ONCE A DAY RABEprazole Sodium 20MG Oral Tablet, Enteric Coated 08/11/2023 Unknown ORAL ONCE A DAY 20 MILLIGRAMS 136236 RxNorm TAKE 20 MILLIGRAMS ORAL ONCE A DAY Spiriva Respimat 1.25MCG/1ACT Inhalation [place] 08/11/2023 Unknown INHALATIO N 1 unit(s) 9066566 RxNorm 1 EACH INHALATION Symbicort 160/4.5 160MCG-4.5MCG /1 Actu Inhalation Aerosol Liquid 08/11/2023 Unknown INHALATIO N TWICE A DAY 1 unit(s) 9940395 RxNorm 1 EACH INHALATION TWICE A DAY Ras-24 400MG Oral Capsule, Extended Release, 24 HR 08/11/2023 Unknown ORAL ONCE A DAY 400 MILLIGRAMS 878420 RxNorm TAKE 400 MILLIGRAMS ORAL ONCE A DAY Torsemide 20MG Oral Tablet 08/11/2023 Unknown ORAL ONCE A DAY 20 MILLIGRAMS 297602 RxNorm TAKE 20 MILLIGRAMS ORAL ONCE A DAY Ventolin HFA 0.09MG/1Actua tion Inhalation Suspension 08/11/2023 Unknown INHALATIO N ONCE A DAY 1 unit(s) 786448 RxNorm 1 EACH INHALATION ONCE A DAY busPIRone HCl 7.5MG Oral Tablet 08/11/2023 Unknown ORAL THREE TIMES A DAY 7.5 MILLIGRAMS 993481 RxNorm TAKE 7.5 MILLIGRAMS ORAL THREE TIMES A DAY Hospital Discharge Instructions Should you have any questions prior to discharge, please contact a member of your healthcare team. If you have left the hospital and have any questions, please contact your primary care physician. Reason For Referral No Data Found Procedures Procedure Name Date Status Code Code Syste m Arthrocentesis Aspir&/Inj Ma reynaldo Jt/Bursa w/o US 01/18/2025 completed CPT Allergies and Adverse Reactions Allergy Substance Reaction Severity Start Date Concern Status Co de Code System VANCOMYCIN Active 63789 RxNorm LEVOFLOXACIN Active 82623 RxNorm BACTRIM Active 611998 RxNorm PENICILLIN Active Plan of Treatment I&D Abscess 08/11/2023 Encounters Encounter Diagnosis Start Date Code Code Sys tem Primary osteoarthritis, right shoulder 01/18/2025 SNOMED-CT Personal Care Team Section Performer Name Performer Role Active Date Inactive Pascual Henderson PCP - Primary care physician
--- OUTSIDE RECORDS SUMMARY | 2025-05-17 13:41 | XMS_ITS | Clinical Summary ---
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 Indications: COPD 4 Active tiotropium (SPIRIVA RESPIMAT) 1.25 MCG/ACT inhaler (SPIRIVA RESPIMAT)Indica tions:COPD Inhale 2 puffs into the lungs daily. Indications: COPD 4 9 Active SYMBICORT 160-4.5 MCG/ACT inhalerIndicati ons:COPD Inhale 1 Dose into the lungs daily. Indications: COPD 0 Active HYDROcodone-benito taminophen 7.5-325 MG tabletIndicatio ns:Chronic Pain Take 1 tablet by mouth 3 (three) times daily as needed for Pain. Indications: Chronic Pain Active RABEprazole EC 20 MG tabletIndicatio ns:GERD Take 1 tablet by mouth 2 (two) times daily. Indications: GERD Active nystatin powderIndicatio ns:Candidiasis of Skin Apply topically 2 (two) times daily. Indications: Candidiasis of Skin 1 Active ipratropium-alb uterol 0.5-2.5 (3) MG/3ML SolutionIndicat ions:COPD Take 3 mLs by nebulization 4 (four) times daily. 360 mL 2 Active pregabalin (LYRICA) 150 MG capsuleIndicati ons:Pain Take 1 capsule (150 mg total) by mouth 2 (two) times daily. Indications: Pain 2 Active nystatin (MYCOSTATIN) creamIndication s:Candidiasis of Skin Apply topically as needed. Indications: Candidiasis of Skin 2 Active metoprolol tartrate (LOPRESSOR) 25 MG tabletIndicatio ns:Hypertension Take 1 tablet (25 mg total) by mouth 2 (two) times daily. 60 tablet 4 Active montelukast (SINGULAIR) 10 MG tabletIndicatio ns:Asthma Take 1 tablet by mouth daily. Indications: Asthma 3 Active tamsulosin (FLOMAX) 0.4 MG CapIndications: Enlarged Prostate Take 1 capsule by mouth 2 (two) times daily. Indications: Enlarged Prostate Active albuterol sulfate HFA 108 (90 Base) MCG/ACT inhalerIndicati ons:COPD Inhale 2 puffs into the lungs every 6 (six) hours as needed for Wheezing. Indications: COPD Active atorvastatin (LIPITOR) 20 MG tabletIndicatio ns:Hypertension Take 1 tablet (20 mg total) by mouth nightly at bedtime. Indications: High Blood Pressure Active busPIRone (BUSPAR) 7.5 MG tabletIndicatio ns:mood Take 1 tablet by mouth 3 (three) times daily. Indications: mood 4 Active diclofenac EC (VOLTAREN) 75 MG tabletIndicatio ns:Pain Take 1 tablet by mouth 2 (two) times daily. Indications: Pain 4 Active finasteride (PROSCAR) 5 MG tabletIndicatio ns:BPH Take 1 tablet (5 mg total) by mouth daily. Indications: BPH 4 Active torsemide (DEMADEX) 20 MG tabletIndicatio ns:CHF Take 2 tablets (40 mg total) by mouth daily. Indications: CHF 4 Active theophylline ER (THEODUR) 450 MG 12 hr tabletIndicatio ns:COPD Take 1 tablet (450 mg total) by mouth daily. Indications: COPD 4 Active Potassium Chloride 10 MEQ PackIndications :supplement Take 1 tablet by mouth daily. Indications: supplement 4 Active Vitamin D, Cholecalciferol , 25 MCG (1000 UT) CapIndications: supplement Take 1 tablet by mouth daily. Indications: supplement 4 Active MAGNESIUM ORIndications:s upplement Take 500 mg by mouth daily. Indications: supplement 4 Active predniSONE (DELTASONE) 20 MG tabletIndicatio ns:COPD Take 20 mg by mouth daily. Indications: COPD 4 Active Active Problems Problem Noted Date Diagnosed Date Candidiasis of skin 04/19/2024 Benign essential hypertension 04/09/2024 Pneumonia 04/19/2022 Avascular necrosis of bone of left hip ([facility]) 01/16/2021 Post-traumatic osteoarthritis of left knee 06/09 Trochanteric bursitis of left hip 04/16/2020 Bilateral shoulder region arthritis 12/07/2019 Primary osteoarthritis, right shoulder 0 Rotator cuff arthropathy, right 12/07/2019 Osteoarthritis of glenohumeral joint, right 04/2019 Ulnar neuropathy at elbow, right 08/06/2019 Chronic diastolic heart failure ([facility] ) 08/05/2019 Acute kidney insufficiency 08/05/2019 Requires supplemental oxygen 01/24/2019 Lung cancer screening declined by patient 2018 Chronic respiratory failure ([facility]) Tobacco abuse Obstructive sleep apnea RBBB Morbid obesity Hypertension GERD (gastroesophageal reflux disease) Coronary artery disease invo [place] coronary artery of [place] heart without angina pectoris COPD, severe CHF (congestive heart failure) ([facility]) Asthma ([facility]) Arthritis Hyperlipidemia Pressure ulcer of left leg, stage II Pressure ulcer of right leg, stage 2 Resolved Problems Problem Noted Date Diagnosed Date Resolved Date COPD exacerbation ([facility]) 04/25/2024 04/26/2024 COPD exacerbation ([facility]) 08/04/2019 08/05/2019 Encounter for BiPAP use counseling 01/24/2019 07/11/2020 Encounters Date Type Department Care Team Description 02/21/2025 Travel from Last 3 Months Family History Medical History Relation Comments No Known Problems Brother COPD Father No Known Problems Maternal Grandfather No Known Problems Maternal Grandmother COPD Mother Cardiac disorder Mother No Known Problems Paternal Grandfather No Known Problems Paternal Grandmother Relation Status Comments Brother Alive Father Maternal Grandfather Maternal Grandmother Mother Paternal Grandfather Paternal Grandmother Social History Tobacco Use Types Packs/Day Years Used Date Smoking Tobacco: Former Cigarettes 2.5 53 1 961 - 2014 Smokeless Tobacco: Current Chew Comments:started smoking charla und 11 years old, smoked 2-3 ppd; chews tobacco Alcohol Use Standard Drinks/Week Comments Yes 0 (1 standard drink = 0.6 oz pur e alcohol) Social OASIS D0700: Social Isolation Answer Da te Recorded Frequency of experiencing loneliness or isolatio n Never 11/12/2024 OASIS A1250: Transportation Answer Date Recorded Lack of Transportation (Medical) No 11/12/2024 Lack of Transportation (Non-Medical) No 11/12/2024 Patient Unable or Declines to Respond No 11/12/2024 OASIS B1300: Health Literacy Answer Mark e Recorded Frequency of needing help to read materials from doctor or pharmacy Rarely 11/12/2024 [facility] Utilities Answer Date Recorded In the past 12 months has e [employer], [employer], oil, or water [employer] threatened to shut off services in your home? Patient declined 04/25/2024 Humiliation, Afraid, Rape, and Kick questionnair e Answer Date Recorded Within the last year, have y ou been afraid of your partner or ex-partner? Patient declined 04/25/2024 Within the last year, have y ou been humiliated or emotionally abused in other ways by your partner or ex-partner? Patient declined 04/25/2024 Within the last year, have y ou been kicked, hit, slapped, or otherwise physically hurt by your partner or ex-partner? Patient declined 04/25/2024 Within the last year, have y ou been raped or forced to have any kind of sexual activity by your partner or ex-partner? Patient declined 04/25/2024 Overall Financial Resource Strain (CARDIA) Answe r Date Recorded How hard is it for you to pa y for the very basics like food, housing, medical care, and heating? Patient declined 04/25/2024 Hunger Vital Sign Answer Date Recorded Within the past 12 months, y ou worried that your food would run out before you got the money to buy more. Patient declined Within the past 12 months, t he food you bought just didn't last and you didn't have money to get more. Patient declined PRAPARE - Transportation Answer Date Re corded In the past 12 months, has l ack of transportation kept you from medical appointments or from getting medications? Patient declined 04/25/2024 In the past 12 months, has l ack of transportation kept you from meetings, work, or from getting things needed for daily living? Patient declined 04/25/2024 Housing Stability Vital Sign Answer Mark e Recorded In the last 12 months, was t here a time when you were not able to pay the mortgage or rent on time? Patient declined 04/25/20 24 In the past 12 months, how m any times have you moved where you were living? 1 04/25/2024 At any time in the past 12 m [facility], were you homeless or living in a long-term (including now)? Patient declined 04/25/2024 Sex and Gender Information Value Date Recorded Sex Assigned at Male 11/15/2024 12:31 PM THREAD SEPARATOR Legal Sex Male 10:09 PM CDT Gender Identity Not on file Sexual Orientation Not on file Occupation Industry Job Start Date Job End Date Disabled Not on file Not on file Not on file Last Filed Vital Signs Vital Sign Reading Time Taken Comments Blood Pressure 138/64 11/09/2024 10:30 AM THREAD SEPARATOR Pulse 78 11/09/2024 10:30 AM THREAD SEPARATOR Temperature 36.9 C (98.4 F) 11/09/2024 10:30 AM THREAD SEPARATOR Respiratory Rate 20 11/09/2024 10:30 AM THREAD SEPARATOR Oxygen Saturation 94% 11/09/2024 10:30 AM THREAD SEPARATOR Inhaled Oxygen Concentration - - Weight 127 kg (280 lb) 09/18/2024 10:15 AM THREAD SEPARATOR Height 165.1 cm (5' 5) 09/18/2024 10:15 AM THREAD SEPARATOR Body Mass Index 46.59 09/18/2024 10:15 AM THREAD SEPARATOR Plan of Treatment Health Maintenance Due Date Last Done Comments Colorectal Cancer Screening Colonoscopy (10 Years) 1953 Hepatitis C 1971 DTaP, Tdap and Td Vaccines (1 - Tdap) 1972 Lung Cancer Screening 2003 Zoster Vaccines (1 of 2) 2003 RSV Immunization or 60+ Years (1 - Risk 60-74 years 1-dose series) 2013 Pneumococcal Vaccine: 50+ Years (2 of 2 - PCV) 10/31/2013 10/31/2012 Annual Medicare Wellness Visit 2018 ASCVD LDL 12/18/2018 12/18/2017, 12/01, 11/08/2017, Additional history exists COVID-19 Vaccine ( season) 2024 AAA SCREENING Completed 02/08/2020 Meningococcal B Vaccine Aged Out No l onger eligible based on patient's age to complete this topic Meningococcal Vaccine Aged Out No esmer giuseppe eligible based on patient's age to complete this topic RSV Immunizations Under 20 Months Aged Out No longer eligible based on patient's age to complete this topic Goals Goal Patient Goal Type Associated Problems Recent Progress Patient-Stated? Author Safety Patient/family will have appropriate support at home upon discharge General No Almita Marti, ENGINEER FIRST ASSISTANT Procedures Procedure Name Priority Date/Time Associated Diagnosis Comments CT ABD+PEL WO CON STAT 02/08/2020 4:0 4 PM CDT Flank pain LIPOPROTEIN, LDL CHOL, DIRECT Routine 12/18/2017 3:10 PM THREAD SEPARATOR from Last 3 Months or Most Recently Relevant to Health Maintenance Results * CT ABD+PEL WO CON (02/08/2020 4:04 PM CDT) Anatomical Region Laterality Modality Abdomen Computed Tomogra phy 02/08/2020 4:08 PM CDT Impressions 02/08/2020 4:22 PM CDT IMPRESSION: 1. No acute intra-abdominal or intrapelvic process identified. 2. Bilateral nephrolithiasis as described. 3. Redemonstrated hepatic steatosis. 4. Colonic diverticulosis. 5. Duodenal diverticulum. 6. Stable small fat-containing umbilical hernia. 7. Redemonstrated L5-S1 degenerative disc disease, bilateral L5 spondylolysis and minimal L5-S1 spondylolisthesis. Interpreted By: Redd Be MD, 02/08/2020 4:08 PM Narrative 02/08/2020 4:22 PM CDT Examination: CT of the abdomen and pelvis without contrast. Exam time: 1604 hours. Clinical history: Right flank pain. Hematuria. History of urolithiasis. Prior appendectomy and ORIF of the left hip. Comparison: 01/27/2017 (contrast-enhanced). Technique: Spiral scanning was performed through the abdomen and pelvis without contrast. Coronal and sagittal reconstructions were performed from the data set. A dose lowering technique was used for this procedure, which may include, but is not limited to, dose reduction techniques, automated exposure control, the use of iterative reconstruction and ALARA/Image Gently techniques. Findings: There is minor scarring at the lung bases. The lung bases are otherwise clear. No pleural effusions are seen. The liver remains diffusely diminished in attenuation relative to the spleen, compatible with steatosis. The liver, spleen, gallbladder, pancreas and adrenal glands are otherwise unremarkable for the noncontrast technique. Small left renal cyst is again noted. Bilateral nephrolithiasis is again evident with mild overall increase in the stone burden although the dominant renal pelvic calculus on the left is no longer present. Correlation with the history is required. The kidneys are otherwise unremarkable for the noncontrast technique. No ureteral calculi or signs of obstructive uropathy are identified. The urinary bladder appears unremarkable. The appendix is not identified, compatible with the history. There are a few colonic diverticula without signs of diverticulitis. Diverticulum of the second portion of the duodenum is again evident. There is no ascites, lymphadenopathy or bowel distention. The caliber of the abdominal aorta is normal. Bilateral L5 spondylolysis with minimal L5-S1 spondylolisthesis again noted. Associated changes of degenerative disc disease at L5-S1 again noted. There is a stable small fat-containing umbilical hernia. Procedure Note Redd Be MD - 02/08/2020 Examination: CT of the abdomen and pelvis without contrast. Exam time: 1604 hours. Clinical history: Right flank pain. Hematuria. History of urolithiasis.Prior appendectomy and ORIF of the left hip. Comparison: 01/27/2017 (contrast-enhanced). Technique: Spiral scanning was performed through the abdomen and pelviswithout contrast. Coronal and sagittal reconstructions were performedfrom the data set. A dose lowering technique was used for this procedure,which may include, but is not limited to, dose reduction techniques,automated exposure control, the use of iterative reconstruction andALARA/Image Gently techniques. Findings: There is minor scarring at the lung bases. The lung bases areotherwise clear. No pleural effusions are seen. The liver remainsdiffusely diminished in attenuation relative to the spleen, compatiblewith steatosis. The liver, spleen, gallbladder, pancreas and adrenalglands are otherwise unremarkable for the noncontrast technique. Smallleft renal cyst is again noted. Bilateral nephrolithiasis is againevident with mild overall increase in the stone burden although thedominant renal pelvic calculus on the left is no longer present.Correlation with the history is required. The kidneys are otherwiseunremarkable for the noncontrast technique. No ureteral calculi or signsof obstructive uropathy are identified. The urinary bladder appearsunremarkable. The appendix is not identified, compatible with thehistory. There are a few colonic diverticula without signs ofdiverticulitis. Diverticulum of the second portion of the duodenum isagain evident. There is no ascites, lymphadenopathy or bowel distention.The caliber of the abdominal aorta is normal. Bilateral L5 spondylolysiswith minimal L5-S1 spondylolisthesis again noted. Associated changes ofdegenerative disc disease at L5-S1 again noted. There is a stable smallfat-containing umbilical hernia. IMPRESSION: 1. No acute intra-abdominal or intrapelvic process identified. 2. Bilateral nephrolithiasis as described. 3. Redemonstrated hepatic steatosis. 4. Colonic diverticulosis. 5. Duodenal diverticulum. 6. Stable small fat-containing umbilical hernia. 7. Redemonstrated L5-S1 degenerative disc disease, bilateral [id number] and minimal L5-S1 spondylolisthesis. Interpreted By: Redd Be MD, 02/08/2020 4:08 PM us Angelica Zepeda MD CT Final Result * (ABNORMAL) LIPOPROTEIN, LDL CHOL, DIRECT (12/18/2017 3:10 PM THREAD SEPARATOR) DIRECT LDL 138(H) <130 MG/DL 12/18/2017 3:59 PM THREAD SEPARATOR [facility] Comment: =<100 MG/DL,ZSXAMPG=665-177 MG/DL,NEAR KHKTGOC=674-748 MG/DL,BORDERLINE HIGH=>160 MG/DL,HIGH 12/18/2017 3:10 PM THREAD SEPARATOR us Generic Conversion Md [facility] Final R esult [facility] [address] [place] [address], from Last 3 Months or Most Recently Relevant to Health Maintenance Additional Health Concerns Infection Onset Date 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 Insurance MEDICAID MEDICAID [facility] Advance Directives * Full Code (Latest Code Status on File) Date Activated Date Inactivated Comments 10/29/2024 4:12 PM * Full Code Date Activated Date Inactivated Comments 06/29/2024 7:42 PM 09/18/2024 9:58 AM * Full Code Date Activated Date Inactivated Comments 05/07/2024 3:55 PM 06/18/2024 12:14 PM * Full Code Date Activated Date Inactivated Comments 04/25/2024 4:47 PM 04/26/2024 4:22 PM * Full Code Date Activated Date Inactivated Comments 04/19/2022 6:03 PM 04/23/2022 2:04 PM Care Teams Senior Instructor Relationship Specialty Start [place] [address] [place] [address] PCP - General INTERNAL MEDICINE 04/26/24 Robbin Arteaga MD [address] [place] [address] [employer] CARDIOVASCULAR DISEASE 07/07/16 Arian Guzman MD [address] [facility] [address] [place] [address] DERMATOLOGY 11/28/24 11/28/25 Malgorzata Abdalla III, MD [address] [facility] [place] [address] Consulting Physician UROLOGY 01/31/25 01/31/26
--- OUTSIDE RECORDS SUMMARY | 2025-05-17 13:41 | XMS_ITS | Encounter Summary ---
Author Organization [facility] Address [facility] [place] [address] Care Team Providers Care Account Review Specialist Name Role Phone Caleb Feng MD Primary Care Provider [phone] Robbin Arteaga MD Unavailable [phone] Gabriel Fulton MD Primary Care Provider [phone] None, Provider Primary Care Provider Unavaila Ruthie Ly NP Primary Care Provider + [phone] Prerna William MD Primary Care Provider + [phone] Arian Guzman MD Unavailable [phone] Lianne SCHULTZ MD, Courtney Unavailable [phone] Encounter Details Date Type Department Care Team (Late st Contact Info) Description 09/18/2015 Abstract [facility] [address] [place] [address] Robbin Arteaga MD [address] [place] [address] Social History Tobacco Use Types Packs/Day Years Used Date Smoking Tobacco: Every Day Cigarettes Smokeless Tobacco: Current Chew Comments:Hx smoker, 2 PPD fo r 30 yrs / 1-3 cig /week x1 yr, chews tobacco Alcohol Use Standard Drinks/Week Comments Yes 0 (1 standard drink = 0.6 oz pur e alcohol) Social Sex and Gender Information Value Date Recorded Sex Assigned at Male 11/15/2024 12:31 PM BUCKSHOT SWAGE OPERATOR Legal Sex Male 10:09 PM CDT Gender [...] Rule Out 11/12/2020 11/12/2020 11/14/2020 8:01 AM BUCKSHOT SWAGE OPERATOR COVID-19 Rule Out 04/19/2022 04/19/2022 04/19/2022 3:19 PM CDT COVID-19 Rule Out 05/15/2022 05/15/2022 05/15/2022 5:56 PM CDT COVID-19 Rule Out 04/25/2024 04/25/2024 04/25/2024 11:23 AM CDT COVID-19 Rule Out 09/18/2024 09/18/2024 09/18/2024 10:54 AM BUCKSHOT SWAGE OPERATOR documented as of this encounter Care Teams Account Review Specialist Relationship Specialty Start Date End Date Caleb Feng MD [address] [place] [address] PCP - General INTERNAL MEDICINE 07/07/16 12/08/17 Gabriel Fulton MD [address] [place] [id number] PCP - General FAMILY PRACTICE 12/09/17 04/25/19 Harish Norris MD PCP - General 06/03/20 09/09/20 Ruthie Etienne NP PCP - General Nurse Practitioner Family 09/10/20 04/25/24 [place] [address] [place] [address] PCP - General INTERNAL MEDICINE 04/26/24 Robbin Arteaga MD [address] [place] [address] [employer] CARDIOVASCULAR DISEASE 07/07/16 Arian Guzman MD [address] [address] DERMATOLOGY 11/28/24 11/28/25 Malgorzata Abdalla III, MD [address] [facility] [place] [address] Consulting Physician UROLOGY 01/31/25 01/31/26 documented as of this encounter
--- OUTSIDE RECORDS SUMMARY | 2025-05-17 13:41 | XMS_ITS ---
Author Organization Unknown Address [address] [place] [address] [phone] Phone Care Team Providers Care Chief Internal Auditor Name Role Phone TALON SCRUGGSEN Attending Unavailable NEELAM LEVI Primary Unavailable Immunization Immunization Date Status Additional Notes Code Code System pneumococcal polysaccharide PPV23 10/31/2012 Completed 33 CVX Influenza, split virus, trivalent, preservative 08/05/2016 Completed 141 CVX Results SCAPULA LEFT - Completed: 14:33 LOINC: EXAM DESCRIPTION: ? ? SHOULDER MIN 2V LEFT; ? ? SCAPULA LEFT REASON FOR STUDY: Follow up for left shoulder/scapula fracture from a fall 2-3 weeks ago. Very limited ROM in left shoulder. Duration: . FINDINGS: Three views left shoulder and two views left scapula submitted without comparison. There is a mildly displaced fracture of the scapular spine/acromion base. There is superior subluxation of the humeral head with narrowing of the subacromial space. 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 IMPRESSION: ? ? Mildly displaced fracture of the left scapular spine/acromion base. ? ? Severe left rotator cuff arthropathy. THIS IS AN ELECTRONICALLY VERIFIED FINAL REPORT 09/23/2024 9:36 AM - Electronically signed by Reinaldo Frost M.D. MF: BILL Report ID: [id number] Reading Location: [id number] SHOULDER MIN 2V LEFT - Compl eted: 09/21/2024 14:33 LOINC: EXAM DESCRIPTION: ? ? SHOULDER MIN 2V LEFT; ? ? SCAPULA LEFT REASON FOR STUDY: Follow up for left shoulder/scapula fracture from a fall 2-3 weeks ago. Very limited ROM in left shoulder. Duration: . FINDINGS: Three views left shoulder and two views left scapula submitted without comparison. There is a mildly displaced fracture of the scapular spine/acromion base. There is superior subluxation of the humeral head with narrowing of the subacromial space. 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 IMPRESSION: ? ? Mildly displaced fracture of the left scapular spine/acromion base. ? ? Severe left rotator cuff arthropathy. THIS IS AN ELECTRONICALLY VERIFIED FINAL REPORT 09/23/2024 9:36 AM - Electronically signed by Reinaldo Frost M.D. MF: BILL Report ID: [id number] Reading Location: [id number] Social History Type Status Start Date End Date Code Code Syst em Smoking History Former smoker [id number] SNOMED CT Sex Male Medications Medication Start Date End Date Route Frequency Dose Code Code System Medication Instructions Home Meds Atorvastatin Calcium 20MG Oral Tablet 08/11/2023 Unknown ORAL ONCE A DAY 20 MILLIGRAMS 860314 RxNorm TAKE 20 MILLIGRAMS ORAL ONCE A DAY Azelastine HCl 205.5MCG/1Act Nasal [place] 08/11/2023 Unknown NASAL ONCE A DAY 1 unit(s) 3030732 RxNorm 1 EACH NASAL ONCE A DAY Calcium Carbonate 500MG Oral Tablet 08/11/2023 Unknown ORAL ONCE A DAY 500 MILLIGRAMS RxNorm TAKE 500 MILLIGRAMS ORAL ONCE A DAY Finasteride 5MG Oral Tablet 08/11/2023 Unknown ORAL ONCE A DAY 5 MILLIGRAMS 636583 RxNorm TAKE 5 MILLIGRAMS ORAL ONCE A DAY Flomax 0.4MG Oral Capsule 08/11/2023 Unknown ORAL ONCE A DAY 0.4 MILLIGRAMS 165202 RxNorm TAKE 0.4 MILLIGRAMS ORAL ONCE A DAY Gabapentin 100MG Oral Capsule 08/11/2023 Unknown ORAL THREE TIMES A DAY 100 MILLIGRAMS 322023 RxNorm TAKE 100 MILLIGRAMS ORAL THREE TIMES A DAY HYDROcodone bitartrate-ac etaminophen 7.5MG-325MG Oral Tablet 08/11/2023 Unknown ORAL TWICE A DAY 1 unit(s) 116189 RxNorm TAKE 1 EACH ORAL TWICE A DAY Ipratropium [place]-Albut idnu Sulfate 0.5MG/3ML-3MG /3ML Inhalation Solution 08/11/2023 Unknown INHALATIO N THREE TIMES A DAY 1 unit(s) 2843554 RxNorm 1 EACH INHALATION THREE TIMES A DAY Iron 325MG Oral Tablet 08/11/2023 Unknown ORAL ONCE A DAY 325 MILLIGRAMS 121031 RxNorm TAKE 325 MILLIGRAMS ORAL ONCE A DAY Loratadine 10MG Oral Tablet 08/11/2023 Unknown ORAL ONCE A DAY 10 MILLIGRAMS 069792 RxNorm TAKE 10 MILLIGRAMS ORAL ONCE A DAY Metoprolol Succinate 25MG Oral Tablet, Extended Release 08/11/2023 Unknown ORAL TWICE A DAY 25 MILLIGRAMS 172994 RxNorm TAKE 25 MILLIGRAMS ORAL TWICE A DAY Montelukast Sodium 10MG Oral Tablet 08/11/2023 Unknown ORAL ONCE A DAY 10 MILLIGRAMS 974629 RxNorm TAKE 10 MILLIGRAMS ORAL ONCE A DAY Mupirocin 2% Topical application Cream 08/11/2023 Unknown TOPICAL APPLICATI ON TWICE A DAY 1 unit(s) 493450 RxNorm 1 EACH TOPICAL APPLICATION TWICE A DAY Nystatin/Tria mcinolone Acetonide 371242M-4FW/1 GM Topical application Ointment 08/11/2023 Unknown TOPICAL APPLICATI ON ONCE A DAY 1 unit(s) 3411081 RxNorm 1 EACH TOPICAL APPLICATION ONCE A DAY Potassium Chloride 10MEQ Oral Capsule, Extended Release 08/11/2023 Unknown ORAL ONCE A DAY 10 MEQ 386383 RxNorm TAKE 10 MEQ ORAL ONCE A DAY RABEprazole Sodium 20MG Oral Tablet, Enteric Coated 08/11/2023 Unknown ORAL ONCE A DAY 20 MILLIGRAMS 256658 RxNorm TAKE 20 MILLIGRAMS ORAL ONCE A DAY Spiriva Respimat 1.25MCG/1ACT Inhalation [place] 08/11/2023 Unknown INHALATIO N 1 unit(s) 4722465 RxNorm 1 EACH INHALATION Symbicort 160/4.5 160MCG-4.5MCG /1 Actu Inhalation Aerosol Liquid 08/11/2023 Unknown INHALATIO N TWICE A DAY 1 unit(s) 0172968 RxNorm 1 EACH INHALATION TWICE A DAY Ras-24 400MG Oral Capsule, Extended Release, 24 HR 08/11/2023 Unknown ORAL ONCE A DAY 400 MILLIGRAMS 363779 RxNorm TAKE 400 MILLIGRAMS ORAL ONCE A DAY Torsemide 20MG Oral Tablet 08/11/2023 Unknown ORAL ONCE A DAY 20 MILLIGRAMS 186086 RxNorm TAKE 20 MILLIGRAMS ORAL ONCE A DAY Ventolin HFA 0.09MG/1Actua tion Inhalation Suspension 08/11/2023 Unknown INHALATIO N ONCE A DAY 1 unit(s) 354111 RxNorm 1 EACH INHALATION ONCE A DAY busPIRone HCl 7.5MG Oral Tablet 08/11/2023 Unknown ORAL THREE TIMES A DAY 7.5 MILLIGRAMS 281314 RxNorm TAKE 7.5 MILLIGRAMS ORAL THREE TIMES [...] Status Co de Code System VANCOMYCIN Active 09289 RxNorm LEVOFLOXACIN Active 70382 RxNorm BACTRIM Active 290527 RxNorm PENICILLIN Active Plan of Treatment I&D Abscess 08/11/2023 Encounters Encounter Diagnosis Start Date Code Code Sys tem Fracture of unspecified part of scapula, left shoulder, subsequent encounter for fracture with routine healing 09/21/2024 SNOMED-CT Personal Care Team Section Performer Name Performer Role Active Date Inactive Pascual Henderson PCP - Primary care physician Imaging Narrative Notes
--- OUTSIDE RECORDS SUMMARY | 2025-05-17 13:41 | XMS_ITS ---
Author Organization Unknown Address [address] [place] [address] [phone] Phone Care Team Providers Care Public Speaking Instructor Name Role Phone TALON HOPSON Attending Unavailable NEELAM LEVI Primary Unavailable Immunization Immunization Date Status Additional Notes Code Code System pneumococcal polysaccharide PPV23 10/31/2012 Completed 33 CVX Influenza, split virus, trivalent, preservative 08/05/2016 Completed 141 CVX Results PELVIS LINDA HIPS 3-4 VIEWS - Completed: 03/15/2025 14:16 LOINC: \TM00\\12PI\\DRAo\\BM09\ \MRHo\ [address] [address] ---------NAME--------- NUMBER SEX AGE ADMIT DISC. XRAY# F/C TYPE SILVIA HADDAD [id number] M 69 03/15/25 03/15/25 52000 MB3 O/P DATE OF : 1955 M/R# [id number] PH#: [phone] \MRHx\ LOCATION: TRANSCRIBED: 03/15/25 14:51 PELVIS LINDA HIPS 3-4 VIEWS 68446 COMPLETED:03/15/25 14:16 JDF [id number] PHYSICIAN: TALON HOPSON R A D I O L O G Y R E P O R T CLINICAL INDICATION: Pain TECHNIQUE: 1 radiographic views of the pelvis were obtained. Comparison: None FINDINGS/IMPRESSION: Chronic deformities of the bilateral femoral heads. Severe osteoarthrosis of the bilateral femoroacetabular joint. Intramedullary sara and screw fixation is visualized transfixing the left femoroacetabular joint. 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 \ITLo\ \UNDo\ \UNDx\ \ITLx\ Reviewed and Electronically Signed by: Juanis Martines MD Signed Date: 03/15/25 14:51 03/15/[email or web address].JDF.to RICHTER TERRI via modem Social History Type Status Start Date End Date Code Code Syst em Smoking History Former smoker [id number] SNOMED CT Sex Male Medications Medication Start Date End Date Route Frequency Dose Code Code System Medication Instructions Home Meds Atorvastatin Calcium 20MG Oral Tablet 08/11/2023 Unknown ORAL ONCE A DAY 20 MILLIGRAMS 512274 RxNorm TAKE 20 MILLIGRAMS ORAL ONCE A DAY Azelastine HCl 205.5MCG/1Act Nasal [place] 08/11/2023 Unknown NASAL ONCE A DAY 1 unit(s) 5876228 RxNorm 1 EACH NASAL ONCE A DAY Calcium Carbonate 500MG Oral Tablet 08/11/2023 Unknown ORAL ONCE A DAY 500 MILLIGRAMS RxNorm TAKE 500 MILLIGRAMS ORAL ONCE A DAY Finasteride 5MG Oral Tablet 08/11/2023 Unknown ORAL ONCE A DAY 5 MILLIGRAMS 397678 RxNorm TAKE 5 MILLIGRAMS ORAL ONCE A DAY Flomax 0.4MG Oral Capsule 08/11/2023 Unknown ORAL ONCE A DAY 0.4 MILLIGRAMS 729029 RxNorm TAKE 0.4 MILLIGRAMS ORAL ONCE A DAY Gabapentin 100MG Oral Capsule 08/11/2023 Unknown ORAL THREE TIMES A DAY 100 MILLIGRAMS 200957 RxNorm TAKE 100 MILLIGRAMS ORAL THREE TIMES A DAY HYDROcodone bitartrate-ac etaminophen 7.5MG-325MG Oral Tablet 08/11/2023 Unknown ORAL TWICE A DAY 1 unit(s) 209151 RxNorm TAKE 1 EACH ORAL TWICE A DAY Ipratropium [place]-Albut indu Sulfate 0.5MG/3ML-3MG /3ML Inhalation Solution 08/11/2023 Unknown INHALATIO N THREE TIMES A DAY 1 unit(s) 2560460 RxNorm 1 EACH INHALATION THREE TIMES A DAY Iron 325MG Oral Tablet 08/11/2023 Unknown ORAL ONCE A DAY 325 MILLIGRAMS 915614 RxNorm TAKE 325 MILLIGRAMS ORAL ONCE A DAY Loratadine 10MG Oral Tablet 08/11/2023 Unknown ORAL ONCE A DAY 10 MILLIGRAMS 414809 RxNorm TAKE 10 MILLIGRAMS ORAL ONCE A DAY Metoprolol Succinate 25MG Oral Tablet, Extended Release 08/11/2023 Unknown ORAL TWICE A DAY 25 MILLIGRAMS 251344 RxNorm TAKE 25 MILLIGRAMS ORAL TWICE A DAY Montelukast Sodium 10MG Oral Tablet 08/11/2023 Unknown ORAL ONCE A DAY 10 MILLIGRAMS 903821 RxNorm TAKE 10 MILLIGRAMS ORAL ONCE A DAY Mupirocin 2% Topical application Cream 08/11/2023 Unknown TOPICAL APPLICATI ON TWICE A DAY 1 unit(s) 189780 RxNorm 1 EACH TOPICAL APPLICATION TWICE A DAY Nystatin/Tria mcinolone Acetonide 987002O-9AD/1 GM Topical application Ointment 08/11/2023 Unknown TOPICAL APPLICATI ON ONCE A DAY 1 unit(s) 2808485 RxNorm 1 EACH TOPICAL APPLICATION ONCE A DAY Potassium Chloride 10MEQ Oral Capsule, Extended Release 08/11/2023 Unknown ORAL ONCE A DAY 10 MEQ 628190 RxNorm TAKE 10 MEQ ORAL ONCE A DAY RABEprazole Sodium 20MG Oral Tablet, Enteric Coated 08/11/2023 Unknown ORAL ONCE A DAY 20 MILLIGRAMS 687022 RxNorm TAKE 20 MILLIGRAMS ORAL ONCE A DAY Spiriva Respimat 1.25MCG/1ACT Inhalation [place] 08/11/2023 Unknown INHALATIO N 1 unit(s) 1091879 RxNorm 1 EACH INHALATION Symbicort 160/4.5 160MCG-4.5MCG /1 Actu Inhalation Aerosol Liquid 08/11/2023 Unknown INHALATIO N TWICE A DAY 1 unit(s) 9163808 RxNorm 1 EACH INHALATION TWICE A DAY Ras-24 400MG Oral Capsule, Extended Release, 24 HR 08/11/2023 Unknown ORAL ONCE A DAY 400 MILLIGRAMS 385180 RxNorm TAKE 400 MILLIGRAMS ORAL ONCE A DAY Torsemide 20MG Oral Tablet 08/11/2023 Unknown ORAL ONCE A DAY 20 MILLIGRAMS 168983 RxNorm TAKE 20 MILLIGRAMS ORAL ONCE A DAY Ventolin HFA 0.09MG/1Actua tion Inhalation Suspension 08/11/2023 Unknown INHALATIO N ONCE A DAY 1 unit(s) 952428 RxNorm 1 EACH INHALATION ONCE A DAY busPIRone HCl 7.5MG Oral Tablet 08/11/2023 Unknown ORAL THREE TIMES A DAY 7.5 MILLIGRAMS 290500 RxNorm TAKE 7.5 MILLIGRAMS ORAL THREE TIMES [...] nd/or injection, major joint or bursa; without 03/22/2025 completed CP T Allergies and Adverse Reactions Allergy Substance Reaction Severity Start Date Concern Status Co de Code System VANCOMYCIN Active 39728 RxNorm LEVOFLOXACIN Active 73112 RxNorm BACTRIM Active 322920 RxNorm PENICILLIN Active Plan of Treatment I&D Abscess 08/11/2023 Encounters Encounter Diagnosis Start Date Code Code Sys tem Primary osteoarthritis, left shoulder 03/15/2025 SNOMED-CT Personal Care Team Section Performer Name Performer Role Active Date Inactive Pascual Henderson PCP - Primary care physician Imaging Narrative Notes [facility] [place] 03/15/2025 14:53 [id number] [place] [address] ---------NAME--------- NUMBER SEX AGE ADMIT DISC. XRAY# F/C TYPE VEGA MILAGRO HADDAD [id number] M 69 03/15/25 03/15/25 64474 MB3 O/P DATE OF : 1955 M/R# [id number] #: [id number] RM LOCATION: TRANSCRIBED: 03/15/25 14:51 PELVIS LINDA HIPS 3-4 VIEWS 58712 COMPLETED:03/15/25 14:16 JDF [id number] PHYSICIAN: TALON HOPSON RADIOLOGY REPORT CLINICAL INDICATION: Pain TECHNIQUE: 1 radiographic views of the pelvis were obtained. Comparison: None FINDINGS/IMPRESSION: Chronic deformities of the bilateral femoral heads. Severe osteoarthrosis of the bilateral femoroacetabular joint. Intramedullary sara and screw fixation is visualized transfixing the left femoroacetabular joint. 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
--- NOTE | 2025-05-17 13:44 | PC.NURSE ---
New drainage bag placed on existing ray. Draining well at this time.
--- OUTSIDE RECORDS SUMMARY | 2025-05-17 14:11 | XMS_ITS | Encounter Summary ---
Author Organization [facility] Address [facility] [place] [address] Care Team Providers Care Outreach Assistant Name Role Phone Robbin Arteaga MD Unavailable None, Provider Primary Care Provider Unavaila Ruthie Ly NP Primary Care Provider [phone]- [phone] Prerna William MD Primary Care Provider [phone]- [phone] Arian Guzman MD Unavailable [phone] Lianne SCHULTZ MD, Courtney Unavailable [phone] Encounter Details Date Type Department Care Team (Late st Contact Info) Description 02/08/2020 Abstract [facility] [address] [place] [address] Abstract, Doc [facility] Social History [...] Sex Assigned at Male 11/15/2024 12:31 PM FINANCE CONSULTANT Legal Sex Male 10:09 PM CDT Gender [...] this encounter Results * BNP (01/05/2020) Pathologist [facility] B TYPE NATRIURETIC PEPTIDE 68.6 01/05/2020 us Doc [facility] Abstract LABORATORY Final Result * (ABNORMAL) CMP (ABSTRACTED LAB) (01/05/2020) Pathologist [facility] SODIUM S/P/B 141 POTASSIUM S/P/B 3.9 CHLORIDE [...] Result * CBC W/DIFF AUTOMATED (01/05/2020) Pathologist [facility] WBC 6.9 RBC 4.37 HGB 12.9 HCT [...] Rule Out 11/12/2020 11/12/2020 11/14/2020 8:01 AM FINANCE CONSULTANT COVID-19 Rule Out 04/19/2022 04/19/2022 04/19/2022 3:19 PM CDT COVID-19 Rule Out 05/15/2022 05/15/2022 05/15/2022 5:56 PM CDT COVID-19 Rule Out 04/25/2024 04/25/2024 04/25/2024 11:23 AM CDT COVID-19 Rule Out 09/18/2024 09/18/2024 09/18/2024 10:54 AM FINANCE CONSULTANT documented as of this encounter Care Teams Outreach Assistant Relationship Specialty Start Date End Date None, Provider, PCP - General 06/03/20 09/09/20 Ruthie Etienne NP PCP - General Nurse Practitioner [facility] 09/10/20 04/25/24 [place] [address] [place] [address] PCP - General INTERNAL MEDICINE 04/26/24 Robbin Arteaga MD [address] [place] [id number] [place] [facility] [employer] CARDIOVASCULAR DISEASE 07/07/16 Arian Guzman MD [address] [facility] [address] [address] DERMATOLOGY 11/28/24 11/28/25 Malgorzata Abdalla III, MD [address] [place] [address] Consulting Physician UROLOGY 01/31/25 01/31/26 documented as of this encounter
--- OUTSIDE RECORDS SUMMARY | 2025-05-17 14:12 | XMS_ITS ---
Author Organization Unknown Address [address] [place] [address] [phone] Phone Care Team Providers Care Insurance Loss Control Surveyor Name Role Phone TALON HOPSON Attending Unavailable NEELAM LEVI Primary Unavailable Immunization Immunization Date Status Additional Notes Code Code System pneumococcal polysaccharide PPV23 10/31/2012 Completed 33 CVX Influenza, split virus, trivalent, preservative 08/05/2016 Completed 141 CVX Results SHOULDER MIN 2V LEFT - Compl eted: 11/16/2024 13:53 LOINC: \TM00\\12PI\\DRAo\\BM09\ \MRLo\ [address] [address] ---------NAME--------- NUMBER SEX AGE ADMIT DISC. XRAY# F/C TYPE SILVIA HADDAD [id number] 69 [id number] MB3 O/P DATE OF : 1955 M/R# [id number] PH#: [phone] RM \MRHx\ LOCATION: TRANSCRIBED: 11/16/24 15:32 SHOULDER MIN 2V LEFT 13340 COMPLETED:11/16/24 13:53 JDF [id number] {REASON-SHLR/AC/CLAV: FX FOLLOW UP PHYSICIAN: TALON HOPSON [...] formation. IMPRESSION: 1. Healing scapular fracture. 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 \ITLo\ \UNDo\ \UNDx\ \ITLx\ Reviewed and Electronically Signed by: Fe Cortes MD Signed Date: 11/16/24 15:32 11/16/[email or web address].to RICHTER TERRI via modem Social History Type Status Start Date End Date Code Code Syst em Smoking History Former smoker 9035026 SNOMED CT Sex Male Medications Medication Start Date End Date Route Frequency Dose Code Code System Medication Instructions Home Meds Atorvastatin Calcium 20MG Oral Tablet 08/11/2023 Unknown ORAL ONCE A DAY 20 MILLIGRAMS 627466 RxNorm TAKE 20 MILLIGRAMS ORAL ONCE A DAY Azelastine HCl 205.5MCG/1Act Nasal [place] 08/11/2023 Unknown NASAL ONCE A DAY 1 unit(s) 9793343 RxNorm 1 EACH NASAL ONCE A DAY Calcium Carbonate 500MG Oral Tablet 08/11/2023 Unknown ORAL ONCE A DAY 500 MILLIGRAMS RxNorm TAKE 500 MILLIGRAMS ORAL ONCE A DAY Finasteride 5MG Oral Tablet 08/11/2023 Unknown ORAL ONCE A DAY 5 MILLIGRAMS 195124 RxNorm TAKE 5 MILLIGRAMS ORAL ONCE A DAY Flomax 0.4MG Oral Capsule 08/11/2023 Unknown ORAL ONCE A DAY 0.4 MILLIGRAMS 842628 RxNorm TAKE 0.4 MILLIGRAMS ORAL ONCE A DAY Gabapentin 100MG Oral Capsule 08/11/2023 Unknown ORAL THREE TIMES A DAY 100 MILLIGRAMS 632459 RxNorm TAKE 100 MILLIGRAMS ORAL THREE TIMES A DAY HYDROcodone bitartrate-ac etaminophen 7.5MG-325MG Oral Tablet 08/11/2023 Unknown ORAL TWICE A DAY 1 unit(s) 729484 RxNorm TAKE 1 EACH ORAL TWICE A DAY Ipratropium [place]-Albut indu Sulfate 0.5MG/3ML-3MG /3ML Inhalation Solution 08/11/2023 Unknown INHALATIO N THREE TIMES A DAY 1 unit(s) 5646823 RxNorm 1 EACH INHALATION THREE TIMES A DAY Iron 325MG Oral Tablet 08/11/2023 Unknown ORAL ONCE A DAY 325 MILLIGRAMS 761966 RxNorm TAKE 325 MILLIGRAMS ORAL ONCE A DAY Loratadine 10MG Oral Tablet 08/11/2023 Unknown ORAL ONCE A DAY 10 MILLIGRAMS 097219 RxNorm TAKE 10 MILLIGRAMS ORAL ONCE A DAY Metoprolol Succinate 25MG Oral Tablet, Extended Release 08/11/2023 Unknown ORAL TWICE A DAY 25 MILLIGRAMS 987335 RxNorm TAKE 25 MILLIGRAMS ORAL TWICE A DAY Montelukast Sodium 10MG Oral Tablet 08/11/2023 Unknown ORAL ONCE A DAY 10 MILLIGRAMS 040086 RxNorm TAKE 10 MILLIGRAMS ORAL ONCE A DAY Mupirocin 2% Topical application Cream 08/11/2023 Unknown TOPICAL APPLICATI ON TWICE A DAY 1 unit(s) 741056 RxNorm 1 EACH TOPICAL APPLICATION TWICE A DAY Nystatin/Tria mcinolone Acetonide 144427Q-6PO/1 GM Topical application Ointment 08/11/2023 Unknown TOPICAL APPLICATI ON ONCE A DAY 1 unit(s) 6032138 RxNorm 1 EACH TOPICAL APPLICATION ONCE A DAY Potassium Chloride 10MEQ Oral Capsule, Extended Release 08/11/2023 Unknown ORAL ONCE A DAY 10 MEQ 267496 RxNorm TAKE 10 MEQ ORAL ONCE A DAY RABEprazole Sodium 20MG Oral Tablet, Enteric Coated 08/11/2023 Unknown ORAL ONCE A DAY 20 MILLIGRAMS 407843 RxNorm TAKE 20 MILLIGRAMS ORAL ONCE A DAY Spiriva Respimat 1.25MCG/1ACT Inhalation [place] 08/11/2023 Unknown INHALATIO N 1 unit(s) 8585220 RxNorm 1 EACH INHALATION Symbicort 160/4.5 160MCG-4.5MCG /1 Actu Inhalation Aerosol Liquid 08/11/2023 Unknown INHALATIO N TWICE A DAY 1 unit(s) 4608423 RxNorm 1 EACH INHALATION TWICE A DAY Ras-24 400MG Oral Capsule, Extended Release, 24 HR 08/11/2023 Unknown ORAL ONCE A DAY 400 MILLIGRAMS 655478 RxNorm TAKE 400 MILLIGRAMS ORAL ONCE A DAY Torsemide 20MG Oral Tablet 08/11/2023 Unknown ORAL ONCE A DAY 20 MILLIGRAMS 008995 RxNorm TAKE 20 MILLIGRAMS ORAL ONCE A DAY Ventolin HFA 0.09MG/1Actua tion Inhalation Suspension 08/11/2023 Unknown INHALATIO N ONCE A DAY 1 unit(s) 531795 RxNorm 1 EACH INHALATION ONCE A DAY busPIRone HCl 7.5MG Oral Tablet 08/11/2023 Unknown ORAL THREE TIMES A DAY 7.5 MILLIGRAMS 148346 RxNorm TAKE 7.5 MILLIGRAMS ORAL THREE TIMES [...] Status Co de Code System VANCOMYCIN Active 11953 RxNorm LEVOFLOXACIN Active 14238 RxNorm BACTRIM Active 516619 RxNorm PENICILLIN Active Plan of Treatment I&D Abscess 08/11/2023 Encounters Encounter Diagnosis Start Date Code Code Sys tem Fracture of unspecified part of scapula, left shoulder, subsequent encounter for fracture with routine healing 11/16/2024 SNOMED-CT Personal Care Team Section Performer Name Performer Role Active Date Inactive Pascual Henderson PCP - Primary care physician Imaging Narrative Notes [facility] 11/16/2024 15:35 [facility] [address] [place] [address] ---------NAME--------- NUMBER SEX AGE ADMIT DISC. XRAY# F/C TYPE VEGA MILAGRO HADDAD [id number] M 69 [id number] MB3 O/P DATE OF : 1955 M/R# [id number] #: [id number] LOCATION: TRANSCRIBED: 11/16/24 15:32 SHOULDER MIN 2V LEFT 65670 COMPLETED:11/16/24 13:53 [facility] [address] {REASON-SHLR/AC/CLAV: FX FOLLOW UP PHYSICIAN: TALON HOPSON [...] formation. IMPRESSION: 1. Healing scapular fracture. 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 Reviewed and Electronically Signed by: Fe Cortes MD Signed Date: 11/16/24 15:32 11/16/24.1535.JDF.to NEELAM MURRAY via modem
--- OUTSIDE RECORDS SUMMARY | 2025-05-17 14:12 | XMS_ITS ---
Author Organization Unknown Address [address] [place] [address] [phone] Phone Care Team Providers Care Activities Officer Name Role Phone TALON SCRUGGSEN Attending Unavailable NEELAM LEVI Primary Unavailable Immunization Immunization Date Status Additional Notes Code Code System pneumococcal polysaccharide PPV23 10/31/2012 Completed 33 CVX Influenza, split virus, trivalent, preservative 08/05/2016 Completed 141 CVX Social History Type Status Start Date End Date Code Code Syst em Smoking History Former smoker 5895173 SNOMED CT Sex Male Medications Medication Start Date End Date Route Frequency Dose Code Code System Medication Instructions Home Meds Atorvastatin Calcium 20MG Oral Tablet 08/11/2023 Unknown ORAL ONCE A DAY 20 MILLIGRAMS 293095 RxNorm TAKE 20 MILLIGRAMS ORAL ONCE A DAY Azelastine HCl 205.5MCG/1Act Nasal [place] 08/11/2023 Unknown NASAL ONCE A DAY 1 unit(s) 0417662 RxNorm 1 EACH NASAL ONCE A DAY Calcium Carbonate 500MG Oral Tablet 08/11/2023 Unknown ORAL ONCE A DAY 500 MILLIGRAMS RxNorm TAKE 500 MILLIGRAMS ORAL ONCE A DAY Finasteride 5MG Oral Tablet 08/11/2023 Unknown ORAL ONCE A DAY 5 MILLIGRAMS 183123 RxNorm TAKE 5 MILLIGRAMS ORAL ONCE A DAY Flomax 0.4MG Oral Capsule 08/11/2023 Unknown ORAL ONCE A DAY 0.4 MILLIGRAMS 034530 RxNorm TAKE 0.4 MILLIGRAMS ORAL ONCE A DAY Gabapentin 100MG Oral Capsule 08/11/2023 Unknown ORAL THREE TIMES A DAY 100 MILLIGRAMS 817897 RxNorm TAKE 100 MILLIGRAMS ORAL THREE TIMES A DAY HYDROcodone bitartrate-ac etaminophen 7.5MG-325MG Oral Tablet 08/11/2023 Unknown ORAL TWICE A DAY 1 unit(s) 432142 RxNorm TAKE 1 EACH ORAL TWICE A DAY Ipratropium [place]-Albut indu Sulfate 0.5MG/3ML-3MG /3ML Inhalation Solution 08/11/2023 Unknown INHALATIO N THREE TIMES A DAY 1 unit(s) 5193549 RxNorm 1 EACH INHALATION THREE TIMES A DAY Iron 325MG Oral Tablet 08/11/2023 Unknown ORAL ONCE A DAY 325 MILLIGRAMS 182358 RxNorm TAKE 325 MILLIGRAMS ORAL ONCE A DAY Loratadine 10MG Oral Tablet 08/11/2023 Unknown ORAL ONCE A DAY 10 MILLIGRAMS 522014 RxNorm TAKE 10 MILLIGRAMS ORAL ONCE A DAY Metoprolol Succinate 25MG Oral Tablet, Extended Release 08/11/2023 Unknown ORAL TWICE A DAY 25 MILLIGRAMS 757570 RxNorm TAKE 25 MILLIGRAMS ORAL TWICE A DAY Montelukast Sodium 10MG Oral Tablet 08/11/2023 Unknown ORAL ONCE A DAY 10 MILLIGRAMS 130372 RxNorm TAKE 10 MILLIGRAMS ORAL ONCE A DAY Mupirocin 2% Topical application Cream 08/11/2023 Unknown TOPICAL APPLICATI ON TWICE A DAY 1 unit(s) 577240 RxNorm 1 EACH TOPICAL APPLICATION TWICE A DAY Nystatin/Tria mcinolone Acetonide 591355W-4TJ/1 GM Topical application Ointment 08/11/2023 Unknown TOPICAL APPLICATI ON ONCE A DAY 1 unit(s) 7167621 RxNorm 1 EACH TOPICAL APPLICATION ONCE A DAY Potassium Chloride 10MEQ Oral Capsule, Extended Release 08/11/2023 Unknown ORAL ONCE A DAY 10 MEQ 214791 RxNorm TAKE 10 MEQ ORAL ONCE A DAY RABEprazole Sodium 20MG Oral Tablet, Enteric Coated 08/11/2023 Unknown ORAL ONCE A DAY 20 MILLIGRAMS 267015 RxNorm TAKE 20 MILLIGRAMS ORAL ONCE A DAY Spiriva Respimat 1.25MCG/1ACT Inhalation [place] 08/11/2023 Unknown INHALATIO N 1 unit(s) 7415401 RxNorm 1 EACH INHALATION Symbicort 160/4.5 160MCG-4.5MCG /1 Actu Inhalation Aerosol Liquid 08/11/2023 Unknown INHALATIO N TWICE A DAY 1 unit(s) 2216221 RxNorm 1 EACH INHALATION TWICE A DAY Ras-24 400MG Oral Capsule, Extended Release, 24 HR 08/11/2023 Unknown ORAL ONCE A DAY 400 MILLIGRAMS 329885 RxNorm TAKE 400 MILLIGRAMS ORAL ONCE A DAY Torsemide 20MG Oral Tablet 08/11/2023 Unknown ORAL ONCE A DAY 20 MILLIGRAMS 419710 RxNorm TAKE 20 MILLIGRAMS ORAL ONCE A DAY Ventolin HFA 0.09MG/1Actua tion Inhalation Suspension 08/11/2023 Unknown INHALATIO N ONCE A DAY 1 unit(s) 629866 RxNorm 1 EACH INHALATION ONCE A DAY busPIRone HCl 7.5MG Oral Tablet 08/11/2023 Unknown ORAL THREE TIMES A DAY 7.5 MILLIGRAMS 947266 RxNorm TAKE 7.5 MILLIGRAMS ORAL THREE TIMES [...] Status Co de Code System VANCOMYCIN Active 76688 RxNorm LEVOFLOXACIN Active 47502 RxNorm BACTRIM Active 922041 RxNorm PENICILLIN Active Plan of Treatment I&D Abscess 08/11/2023 Encounters Encounter Diagnosis Start Date Code Code Sys tem Fracture of unspecified part of scapula, unspecified shoulder, initial encounter for closed fracture 11/07/2024 SNOMED-CT Personal Care Team Section Performer Name Performer Role Active Date Inactive Pascual Henderson PCP - Primary care physician
--- OUTSIDE RECORDS SUMMARY | 2025-05-17 14:12 | XMS_ITS | Encounter Summary ---
Author Organization [facility] Address Formerly [facility] [place] [address] Care Team Providers Care Can Maker Name Role Phone Robbin Arteaga MD Unavailable [phone] Ruthie Etienne NP Primary Care Provider [phone]- [phone] Prerna William MD Primary Care Provider [phone]- [phone] Arian Guzman MD Unavailable [phone] Lianne SCHULTZ MD, Courtney Unavailable [phone] Encounter Details Date Type Department Care Team (Late st Contact Info) Description 07/15/2021 Abstract [facility] [address] [place] [address] Robbin Arteaga MD [address] [place] [address] Social History Tobacco Use Types [...] Sex Assigned at Male 11/15/2024 12:31 PM TOWER OPERATOR Legal Sex Male 10:09 PM CDT [...] Rule Out 09/18/2024 09/18/2024 09/18/2024 10:54 AM TOWER OPERATOR documented as of this encounter Care Teams Can Maker Relationship Specialty Start Date End Date Ruthie Etienne NP [address] [place] [phone] PCP - General Nurse Practitioner [facility] 09/10/20 04/25/24 [place] [address] [place] [phone] PCP - General INTERNAL MEDICINE 04/26/24 Robbin Arteaga MD [address] [place] [phone] [facility] Signing Teacher CARDIOVASCULAR DISEASE 07/07/16 Arian Guzman MD [address] [facility] [address] [address] DERMATOLOGY 11/28/24 11/28/25 Malgorzata Abdalla III, MD [address] [place] [address] Consulting Physician UROLOGY 01/31/25 01/31/26 documented as of this encounter
--- OUTSIDE RECORDS SUMMARY | 2025-05-17 14:12 | XMS_ITS | Encounter Summary ---
Author Organization [facility] Address [facility] [place] [address] Care Team Providers Care Refrigerator Assembler Name Role Phone Robbin Arteaga MD Unavailable [phone] Gabriel Fulton MD Primary Care Provider [phone] None, Provider Primary Care Provider Unavaila Ruthie Ly NP Primary Care Provider + [phone] Prerna William MD Primary Care Provider + [phone] Arian Guzman MD Unavailable [phone] Lianne SCHULTZ MD, Malgorzata Unavailable [phone] Encounter Details Date Type Department Care Team (Late st Contact Info) Description 04/07/2019 Abstract [facility] [address] [place] [address] , Generic Conversion, Social History [...] Sex Assigned at Male 11/15/2024 12:31 PM DOMESTIC HELPER Legal Sex Male 10:09 PM CDT Gender [...] Rule Out 11/12/2020 11/12/2020 11/14/2020 8:01 AM DOMESTIC HELPER COVID-19 Rule Out 04/19/2022 04/19/2022 04/19/2022 3:19 PM CDT COVID-19 Rule Out 05/15/2022 05/15/2022 05/15/2022 5:56 PM CDT COVID-19 Rule Out 04/25/2024 04/25/2024 04/25/2024 11:23 AM CDT COVID-19 Rule Out 09/18/2024 09/18/2024 09/18/2024 10:54 AM DOMESTIC HELPER documented as of this encounter Care Teams Refrigerator Assembler Relationship Specialty Start Date End Date Gabriel Fulton MD [address] [place] [phone] PCP - General FAMILY PRACTICE 12/09/17 04/25/19 Harish Norris MD PCP - General 06/03/20 09/09/20 Ruthie Etienne NP PCP - General Nurse Practitioner Family 09/10/20 04/25/24 [place] [address] [place] [address] PCP - General INTERNAL MEDICINE 04/26/24 Robbin Arteaga MD [address] [place] [address] [place] Joy Operator Helper CARDIOVASCULAR DISEASE 07/07/16 Arian Guzman MD [address] [place] [address] [address] [address] DERMATOLOGY 11/28/24 11/28/25 Malgorzata Abdalla III, MD [address] [facility] [place] [address] Consulting Physician UROLOGY 01/31/25 01/31/26 documented as of this encounter
--- OUTSIDE RECORDS SUMMARY | 2025-05-17 14:12 | XMS_ITS ---
Author Organization Unknown Address [address] [place] [phone] Phone Care Team Providers Care Agriculture Technician Name Role Phone JUS TAMIKO Attending Unavailable NEELAM LEVI Primary Unavailable Immunization Immunization Date Status Additional Notes Code Code System pneumococcal polysaccharide PPV23 10/31/2012 Completed 33 CVX Influenza, split virus, trivalent, preservative 08/05/2016 Completed 141 CVX Results H & H - Collect Date/Time: 0 05/13/2025 19:59 [facility] ID: [id number] [address] [place] [address], [id number] LOINC: 86936-4 Test Value Unit Reference Range Code Code System Flag HEMOGLOBIN 8.9 g/dL L=14.0 H=18.0 718-7 LOINC L HEMATOCRIT 29.1 VOL% L=42.0 H=52.0 4544-3 LOINC L URINALYSIS w/Microscopy/C&S if indicated - Collect Date/Time: 05/13/2025 19:17 [facility] ID: [id number] [address] [place] [address], [id number] LOINC: 11432-8 Test Value Unit Reference Range Code Code System Flag UR SOURCE VOIDED 76952-2 LOINC COLOR RED YELLOW 5778-6 LOINC A CLARITY TURBID CLEAR 27758-9 LOINC A SPEC GRAVITY 1.020 1.000-1.030 5811-5 LOINC PH 7.0 5.0 - 6.5 5803-2 LOINC LEUK EST TRACE NEGATIVE 5799-2 LOINC A NITRATE NEGATIVE NEGATIVE PROTEIN 3+ NEGATIVE 5804-0 LOINC A GLUCOSE NEGATIVE NEGATIVE 56782-3 LOINC KETONES NEGATIVE NEGATIVE 47389-4 LOINC UROBILINOGEN 0.2 0.2 - 1.0 5818-0 LOINC BILIRUBIN NEGATIVE NEGATIVE 12568-2 LOINC BLOOD 3+ NEGATIVE 91083-2 LOINC WBC 5-10 0 - 2 13693-5 LOINC A RBC TNTC 0 - 2 57963-9 LOINC A SQ EPITHELIAL OCCASIONAL RARE-FEW BACTERIA 1+ NONE SEEN 95028-3 LOINC MUCUS NONE SEEN NONE SEEN 8247-9 LOINC YEAST NOT PRESENT NOT PRESENT 43396-3 LOINC TRICHOMONAS NOT PRESENT NOT PRESENT 20922-9 LOINC SPERMATOZOA NOT PRESENT NOT PRESENT 84985-8 LOINC CASTS NOT PRESENT 85140-0 LOINC CRYSTALS NOT PRESENT 40734-6 LOINC CULTURE? NO 8251-1 LOINC DIAGNOSIS N/A PROTIME - Collect Date/Time: 05/13/2025 17:47 [facility] ID: [id number] [address] [place], [place], [id number] LOINC: 29397-5 Test Value Unit Reference Range Code Code System Flag PT 11.1 Sec L=9.6 H=11.5 28636-3 LOINC INR 1.1 Sec L=0.9 H=1.1 32771-2 LOINC CBC W/ DIFF - Collect Date/T shannon: 05/13/2025 17:47 [facility] ID: [id number] [address] [place] [address], [phone] LOINC: 77562-5 Test Value Unit Reference Range Code Code System Flag WBC 6.4 10^3uL L=4.8 H=10.8 RBC 3.67 10^6uL L=4.60 H=6.20 L HEMOGLOBIN 9.0 g/dL L=14.0 H=18.0 718-7 LOINC L HEMATOCRIT 30.0 VOL% L=42.0 H=52.0 4544-3 LOINC L MCV 81.7 fL L=80.0 H=94.0 MCH 24.5 pg L=27.0 H=32.0 L MCHC 30.0 g/dL L=32.0 H=36.0 L PLATELETS 82 10^3uL L=100 H=400 35427-2 LOINC L RDW 18.5 % L=11.7 H=15.5 H %GRAN 82.7 % L=40.0 H=70.0 23336-5 LOINC H %LYMPH 9.7 % L=20.0 H=45.0 736-9 LOINC L %MONO 5.9 % L=2.0 H=10.0 84650-9 LOINC %EOS 0.8 % L=0.0 H=6.0 713-8 LOINC %BASO 0.3 % L=0.0 H=3.0 706-2 LOINC #NEUT 5.3 10^3uL L=1.9 H=7.6 14855-2 LOINC #LYMPH 0.6 10^3uL L=0.9 H=4.9 39427-2 LOINC L #MONO 0.4 10^3uL L=0.1 H=0.9 70752-0 LOINC #EOS 0.1 10^3uL L=0.0 H=0.6 712-0 LOINC #BASO 0.02 10^3uL L=0.00 H=0.10 22969-3 LOINC #IM GRANS 0.0 10^3uL L=0.0 H=7.0 26575-0 LOINC %IM GRANS 0.6 % L=0.0 H=5.0 80472-2 LOINC %NRB 0.0 L=0.0 H=0.2 71491-3 LOINC #NRB 0.000 L=0.000 H=0.012 83405-5 LOINC MANUAL DIFF NOT INDICATED RBC MORPH NOT INDICATED COMPREHENSIVE METABOLIC PANE L - Collect Date/Time: 05/13/2025 17:47 [facility] ID: [id number] [address] [place], [phone] LOINC: 09829-0 Test Value Unit Reference Range Code Code [...] 2028-9 LOINC ANION GAP 13 L=10 H=20 57435-4 LOINC OSMOLALITY 294 mOs/kG L=280 H=296 31350-5 LOINC BUN/CREAT 16.5 3097-3 LOINC CALCIUM 8.9 mg/dL L=8.3 H=10.5 89679-9 LOINC AST 48 U/L L=15 H=46 1920-8 LOINC H ALT 44 U/L L=9 H=72 1742-6 LOINC ALKALINE PHOS 119 U/L L=38 H=126 6768-6 LOINC TOTAL BILI 0.5 mg/dL L=0.2 H=1.3 1975-2 LOINC ALBUMIN 3.6 G/dL L=3.5 H=5.0 1751-7 LOINC TOTAL PROTEIN 7.6 g/L L=6.3 H=8.2 2885-2 LOINC A/G RATIO 0.9 81065-8 LOINC AGE 70 61499-7 LOINC eGFR NON-AFR 30 ml/min eGFR AFR AMER 36 ml/min LACTIC ACID - Collect Date/T shannon: 05/13/2025 17:47 [facility] ID: [id number] [address] [place] [address], [id number] LOINC: 83294-8 Test Value Unit Reference Range Code Code System Flag LACTIC ACID 1.2 mmol/L L=0.7 H=2.6 60388-8 LOINC PROCALCITONIN - Collect Date /Time: 05/13/2025 17:47 [facility] ID: [id number] [address] [place] [address], [id number] LOINC: 16940-4 Test Value Unit Reference Range Code Code System Flag PROCALCITONIN 0.28 ng/mL L=0.00 H=0.08 H PRO BNP - Collect Date/Time: 05/13/2025 17:47 [facility] ID: [id number] [address] [place] [address], [id number] LOINC: 22900-6 Test Value Unit Reference Range Code Code System Flag Pro BNP2 166 pg/mL L=0 H=900 12288-6 LOINC PTT - Collect Date/Time: 17:47 [facility] ID: [id number] [address] [place] [address], [id number] LOINC: 35844-8 Test Value Unit Reference Range Code Code System Flag PTT 31.9 Sec L=22.7 H=30.[address] ABD/PEL WO CONTRAST - Com pleted: 05/13/2025 18:02 LOINC: 55577-7 \TM00\\12PI\\DRAo\\BM09\ \MRHo\ [address] [address] ---------NAME--------- NUMBER SEX AGE ADMIT DISC. XRAY# F/C TYPE SILVIA HADDAD [id number] M 70 05/13/25 67659 MB3 E.R. DATE OF : 1955 M/R# [id number] #: [id number] ED-34 \MRx\ LOCATION: TRANSCRIBED: 05/13/25 17:57 CT ABD/PEL WO CONTRAST 87135 COMPLETED: 30047 abdominal pain PHYSICIAN: JUS HOWARD R A [...] Perirenal stranding along the colonic gutters HS:Y PER BEATER \ITLo\ \UNDo\ \UNDx\ \ITLx\ Reviewed and Electronically Signed by: LINDA SAMPSON Signed Date: SIGNDATE Social History Type Status Start Date End Date Code Code Syst em Smoking History Former smoker 1336580 SNOMED CT Sex Male Medications Medication Start Date End Date Route Frequency Dose Code Code System Medication Instructions Home Meds Atorvastatin Calcium 20MG Oral Tablet 08/11/2023 Unknown ORAL ONCE A DAY 20 MILLIGRAMS 127585 RxNorm TAKE 20 MILLIGRAMS ORAL ONCE A DAY Azelastine HCl 205.5MCG/1Act Nasal [place] 08/11/2023 Unknown NASAL ONCE A DAY 1 unit(s) 9596964 RxNorm 1 EACH NASAL ONCE A DAY Calcium Carbonate 500MG Oral Tablet 08/11/2023 Unknown ORAL ONCE A DAY 500 MILLIGRAMS RxNorm TAKE 500 MILLIGRAMS ORAL ONCE A DAY Finasteride 5MG Oral Tablet 08/11/2023 Unknown ORAL ONCE A DAY 5 MILLIGRAMS 307592 RxNorm TAKE 5 MILLIGRAMS ORAL ONCE A DAY Flomax 0.4MG Oral Capsule 08/11/2023 Unknown ORAL ONCE A DAY 0.4 MILLIGRAMS 856653 RxNorm TAKE 0.4 MILLIGRAMS ORAL ONCE A DAY Gabapentin 100MG Oral Capsule 08/11/2023 Unknown ORAL THREE TIMES A DAY 100 MILLIGRAMS 262053 RxNorm TAKE 100 MILLIGRAMS ORAL THREE TIMES A DAY HYDROcodone bitartrate-ac etaminophen 7.5MG-325MG Oral Tablet 08/11/2023 Unknown ORAL TWICE A DAY 1 unit(s) 931346 RxNorm TAKE 1 EACH ORAL TWICE A DAY Ipratropium [place]-Albut indu Sulfate 0.5MG/3ML-3MG /3ML Inhalation Solution 08/11/2023 Unknown INHALATIO N THREE TIMES A DAY 1 unit(s) 0569977 RxNorm 1 EACH INHALATION THREE TIMES A DAY Iron 325MG Oral Tablet 08/11/2023 Unknown ORAL ONCE A DAY 325 MILLIGRAMS 595116 RxNorm TAKE 325 MILLIGRAMS ORAL ONCE A DAY Loratadine 10MG Oral Tablet 08/11/2023 Unknown ORAL ONCE A DAY 10 MILLIGRAMS 435068 RxNorm TAKE 10 MILLIGRAMS ORAL ONCE A DAY Metoprolol Succinate 25MG Oral Tablet, Extended Release 08/11/2023 Unknown ORAL TWICE A DAY 25 MILLIGRAMS 378469 RxNorm TAKE 25 MILLIGRAMS ORAL TWICE A DAY Montelukast Sodium 10MG Oral Tablet 08/11/2023 Unknown ORAL ONCE A DAY 10 MILLIGRAMS 228452 RxNorm TAKE 10 MILLIGRAMS ORAL ONCE A DAY Mupirocin 2% Topical application Cream 08/11/2023 Unknown TOPICAL APPLICATI ON TWICE A DAY 1 unit(s) 864837 RxNorm 1 EACH TOPICAL APPLICATION TWICE A DAY Nystatin/Tria mcinolone Acetonide 070947W-6KA/1 GM Topical application Ointment 08/11/2023 Unknown TOPICAL APPLICATI ON ONCE A DAY 1 unit(s) 5425285 RxNorm 1 EACH TOPICAL APPLICATION ONCE A DAY Potassium Chloride 10MEQ Oral Capsule, Extended Release 08/11/2023 Unknown ORAL ONCE A DAY 10 MEQ 961305 RxNorm TAKE 10 MEQ ORAL ONCE A DAY RABEprazole Sodium 20MG Oral Tablet, Enteric Coated 08/11/2023 Unknown ORAL ONCE A DAY 20 MILLIGRAMS 240073 RxNorm TAKE 20 MILLIGRAMS ORAL ONCE A DAY Spiriva Respimat 1.25MCG/1ACT Inhalation [place] 08/11/2023 Unknown INHALATIO N 1 unit(s) 8252829 RxNorm 1 EACH INHALATION Symbicort 160/4.5 160MCG-4.5MCG /1 Actu Inhalation Aerosol Liquid 08/11/2023 Unknown INHALATIO N TWICE A DAY 1 unit(s) 6218875 RxNorm 1 EACH INHALATION TWICE A DAY Ras-24 400MG Oral Capsule, Extended Release, 24 HR 08/11/2023 Unknown ORAL ONCE A DAY 400 MILLIGRAMS 966084 RxNorm TAKE 400 MILLIGRAMS ORAL ONCE A DAY Torsemide 20MG Oral Tablet 08/11/2023 Unknown ORAL ONCE A DAY 20 MILLIGRAMS 363562 RxNorm TAKE 20 MILLIGRAMS ORAL ONCE A DAY Ventolin HFA 0.09MG/1Actua tion Inhalation Suspension 08/11/2023 Unknown INHALATIO N ONCE A DAY 1 unit(s) 187974 RxNorm 1 EACH INHALATION ONCE A DAY busPIRone HCl 7.5MG Oral Tablet 08/11/2023 Unknown ORAL THREE TIMES A DAY 7.5 MILLIGRAMS 077925 RxNorm TAKE 7.5 MILLIGRAMS ORAL THREE TIMES [...] Status Co de Code System VANCOMYCIN Active 97683 RxNorm LEVOFLOXACIN Active 27624 RxNorm BACTRIM Active 037648 RxNorm PENICILLIN Active Plan of Treatment I&D Abscess 08/11/2023 Encounters Encounter Diagnosis Start Date Code Code Sys tem Gross hematuria 05/13/2025 SNOMED-CT Personal Care Team Section Performer Name Performer Role Active Date Inactive Pascual Henderson PCP - Primary care physician Imaging Narrative Notes [facility] 05/13/2025 18:[address] [address] ---------NAME--------- NUMBER SEX AGE ADMIT DISC. XRAY# F/C TYPE SILVIA HADDAD [id number] M 70 05/[birth year]/25 12214 MB3 E.R. DATE OF : 1955 M/R# [id number] #: [id number] ED-34 LOCATION: TRANSCRIBED: 05/13/25 17:57 CT ABD/PEL WO CONTRAST 46344 COMPLETED: 44864 abdominal pain PHYSICIAN: JUS HOWARD RADIOLOGY REPORT Exam: CT ABD/PEL WO CONTRAST [...] Perirenal stranding along the colonic gutters HS:Y PER BEATER Reviewed and Electronically Signed by: LINDA SAMPSON Signed Date: SIGNDATE
--- OUTSIDE RECORDS SUMMARY | 2025-05-17 14:12 | XMS_ITS ---
Author Organization Unknown Address [address] [place] [phone] Phone Care Team Providers Care Engraver Seals Name Role Phone TALON SCRUGGSEN Attending Unavailable NEELAM LEVI Primary Unavailable Immunization Immunization Date Status Additional Notes Code Code System pneumococcal polysaccharide PPV23 10/31/2012 Completed 33 CVX Influenza, split virus, trivalent, preservative 08/05/2016 Completed 141 CVX Social History Type Status Start Date End Date Code Code Syst em Smoking History Former smoker 8305103 SNOMED CT Sex Male Medications Medication Start Date End Date Route Frequency Dose Code Code System Medication Instructions Home Meds Atorvastatin Calcium 20MG Oral Tablet 08/11/2023 Unknown ORAL ONCE A DAY 20 MILLIGRAMS 877939 RxNorm TAKE 20 MILLIGRAMS ORAL ONCE A DAY Azelastine HCl 205.5MCG/1Act Nasal [place] 08/11/2023 Unknown NASAL ONCE A DAY 1 unit(s) 3990556 RxNorm 1 EACH NASAL ONCE A DAY Calcium Carbonate 500MG Oral Tablet 08/11/2023 Unknown ORAL ONCE A DAY 500 MILLIGRAMS RxNorm TAKE 500 MILLIGRAMS ORAL ONCE A DAY Finasteride 5MG Oral Tablet 08/11/2023 Unknown ORAL ONCE A DAY 5 MILLIGRAMS 918401 RxNorm TAKE 5 MILLIGRAMS ORAL ONCE A DAY Flomax 0.4MG Oral Capsule 08/11/2023 Unknown ORAL ONCE A DAY 0.4 MILLIGRAMS 800129 RxNorm TAKE 0.4 MILLIGRAMS ORAL ONCE A DAY Gabapentin 100MG Oral Capsule 08/11/2023 Unknown ORAL THREE TIMES A DAY 100 MILLIGRAMS 303530 RxNorm TAKE 100 MILLIGRAMS ORAL THREE TIMES A DAY HYDROcodone bitartrate-ac etaminophen 7.5MG-325MG Oral Tablet 08/11/2023 Unknown ORAL TWICE A DAY 1 unit(s) 060723 RxNorm TAKE 1 EACH ORAL TWICE A DAY Ipratropium [place]-Albut indu Sulfate 0.5MG/3ML-3MG /3ML Inhalation Solution 08/11/2023 Unknown INHALATIO N THREE TIMES A DAY 1 unit(s) 6477545 RxNorm 1 EACH INHALATION THREE TIMES A DAY Iron 325MG Oral Tablet 08/11/2023 Unknown ORAL ONCE A DAY 325 MILLIGRAMS 784890 RxNorm TAKE 325 MILLIGRAMS ORAL ONCE A DAY Loratadine 10MG Oral Tablet 08/11/2023 Unknown ORAL ONCE A DAY 10 MILLIGRAMS 724731 RxNorm TAKE 10 MILLIGRAMS ORAL ONCE A DAY Metoprolol Succinate 25MG Oral Tablet, Extended Release 08/11/2023 Unknown ORAL TWICE A DAY 25 MILLIGRAMS 825020 RxNorm TAKE 25 MILLIGRAMS ORAL TWICE A DAY Montelukast Sodium 10MG Oral Tablet 08/11/2023 Unknown ORAL ONCE A DAY 10 MILLIGRAMS 432523 RxNorm TAKE 10 MILLIGRAMS ORAL ONCE A DAY Mupirocin 2% Topical application Cream 08/11/2023 Unknown TOPICAL APPLICATI ON TWICE A DAY 1 unit(s) 547601 RxNorm 1 EACH TOPICAL APPLICATION TWICE A DAY Nystatin/Tria mcinolone Acetonide 395819G-8RD/1 GM Topical application Ointment 08/11/2023 Unknown TOPICAL APPLICATI ON ONCE A DAY 1 unit(s) 9974149 RxNorm 1 EACH TOPICAL APPLICATION ONCE A DAY Potassium Chloride 10MEQ Oral Capsule, Extended Release 08/11/2023 Unknown ORAL ONCE A DAY 10 MEQ 410802 RxNorm TAKE 10 MEQ ORAL ONCE A DAY RABEprazole Sodium 20MG Oral Tablet, Enteric Coated 08/11/2023 Unknown ORAL ONCE A DAY 20 MILLIGRAMS 747105 RxNorm TAKE 20 MILLIGRAMS ORAL ONCE A DAY Spiriva Respimat 1.25MCG/1ACT Inhalation [place] 08/11/2023 Unknown INHALATIO N 1 unit(s) 5393300 RxNorm 1 EACH INHALATION Symbicort 160/4.5 160MCG-4.5MCG /1 Actu Inhalation Aerosol Liquid 08/11/2023 Unknown INHALATIO N TWICE A DAY 1 unit(s) 4005680 RxNorm 1 EACH INHALATION TWICE A DAY Ras-24 400MG Oral Capsule, Extended Release, 24 HR 08/11/2023 Unknown ORAL ONCE A DAY 400 MILLIGRAMS 526693 RxNorm TAKE 400 MILLIGRAMS ORAL ONCE A DAY Torsemide 20MG Oral Tablet 08/11/2023 Unknown ORAL ONCE A DAY 20 MILLIGRAMS 359906 RxNorm TAKE 20 MILLIGRAMS ORAL ONCE A DAY Ventolin HFA 0.09MG/1Actua tion Inhalation Suspension 08/11/2023 Unknown INHALATIO N ONCE A DAY 1 unit(s) 690692 RxNorm 1 EACH INHALATION ONCE A DAY busPIRone HCl 7.5MG Oral Tablet 08/11/2023 Unknown ORAL THREE TIMES A DAY 7.5 MILLIGRAMS [id number] RxNorm TAKE 7.5 MILLIGRAMS ORAL THREE TIMES [...] Status Co de Code System VANCOMYCIN Active 26494 RxNorm LEVOFLOXACIN Active 16595 RxNorm BACTRIM Active 667408 RxNorm PENICILLIN Active Plan of Treatment I&D Abscess 08/11/2023 Encounters Encounter Diagnosis Start Date Code Code Sys tem Primary osteoarthritis, right shoulder 04/26/2025 SNOMED-CT Personal Care Team Section Performer Name Performer Role Active Date Inactive Pascual Henderson PCP - Primary care physician
--- OUTSIDE RECORDS SUMMARY | 2025-05-17 14:13 | XMS_ITS | Encounter Summary ---
Author Organization [facility] Address [address] [place] [address] Care Team Providers Care Sales Record Clerk Name Role Phone None, Physician Primary Care Provider Unavailabl e Reason for Referral * Home Connections (Routine) - Pending Review Specialty Diagnoses / Procedures Referred By Contac t Referred To Contact Home Health Services Diagnoses [place] [address] [place] [address] Phone: tel: fax: [facility] at Home Scheduling [address] [place] [address] Phone: tel: Referral ID Status Reason Start Date Expiration Date Visits Requested Visits Authorized [id number] Pending Review Specialty Services Required 05/17/2025 05/17/2026 999 999 * Home Health Care (Routine) - Pending Review Specialty Diagnoses / Procedures Referred By Contac t Referred To Contact Diagnoses [place] [address] [place] [address] Phone: tel: fax: Referral ID Status Reason Start Date Expiration Date Visits Requested Visits Authorized [id number] Pending Review Specialty Services Required 05/16/2025 05/16/2026 999 999 * (Routine) - Open Specialty Diagnoses / Procedures Referred By Contac t Referred To Contact Procedures [place] [address] [facility] [place] [address] Phone: tel: [place]: [place] [address] [place] [address] Phone: tel: fax: Referral ID Status Reason Start Date Expiration Date Visits Re quested Visits Authorized [id number] Open 05/15/2025 05/15/2026 1 1 Reason for Visit * Auth/Cert (Routine) Specialty Diagnoses / Procedures Referred By Zuleyka t Referred To Contact Diagnoses hematuria Referral ID Status Reason Start Date Expiration Date Visits Re quested Visits Authorized [id number] 1 1 Encounter Details Date Type Department Care Team (Latest Contact Info) Description 05/13/2025 11:56 PM CDT - 05/17/2025 10:52 AM CDT Hospital Encounter [facility] 2S SURG/BARIATRIC [id number] [place] [address] [place] [address] [place] [address] [place] [address] [place] [address] [place], [place] [id number] [place] [address] [place] [address] Hospitalist Discharge Disposition: Home or Self [...] and heating? Not hard at all 05/14/2025 [facility]at ional Health - Occupational Stress [...] any time in the past 12 m [facility], were you homeless or living in a senior living (including now)? No 05/14/2025 Sex and Gender [...] resected and sent for pathology. Clot evacuated, Ray catheter placed. He was eager for discharge to home, agreed to follow up with urology for biopsy results on 05-21. Ray removed for voiding trial 05-16 but replaced. Discharge delayed until 05-17 when patient's telephone lineworker would be available at home. Home health for longterm was ordered but couldnot be set up [...] by mouth once daily for 2 [facility] cefdinir 300 MG capsule Commonly known as: Omnicef Quantity Dispensed: 4 capsule Take 1 (one) capsule by mouth every 12 hours for 2 days Tito [facility] II, DO oxyCODONE-acetaminophen 7.5-325 MG tablet Commonly known as: Percocet Quantity Dispensed: 18 tablet Take 1 (one) tablet by mouth every 4 hours as needed [facility], DO tamsulosin 0.4 MG capsule Commonly [...] from Discharge Annika Pringle MD Specialty: Urology [address] [facility] [facility] [address] Next Steps: Follow up Follow Up Instructions [...] at 1 pm The office number is [phone] [place] [address] [address] [place] [address] documented in this encounter Medications at Time [...] Plan: Pt will DC home today with [facility] pending, no accepting agencies at this time. CM placed order for Home Connections in the event pt does not have HHC at [place] to assist with medications. Referrals initiated: Continued Care and Services - Admitted Since 05/13/2025 Home Medical Care Service Provider Request Status Services Address Phone Fax Patient Preferred [facility] Pending - Request Sent -- [address] [facility] [address] -- [employer] [facility] Pending - Request Sent -- [address], [address], [place] [address] [phone] -- [facility] Pending - Request Sent -- [address] [facility], [facility] [address] [phone] -- Current Capacity last updated by Saray Clay on 05/05/2022 [address] [place], [place] [facility] Pending - Request Sent -- [address] [facility] [address] [phone] -- [facility] Pending - Request Sent -- [address] [facility], [address], [facility] [address] [phone] -- [employer] [facility] [employer] Pending - Request Sent -- [address] [facility] [address] [phone] -- [facility] Pending - Request Sent -- [address] [facility] [address] -- [facility] Pending - Request Sent -- [address] [phone] -- [facility] [place] Pending - Request Sent -- [address] [facility] [address], [facility] [address] -- [facility] Pending - Request Sent -- [address], [facility] [address] -- [facility] Declined No contract with patient's insurance carrier -- [address] [facility], [address] [address] [phone] -- [facility] Declined Inadequate staffing -- [address] [facility] [phone] -- [facility] Declined Out of service area -- [address] [place] [id number] -- [facility] Declined Out of service area -- [address] [place] [address] [phone] -- Family Support (Name and Phone): Extended Emergency Contact Information Primary Emergency Contact: DARIO TORRES Relation: Son Steersman needed? No Transportation at Discharge: other (Private Transport vs Family): READMISSION RISK SCORE is 10 at 8:07 AM 05/17/2025.: Name: Benedicto Ozuna RN CM [phone] * Emelina Figueredo RN - 05/17/2025 7:45 AM CDT Pt has yelled out throughout the shift boss, no matter the actions taken by staff. [...] For any questions or needs please contact [facility] at Home- Central Intake at please [...] Status Services Address Phone Fax Patient Preferred [facility] Pending - Request Sent -- [address] [facility] [phone] -- [facility] Pending - Request Sent -- [address] [facility] [phone] -- [employer] [facility] Pending - Request Sent -- [address] [facility] [facility], [address], [place] [address] [phone] -- [facility] (HOME HEALTH) Pending - Request Sent -- [address] [facility], [address], [facility] [address] [phone] -- Current Capacity last updated by Saray Clay on 05/05/2022 [address] [place], [place] [facility] Pending - Request Sent -- [address] [facility] [address] [phone] -- [facility] Pending - Request Sent -- [address] [phone] -- [facility] Pending - Request Sent -- [address], [facility] [address] [phone] -- [employer] [facility] Pending - Request Sent -- [address] [facility] [address] [phone] -- [facility] Pending - Request Sent -- [address] [facility] [address] [phone] -- [facility] No contract with patient's insurance carrier -- [address] [facility], [address], [facility] [address] [phone] -- Family Support (Name and Phone): Extended Emergency Contact Information Primary Emergency Contact: DARIO TORRES Relation: Son Steersman needed? No Transportation at Discharge: other (Private Transport vs Family): READMISSION RISK SCORE is 11 at 3:16 PM 05/16/2025.: Name: Benedicto Ozuna RN CM [phone] * Anna Trejo - 05/16/2025 12:52 PM CDT [facility] Services Admission Medication Review Nils Torres [...] sounds Extremities: no clubbing, cyanosis, or edema SOFTWARE DEVELOPMENT MANAGER: alert and oriented x 4. Cranial nerves [...] sounds Extremities: no clubbing, cyanosis, or edema SOFTWARE DEVELOPMENT MANAGER: alert and oriented x 4. Cranial nerves [...] when medically ready for DC. Pt states [employer] will transport him if a family member [...] Assistance With: Mobility;Housekeeping;Meal Preparation;Medication Administration;Shopping Preferred Pharmacy: [facility] [address] Mathias [address] [place] [phone] READMISSION RISK SCORE is 10 at 11:29 AM 05/14/2025. Met with patient Family Support (name and phone): Extended Emergency Contact Information Primary Emergency Contact: DARIO TORRES Relation: Son Steersman needed? No Patient or district representative requests care coordination reach out to family or caregiver listed above regarding discharge planning and at time of discharge? No Durable Medical Equipment Planning Type of Wheelchair: Motorized List DME pt. requires but does not have.: None Defensive Secondary Coach Referral: No Will continue to follow. For any questions or needs please contact: Dog Handler/Social Work Name/Phone number: Benedicto Ozuna RN [phone] [...] supplement as ordered 9. Collaborate with clinical wildlife policy professional 10. Include patient/family/caregiver in decisions related to [...] No Stress: No Stress Concern Present (05/14/2025) [facility]ational Health - Occupational Stress Questionnaire [...] NA, POTASSIUM, CHLORIDE, CO2, BUN, CREATININE, GLUCOSE, [id number], CALCIUM, GFR, EGFR, EGFRAFR in the last 77566 hours. No results for input(s): ALBUMIN, ALB, ALKPHOS, [id number], ALT, AST, ZCBJJIRXH2O, WERPQLEBM3L, TBILI, DBILI, PROTEIN, TPROT, BNP, NTPROBNP in the last 73794 hours. No results found. Assessment and Plan: [...] this patient. Time spent includes time spent [id number] with the patient, discussing with nursing staff, [...] and directly participated in the entire procedure. Anniak Pringle M.D. Urology documented in this encounter Miscellaneous Notes * Coding Query - Tito De Leon II, DO - 05/15/2025 10:55 AM CDT DOCUMENTATION CLARIFICATION REQUEST Use the F2 function horn to complete the query. Click ???Sign?? to file the note. FROM: Irma Escamilla RN, CCDS Email: [email or web address] Patient Name: Nils Torres Please clarify and [...] Description 05/21/2025 1:00 PM CDT Office Visit [facility] - Urology [address], [address] [place] [address] [place] [address] [place] [address] Scheduled Orders Name Type Priority [...] Routine 05/14/2025 3:03 PM CDT Diagnosis unknown DC CYSTOURETHROSCOPY 05/14/2025 2:04 PM CDT TYPE + [...] 340(H) <=100 pg/mL 05/16/2025 4:42 AM CDT [facility] Blood BLOOD SPECIMEN / Unknown Venipuncture / Unknown 05/16/2025 3:47 AM CDT 05/16/2025 3:59 AM CDT us Kaylyn Michelle Bautista FISH HATCHERY LABORER-SOLID WASTE ANALYST LAB - CHEMISTRY ORDER VALENTINO Final Result Performing Organization Address [facility] Co de Phone Number [facility] [address] [place], [place] [id number] * (ABNORMAL) DIFFERENTIAL MANUAL (05/15/2025 5:19 AM CDT) Neutrophil % 95(H) 41 - 74 % 05/15/2025 6:10 AM CDT [facility] Lymphocyte % 3(L) 17 - 47 % 05/15/2025 6:10 AM CDT [facility] Monocyte % 2(L) 3 - 11 % 05/15/2025 6:10 AM CDT [facility] Neutrophil Absolute 5.32 1.60 - 7.50 x10E9/L 05/15/2025 6:10 AM CDT [facility] Lymphocyte Absolute 0.17(L) 1.00 - 4.40 x10E9/L 05/15/2025 6:10 AM CDT [facility] Monocyte Absolute 0.11(L) 0.15 - 1.00 x10E9/L 05/15/2025 6:10 AM CDT [facility] RBC Morphology REVIEWED 05/15/2025 6:10 AM CDT [facility] Blood BLOOD SPECIMEN / Unknown Venipuncture / Unknown 05/15/2025 5:19 AM CDT 05/15/2025 5:49 AM CDT us Tito De Leon II, DO LAB - HEMATOLOGY ORDERABLES F inal Result Performing Organization Address [facility] Co de Phone Number [facility] [address] [place] [address] * (ABNORMAL) CBC W AUTO DIFFERENTIAL (05/15/2025 5:19 AM CDT) WBC 5.6 4.0 - 10.7 x10E9/L 05/15/2025 6:10 AM CDT [facility] RBC Count 3.31(L) 4.30 - 5.80 x10E12/L 05/15/2025 6:10 AM CDT [facility] Hemoglobin 8.0(L) 13.3 - 17.5 g/dL 05/15/2025 6:10 AM CDT [facility] Hematocrit 28.0(L) 38.7 - 51.1 % 05/15/2025 6:10 AM CDT [facility] MCV 84.6 80.0 - 98.0 fL 05/15/2025 6:10 AM CDT [facility] MCH 24.2(L) 26.7 - 33.6 pg 05/15/2025 6:10 AM CDT [facility] MCHC 28.6(L) 31.7 - 36.3 g/dL 05/15/2025 6:10 AM CDT [facility] RDW-CV 18.7(H) 11.3 - 14.8 % 05/15/2025 6:10 AM CDT [facility] Platelet Count 69(L) 150 - 420 x10E9/L 05/15/2025 6:10 AM CDT [facility] MPV 10.8 7.8 - 11.4 fL 05/15/2025 6:10 AM CDT [facility] Blood BLOOD SPECIMEN / Unknown Venipuncture / Unknown 05/15/2025 5:19 AM CDT 05/15/2025 5:49 AM CDT us Tito De Leon II, DO LAB - HEMATOLOGY ORDERABLES F inal Result [facility] [address] [place] [address] * (ABNORMAL) BASIC METABOLIC PANEL (CALCIUM TOTAL) (05/15/2025 5:19 AM CDT) Pathologist [facility] Glucose 117(H) 70 - 99 mg/dL 05/15/2025 6:11 AM CDT [facility] Sodium 143 136 - 145 mmol/L 05/15/2025 6:11 AM CDT [facility] Potassium 4.9 3.5 - 5.1 mmol/L 05/15/2025 6:11 AM CDT [facility] Chloride 112(H) 98 - 107 mmol/L 05/15/2025 6:11 AM CDT [facility] CO2 22 22 - 29 mmol/L 05/15/2025 6:11 AM CDT [facility] Calcium 8.6 8.4 - 10.4 mg/dL 05/15/2025 6:11 AM CDT [facility] Anion Gap 9 6 - 16 mmol/L 05/15/2025 6:11 AM CDT [facility] BUN 37(H) 7 - 26 mg/dL 05/15/2025 6:11 AM CDT [facility] Creatinine 2.31(H) 0.72 - 1.25 mg/dL 05/15/2025 6:11 AM CDT [facility] eGFR by CKD-EPI 29(L) >=90 mL/min/1.7 3 m2 05/15/2025 6:11 AM CDT [facility] Comment:Estimated Glomerular Filtration Rate (eGFR) calculated using the CKD-EPI Creatinine Equation (2020), per the National Kidney Foundation and [place] Society of Nephrology recommendations. Blood BLOOD SPECIMEN / Unknown Venipuncture / Unknown 05/15/2025 5:19 AM CDT 05/15/2025 5:51 AM CDT us Tito De Leon II, DO LAB - CHEMISTRY ORDERABLES Fi nal Result Performing Organization Address [facility] Co de Phone Number [facility] [id number] [place] [address] * [place] Urogram Retrograde (05/14/2025 6:40 PM CDT) Narrative [facility] - 05/14/2025 6:43 PM CDT For details of this study, please see the providers note. us Annika Pringle MD FLUOROSCOPY ORDERABLES Final Res ult Performing Organization Address [facility] Co de Phone Number [facility] [address] [place] [address] * PATHOLOGY TISSUE EXAM (STL) (05/14/2025 3:03 PM CDT) Case Report Surgical Pathology Report Case: [id number] Authorizing Provider: Annika Pringle MD Collected: 05/14/2025 03:03 PM Ordering Location: [address] SURG/BARIATRIC Received: 05/15/2025 06:32 AM Pathologist: Bryan Sherwood MD Specimens: A) - Tumor, RIGHT TRIGONE SUPERFICIAL RESECTION BLADDER TUMOR B) - Tumor, RIGHT TRIGONE DEEP RESECTION BLADDER TUMOR 05/16/2025 1:39 PM CDT [facility] Final Diagnosis A. Right trigone superficial bladder tumor, resection: -- Urothelial carcinoma, high grade, invasive -- Tumor invades muscularis propria B. Right trigone deep bladder tumor, resection: -- Urothelial carcinoma, high grade, invasive -- Tumor invades muscularis propria 05/16/2025 1:39 PM CDT [facility] at 1339 CDT Gross Description Received [...] cassette B1. CH/tc 05/16/2025 1:39 PM CDT [facility] Microscopic Description Microscopic examination substantiates the above cited diagnosis. 05/16/2025 1:39 PM CDT [facility] Disclaimer All histochemical and/or immunohistochemical results are interpreted with controls that demonstrate appropriate staining reactions before reporting results. Note on use of immunocytochemistry reagents: This test was developed and its performance characteristic determined by [facility], Department of Laboratory Medicine. It has not [...] interpreted with caution. 05/16/2025 1:39 PM CDT [facility] Embedded Images 05/16/2025 1:39 PM CDT [facility] Pathology/Cytology TUMOR TISSUE SPECIMEN / Unknown 05/14/2025 3:03 PM CDT 05/15/2025 6:32 AM CDT Miscellaneous samples (specimen) TUMOR TISSUE SPECIMEN / Unknown 05/14/2025 3:04 PM CDT 05/15/2025 6:32 AM CDT us Annika Pringle MD LAB - PATHOLOGY/CYTOLOGY ORDERAB LES Final Result Performing Organization Address [facility] Co de Phone Number [facility] [address] [place] [address] * TYPE + SCREEN PANEL (05/14/2025 10:29 AM CDT) ABO Rh AB POS 05/14/2025 11:44 AM CDT [facility] Comment:No history; collect retype. Antibody Screen NEG 05/14/2025 11:44 AM CDT [facility] Blood Bank BLOOD SPECIMEN / Unknown Venipuncture / Unknown 05/14/2025 10:29 AM CDT 05/14/2025 10:49 AM CDT us Annika Pringle MD LAB - BLOOD BANK ORDERABLES Rosamaria l Result Performing Organization Address City/[facility] Co de Phone Number [facility] [address] [place] [address] * BLOOD TYPE VERIFICATION (05/14/2025 5:36 AM CDT) ABO Rh AB POS 05/14/2025 11:44 AM CDT [facility] Blood Bank BLOOD SPECIMEN / Unknown Venipuncture / Unknown 05/14/2025 5:36 AM CDT 05/14/2025 10:56 AM CDT us Annika Pringle MD LAB - BLOOD BANK ORDERABLES Rosamaria simmons Result [facility] [address] [phone] * (ABNORMAL) COMPREHENSIVE METABOLIC PANEL (05/14/2025 5:36 AM CDT) Glucose 111(H) 70 - 99 mg/dL 05/14/2025 6:08 AM CDT [facility] Sodium 140 136 - 145 mmol/L 05/14/2025 6:08 AM T [facility] Potassium 4.5 3.5 - 5.1 mmol/L 05/14/2025 6:08 AM T [facility] Chloride 108(H) 98 - 107 mmol/L 05/14/2025 6:08 AM T [facility] CO2 23 22 - 29 mmol/L 05/14/2025 6:08 AM T [facility] Calcium 8.5 8.4 - 10.4 mg/dL 05/14/2025 6:08 AM T [facility] Anion Gap 9 6 - 16 mmol/L 05/14/2025 6:08 AM T [facility] BUN 42(H) 7 - 26 mg/dL 05/14/2025 6:08 AM T [facility] Creatinine 2.23(H) 0.72 - 1.25 mg/dL 05/14/2025 6:08 AM [facility] Alkaline Phosphatase 122 40 - 150 U/L 05/14/2025 6:08 AM [facility] ALT 29 6 - 57 U/L 05/14/2025 6:08 AM T [facility] AST 39 10 - 48 U/L 05/14/2025 6:08 AM [facility] Protein Total 6.8 6.4 - 8.3 gm/dL 05/14/2025 6:08 AM [facility] Albumin 2.8(L) 3.1 - 4.5 gm/dL 05/14/2025 6:08 AM [facility] Bilirubin Total 0.6 0.2 - 1.2 mg/dL 05/14/2025 6:08 AM [facility] eGFR by CKD-EPI 31(L) >=90 mL/min/1.7 3 m2 05/14/2025 6:08 AM CDT [facility] Comment:Estimated Glomerular Filtration Rate (eGFR) calculated using the CKD-EPI Creatinine Equation (2020), per the National Kidney Foundation and [place] Society of Nephrology recommendations. Blood BLOOD SPECIMEN / Unknown Venipuncture / Unknown 05/14/2025 5:36 AM CDT 05/14/2025 5:41 AM CDT Patrice Tapia DO LAB - CHEMISTRY ORDERABLES Final Result Performing Organization Address [facility] Co de Phone Number [facility] [address] [place] [address] * (ABNORMAL) PT-INR (05/14/2025 5:36 AM CDT) PT 15.9(H) 12.1 - 14.8 sec 05/14/2025 6:17 AM CDT [facility] INR 1.3(H) 0.9 - 1.1 05/14/2025 6:17 AM CDT [facility] Blood BLOOD SPECIMEN / Unknown Venipuncture / Unknown 05/14/2025 5:36 AM CDT 05/14/2025 5:41 AM CDT Narrative [facility] - 05/14/2025 6:17 AM CDT Conventional Warfarin Anticoagulant Therapy: INR Reference Range: 2.0-3.0 Intensive Warfarin Anticoagulant Therapy: INR Reference Range: 2.5-3.5 Patrice Tapia DO LAB - COAGULATION ORDERABLES Fin al Result Performing Organization Address [facility]/ZIP Co de Phone Number [facility] [address] [place] [address] * PHOSPHORUS BLOOD (05/14/2025 5:36 AM CDT) Phosphorus 3.9 2.5 - 4.5 mg/dL 05/14/2025 6:06 AM CDT [facility] Blood BLOOD SPECIMEN / Unknown Venipuncture / Unknown 05/14/2025 5:36 AM CDT 05/14/2025 5:40 AM CDT Ptaricealeena Tapia LAB - CHEMISTRY ORDERABLES Final Result Performing Organization Address [facility]/ZIP Co de Phone Number [facility] [address] [place], [place] [id number] * MAGNESIUM BLOOD (05/14/2025 5:36 AM CDT) Magnesium 1.8 1.6 - 2.6 mg/dL 05/14/2025 6:06 AM CDT [facility] Blood BLOOD SPECIMEN / Unknown Venipuncture / Unknown 05/14/2025 5:36 AM CDT 05/14/2025 5:40 AM CDT Patrice Tapia DO LAB - CHEMISTRY ORDERABLES Final Result Performing Organization Address [facility] de Phone Number [facility] [address] [place] [phone] * (ABNORMAL) CBC W/O DIFFERENTIAL (05/14/2025 5:36 AM CDT) WBC 7.7 4.0 - 10.7 x10E9/L 05/14/2025 6:05 AM CDT [facility] RBC Count 3.55(L) 4.30 - 5.80 x10E12/L 05/14/2025 6:05 AM CDT [facility] Hemoglobin 8.7(L) 13.3 - 17.5 g/dL 05/14/2025 6:05 AM CDT [facility] Hematocrit 29.0(L) 38.7 - 51.1 % 05/14/2025 6:05 AM CDT [facility] MCV 81.7 80.0 - 98.0 fL 05/14/2025 6:05 AM CDT [facility] MCH 24.5(L) 26.7 - 33.6 pg 05/14/2025 6:05 AM CDT [facility] MCHC 30.0(L) 31.7 - 36.3 g/dL 05/14/2025 6:05 AM CDT [facility] RDW-CV 18.6(H) 11.3 - 14.8 % 05/14/2025 6:05 AM CDT [facility] Platelet Count 84(L) 150 - 420 x10E9/L 05/14/2025 6:05 AM CDT [facility] MPV 10.1 7.8 - 11.4 fL 05/14/2025 6:05 AM CDT [facility] Blood BLOOD SPECIMEN / Unknown Venipuncture / Unknown 05/14/2025 5:36 AM CDT 05/14/2025 5:40 AM CDT [facility] LAB - HEMATOLOGY ORDERABLES Rosamaria l Result Performing Organization Address [facility] Co de Phone Number [facility] [address] [place] [address] * (ABNORMAL) HGB HCT PANEL (05/14/2025 1:22 AM CDT) [facility] Hemoglobin 8.9(L) 13.3 - 17.5 g/dL 05/14/2025 1:29 AM CDT [facility] Hematocrit 30.0(L) 38.7 - 51.1 % 05/14/2025 1:29 AM CDT [facility] Blood BLOOD SPECIMEN / Unknown Venipuncture / Unknown 05/14/2025 1:22 AM CDT 05/14/2025 1:24 AM CDT [facility] LAB - HEMATOLOGY ORDERABLES Rosamaria l Result Performing Organization Address [facility] Co de Phone Number [facility] [address] [place] [address] documented in this encounter Visit Diagnoses [...] 05/17/2025 5:25 AM CDT 10 mL HYDROcodone-acetaminophen ([place]) 5-325 MG tablet 1 tablet 1 tablet, [...] Infusing) 0625 (Not Administered - Provider: Yennifer Gtuierrez RN - Reason: Patient sleeping)1427 ($ Given [...] Moreland RCP)1612 ($ Given - Provider: Larry Moerland RCP)1950 ($ Given - Provider: Anel Hill [...] - Provider: Nisreen Self RN) HYDROcodone-acetaminoph en ([place]) 5-325 MG tablet 1 tablet (CANCELED) 1 [...] swallow. documented in this encounter Care Teams Sales Record Clerk Relationship Specialty Start Date End Date None, Physician PCP - General 05/14/25 documented as of this encounter
--- OUTSIDE RECORDS SUMMARY | 2025-05-17 14:13 | XMS_ITS | Clinical Summary ---
Author Organization [facility] Address [facility] [place] [address] Care Team Providers Care Extract Wringer Name Role Phone Robbin Arteaga MD Unavailable Prerna William MD Primary Care Provider [phone]- [phone] Arian Guzman MD Unavailable [phone] Lianne SCHULTZ MD, Courtney Unavailable [phone] Allergies Active Allergy Reactions Criticality Noted Date [...] Avascular necrosis of bone of left hip ([facility]) 01/16/2021 Post-traumatic osteoarthritis of left knee 06/09 Trochanteric bursitis of left hip 04/16/2020 Bilateral shoulder region arthritis 12/07/2019 Primary osteoarthritis, right shoulder 0 Rotator cuff arthropathy, right 12/07/2019 Osteoarthritis of glenohumeral joint, right 04/2019 Ulnar neuropathy at elbow, right 08/06/2019 Chronic diastolic heart failure ([facility] ) 08/05/2019 Acute kidney insufficiency 08/05/2019 Requires supplemental oxygen 01/24/2019 Lung cancer screening declined by patient 2018 Chronic respiratory failure ([facility]) Tobacco abuse Obstructive sleep apnea RBBB Morbid obesity Hypertension GERD (gastroesophageal reflux disease) Coronary artery disease invo lving [place] coronary artery of [place] heart without angina pectoris COPD, severe CHF (congestive heart failure) ([facility]) Asthma ([facility]) Arthritis Hyperlipidemia Pressure ulcer of left leg, stage II Pressure ulcer of right leg, stage 2 Resolved Problems Problem Noted Date Diagnosed Date Resolved Date COPD exacerbation ([facility]) 04/25/2024 04/26/2024 COPD exacerbation ([facility]) 08/04/2019 08/05/2019 Encounter for BiPAP use counseling [...] materials from doctor or pharmacy Rarely 11/12/2024 [facility] Utilities Answer Date Recorded In the past 12 months has e [employer], oil, or water [employer] threatened to shut off services in your [...] any time in the past [address] [facility], were you homeless or living in a longterm (including now)? Patient declined 04/25/2024 Sex and Gender Information Value Date Recorded Sex Assigned at Male 11/15/2024 12:31 PM [facility] NURSE Legal Sex Male 10:09 PM CDT Gender Identity Not on file Sexual Orientation Not on file Occupation Industry Job Start Date Job End Date Disabled Not on file Not on file Not on file Last Filed Vital Signs Vital Sign Reading Time Taken Comments Blood Pressure 138/64 11/09/2024 10:30 AM [facility] NURSE Pulse 78 11/09/2024 10:30 AM [facility]ON[facility]ARE UNIT NURSE Temperature 36.9 C (98.4 F) 11/09/2024 10:30 AM [facility]ON[facility]ARE UNIT NURSE Respiratory Rate 20 11/09/2024 10:30 AM [facility]ON[facility]ARE [facility]IT NURSE Oxygen Saturation 94% 11/09/2024 10:30 AM [facility]ON[facility]ARE UNIT NURSE Inhaled Oxygen Concentration - - Weight 127 kg (280 lb) 09/18/2024 10:15 AM CORONARY CARE UNIT NURSE Height 165.1 cm (5' 5) 09/18/2024 10:15 AM [facility]ARE [facility]IT NURSE Body Mass Index 46.59 09/18/2024 10:15 AM [facility]ONARY [facility]ARE UNIT NURSE Plan of Treatment Health Maintenance Due Date [...] home upon discharge General No Almita Marti, TENT ASSEMBLER Procedures Procedure Name Priority Date/Time Associated Diagnosis Comments CT ABD+PEL WO CON STAT 02/08/2020 4:0 4 PM CDT Flank pain LIPOPROTEIN, LDL CHOL, DIRECT Routine 12/18/2017 3:10 PM [facility]ARE [facility] NURSE from Last 3 Months or Most Recently [...] 7. Redemonstrated L5-S1 degenerative disc disease, bilateral [id number] and minimal L5-S1 spondylolisthesis. Interpreted By: Redd Be MD, 02/08/2020 4:08 PM us Angelica Zepeda MD CT Final Result * (ABNORMAL) LIPOPROTEIN, LDL CHOL, DIRECT (12/18/2017 3:10 PM [facility]ONARY CARE UNIT NURSE) DIRECT LDL 138(H) <130 MG/DL 12/18/2017 3:59 PM CORONARY CARE UNIT NURSE [facility] Comment: =<100 MG/DL,AOXTJCZ=807-504 MG/DL,NEAR MELGRPU=359-221 MG/DL,BORDERLINE HIGH=>160 MG/DL,HIGH 12/18/2017 3:10 PM CORONARY CARE UNIT NURSE us Generic Conversion Md [facility] Final R esult [facility] [address] [place] [address], from Last 3 Months or Most Recently Relevant to Health Maintenance Additional Health Concerns Infection Onset Date 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 Insurance MEDICAID MEDICAID [facility] Advance Directives * Full Code (Latest [...] 6:03 PM 04/23/2022 2:04 PM Care Teams Extract Wringer Relationship Specialty Start [place] [address] [place] [address] PCP - General INTERNAL MEDICINE 04/26/24 Robbin Arteaga MD [address] [place] [address] [place] [employer] CARDIOVASCULAR DISEASE 07/07/16 Arian Guzman MD [address] [facility] [address] [place] [address] DERMATOLOGY 11/28/24 11/28/25 Malgorzata Abdalla III, MD [address] [place] [address] Consulting Physician UROLOGY 01/31/25 01/31/26
--- OUTSIDE RECORDS SUMMARY | 2025-05-17 14:13 | XMS_ITS | Clinical Summary ---
Author Organization [facility] Address [address] [place] [address] Care Team Providers Care Bin Filler Name Role Phone None, Physician Primary Care Provider Unavailabl e Source Comments [facility],non-owned Affiliates and Associated Physician Practices is amultiple site organization consisting of ambulatory clinics and hospital sitesin [place], [place], [place] and [place]. This disclosure is being madepursuant to the Care Everywhere program and may not contain all information available regarding this patient. Last updated 18.[facility] Allergies Active Allergy Reactions Criticality Noted Date [...] Description 05/14/2025 2:14 PM CDT Anesthesia Event [facility] - Perioperative Surgery [address] [place] [address] Arielle Alva MD McAteer, Meghan, APRN-BUSTER 05/14/2025 12:51 PM CDT - 05/14/2025 1:52 PM CDT Surgery [facility] - Perioperative Surgery [address] [place] [address] Annika Pringle MD CYSTOSCOPY, CLOT EVACUATION, FULGURATION, TRANSURETHRAL RESECTION OF BLADDER TUMOR, LEFT RETROGRADE PYELOGRADE 05/14/2025 Travel 05/13/2025 11:56 PM CDT - 05/17/2025 10:52 AM CDT Hospital Encounter [facility] 2S SURG/BARIATRIC [address] [place] [address] Maria Luz Han MD Shah, Nirmal, De [...] and heating? Not hard at all 05/14/2025 [facility] [place] [facility] - Occupational Stress [...] any time in the past 12 m [facility], were you homeless or living in a usp (including now)? No 05/14/2025 Sex and Gender [...] Description 05/21/2025 1:00 PM CDT Office Visit [facility] - Urology [address], [address] [place] [address] [place] [address] [place] [address] [...] ENDOTRACHEAL TUBE NOTE Routine 2:41 PM CDT [place] CYSTOURETHROSCOPY 05/14/2025 2:04 PM CDT TYPE + [...] 3:59 AM CDT us Kaylynmary kay Bautista [employer] CURATOR LAB - CHEMISTRY ORDER VALENTINO Final Result Performing Organization Address [facility] Co de Phone Number [facility] [address] [place] [address] * (ABNORMAL) DIFFERENTIAL MANUAL (05/15/2025 5:19 AM CDT) Neutrophil % 95(H) 41 - 74 % 05/15/2025 6:10 AM CDT [facility] Lymphocyte % 3(L) 17 - 47 % 05/15/2025 6:10 AM CDT [facility] Monocyte % 2(L) 3 - 11 % 05/15/2025 6:10 AM CDT [facility] Neutrophil Absolute 5.32 1.60 - 7.50 x10E9/L 05/15/2025 6:10 AM CDT [facility] Lymphocyte Absolute 0.17(L) 1.00 - 4.40 x10E9/L 05/15/2025 6:10 AM CDT [facility] Monocyte Absolute 0.11(L) 0.15 - 1.00 x10E9/L 05/15/2025 6:10 AM CDT [facility] RBC Morphology REVIEWED 05/15/2025 6:10 AM CDT [facility] Blood BLOOD SPECIMEN / Unknown Venipuncture / Unknown 05/15/2025 5:19 AM CDT 05/15/2025 5:49 AM CDT us Tito De Leon II, DO LAB - HEMATOLOGY ORDERABLES F inal Result Performing Organization Address [facility] Co de Phone Number [facility] [address] [place] [address] * (ABNORMAL) CBC W AUTO DIFFERENTIAL (05/15/2025 5:19 AM CDT) WBC 5.6 4.0 - 10.7 x10E9/L 05/15/2025 6:10 AM CDT [facility] RBC Count 3.31(L) 4.30 - 5.80 x10E12/L 05/15/2025 6:10 AM CDT [facility] Hemoglobin 8.0(L) 13.3 - 17.5 g/dL 05/15/2025 6:10 AM CDT [facility] Hematocrit 28.0(L) 38.7 - 51.1 % 05/15/2025 6:10 AM CDT [facility] MCV 84.6 80.0 - 98.0 fL 05/15/2025 6:10 AM CDT [facility] MCH 24.2(L) 26.7 - 33.6 pg 05/15/2025 6:10 AM CDT [facility] MCHC 28.6(L) 31.7 - 36.3 g/dL 05/15/2025 6:10 AM CDT [facility] RDW-CV 18.7(H) 11.3 - 14.8 % 05/15/2025 6:10 AM CDT [facility] Platelet Count 69(L) 150 - 420 x10E9/L 05/15/2025 6:10 AM CDT [facility] MPV 10.8 7.8 - 11.4 fL 05/15/2025 6:10 AM CDT [facility] Blood BLOOD SPECIMEN / Unknown Venipuncture / Unknown 05/15/2025 5:19 AM CDT 05/15/2025 5:49 AM CDT us Tito Martinez De Leon II, DO LAB - HEMATOLOGY ORDERABLES F inal Result [facility] [address] [place] [address] * (ABNORMAL) BASIC METABOLIC PANEL (CALCIUM TOTAL) (05/15/2025 5:19 AM CDT) Glucose 117(H) 70 - 99 mg/dL 05/15/2025 6:11 AM CDT [facility] Sodium 143 136 - 145 mmol/L 05/15/2025 6:11 AM CDT [facility] Potassium 4.9 3.5 - 5.1 mmol/L 05/15/2025 6:11 AM CDT [facility] Chloride 112(H) 98 - 107 mmol/L 05/15/2025 6:11 AM CDT [facility] CO2 22 22 - 29 mmol/L 05/15/2025 6:11 AM CDT [facility] Calcium 8.6 8.4 - 10.4 mg/dL 05/15/2025 6:11 AM CDT [facility] Anion Gap 9 6 - 16 mmol/L 05/15/2025 6:11 AM CDT [facility] BUN 37(H) 7 - 26 mg/dL 05/15/2025 6:11 AM CDT [facility] Creatinine 2.31(H) 0.72 - 1.25 mg/dL 05/15/2025 6:11 AM CDT [facility] eGFR by CKD-EPI 29(L) >=90 mL/min/1.7 3 m2 05/15/2025 6:11 AM CDT [facility] Comment:Estimated Glomerular Filtration Rate (eGFR) calculated using the CKD-EPI Creatinine Equation (2020), per the National Kidney Foundation and [place] [employer] Neph[employer] recommendations. Blood BLOOD SPECIMEN / Unknown Venipuncture / Unknown 05/15/2025 5:19 AM CDT 05/15/2025 5:51 AM CDT us Tito De Leon II, DO LAB - CHEMISTRY ORDERABLES Fi nal Result Performing Organization Address [facility] de Phone Number [facility] [id number] [place] [address] * FL Urogram Retrograde (05/14/2025 6:40 PM CDT) Narrative [facility] - 05/14/2025 6:43 PM CDT For details of this study, please see the providers note. us Annika Pringle MD FLUOROSCOPY ORDERABLES Final Res ult Performing Organization Address [facility] Co de Phone Number [facility] [address] [place] [address] * PATHOLOGY TISSUE EXAM (STL) (05/14/2025 3:03 PM CDT) Case Report Surgical Pathology Report Case: [id number] Authorizing Provider: Annika Pringle MD Collected: 05/14/2025 03:03 PM Ordering Location: [facility] 2S SURG/BARIATRIC Received: 05/15/2025 06:32 AM [...] developed and its performance characteristic determined by [facility], Department of Laboratory Medicine. It has not [...] LAB - PATHOLOGY/CYTOLOGY ORDERAB LES Final Result [facility] [address] [place] [address] * ETT LINE PERFORMABLE (05/14/2025 2:41 PM CDT) Narrative Cheri Ferguson APRN-CRNA - 05/14/2025 2:41 PM CDT Cheri Ferguson APRN-CRNA 05/14/2025 2:45 PM Endotracheal Tube Placement: Patient Location: OR. Intubation Event Date/Time: 05/14/2025 2:39 PM Procedure: intubation (640[address]) Procedure Section: Sedation: under general anesthesia. Indications for Airway Management: anesthesia Procedure pretreatments used? Nursing documentation on the [facility] Procedure Pretreatments (manual): 100% O2 [...] Rh AB POS 05/14/2025 11:44 AM CDT [facility] Comment:No history; collect retype. Antibody Screen NEG 05/14/2025 11:44 AM CDT [facility] Blood Bank BLOOD SPECIMEN / Unknown Venipuncture / Unknown 05/14/2025 10:29 AM CDT 05/14/2025 10:49 AM CDT Annika Pringle MD LAB - BLOOD BANK ORDERABLES Rosamaria l Result Performing Organization Address City/[facility] Co de Phone Number [facility] [address] [place] [address] * BLOOD TYPE VERIFICATION (05/14/2025 5:36 AM CDT) ABO Rh AB POS 05/14/2025 11:44 AM CDT [facility] Blood Bank BLOOD SPECIMEN / Unknown Venipuncture / Unknown 05/14/2025 5:36 AM CDT 05/14/2025 10:56 AM CDT Annika Pringle MD LAB - BLOOD BANK ORDERABLES Rosamaria l Result Performing Organization Address [facility] de Phone Number [facility] [address] [phone] * (ABNORMAL) PT-INR (05/14/2025 5:36 AM CDT) PT 15.9(H) 12.1 - 14.8 sec 05/14/2025 6:17 AM CDT [facility] INR 1.3(H) 0.9 - 1.1 05/14/2025 6:17 AM CDT [facility] Blood BLOOD SPECIMEN / Unknown Venipuncture / Unknown 05/14/2025 5:36 AM CDT 05/14/2025 5:41 AM CDT Narrative [facility] - 05/14/2025 6:17 AM CDT Conventional Warfarin Anticoagulant Therapy: INR Reference Range: 2.0-3.0 Intensive Warfarin Anticoagulant Therapy: INR Reference Range: 2.5-3.5 [facility] - CO[facility]ULATION ORDERABLES Fin al Result Performing Organization Address City/[facility]/ZIP Co de Phone Number [facility] [address] [place] [phone] * (ABNORMAL) CBC W/O DIFFERENTIAL (05/14/2025 5:36 AM CDT) WBC 7.7 4.0 - 10.7 x10E9/L 05/14/2025 6:05 AM CDT [facility] RBC Count 3.55(L) 4.30 - 5.80 x10E12/L 05/14/2025 6:05 AM CDT [facility] Hemoglobin 8.7(L) 13.3 - 17.5 g/dL 05/14/2025 6:05 AM CDT [facility] Hematocrit 29.0(L) 38.7 - 51.1 % 05/14/2025 6:05 AM CDT [facility] MCV 81.7 80.0 - 98.0 fL 05/14/2025 6:05 AM CDT [facility] MCH 24.5(L) 26.7 - 33.6 pg 05/14/2025 6:05 AM CDT [facility] MCHC 30.0(L) 31.7 - 36.3 g/dL 05/14/2025 6:05 AM CDT [facility] RDW-CV 18.6(H) 11.3 - 14.8 % 05/14/2025 6:05 AM CDT [facility] Platelet Count 84(L) 150 - 420 x10E9/L 05/14/2025 6:05 AM CDT [facility] MPV 10.1 7.8 - 11.4 fL 05/14/2025 6:05 AM T [facility] Blood BLOOD SPECIMEN / Unknown Venipuncture / Unknown 05/14/2025 5:36 AM CDT 05/14/2025 5:40 AM CDT Patrice Tapia DO LAB - HEMATOLOGY ORDERABLES Rosamaria l Result Performing Organization Address City/[facility]/ZIP Co de Phone Number [facility] [phone] [place] [address] * (ABNORMAL) COMPREHENSIVE METABOLIC PANEL (05/14/2025 5:36 AM CDT) [facility] Signature Glucose 111(H) 70 - 99 mg/dL 05/14/2025 6:08 AM T [facility] Sodium 140 136 - 145 mmol/L 05/14/2025 6:08 AM T [facility] Potassium 4.5 3.5 - 5.1 mmol/L 05/14/2025 6:08 AM [facility] Chloride 108(H) 98 - 107 mmol/L 05/14/2025 6:08 AM T [facility] CO2 23 22 - 29 mmol/L 05/14/2025 6:08 AM [facility] Calcium 8.5 8.4 - 10.4 mg/dL 05/14/2025 6:08 AM T [facility] Anion Gap 9 6 - 16 mmol/L 05/14/2025 6:08 AM [facility] BUN 42(H) 7 - 26 mg/dL 05/14/2025 6:08 AM [facility] Creatinine 2.23(H) 0.72 - 1.25 mg/dL 05/14/2025 6:08 AM [facility] Alkaline Phosphatase 122 40 - 150 U/L 05/14/2025 6:08 AM [facility] ALT 29 6 - 57 U/L 05/14/2025 6:08 AM [facility] AST 39 10 - 48 U/L 05/14/2025 6:08 AM [facility] Protein Total 6.8 6.4 - 8.3 gm/dL 05/14/2025 6:08 AM [facility] Albumin 2.8(L) 3.1 - 4.5 gm/dL 05/14/2025 6:08 AM [facility] Bilirubin Total 0.6 0.2 - 1.2 mg/dL 05/14/2025 6:08 AM [facility] eGFR by CKD-EPI 31(L) >=90 mL/min/1.7 3 m2 05/14/2025 6:08 AM [facility] Comment:Estimated Glomerular Filtration Rate (eGFR) calculated using the CKD-EPI Creatinine Equation (2021), per the National Kidney Foundation and [place] [employer] of Nephrology recommendations. Blood BLOOD SPECIMEN / Unknown Venipuncture / Unknown 05/14/2025 5:36 AM CDT 05/14/2025 5:41 AM CDT [facility] LAB - CHEMISTRY ORDERABLES Final Result Performing Organization Address [facility] Co de Phone Number [facility] [phone] [place] [phone] * PHOSPHORUS BLOOD (05/14/2025 5:36 AM CDT) Phosphorus 3.9 2.5 - 4.5 mg/dL 05/14/2025 6:06 AM CDT [facility] Blood BLOOD SPECIMEN / Unknown Venipuncture / Unknown 05/14/2025 5:36 AM CDT 05/14/2025 5:40 AM CDT [facility] LAB - CHEMISTRY ORDERABLES Final Result Performing Organization Address [facility] de Phone Number [facility] [address] [place] [address] * MAGNESIUM BLOOD (05/14/2025 5:36 AM CDT) Magnesium 1.8 1.6 - 2.6 mg/dL 05/14/2025 6:06 AM CDT [facility] Blood BLOOD SPECIMEN / Unknown Venipuncture / Unknown 05/14/2025 5:36 AM CDT 05/14/2025 5:40 AM CDT [facility] LAB - CHEMISTRY ORDERABLES Final Result Performing Organization Address [facility] de Phone Number [facility] [address] [place] [address] * (ABNORMAL) HGB HCT PANEL (05/14/2025 1:22 AM CDT) Hemoglobin 8.9(L) 13.3 - 17.5 g/dL 05/14/2025 1:29 AM CDT [facility] Hematocrit 30.0(L) 38.7 - 51.1 % 05/14/2025 1:29 AM CDT [facility] Blood BLOOD SPECIMEN / Unknown Venipuncture / Unknown 05/14/2025 1:22 AM CDT 05/14/2025 1:24 AM CDT us Patrice Tapia DO LAB - HEMATOLOGY ORDERABLES Rosamaria l Result [facility] [address] [place] [address] from Last 3 Months Insurance MEDICARE [facility] [place] MEDICAID [facility] MEDICARE [facility] MEDICAID - [place] Advance Directives * Full Code (Latest Code Status on File) Date Activated Date Inactivated Comments 05/14/2025 12:59 AM 05/17/2025 11:52 AM * Full Code Date Activated Date Inactivated Comments 05/14/2025 12:04 AM 05/14/2025 12:59 AM Care Teams Bin Filler Relationship Specialty Start Date End Date None, Physician PCP - General 05/14/25
--- OUTSIDE RECORDS SUMMARY | 2025-05-17 14:13 | XMS_ITS ---
Author Organization Unknown Address [address] [place] [address] [phone] Phone Care Team Providers Care Connie Cleaner Name Role Phone TALON HOPSON Attending Unavailable NEELAM LEVI Primary Unavailable Immunization Immunization Date Status Additional Notes Code Code System pneumococcal polysaccharide PPV23 10/31/2012 Completed 33 CVX Influenza, split virus, trivalent, preservative 08/05/2016 Completed 141 CVX Results PELVIS LINDA HIPS 3-4 VIEWS - Completed: 03/15/2025 14:16 LOINC: \TM00\\12PI\\DRAo\\BM09\ \MRHo\ [address] [address] ---------NAME--------- NUMBER SEX AGE ADMIT DISC. XRAY# F/C TYPE SILVIA HADDAD [id number] M 69 03/15/25 03/15/25 99922 MB3 O/P DATE OF : 1955 M/R# [id number] PH#: [phone] \MRHx\ LOCATION: TRANSCRIBED: 03/15/25 14:51 PELVIS LINDA HIPS 3-4 VIEWS [id number] COMPLETED:03/15/25 14:16 JDF [id number] PHYSICIAN: TALON HOPSON R A D I O L O G Y R E P O R T CLINICAL INDICATION: Pain TECHNIQUE: 1 radiographic views of the pelvis were obtained. Comparison: None FINDINGS/IMPRESSION: Chronic deformities of the bilateral femoral heads. Severe osteoarthrosis of the bilateral femoroacetabular joint. Intramedullary sara and screw fixation is visualized transfixing the left femoroacetabular joint. REPAIR SUPERVISOR \ITLo\ \UNDo\ \UNDx\ \ITLx\ Reviewed and Electronically Signed by: Juanis Martines MD Signed Date: 03/15/25 14:51 03/15/[email or web address].JDF.to RICHTER TERRI via modem Social History Type Status Start Date End Date Code Code Syst em Smoking History Former smoker [id number] SNOMED CT Sex Male Medications Medication Start Date End Date Route Frequency Dose Code Code System Medication Instructions Home Meds Atorvastatin Calcium 20MG Oral Tablet 08/11/2023 Unknown ORAL ONCE A DAY 20 MILLIGRAMS 075971 RxNorm TAKE 20 MILLIGRAMS ORAL ONCE A DAY Azelastine HCl 205.5MCG/1Act Nasal [place] 08/11/2023 Unknown NASAL ONCE A DAY 1 unit(s) 6642708 RxNorm 1 EACH NASAL ONCE A DAY Calcium Carbonate 500MG Oral Tablet 08/11/2023 Unknown ORAL ONCE A DAY 500 MILLIGRAMS RxNorm TAKE 500 MILLIGRAMS ORAL ONCE A DAY Finasteride 5MG Oral Tablet 08/11/2023 Unknown ORAL ONCE A DAY 5 MILLIGRAMS 514414 RxNorm TAKE 5 MILLIGRAMS ORAL ONCE A DAY Flomax 0.4MG Oral Capsule 08/11/2023 Unknown ORAL ONCE A DAY 0.4 MILLIGRAMS 790188 RxNorm TAKE 0.4 MILLIGRAMS ORAL ONCE A DAY Gabapentin 100MG Oral Capsule 08/11/2023 Unknown ORAL THREE TIMES A DAY 100 MILLIGRAMS 048856 RxNorm TAKE 100 MILLIGRAMS ORAL THREE TIMES A DAY HYDROcodone bitartrate-ac etaminophen 7.5MG-325MG Oral Tablet 08/11/2023 Unknown ORAL TWICE A DAY 1 unit(s) 973055 RxNorm TAKE 1 EACH ORAL TWICE A DAY Ipratropium [place]-Albut indu Sulfate 0.5MG/3ML-3MG /3ML Inhalation Solution 08/11/2023 Unknown INHALATIO N THREE TIMES A DAY 1 unit(s) 1923870 RxNorm 1 EACH INHALATION THREE TIMES A DAY Iron 325MG Oral Tablet 08/11/2023 Unknown ORAL ONCE A DAY 325 MILLIGRAMS 360576 RxNorm TAKE 325 MILLIGRAMS ORAL ONCE A DAY Loratadine 10MG Oral Tablet 08/11/2023 Unknown ORAL ONCE A DAY 10 MILLIGRAMS 634398 RxNorm TAKE 10 MILLIGRAMS ORAL ONCE A DAY Metoprolol Succinate 25MG Oral Tablet, Extended Release 08/11/2023 Unknown ORAL TWICE A DAY 25 MILLIGRAMS 371476 RxNorm TAKE 25 MILLIGRAMS ORAL TWICE A DAY Montelukast Sodium 10MG Oral Tablet 08/11/2023 Unknown ORAL ONCE A DAY 10 MILLIGRAMS 609367 RxNorm TAKE 10 MILLIGRAMS ORAL ONCE A DAY Mupirocin 2% Topical application Cream 08/11/2023 Unknown TOPICAL APPLICATI ON TWICE A DAY 1 unit(s) 323071 RxNorm 1 EACH TOPICAL APPLICATION TWICE A DAY Nystatin/Tria mcinolone Acetonide 485895I-3EN/1 GM Topical application Ointment 08/11/2023 Unknown TOPICAL APPLICATI ON ONCE A DAY 1 unit(s) 0961350 RxNorm 1 EACH TOPICAL APPLICATION ONCE A DAY Potassium Chloride 10MEQ Oral Capsule, Extended Release 08/11/2023 Unknown ORAL ONCE A DAY 10 MEQ 819678 RxNorm TAKE 10 MEQ ORAL ONCE A DAY RABEprazole Sodium 20MG Oral Tablet, Enteric Coated 08/11/2023 Unknown ORAL ONCE A DAY 20 MILLIGRAMS 799049 RxNorm TAKE 20 MILLIGRAMS ORAL ONCE A DAY Spiriva Respimat 1.25MCG/1ACT Inhalation [place] 08/11/2023 Unknown INHALATIO N 1 unit(s) 7674455 RxNorm 1 EACH INHALATION Symbicort 160/4.5 160MCG-4.5MCG /1 Actu Inhalation Aerosol Liquid 08/11/2023 Unknown INHALATIO N TWICE A DAY 1 unit(s) 2814418 RxNorm 1 EACH INHALATION TWICE A DAY Ras-24 400MG Oral Capsule, Extended Release, 24 HR 08/11/2023 Unknown ORAL ONCE A DAY 400 MILLIGRAMS 885330 RxNorm TAKE 400 MILLIGRAMS ORAL ONCE A DAY Torsemide 20MG Oral Tablet 08/11/2023 Unknown ORAL ONCE A DAY 20 MILLIGRAMS 792750 RxNorm TAKE 20 MILLIGRAMS ORAL ONCE A DAY Ventolin HFA 0.09MG/1Actua tion Inhalation Suspension 08/11/2023 Unknown INHALATIO N ONCE A DAY 1 unit(s) 130025 RxNorm 1 EACH INHALATION ONCE A DAY busPIRone HCl 7.5MG Oral Tablet 08/11/2023 Unknown ORAL THREE TIMES A DAY 7.5 MILLIGRAMS 098786 RxNorm TAKE 7.5 MILLIGRAMS ORAL THREE TIMES [...] Status Co de Code System VANCOMYCIN Active 81357 RxNorm LEVOFLOXACIN Active 91157 RxNorm BACTRIM Active 648718 RxNorm PENICILLIN Active Plan of Treatment I&D Abscess 08/11/2023 Encounters Encounter Diagnosis Start Date Code Code Sys tem Primary osteoarthritis, left shoulder 03/15/2025 SNOMED-CT Personal Care Team Section Performer Name Performer Role Active Date Inactive Pascual Henderson PCP - Primary care physician Imaging Narrative Notes [facility] 03/15/2025 14:53 [phone] [place] [address] ---------NAME--------- NUMBER SEX AGE ADMIT DISC. XRAY# F/C TYPE VEGA MILAGRO HADDAD [id number] M 69 03/15/25 03/15/25 11580 MB3 O/P DATE OF : 1955 M/R# [id number] #: [id number] RM LOCATION: TRANSCRIBED: 03/15/25 14:51 PELVIS LINDA HIPS 3-4 VIEWS [id number] COMPLETED:03/15/25 14:16 JDF 11597 PHYSICIAN: TALON HOPSON RADIOLOGY REPORT CLINICAL INDICATION: Pain TECHNIQUE: 1 radiographic views of the pelvis were obtained. Comparison: None FINDINGS/IMPRESSION: Chronic deformities of the bilateral femoral heads. Severe osteoarthrosis of the bilateral femoroacetabular joint. Intramedullary sara and screw fixation is visualized transfixing the left femoroacetabular joint. REPAIR SUPERVISOR Reviewed and Electronically Signed by: Juanis Martines MD Signed Date: 03/15/25 14:51 03/15/25.1453.JDF.michael portillo
--- OUTSIDE RECORDS SUMMARY | 2025-05-17 14:13 | XMS_ITS ---
Author Organization Unknown Address [address] [place] [address] [phone] Phone Care Team Providers Care Care Information Associate Name Role Phone TALON EMILIANA Attending Unavailable NEELAM LEVI Primary Unavailable Immunization Immunization Date Status Additional Notes Code Code System pneumococcal polysaccharide PPV23 10/31/2012 Completed 33 CVX Influenza, split virus, trivalent, preservative 08/05/2016 Completed 141 CVX Results SHOULDER MIN 2V LEFT - Compl eted: 10/19/2024 14:04 LOINC: EXAM DESCRIPTION: ? ? SHOULDER MIN 2V LEFT REASON FOR STUDY: Follow up left shoulder. [place] a pop in left shoulder when lifting [...] Reinaldo Frost M.D. MF: BILL Report ID: [id number] Reading Location: [id number] Social History Type Status Start Date End Date Code Code Syst em Smoking History Former smoker 1310342 SNOMED CT Sex Male Medications Medication Start Date End Date Route Frequency Dose Code Code System Medication Instructions Home Meds Atorvastatin Calcium 20MG Oral Tablet 08/11/2023 Unknown ORAL ONCE A DAY 20 MILLIGRAMS 241414 RxNorm TAKE 20 MILLIGRAMS ORAL ONCE A DAY Azelastine HCl 205.5MCG/1Act Nasal [place] 08/11/2023 Unknown NASAL ONCE A DAY 1 unit(s) 1644606 RxNorm 1 EACH NASAL ONCE A DAY Calcium Carbonate 500MG Oral Tablet 08/11/2023 Unknown ORAL ONCE A DAY 500 MILLIGRAMS RxNorm TAKE 500 MILLIGRAMS ORAL ONCE A DAY Finasteride 5MG Oral Tablet 08/11/2023 Unknown ORAL ONCE A DAY 5 MILLIGRAMS 613525 RxNorm TAKE 5 MILLIGRAMS ORAL ONCE A DAY Flomax 0.4MG Oral Capsule 08/11/2023 Unknown ORAL ONCE A DAY 0.4 MILLIGRAMS 307950 RxNorm TAKE 0.4 MILLIGRAMS ORAL ONCE A DAY Gabapentin 100MG Oral Capsule 08/11/2023 Unknown ORAL THREE TIMES A DAY 100 MILLIGRAMS 831883 RxNorm TAKE 100 MILLIGRAMS ORAL THREE TIMES A DAY HYDROcodone bitartrate-ac etaminophen 7.5MG-325MG Oral Tablet 08/11/2023 Unknown ORAL TWICE A DAY 1 unit(s) 862082 RxNorm TAKE 1 EACH ORAL TWICE A DAY Ipratropium [place]-Albut indu Sulfate 0.5MG/3ML-3MG /3ML Inhalation Solution 08/11/2023 Unknown INHALATIO N THREE TIMES A DAY 1 unit(s) 5755743 RxNorm 1 EACH INHALATION THREE TIMES A DAY Iron 325MG Oral Tablet 08/11/2023 Unknown ORAL ONCE A DAY 325 MILLIGRAMS 261499 RxNorm TAKE 325 MILLIGRAMS ORAL ONCE A DAY Loratadine 10MG Oral Tablet 08/11/2023 Unknown ORAL ONCE A DAY 10 MILLIGRAMS 059170 RxNorm TAKE 10 MILLIGRAMS ORAL ONCE A DAY Metoprolol Succinate 25MG Oral Tablet, Extended Release 08/11/2023 Unknown ORAL TWICE A DAY 25 MILLIGRAMS 139248 RxNorm TAKE 25 MILLIGRAMS ORAL TWICE A DAY Montelukast Sodium 10MG Oral Tablet 08/11/2023 Unknown ORAL ONCE A DAY 10 MILLIGRAMS 545463 RxNorm TAKE 10 MILLIGRAMS ORAL ONCE A DAY Mupirocin 2% Topical application Cream 08/11/2023 Unknown TOPICAL APPLICATI ON TWICE A DAY 1 unit(s) 624165 RxNorm 1 EACH TOPICAL APPLICATION TWICE A DAY Nystatin/Tria mcinolone Acetonide 077660R-0PJ/1 GM Topical application Ointment 08/11/2023 Unknown TOPICAL APPLICATI ON ONCE A DAY 1 unit(s) 0019527 RxNorm 1 EACH TOPICAL APPLICATION ONCE A DAY Potassium Chloride 10MEQ Oral Capsule, Extended Release 08/11/2023 Unknown ORAL ONCE A DAY 10 MEQ 022586 RxNorm TAKE 10 MEQ ORAL ONCE A DAY RABEprazole Sodium 20MG Oral Tablet, Enteric Coated 08/11/2023 Unknown ORAL ONCE A DAY 20 MILLIGRAMS 101833 RxNorm TAKE 20 MILLIGRAMS ORAL ONCE A DAY Spiriva Respimat 1.25MCG/1ACT Inhalation [place] 08/11/2023 Unknown INHALATIO N 1 unit(s) 1090435 RxNorm 1 EACH INHALATION Symbicort 160/4.5 160MCG-4.5MCG /1 Actu Inhalation Aerosol Liquid 08/11/2023 Unknown INHALATIO N TWICE A DAY 1 unit(s) 1602172 RxNorm 1 EACH INHALATION TWICE A DAY Ras-24 400MG Oral Capsule, Extended Release, 24 HR 08/11/2023 Unknown ORAL ONCE A DAY 400 MILLIGRAMS 977417 RxNorm TAKE 400 MILLIGRAMS ORAL ONCE A DAY Torsemide 20MG Oral Tablet 08/11/2023 Unknown ORAL ONCE A DAY 20 MILLIGRAMS 332344 RxNorm TAKE 20 MILLIGRAMS ORAL ONCE A DAY Ventolin HFA 0.09MG/1Actua tion Inhalation Suspension 08/11/2023 Unknown INHALATIO N ONCE A DAY 1 unit(s) 175064 RxNorm 1 EACH INHALATION ONCE A DAY busPIRone HCl 7.5MG Oral Tablet 08/11/2023 Unknown ORAL THREE TIMES A DAY 7.5 MILLIGRAMS 343472 RxNorm TAKE 7.5 MILLIGRAMS ORAL THREE TIMES [...] Status Co de Code System VANCOMYCIN Active 02561 RxNorm LEVOFLOXACIN Active 97259 RxNorm BACTRIM Active 533724 RxNorm PENICILLIN Active Plan of Treatment I&D Abscess 08/11/2023 Encounters Encounter Diagnosis Start Date Code Code Sys tem Primary osteoarthritis, right shoulder 10/19/2024 SNOMED-CT Personal Care Team Section Performer Name Performer Role Active Date Inactive Pascual Henderson PCP - Primary care physician Imaging Narrative Notes
--- OUTSIDE RECORDS SUMMARY | 2025-05-17 14:13 | XMS_ITS ---
Author Organization Unknown Address [address] [place] [address] [phone] Phone Care Team Providers Care Electronic Gaming Device Supervisor Name Role Phone TALON SCRUGGSEN Attending Unavailable NEELAM LEVI Primary Unavailable Immunization Immunization Date Status Additional Notes Code Code System pneumococcal polysaccharide PPV23 10/31/2012 Completed 33 CVX Influenza, split virus, trivalent, preservative 08/05/2016 Completed 141 CVX Social History Type Status Start Date End Date Code Code Syst em Smoking History Former smoker 9498016 SNOMED CT Sex Male Medications Medication Start Date End Date Route Frequency Dose Code Code System Medication Instructions Home Meds Atorvastatin Calcium 20MG Oral Tablet 08/11/2023 Unknown ORAL ONCE A DAY 20 MILLIGRAMS 438260 RxNorm TAKE 20 MILLIGRAMS ORAL ONCE A DAY Azelastine HCl 205.5MCG/1Act Nasal [place] 08/11/2023 Unknown NASAL ONCE A DAY 1 unit(s) 5139461 RxNorm 1 EACH NASAL ONCE A DAY Calcium Carbonate 500MG Oral Tablet 08/11/2023 Unknown ORAL ONCE A DAY 500 MILLIGRAMS RxNorm TAKE 500 MILLIGRAMS ORAL ONCE A DAY Finasteride 5MG Oral Tablet 08/11/2023 Unknown ORAL ONCE A DAY 5 MILLIGRAMS 735973 RxNorm TAKE 5 MILLIGRAMS ORAL ONCE A DAY Flomax 0.4MG Oral Capsule 08/11/2023 Unknown ORAL ONCE A DAY 0.4 MILLIGRAMS 931277 RxNorm TAKE 0.4 MILLIGRAMS ORAL ONCE A DAY Gabapentin 100MG Oral Capsule 08/11/2023 Unknown ORAL THREE TIMES A DAY 100 MILLIGRAMS 537299 RxNorm TAKE 100 MILLIGRAMS ORAL THREE TIMES A DAY HYDROcodone bitartrate-ac etaminophen 7.5MG-325MG Oral Tablet 08/11/2023 Unknown ORAL TWICE A DAY 1 unit(s) 596909 RxNorm TAKE 1 EACH ORAL TWICE A DAY Ipratropium [place]-Albut indu Sulfate 0.5MG/3ML-3MG /3ML Inhalation Solution 08/11/2023 Unknown INHALATIO N THREE TIMES A DAY 1 unit(s) 4141758 RxNorm 1 EACH INHALATION THREE TIMES A DAY Iron 325MG Oral Tablet 08/11/2023 Unknown ORAL ONCE A DAY 325 MILLIGRAMS 478101 RxNorm TAKE 325 MILLIGRAMS ORAL ONCE A DAY Loratadine 10MG Oral Tablet 08/11/2023 Unknown ORAL ONCE A DAY 10 MILLIGRAMS 547528 RxNorm TAKE 10 MILLIGRAMS ORAL ONCE A DAY Metoprolol Succinate 25MG Oral Tablet, Extended Release 08/11/2023 Unknown ORAL TWICE A DAY 25 MILLIGRAMS 642276 RxNorm TAKE 25 MILLIGRAMS ORAL TWICE A DAY Montelukast Sodium 10MG Oral Tablet 08/11/2023 Unknown ORAL ONCE A DAY 10 MILLIGRAMS 093560 RxNorm TAKE 10 MILLIGRAMS ORAL ONCE A DAY Mupirocin 2% Topical application Cream 08/11/2023 Unknown TOPICAL APPLICATI ON TWICE A DAY 1 unit(s) 385969 RxNorm 1 EACH TOPICAL APPLICATION TWICE A DAY Nystatin/Tria mcinolone Acetonide 491571I-6ZH/1 GM Topical application Ointment 08/11/2023 Unknown TOPICAL APPLICATI ON ONCE A DAY 1 unit(s) 3567955 RxNorm 1 EACH TOPICAL APPLICATION ONCE A DAY Potassium Chloride 10MEQ Oral Capsule, Extended Release 08/11/2023 Unknown ORAL ONCE A DAY 10 MEQ 195348 RxNorm TAKE 10 MEQ ORAL ONCE A DAY RABEprazole Sodium 20MG Oral Tablet, Enteric Coated 08/11/2023 Unknown ORAL ONCE A DAY 20 MILLIGRAMS 849117 RxNorm TAKE 20 MILLIGRAMS ORAL ONCE A DAY Spiriva Respimat 1.25MCG/1ACT Inhalation [place] 08/11/2023 Unknown INHALATIO N 1 unit(s) 7136451 RxNorm 1 EACH INHALATION Symbicort 160/4.5 160MCG-4.5MCG /1 Actu Inhalation Aerosol Liquid 08/11/2023 Unknown INHALATIO N TWICE A DAY 1 unit(s) 2364463 RxNorm 1 EACH INHALATION TWICE A DAY Ras-24 400MG Oral Capsule, Extended Release, 24 HR 08/11/2023 Unknown ORAL ONCE A DAY 400 MILLIGRAMS 128263 RxNorm TAKE 400 MILLIGRAMS ORAL ONCE A DAY Torsemide 20MG Oral Tablet 08/11/2023 Unknown ORAL ONCE A DAY 20 MILLIGRAMS 188865 RxNorm TAKE 20 MILLIGRAMS ORAL ONCE A DAY Ventolin HFA 0.09MG/1Actua tion Inhalation Suspension 08/11/2023 Unknown INHALATIO N ONCE A DAY 1 unit(s) 241467 RxNorm 1 EACH INHALATION ONCE A DAY busPIRone HCl 7.5MG Oral Tablet 08/11/2023 Unknown ORAL THREE TIMES A DAY 7.5 MILLIGRAMS 069781 RxNorm TAKE 7.5 MILLIGRAMS ORAL THREE TIMES [...] Status Co de Code System VANCOMYCIN Active 78844 RxNorm LEVOFLOXACIN Active 47055 RxNorm BACTRIM Active 594048 RxNorm PENICILLIN Active Plan of Treatment I&D Abscess 08/11/2023 Encounters Encounter Diagnosis Start Date Code Code Sys tem Fracture of unspecified part of scapula, left shoulder, subsequent encounter for fracture with routine healing 09/07/2024 SNOMED-CT Personal Care Team Section Performer Name Performer Role Active Date Inactive Pascual Henderson PCP - Primary care physician
--- OUTSIDE RECORDS SUMMARY | 2025-05-17 14:14 | XMS_ITS ---
Author Organization Unknown Address [address] [place] [address] [phone] Phone Care Team Providers Care Floor Coverer Name Role Phone NEELAM LEVI Attending Unavailable [...] Servando Barrosol M.D. MILANA: MILANA Report ID: [id number] Reading Location: [id number] SHOULDER MIN 2V RIGHT - Comp leted: [...] signed by Servando CORTÉS: MILANA Report ID: [id number] Reading Location: [id number] Social History Type Status Start Date End Date Code Code Syst em Smoking History Former smoker 4314954 SNOMED CT Sex Male Medications Medication Start Date End Date Route Frequency Dose Code Code System Medication Instructions Home Meds Atorvastatin Calcium 20MG Oral Tablet 08/11/2023 Unknown ORAL ONCE A DAY 20 MILLIGRAMS 088490 RxNorm TAKE 20 MILLIGRAMS ORAL ONCE A DAY Azelastine HCl 205.5MCG/1Act Nasal [place] 08/11/2023 Unknown NASAL ONCE A DAY 1 unit(s) 4878870 RxNorm 1 EACH NASAL ONCE A DAY Calcium Carbonate 500MG Oral Tablet 08/11/2023 Unknown ORAL ONCE A DAY 500 MILLIGRAMS RxNorm TAKE 500 MILLIGRAMS ORAL ONCE A DAY Finasteride 5MG Oral Tablet 08/11/2023 Unknown ORAL ONCE A DAY 5 MILLIGRAMS 969073 RxNorm TAKE 5 MILLIGRAMS ORAL ONCE A DAY Flomax 0.4MG Oral Capsule 08/11/2023 Unknown ORAL ONCE A DAY 0.4 MILLIGRAMS 800519 RxNorm TAKE 0.4 MILLIGRAMS ORAL ONCE A DAY Gabapentin 100MG Oral Capsule 08/11/2023 Unknown ORAL THREE TIMES A DAY 100 MILLIGRAMS 279888 RxNorm TAKE 100 MILLIGRAMS ORAL THREE TIMES A DAY HYDROcodone bitartrate-ac etaminophen 7.5MG-325MG Oral Tablet 08/11/2023 Unknown ORAL TWICE A DAY 1 unit(s) 886252 RxNorm TAKE 1 EACH ORAL TWICE A DAY Ipratropium [place]-Albut indu Sulfate 0.5MG/3ML-3MG /3ML Inhalation Solution 08/11/2023 Unknown INHALATIO N THREE TIMES A DAY 1 unit(s) 4881945 RxNorm 1 EACH INHALATION THREE TIMES A DAY Iron 325MG Oral Tablet 08/11/2023 Unknown ORAL ONCE A DAY 325 MILLIGRAMS 803674 RxNorm TAKE 325 MILLIGRAMS ORAL ONCE A DAY Loratadine 10MG Oral Tablet 08/11/2023 Unknown ORAL ONCE A DAY 10 MILLIGRAMS 260483 RxNorm TAKE 10 MILLIGRAMS ORAL ONCE A DAY Metoprolol Succinate 25MG Oral Tablet, Extended Release 08/11/2023 Unknown ORAL TWICE A DAY 25 MILLIGRAMS 187974 RxNorm TAKE 25 MILLIGRAMS ORAL TWICE A DAY Montelukast Sodium 10MG Oral Tablet 08/11/2023 Unknown ORAL ONCE A DAY 10 MILLIGRAMS 734697 RxNorm TAKE 10 MILLIGRAMS ORAL ONCE A DAY Mupirocin 2% Topical application Cream 08/11/2023 Unknown TOPICAL APPLICATI ON TWICE A DAY 1 unit(s) 206421 RxNorm 1 EACH TOPICAL APPLICATION TWICE A DAY Nystatin/Tria mcinolone Acetonide 666777Q-0VZ/1 GM Topical application Ointment 08/11/2023 Unknown TOPICAL APPLICATI ON ONCE A DAY 1 unit(s) 3560694 RxNorm 1 EACH TOPICAL APPLICATION ONCE A DAY Potassium Chloride 10MEQ Oral Capsule, Extended Release 08/11/2023 Unknown ORAL ONCE A DAY 10 MEQ 638192 RxNorm TAKE 10 MEQ ORAL ONCE A DAY RABEprazole Sodium 20MG Oral Tablet, Enteric Coated 08/11/2023 Unknown ORAL ONCE A DAY 20 MILLIGRAMS 908581 RxNorm TAKE 20 MILLIGRAMS ORAL ONCE A DAY Spiriva Respimat 1.25MCG/1ACT Inhalation [place] 08/11/2023 Unknown INHALATIO N 1 unit(s) 8071281 RxNorm 1 EACH INHALATION Symbicort 160/4.5 160MCG-4.5MCG /1 Actu Inhalation Aerosol Liquid 08/11/2023 Unknown INHALATIO N TWICE A DAY 1 unit(s) 0706518 RxNorm 1 EACH INHALATION TWICE A DAY Ras-24 400MG Oral Capsule, Extended Release, 24 HR 08/11/2023 Unknown ORAL ONCE A DAY 400 MILLIGRAMS 451345 RxNorm TAKE 400 MILLIGRAMS ORAL ONCE A DAY Torsemide 20MG Oral Tablet 08/11/2023 Unknown ORAL ONCE A DAY 20 MILLIGRAMS 914659 RxNorm TAKE 20 MILLIGRAMS ORAL ONCE A DAY Ventolin HFA 0.09MG/1Actua tion Inhalation Suspension 08/11/2023 Unknown INHALATIO N ONCE A DAY 1 unit(s) 179577 RxNorm 1 EACH INHALATION ONCE A DAY busPIRone HCl 7.5MG Oral Tablet 08/11/2023 Unknown ORAL THREE TIMES A DAY 7.5 MILLIGRAMS 731915 RxNorm TAKE 7.5 MILLIGRAMS ORAL THREE TIMES [...] Status Co de Code System VANCOMYCIN Active 90130 RxNorm LEVOFLOXACIN Active 67182 RxNorm BACTRIM Active 032756 RxNorm PENICILLIN Active Plan of Treatment I&D Abscess 08/11/2023 Encounters Encounter Diagnosis Start Date Code Code Sys tem 01/25/2024 [id number] SNOMED-CT Personal Care Team Section Performer Name Performer Role Active Date Inactive Pascual Henderson PCP - Primary care physician Imaging Narrative Notes
--- OUTSIDE RECORDS SUMMARY | 2025-05-17 14:14 | XMS_ITS ---
Author Organization Unknown Address [address] [place] [address] [phone] Phone Care Team Providers Care Poultry Grader Name Role Phone TALON SCRUGGSEN Attending Unavailable NEELAM LEVI Primary Unavailable Immunization Immunization Date Status Additional Notes Code Code System pneumococcal polysaccharide PPV23 10/31/2012 Completed 33 CVX Influenza, split virus, trivalent, preservative 08/05/2016 Completed 141 CVX Social History Type Status Start Date End Date Code Code Syst em Smoking History Former smoker 7807809 SNOMED CT Sex Male Medications Medication Start Date End Date Route Frequency Dose Code Code System Medication Instructions Home Meds Atorvastatin Calcium 20MG Oral Tablet 08/11/2023 Unknown ORAL ONCE A DAY 20 MILLIGRAMS 596385 RxNorm TAKE 20 MILLIGRAMS ORAL ONCE A DAY Azelastine HCl 205.5MCG/1Act Nasal [place] 08/11/2023 Unknown NASAL ONCE A DAY 1 unit(s) 2972976 RxNorm 1 EACH NASAL ONCE A DAY Calcium Carbonate 500MG Oral Tablet 08/11/2023 Unknown ORAL ONCE A DAY 500 MILLIGRAMS RxNorm TAKE 500 MILLIGRAMS ORAL ONCE A DAY Finasteride 5MG Oral Tablet 08/11/2023 Unknown ORAL ONCE A DAY 5 MILLIGRAMS 803970 RxNorm TAKE 5 MILLIGRAMS ORAL ONCE A DAY Flomax 0.4MG Oral Capsule 08/11/2023 Unknown ORAL ONCE A DAY 0.4 MILLIGRAMS 256611 RxNorm TAKE 0.4 MILLIGRAMS ORAL ONCE A DAY Gabapentin 100MG Oral Capsule 08/11/2023 Unknown ORAL THREE TIMES A DAY 100 MILLIGRAMS 611187 RxNorm TAKE 100 MILLIGRAMS ORAL THREE TIMES A DAY HYDROcodone bitartrate-ac etaminophen 7.5MG-325MG Oral Tablet 08/11/2023 Unknown ORAL TWICE A DAY 1 unit(s) 732047 RxNorm TAKE 1 EACH ORAL TWICE A DAY Ipratropium [place]-Albut indu Sulfate 0.5MG/3ML-3MG /3ML Inhalation Solution 08/11/2023 Unknown INHALATIO N THREE TIMES A DAY 1 unit(s) 2211245 RxNorm 1 EACH INHALATION THREE TIMES A DAY Iron 325MG Oral Tablet 08/11/2023 Unknown ORAL ONCE A DAY 325 MILLIGRAMS 788704 RxNorm TAKE 325 MILLIGRAMS ORAL ONCE A DAY Loratadine 10MG Oral Tablet 08/11/2023 Unknown ORAL ONCE A DAY 10 MILLIGRAMS 301442 RxNorm TAKE 10 MILLIGRAMS ORAL ONCE A DAY Metoprolol Succinate 25MG Oral Tablet, Extended Release 08/11/2023 Unknown ORAL TWICE A DAY 25 MILLIGRAMS 165319 RxNorm TAKE 25 MILLIGRAMS ORAL TWICE A DAY Montelukast Sodium 10MG Oral Tablet 08/11/2023 Unknown ORAL ONCE A DAY 10 MILLIGRAMS 879675 RxNorm TAKE 10 MILLIGRAMS ORAL ONCE A DAY Mupirocin 2% Topical application Cream 08/11/2023 Unknown TOPICAL APPLICATI ON TWICE A DAY 1 unit(s) 394351 RxNorm 1 EACH TOPICAL APPLICATION TWICE A DAY Nystatin/Tria mcinolone Acetonide 029663R-6MU/1 GM Topical application Ointment 08/11/2023 Unknown TOPICAL APPLICATI ON ONCE A DAY 1 unit(s) 3323693 RxNorm 1 EACH TOPICAL APPLICATION ONCE A DAY Potassium Chloride 10MEQ Oral Capsule, Extended Release 08/11/2023 Unknown ORAL ONCE A DAY 10 MEQ 231829 RxNorm TAKE 10 MEQ ORAL ONCE A DAY RABEprazole Sodium 20MG Oral Tablet, Enteric Coated 08/11/2023 Unknown ORAL ONCE A DAY 20 MILLIGRAMS 975746 RxNorm TAKE 20 MILLIGRAMS ORAL ONCE A DAY Spiriva Respimat 1.25MCG/1ACT Inhalation [place] 08/11/2023 Unknown INHALATIO N 1 unit(s) 0560238 RxNorm 1 EACH INHALATION Symbicort 160/4.5 160MCG-4.5MCG /1 Actu Inhalation Aerosol Liquid 08/11/2023 Unknown INHALATIO N TWICE A DAY 1 unit(s) 4966395 RxNorm 1 EACH INHALATION TWICE A DAY Ras-24 400MG Oral Capsule, Extended Release, 24 HR 08/11/2023 Unknown ORAL ONCE A DAY 400 MILLIGRAMS 992514 RxNorm TAKE 400 MILLIGRAMS ORAL ONCE A DAY Torsemide 20MG Oral Tablet 08/11/2023 Unknown ORAL ONCE A DAY 20 MILLIGRAMS 977257 RxNorm TAKE 20 MILLIGRAMS ORAL ONCE A DAY Ventolin HFA 0.09MG/1Actua tion Inhalation Suspension 08/11/2023 Unknown INHALATIO N ONCE A DAY 1 unit(s) 000237 RxNorm 1 EACH INHALATION ONCE A DAY busPIRone HCl 7.5MG Oral Tablet 08/11/2023 Unknown ORAL THREE TIMES A DAY 7.5 MILLIGRAMS 016191 RxNorm TAKE 7.5 MILLIGRAMS ORAL THREE TIMES [...] Status Co de Code System VANCOMYCIN Active 95024 RxNorm LEVOFLOXACIN Active 16081 RxNorm BACTRIM Active 158218 RxNorm PENICILLIN Active Plan of Treatment I&D Abscess 08/11/2023 Encounters Encounter Diagnosis Start Date Code Code Sys tem Primary osteoarthritis, right shoulder 01/18/2025 SNOMED-CT Personal Care Team Section Performer Name Performer Role Active Date Inactive Pascual Henderson PCP - Primary care physician
--- OUTSIDE RECORDS SUMMARY | 2025-05-17 14:14 | XMS_ITS | Encounter Summary ---
Author Organization [facility] Address formerly [facility] [place] [address] Care Team Providers Care Wardrobe Attendant Name Role Phone Caleb Feng MD Primary Care Provider [phone] Robbin Arteaga MD Unavailable [phone] Gabriel Fulton MD Primary Care Provider [phone] None, Provider Primary Care Provider Unavaila Ruthie Ly NP Primary Care Provider + [phone] Prerna William MD Primary Care Provider + [phone] Arian Guzman MD Unavailable [phone] Lianne SCHULTZ MD, Courtney Unavailable [phone] Encounter Details Date Type Department Care Team (Late st Contact Info) Description 09/18/2015 Abstract [facility] [address] [place] [address] Robbin Arteaga MD [address] [place] [address] Social History Tobacco Use Types [...] Sex Assigned at Male 11/15/2024 12:31 PM MANAGER CRISIS Legal Sex Male 10:09 PM CDT Gender [...] Rule Out 11/12/2020 11/12/2020 11/14/2020 8:01 AM MANAGER CRISIS COVID-19 Rule Out 04/19/2022 04/19/2022 04/19/2022 3:19 PM CDT COVID-19 Rule Out 05/15/2022 05/15/2022 05/15/2022 5:56 PM CDT COVID-19 Rule Out 04/25/2024 04/25/2024 04/25/2024 11:23 AM CDT COVID-19 Rule Out 09/18/2024 09/18/2024 09/18/2024 10:54 AM MANAGER CRISIS documented as of this encounter Care Teams Wardrobe Attendant Relationship Specialty Start Date End Date Caleb Feng MD [address] [place] [address] PCP - General INTERNAL MEDICINE 07/07/16 12/08/17 Gabriel Fulton MD [address] [place] [id number] PCP - General FAMILY PRACTICE 12/09/17 04/25/19 Harish Norris MD PCP - General 06/03/20 09/09/20 Ruthie Etienne NP PCP - General Nurse Practitioner Family 09/10/20 04/25/24 [place] [address] [place] [address] PCP - General INTERNAL MEDICINE 04/26/24 Robbin Arteaga MD [address] [place] [address] [employer] CARDIOVASCULAR DISEASE 07/07/16 Arian Guzman MD [address] [address] DERMATOLOGY 11/28/24 11/28/25 Malgorzata Abdalla III, MD [address] [place] [address] Consulting Physician UROLOGY 01/31/25 01/31/26 documented as of this encounter
--- OUTSIDE RECORDS SUMMARY | 2025-05-17 14:14 | XMS_ITS ---
Author Organization Unknown Address [address] [place] [phone] Phone Care Team Providers Care Customer Service Representative Teacher Name Role Phone TALON SCRUGGSEN Attending Unavailable [...] Reinaldo Frost M.D. MF: BILL Report ID: [id number] Reading Location: [id number] SHOULDER MIN 2V LEFT - Compl eted: [...] Reinaldo Frost M.D. MF: BILL Report ID: [id number] Reading Location: [id number] Social History Type Status Start Date End Date Code Code Syst em Smoking History Former smoker 5325071 SNOMED CT Sex Male Medications Medication Start Date End Date Route Frequency Dose Code Code System Medication Instructions Home Meds Atorvastatin Calcium 20MG Oral Tablet 08/11/2023 Unknown ORAL ONCE A DAY 20 MILLIGRAMS 111807 RxNorm TAKE 20 MILLIGRAMS ORAL ONCE A DAY Azelastine HCl 205.5MCG/1Act Nasal [place] 08/11/2023 Unknown NASAL ONCE A DAY 1 unit(s) 0577500 RxNorm 1 EACH NASAL ONCE A DAY Calcium Carbonate 500MG Oral Tablet 08/11/2023 Unknown ORAL ONCE A DAY 500 MILLIGRAMS RxNorm TAKE 500 MILLIGRAMS ORAL ONCE A DAY Finasteride 5MG Oral Tablet 08/11/2023 Unknown ORAL ONCE A DAY 5 MILLIGRAMS 811463 RxNorm TAKE 5 MILLIGRAMS ORAL ONCE A DAY Flomax 0.4MG Oral Capsule 08/11/2023 Unknown ORAL ONCE A DAY 0.4 MILLIGRAMS 850606 RxNorm TAKE 0.4 MILLIGRAMS ORAL ONCE A DAY Gabapentin 100MG Oral Capsule 08/11/2023 Unknown ORAL THREE TIMES A DAY 100 MILLIGRAMS 719388 RxNorm TAKE 100 MILLIGRAMS ORAL THREE TIMES A DAY HYDROcodone bitartrate-ac etaminophen 7.5MG-325MG Oral Tablet 08/11/2023 Unknown ORAL TWICE A DAY 1 unit(s) 292241 RxNorm TAKE 1 EACH ORAL TWICE A DAY Ipratropium [place]-Albut indu Sulfate 0.5MG/3ML-3MG /3ML Inhalation Solution 08/11/2023 Unknown INHALATIO N THREE TIMES A DAY 1 unit(s) 4500146 RxNorm 1 EACH INHALATION THREE TIMES A DAY Iron 325MG Oral Tablet 08/11/2023 Unknown ORAL ONCE A DAY 325 MILLIGRAMS 217343 RxNorm TAKE 325 MILLIGRAMS ORAL ONCE A DAY Loratadine 10MG Oral Tablet 08/11/2023 Unknown ORAL ONCE A DAY 10 MILLIGRAMS 897298 RxNorm TAKE 10 MILLIGRAMS ORAL ONCE A DAY Metoprolol Succinate 25MG Oral Tablet, Extended Release 08/11/2023 Unknown ORAL TWICE A DAY 25 MILLIGRAMS 114442 RxNorm TAKE 25 MILLIGRAMS ORAL TWICE A DAY Montelukast Sodium 10MG Oral Tablet 08/11/2023 Unknown ORAL ONCE A DAY 10 MILLIGRAMS 924595 RxNorm TAKE 10 MILLIGRAMS ORAL ONCE A DAY Mupirocin 2% Topical application Cream 08/11/2023 Unknown TOPICAL APPLICATI ON TWICE A DAY 1 unit(s) 217061 RxNorm 1 EACH TOPICAL APPLICATION TWICE A DAY Nystatin/Tria mcinolone Acetonide 858254R-4FG/1 GM Topical application Ointment 08/11/2023 Unknown TOPICAL APPLICATI ON ONCE A DAY 1 unit(s) 9270136 RxNorm 1 EACH TOPICAL APPLICATION ONCE A DAY Potassium Chloride 10MEQ Oral Capsule, Extended Release 08/11/2023 Unknown ORAL ONCE A DAY 10 MEQ 828856 RxNorm TAKE 10 MEQ ORAL ONCE A DAY RABEprazole Sodium 20MG Oral Tablet, Enteric Coated 08/11/2023 Unknown ORAL ONCE A DAY 20 MILLIGRAMS 360317 RxNorm TAKE 20 MILLIGRAMS ORAL ONCE A DAY Spiriva Respimat 1.25MCG/1ACT Inhalation [place] 08/11/2023 Unknown INHALATIO N 1 unit(s) 1036434 RxNorm 1 EACH INHALATION Symbicort 160/4.5 160MCG-4.5MCG /1 Actu Inhalation Aerosol Liquid 08/11/2023 Unknown INHALATIO N TWICE A DAY 1 unit(s) 6946526 RxNorm 1 EACH INHALATION TWICE A DAY Ras-24 400MG Oral Capsule, Extended Release, 24 HR 08/11/2023 Unknown ORAL ONCE A DAY 400 MILLIGRAMS 680786 RxNorm TAKE 400 MILLIGRAMS ORAL ONCE A DAY Torsemide 20MG Oral Tablet 08/11/2023 Unknown ORAL ONCE A DAY 20 MILLIGRAMS 586593 RxNorm TAKE 20 MILLIGRAMS ORAL ONCE A DAY Ventolin HFA 0.09MG/1Actua tion Inhalation Suspension 08/11/2023 Unknown INHALATIO N ONCE A DAY 1 unit(s) 083209 RxNorm 1 EACH INHALATION ONCE A DAY busPIRone HCl 7.5MG Oral Tablet 08/11/2023 Unknown ORAL THREE TIMES A DAY 7.5 MILLIGRAMS 522990 RxNorm TAKE 7.5 MILLIGRAMS ORAL THREE TIMES [...] Status Co de Code System VANCOMYCIN Active 95231 RxNorm LEVOFLOXACIN Active 19054 RxNorm BACTRIM Active 050666 RxNorm PENICILLIN Active Plan of Treatment I&D Abscess 08/11/2023 Encounters Encounter Diagnosis Start Date Code Code Sys tem Fracture of unspecified part of scapula, left shoulder, subsequent encounter for fracture with routine healing 09/21/2024 SNOMED-CT Personal Care Team Section Performer Name Performer Role Active Date Inactive Pascual Henderson PCP - Primary care physician Imaging Narrative Notes
== END 2025-05-17 15:05 | disposition home or self-care (01) ==
PROVIDERS: Emergency Provider Emergency Medicine; PCP Internal Medicine
DX: T83.018A Breakdown (mechanical) of other urinary catheter, initial encounter (principal); J44.9 Chronic obstructive pulmonary disease, unspecified; I10 Essential (primary) hypertension
CPT/HCPCS: 99282